=== PATIENT | female | born 1975 | race Caucasian/White ===

== ENCOUNTER → 2016-06-01 | Outpatient (CLI) | payer MEDICAID ==
[~2016-06-01] MED LIST: ALBUTEROL-200 PUFFS/ IH; AMOXICILLIN 50500 MG PO; AMOXICILLIN AND1 TA2 PO; AMOXICOT500 MG PO; BACTRIM 400 MG-1 TAB PO; BACTRIM DS 8001 TA1 PO; BACTROBAN2% TP; BROMPHENIRAMIN118 M1 PO; BUFEN200 MG PO; BUPROPION HCL300 MG PO; CHANTIX1 M1 PO; CHANTIX1 TAB PO; CIPRO 500MG TA500 MG PO; CITALOPRAM HYDR10 MG PO; DICLOFENAC 50MG50 MG PO; FLONASE 50 MCG16 GM; IBUPROHM200 MG PO; KEFLEX 500MG.500 MG PO; KEFLEX500 M1 PO; KEFLEX500 MG PO; MELATONIN1 MG; MONTELUKAST SOD10 MG PO; PANTOPRAZOLE SO40 M1 PO; ROBAXIN500 M1 PO; SEPTRA DS 800 M1 TAB PO; SKELAXIN800 MG PO; TESSALON PERLE100 MG PO; TRAMADOL 50MG T50 MG PO; ULTRAM50 MG PO; VICODIN 5/500 T1 TAB PO; VOLTAREN75 MG PO; XANAX 0.5MG TA0.5 MG PO; ZITHROMAX Z PA250 MG PO; ZOFRAN4 MG PO
[2016-06-01 19:25] LABS: BUN 5 mg/dL (7-18)
[2016-06-01 19:28] LABS: GFR (ESTIMATED) 79 ML/MIN (59-)
[2016-06-03 08:43] LABS: FSH 7.5 mIU/mL (.); LH 13.4 mIU/mL (.)
== END ==
LOC: LAB 15:49
PROVIDERS: Nurse Practitioner Family
DX: R23.2 Flushing (principal)

== ENCOUNTER 2016-06-17 20:45 | Emergency (ER) | payer MEDICAID ==
[~2016-06-17] VITALS: Ht 177.8 cm; Wt 104.8 kg
[2016-06-17] MEDS ORDERED: FLONASE 50 MCG16 GM (20:54)
[2016-06-17] MEDS ORDERED: PANTOPRAZOLE SO40 M1 PO (20:54)
--- OUTSIDE RECORDS SUMMARY | 2016-06-17 20:54 | External Medical Summary Rpt ---
Author Author , Organization [employer] Address Unknown Phone Unavailable Care Team Providers Care Miller Supervisor Name Role Phone BEINEKE SAURABH, KAROL Unavailable Unavailable SAURABH BEDOYA TER, BEDOYA TER Unavailable Unavailable BESSON, BESSON Unavailable Unavailable BESSON SOPHIE, BESSON Unavailable Unavailable SOPHIE BESSON SOPHIE, BESSON Unavailable Unavailable SOPHIE MOORE, MOORE Unavailable Unavailable MOORE ALL, MOORE ALL Unavailable Unavailable JAMIA MARIETTA, JAMIA Unavailable Unavailable MARIETTA [facility] Unavailable Unavailable [facility], [facility] Unavailable Unavailable [facility], [facility] NEGIN SOMMERS, Unavailable Unavailable NEGIN SOMMERS ALEXSANDRA JR, ALEXSANDRA JR Unavailable Unavailable NAA GIO, Unavailable Unavailable NAA GIO NAA GIO, Unavailable Unavailable NAA GIO ADITI SEPIDEH, ADITI Unavailable Unavailable SEPIDEH CANELA, CANELA Unavailable Unavailable [facility] Unavailable Unavailable SPECIAL, [facility] [place] [place] FALLIS IVONNE, FALLIS Unavailable Unavailable IVONNE FEEBACK REE, FEEBACK Unavailable Unavailable REE ANGELICA ANNE MARIE, Unavailable Unavailable ANGELICA ANNE MARIE AYAD, LION Unavailable Unavailable JR ANAYA FULLER, Unavailable Unavailable JR LYRIC SEPIDEH, LYRIC Unavailable Unavailable SEPIDEH [facility] CARYL JAM, CARYL Unavailable Unavailable JAM CARYL JAM, CARYL Unavailable Unavailable JAM [facility] Unavailable Unavailable INC, [facility] Unavailable Unavailable [facility], [facility] Unavailable Unavailable HOSPITAL P, [facility], [facility]available Unavailable [facility], Unavailable Unavailable [facility] OXANA POLANCO Unavailable Unavailable [facility], [facility] JORDAN, JORDAN Unavailable Unavailable JORDAN KADEN, JORDAN Unavailable Unavailable KADEN JORDAN KAEDN, JORDAN Unavailable Unavailable KADEN WIN [facility], Unavailable Unavailable [facility] Unavailable Unavailable INTER[facility] MED, [facility] RICH ADAMS, Unavailable Unavailable RICH AD[facility], [facility] PETTEY JAM, PETTEY Unavailable Unavailable JAM PICKLESIMER JR JARED, Unavailable Unavailable PICKLESIMER JR JARED SADEK MOH, SADEK MOH Unavailable Unavailable [facility], Unavailable Unavailable [facility] SHASHY SARITA, SHASHY Unavailable Unavailable SARITA SOTINGEANU SAURABH, Unavailable Unavailable SOTINGEANU SAURABH ROLO SHE, Unavailable Unavailable ROLO SHE CARRANZA DON, Unavailable Unavailable CARRANZA DON CARRANZA DON, Unavailable Unavailable CARRANZA DON CARRANZA, DON R, Unavailable Unavailable CARRANZA, DON R TAMARA LASHAUN, TAMARA Unavailable Unavailable LASHAUN [facility], [facility] Unavailable Unavailable [facility] Unavailable Unavailable [facility]591, [facility] Unavailable Un[facility] DE[facility] Unavailable [facility]available DEPT [facility], [facility] MARY BUSBY, MARY Unavailable Unavailable KEHINDE BUSBY, MARY Unavailable Unavailable KEHINDE INDIRA MAT, INDIRA MAT Unavailable Unavailable Purpose Continuity of Care Document - 04-19-2008 through 2016 Problems Code Diagnosis DOS Provider Status N393 STRESS 05-06-2016 [facility] P MALE L309 DERMATITIS 04-22-2016 [facility] UNSPECIFIED [place] [facility] K219 GASTRO-ESOP 03-10-2016 [facility]i [facility]UX [facility] DISEASE INC WITHOUT ESOPHAGITIS K5730 DIVERTICULO 03-10-2016 [facility] LG MEDICAL INTEST W/O IMAGING ASS PERF/ABSC W/O BLEED R1011 RIGHT UPPER 03-10-2016 [facility] H6023 MALIGNANT 03-01-2016 [facility] OTITIS PHYSICIANS EXTERNA GROUP BILATERAL H6503 ACUTE 03-01-2016 [facility] SEROUS PHYSICIANS OTITIS GROUP MEDIA BILATERAL 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 M5441 LUMBAGO 01-23-2016 [facility] WITH [facility]YSICIANS, [facility] RIGHT SIDE M545 LOW BACK 01-23-2016 [facility] H44973 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[facility] 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 H5213 MYOPIA 11-28-2015 CARYL JAM BILATERAL R1031 RIGHT LOWER 11-28-2015 [facility] R1032 LEFT LOWER 11-28-2015 [facility] R310 GROSS 11-28-2015 [facility] HEMATURIA [place] [facility] R319 HEMATURIA 11-28-2015 [place] [facility] R079 CHEST PAIN 11-17-2015 [facility] UNSPECIFIED PHYSICIANS, PLLC G16663 CUTANEOUS 10-28-2015 [facility] ABSCESS OF [facility] RIGHT LOWER INC LIMB L12130 CUTANEOUS 10-28-2015 [facility] ABSCESS OF PHYSICIANS, HEAD ANY PLLC PART EXCEPT FACE L0390 CELLULITIS 10-15-2015 [facility] UNSPECIFIED [place] [facility] H6120 IMPACTED 09-25-2015 [facility] CERUMEN PHYSICIANS UNSPECIFIED GROUP EAR H6590 UNSPECIFIED 09-25-2015 [facility] PHYSICIANS NONSUPPURAT GROUP [place] OTITIS MEDIA UNS EAR H6903 PATULOUS 09-25-2015 JORDAN KADEN EUSTACHIAN TUBE BILATERAL R0982 POSTNASAL 09-18-2015 [facility] DRIP [facility] MED J029 ACUTE 09-15-2015 [facility] PHARYNGITIS PHYSICIAN GROUP UNSPECIFIED K120 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[facility] ORAL PHYSICIAN APHTHAE GROUP J0101 ACUTE 09-09-2015 [facility] RECURRENT PHYSICIANS, [facility] SINUS[facility] J4520 MILD 09-09-2015 [facility] INTERMITTEN PHYSICIANS, T AST[facility]MA [facility] UNCOMPLICAT ED R0600 DYSPNEA 09-09-2015 [facility] R221 LOCALIZED 09-09-2015 [place] SWELLING MEDICAL MASS AND IMAGING ASS LUMP NECK Z720 TOBACCO USE 09-09-2015 [facility] P R05 COUGH 09-08-2015 [facility] PHYSICIANS GROUP H6090 UNSPECIFIED 08-25-2015 [facility] OTITIS PHYSICIANS EXTERNA GROUP UNSPECIFIED EAR H6501 ACUTE 07-17-2015 [facility] SEROUS PHYSICIANS OTITIS GROUP MEDIA RIGHT EAR H6591 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-17-2015 [facility] NONSUPPURAT INC [place] OTITIS MEDIA RT EAR H9391 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-17-2015 COMMUNITY DISORDER ANESTH OF OF RIGHT THE BLUE EAR [id number] PAIN IN 05-28-2015 [place] [facility] HAND [facility] M7989 OTHER 05-28-2015 [place] SPECIFIED MEDICAL SOFT TISSUE IMAGING ASS DISORDERS R358 OTHER 05-28-2015 [facility] POLYURIA [facility] INC J0190 ACUTE 05-11-2015 [facility] SINUSITIS PHYSICIANS UNSPECIFIED GROUP A09 INFECTIOUS 03-14-2015 [facility] ITIS AND INC COLITIS UNSPEC J069 ACUTE UPPER 03-12-2015 [facility] RESPIRATORY INTERNAL INFECTION MED UNSPECIFIED M542 CERVICALGIA 02-28-2015 [facility] INC 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, 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 N390 URINARY 02-24-2015 [facility] TRACT PHYSICIANS INFECTION GROUP SITE NOT SPECIFIED L664 FOLLICULITI 02-09-2015 [facility] Ludwig PHYSICIANS, ULERYTHEMAT PLLC USMAN RETICULATA L738 OTHER 02-09-2015 [facility] SPECIFIED [facility] FOLLICULAR INC DISORDERS B351 TINEA 01-30-2015 [place] IVONNE UNGUIUM B353 TINEA PEDIS 01-30-2015 [place] IV[place]NE I890 LYMPHEDEMA 01-30-2015 [place] [facility] NOT ELSEWHERE CLASSIFIED M2570 OSTEOPHYTE 01-30-2015 [place] UNSPECIFIED JOINT H9202 OTALGIA 01-17-2015 [facility] LEFT EAR [place] [facility] H6506 ACUTE 01-16-2015 [facility] SEROUS PHYSICIANS OTITIS GROUP MEDIA RECURRENT BILATERAL H6523 CHRONIC 01-16-[address] [facility] OTITIS INC MEDIA BILATERAL H6693 OTITIS 01-16-2015 COMMUNITY MEDIA ANESTH OF UNSPECIFIED THE BLUE BILATERAL U87348 ENCOUNTER 01-15-[address] [facility] [facility] PREPROCEDUR INC AL EXAMINATION V47411 ACUTE & 12-27-2014 [facility] OTITS MEDIA BILATERAL H1032 UNSPECIFIED 12-17-2014 [facility] TIS LEFT EYE N6489 OTHER 12-16-2014 [place] SPECIFIED MEDICAL DISORDERS IMAGING ASS OF BREAST R928 OTH ABNORM 12-16-[address] [facility] INCONCLUSIV INC E FIND ON DX IMAG BREAST B9789 OTH VIRAL 12-13-2014 [facility] AGENT CAUSE [place] DISEASES INTERNAL CLASSIFIED MED ELSW H6504 ACUTE 12-09-2014 [facility] SEROUS PHYSICIANS OTITIS GROUP MEDIA RECURRENT RIGHT EAR [id number] ANKYLOSIS 12-09-2014 [facility] OF EAR PHYSICIANS OSSICLES GROUP RIGHT EAR H9191 UNSPECIFIED 12-09-2014 [facility] HEARING PHYSICIANS LOSS RIGHT GROUP EAR A46204 PAIN IN 12-05-2014 [place] [facility] RIGHT TOES P36201 PAIN IN 12-05-2014 [place] LEFT TOES Z1231 ENCOUNTER 11-29-2014 [place] SCREENING MEDICAL MAMMO MALIG IMAGING ASS NEOPLASM BREAST Z803 FAMILY 11-29-2014 [place] HISTORY OF MEDICAL MALIGNANT IMAGING ASS NEOPLASM OF BREAST Q90396 PAIN IN 11-15-2014 [facility] RIGHT VALLEY FINGERS INTERNAL MED V73657 PAIN IN 11-15-2014 [facility] LEFT FOOT VALLEY INTERNAL MED V252 STERILIZATI 11-05-2014 [facility] DEPT DON[facility]AN 30803 DYSFUNCTION 09-19-2014 [facility] OF PHYSICIANS EUSTACHIAN GROUP TUBE 4779 ALLERGIC 09-19-2014 [facility] RHINITIS PHYSICIANS CAUSE GROUP UNSPECIFIED 73067 OTHER 09-19-2014 [facility] DISEASES OF PHYSICIANS NASAL GROUP CAVITY AND SINUSES 7295 PAIN IN 09-18-2014 [facility] SOFT [place] TISSUES OF INTERNAL LIMB MED 49632 SIMPLE/UNSP 2014 [facility] ECIFIED [facility] CHRONIC INC SEROUS OTITIS MEDIA 3814 NONSUPPRATV 2014 [place] OTITIS MEDICAL MEDIA NOT IMAGING ASS SPEC ACUT/CHRON 470 DEVIATED 2014 [place] NASAL MEDICAL SEPTUM IMAGING ASS 96593 UNSPECIFIED 09-02-2014 [facility] CONDUCTIVE PHYSICIANS HEARING GROUP LOSS 4730 CHRONIC 09-02-2014 [facility] MAXILLARY PHYSICIANS SINUSITIS GROUP 3829 UNSPECIFIED 08-29-2014 JORDAN KADEN OTITIS MEDIA 20487 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 4619 ACUTE 08-22-2014 [facility] SINUSITIS, VALLEY UNSPECIFIED INTERNAL MED 3899 UNSPECIFIED 08-13-2014 [facility] HEARING PHYSICIANS LOSS GROUP 7856 ENLARGEMENT 08-13-2014 [facility] OF LYMPH PHYSICIANS NODES GROUP 64449 GANGLION OF 05-31-2014 [facility] TENDON PHYSICIANS SHEATH GROUP 38722 UNSPECIFIED 05-31-2014 COMMUNITY GANGLION ANESTH OF THE BLUE 70165 PAIN IN 05-30-2014 [place] JOINT, MEDICAL FOREARM IMAGING ASS 49068 GANGLION OF 05-29-2014 [facility] JOINT [facility] INC V7283 OTHER 05-29-2014 [facility] SPECIFIED [facility] PRE-OPERATI INC VE EXAMINATION 06991 UNSPECIFIED 02-27-2014 [facility] OTALGIA [place] [facility] 4871 INFLUENZA 02-13-2014 [facility] WITH OTHER VALLEY RESPIRATORY INTERNAL MED MANIFESTATI ONS 09444 GENERALIZED 02-13-2014 [facility] PAIN [place] [facility] 4659 ACUTE URIS 12-06-2013 [facility] OF VALLEY UNSPECIFIED INTERNAL SITE MED 486 PNEUMONIA, 12-03-2013 [facility] ORGANISM [place] UNSPECIFIED INTERNAL MED 7840 HEADACHE 12-03-2013 [facility] [place] [facility] MED 6822 CELLULITIS 11-15-2013 [facility] AND ABSCESS PHYSICIANS OF TRUNK GROUP 76004 ABDOMINAL 11-15-2013 [facility] PAIN, PHYSICIANS UNSPECIFIED GROUP SITE 24898 ABDOMINAL 10-29-2013 [facility] PAIN, [facility] INTERNAL MED 12607 POLYURIA 10-27-2013 [facility] INC V700 ROUTINE 10-27-2013 [facility] MEDICAL INC EXAM@HEALTH CARE FACL 01968 ESOPHAGEAL 10-26-2013 [facility] REFLUX [place] INTERNAL MED 05529 INSOMNIA 10-26-2013 [facility] UNSPECIFIED [place] INTERNAL MED 6160 CERVICITIS 10-23-2013 [facility] ENDOCERVICI TIS V7231 ROUTINE 10-23-2013 [facility] AL EXAMINATION 1101 DERMATOPHYT 2013 [facility] OSIS OF [facility] NAIL INC 2400 GOITER, 07-03-2013 MARY KEHINDE SPECIFIED SIMPLE 2449 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-03-2013 [facility] HYPOTHYROID INC ISM 07850 OTOGENIC 07-03-2013 MARY KEHINDE PAIN 01657 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-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 7842 SWELLING 07-03-2013 MARY KEHINDE MASS OR LUMP IN HEAD AND NECK 65697 UNSPECIFIED 06-19-2013 MARY KEHINDE TINNITUS 5990 URINARY 06-11-2013 [facility] TRACT INFECTION SITE NOT SPECIFIED 2409 GOITER, 06-08-2013 [facility] UNSPECIFIED GIO 66437 OBESITY, 06-06-[address] [facility] INC 87576 UNSPECIFIED 06-05-2013 EAR, NOSE ABNORMAL AND THROAT AUDITORY SPECIAL PERCEPTION 22601 UNSPECIFIED 06-05-2013 [facility] VAGINITIS PHYSICIANS AND GROUP VULVOVAGINI TIS 39619 UNSPECIFIED 05-28-2013 JORDAN KADEN ACUTE NONSUPPURAT [place] OTITIS MEDIA 13150 METHICILLIN 05-28-2010 [facility] RESISTANT [facility] STAPHYLOCOC INC CUS AUREUS 6826 CELLULITIS 05-28-2010 [facility] AND ABSCESS [facility] OF LEG INC EXCEPT FOOT 91616 METHICILLIN 05-26-2010 [facility] RESISTANT DON STAPH AUREUS SEPTICEMIA V090 INFECTION 05-26-2010 [facility] W/MICROORGA DON NISMS RESISTANT PENICILLINS V7241 05-26-2010 [facility] EXAMINATION [facility] OR TEST INC NEGATIVE RESULT 9164 HIP THI 05-23-2010 [facility] LEG&ANK DON INSECT BITE NONVENOMOUS W/O INF 5589 OTH&UNSPEC 12-13-2008 [facility], NONINFECTIO DON R US GASTROENTER ITIS&COLITI S 80777 CALCANEAL 12-13-2008 [facility] SPUR DON R 1105 DERMATOPHYT 12-02-2008 CARRANZA, OSIS OF THE DON R BODY 00030 OVERWEIGHT 10-09-2008 [facility] DON R 4618 OTHER ACUTE 10-09-2008 [facility], [place]IN[place]IT[place] R 285[address] UNSPECIFIED 06-11-2008 [facility] SENSORINEUR AL HEARING LOSS 30867 UNSPECIFIED 06-06-2008 [facility] OBSTRUCTION OF EUSTACHIAN TUBE 3882 UNSPECIFIED 06-06-2008 YARELY JORDAN HEARING LOSS Allergies, Adverse Reactions, Alerts Clinical Alert Notifications Alert Asthma: history of ED visit in the last 365 days Asthma: no influenza vaccine in the last 365 days Medications Na ND Rx Da Fi Fi Am Da Di Ph RX Ph St me C No te ll ll ou ys ag ar # ys at rm s nt no ma ic us Or Da si cy ia de te s n re d CH 00 03 04 60 30 00 EA Ac AN 06 -2 -[address] ti TI 90 4- 8- 00 00 SI ve X 46 20 20 48 DE 1 95 17 17 09 MG 6 38 PH AR TA MA BL CY ET OF CY NT HI AN A IN C IM 00 04 04 30 30 00 EA Ac IP 78 -0 -[address] ti RA 11 3- 8- 00 00 SI ve MT 76 20 20 48 DE NE 60 17 17 23 1 24 PH HC AR L MA 50 CY MG OF CY TA NT BL HI ET AN A IN C CI 65 03 04 30 30 00 EA Ac TA 86 -2 -[address] ti LO 20 3- 8- 00 00 SI ve [place] 00 20 20 47 DE AM 50 17 17 24 5 82 PH HB AR R MA 10 CY MG OF CY TA NT BL HI ET AN A IN C PA 65 03 04 30 30 00 EA Ac NT 86 -2 -[address] ti OP 20 2- 4- 00 00 SI ve RA 56 20 20 47 DE ZO 09 17 17 33 LE 0 52 PH AR SO MA D CY DR OF 40 CY NT MG HI AN TA A B IN C AL 67 03 04 60 30 00 EA Ac [place] 25 -2 -[address] ti AZ 30 0- 4- 00 00 SI ve OL 90 20 20 48 DE AM 11 17 17 03 1 96 PH 0. AR 5 MA MG CY TA OF BL CY ET NT HI AN A IN C MO 60 03 04 30 30 00 EA Ac NT 50 -0 -[address] ti EL 53 7- 7- 00 00 SI ve [place] 56 20 20 47 DE 20 17 17 88 T 8 25 PH SO AR D MA 10 CY MG OF CY TA NT BL HI ET AN A IN C TR 00 03 04 15 14 00 EA Ac IA 16 -1 -[address] ti MC 80 0- 7- 00 00 SI ve IN 00 20 20 47 DE OL 31 17 17 90 ON 5 69 PH E AR 0. MA 02 CY 5% OF CR CY EA NT M HI AN A IN C IM 00 02 03 30 30 00 EA Ac IP 78 -2 -[address] ti RA 11 3- 1- 00 00 SI ve MT 76 20 20 47 DE NE 60 17 17 73 1 17 PH HC AR L MA 50 CY MG OF CY TA NT BL HI ET AN A IN C BR 60 02 03 18 3 00 WA Ac OM 43 -1 -2 0. 00 L- ti PH 20 9- 4- 00 07 MA ve EN 27 20 20 0 47 RT IR 51 17 17 16 -P 6 24 PH SE AR UD MA OE CY PH ED #5 -D 91 M SY R CI 65 02 03 30 30 00 EA Ac TA 86 -1 -[address] ti LO 20 6- 4- 00 00 SI ve [place] 00 20 20 47 DE AM 50 17 17 24 5 82 PH HB AR R MA 10 CY MG OF CY TA NT BL HI ET AN A IN C PA 65 02 03 30 30 00 EA Ac NT 86 -2 -[address] ti OP 20 2- 4- 00 00 SI ve RA 56 20 20 47 DE ZO 09 17 17 33 LE 0 52 PH AR SO MA D CY DR OF 40 CY NT MG HI AN TA A B IN C MO 60 02 03 30 30 00 EA Ac NT 50 -0 -[address] ti EL 53 7- 0- 00 00 SI ve [place] 56 20 20 46 DE 20 17 17 66 T 8 11 PH SO AR D MA 10 CY MG OF CY TA NT BL HI ET AN A IN C AM 00 02 03 20 10 00 WA Ac OX 09 -0 -0 .0 00 L- ti IC 33 1- 3- 00 07 MA ve IL 10 20 20 46 RT LI 90 17 17 82 N 5 70 PH 50 AR 0 MA MG CY CA #5 PS 91 UL E FL 60 01 03 16 15 00 EA Ac [place] 43 -2 -[address] ti IC 20 7- 3- 00 00 SI ve 26 20 20 43 DE ON 41 17 17 56 E 5 51 PH [place] AR OP MA CY 50 OF MC CY G NT SP HI RA AN Y A IN C PA 59 01 02 30 30 00 EA Ac NT 74 -2 -[address] ti OP 60 3- 4- 00 00 SI ve RA 28 20 20 47 DE ZO 49 17 17 33 LE 0 52 PH AR SO MA D CY DR OF 40 CY NT MG HI AN TA A B IN C CI 00 01 02 7. 5 00 EA Ac [place] 06 -1 -[address] ti OD 58 6- 7- 0 00 SI ve EX 53 20 20 47 DE 30 17 17 26 OT 2 50 PH IC AR MA REYES CY SP EN OF SI CY ON NT HI AN A IN C CI 65 01 02 30 30 00 EA Ac TA 86 -1 -[address] ti LO 20 6- 7- 00 00 SI ve [place] 00 20 20 47 DE AM 50 17 17 24 5 82 PH HB AR R MA 10 CY MG OF CY TA NT BL HI ET AN A IN C MO 60 01 02 30 30 00 EA Ac NT 50 -0 -[address] ti EL 53 6- 0- 00 00 SI ve [place] 56 20 20 46 DE 20 17 17 66 T 8 11 PH SO AR D MA 10 CY MG OF CY TA NT BL HI ET AN A IN C PA 59 12 01 30 30 00 EA Ac NT 74 -1 -[address] ti OP 60 5- 0- 00 00 SI ve RA 28 20 20 45 DE ZO 49 16 17 17 LE 0 55 PH AR SO MA D CY DR OF 40 CY NT MG HI AN TA A B IN C DI 00 12 01 60 30 00 EA Ac CL 22 -0 -[address] ti OF 82 9- 3- 00 00 SI ve EN 55 20 20 46 DE AC 09 16 17 82 6 97 PH SO AR D MA EC CY 50 OF CY MG NT HI TA AN B A IN C ME 00 12 01 40 20 00 EA Ac TH 60 -0 -[address] ti OC 34 9- 3- 00 00 SI ve AR 48 20 20 46 DE BA 52 16 17 82 MO 1 98 PH L AR 50 MA 0 CY MG OF TA CY BL NT ET HI AN A IN C TR 16 12 01 15 3 00 EA Ac AM 71 -0 -[address] ti AD 40 9- 3- 00 00 SI ve OL 11 20 20 46 DE 11 16 17 83 HC 2 03 PH L AR 50 MA CY MG OF TA CY BL NT ET HI AN A IN C [place] 59 12 01 12 6 00 EA Ac ED 74 -1 -[address] ti NI 60 2- 3- 00 00 SI ve SO 17 20 20 46 DE NE 50 16 17 85 6 64 PH 20 AR MA MG CY TA OF BL CY ET NT HI AN A IN C CH 00 12 01 56 28 00 EA Ac AN 06 -0 -[address] ti TI 90 6- 9- 00 00 SI ve X 46 20 20 46 DE 1 95 16 17 78 MG 6 49 PH AR TA MA BL CY ET OF CY NT HI AN A IN C [place] 65 12 01 10 3 00 EA Ac OM 16 -0 -[address] ti ET 20 7- 9- 00 00 SI ve TRAN 52 20 20 46 DE ZI 11 16 17 80 NE 1 72 PH AR 25 MA CY MG OF TA CY BL NT ET HI AN A IN C NA 00 10 11 00 [address] Ac [place] 09 -3 -[address] 92 EP ti OX 30 0- 5- 00 SI 65 HE ve EN 14 20 20 DE NS 90 09 09 50 1 PH DO 0 AR N MG MA R CY TA BL OF ET CY NT HI AN A CE 00 09 10 00 [address] Ac FD 78 -2 -0 .0 L- 37 EP ti IN 12 1- 8- 00 MA 69 HE ve IR 17 20 20 RT 6 NS 66 09 09 30 0 PH DO 0 AR N MG MA R CY CA PS #5 UL 91 E CI 55 09 10 00 [address] Ac TA 11 -2 -0 .0 L- 37 EP ti LO 10 1- 8- 00 MA 69 HE ve [place] 34 20 20 RT 7 NS AM 43 09 09 0 PH DO HB AR N R MA R 40 CY MG #5 91 TA BL ET 63 09 10 00 [address] Ac 82 -2 -0 .0 L- 14 EP ti 40 1- 8- 00 MA 71 HE ve 05 20 20 RT 7 NS 64 09 09 0 PH DO AR N MA R CY #5 91 LO 00 04 09 01 [address] Ac RA 78 -1 -1 .0 L- 13 EP ti TA 15 7- 0- 00 MA 92 HE ve DI 07 20 20 RT 4 NS NE 70 09 09 1 PH DO 10 AR N MA R MG CY TA #5 BL 91 ET AL 67 07 09 01 [address] Ac [place] 25 -1 -[address] 47 EP ti AZ 30 4- 0- 00 SI 93 HE ve OL 90 20 20 DE NS AM 11 09 09 1 PH DO 0. AR N 5 MA R MG CY TA OF BL CY ET NT HI AN A NA 00 04 09 00 [address] Ac SO 08 -0 -1 .0 L- 14 EP ti NE 51 1- 0- 00 MA 68 HE ve X 28 20 20 RT 2 NS 50 80 09 09 1 PH DO MC AR N G MA R NA CY SA L #5 SP 91 RA Y AL 67 07 07 [address] Ac [place] 25 -1 -[address] 47 EP ti AZ 30 4- 0- 00 SI 93 HE ve OL 90 20 20 DE NS AM 11 09 09 1 PH DO 0. AR N 5 MA R MG CY TA OF BL CY ET NT HI AN A NA 00 06 06 00 [address] Ac SO 08 -0 -1 .0 L- 23 EP ti NE 51 5- 8- 00 MA 50 HE ve X 28 20 20 RT 4 NS 50 80 09 09 1 PH DO MC AR N G MA R NA CY SA L #5 SP 91 RA Y AZ 00 06 06 00 6. [address] Ac IT 78 -0 -1 00 L- 23 EP ti HR 11 5- 8- 0 MA 50 HE ve OM 49 20 20 RT 3 NS YC 66 09 09 IN 8 PH DO AR N 25 MA R 0 CY MG #5 TA 91 BL ET AL 67 02 05 00 [address] Ac [place] 25 -1 -[address] 49 EP ti AZ 30 6- 1- 00 SI 30 HE ve OL 90 20 20 DE NS AM 11 09 09 1 PH DO 0. AR N 5 MA R MG CY TA OF BL CY ET NT HI AN A LO 00 04 05 00 [address] Ac RA 78 -1 -0 .0 L- 13 EP ti TA 15 7- 7- 00 MA 92 HE ve DI 07 20 20 RT 4 NS NE 70 09 09 1 PH DO 10 AR N MA R MG CY TA #5 BL 91 ET Immunization Name Date Route CVX Reacti Commen Provid Is Given on t er Refuse d TDAP [facility] No VACCIN [address] YRS/> [facility] IM DEPT [facility] Procedures Procedure DOS Code Location Performer Comment THER 76060 [facility] PROPH/DX [facility] NJX IV INC INC PUSH SINGLE/1S T [place]ST/[place] [address] [facility] LIPASE [facility] INC INC BLOOD 65401 [facility] COUNT 7 [facility] COMPLETE INC INC AUTO&AUTO DIFRNTL WBC URNLS DIP 83521 [facility] STICK/TAB INC INC [place] [address] [facility] AMYLASE 7 [facility] INC INC COMPREHEN 96643 [facility] SIVE 7 [facility] METABOLIC INC INC PANEL URINE 55865 [facility] 7 [facility] TEST INC INC VISUAL COLOR CMPRSN METHS FINAL G9551 [place] MO[place] REPR ABD 7 MEDICAL IMAG STS IMAGING W/O ASS INCIDNT FND LES NTD: [place] [address] [facility] ABDOMEN & 7 MEDICAL PELVIS IMAGING W/O ASS CONTRAST MATERIAL FINAL G9638 [facility] REPORTS 7 MEDICAL W/O DOC IMAGING 1/MORE ASS DOSE REDUCTION TECH CULTURE 55302 [facility] BACTERIAL 6 [facility] INC INC QUANTTATI VE COLONY COUNT URINE RADEX 45488 [facility] SPINE 6 [facility] LUMBOSACR INC INC AL MINIMUM 4 VIEWS URNLS DIP 21230 [facility] STICK/TAB INC INC LET REAGENT AUTO MICROSCOP Y DETERMINA 03687 CARYL SIMONS 6 JAM JAM REFRACTIV E STATE OPHTH [address] [facility] 6 JAM JAM XM&[place] [address] [place] ALL ABDOMEN & 6 MEDICAL PELVIS IMAGING W/O ASS CONTRAST MATERIAL RADIOLOGI 21298 [place] NAA C 6 MEDICAL GIO EXAMINATI IMAGING ON CHEST ASS SING[place]IEW FRONTAL INCISION 36390 PAMELA GUNTER & 6 PHYSICIAN [facility] S, [facility] ABSCESS COMPLICAT ED/MULTIP LE CUL BACT 36313 [facility] AEROBIC 6 [facility] ADDL INC INC METHS DEFINITIV E EA ISOL CUL BACT 93906 DEB OBYD XCPT [address] [facility] URINE INC INC BLOOD/STO OL AEROBIC ISOL SUSCEPTIB 31910 DEB BOYD LTY STDY [address] [facility] ANTIMICRB INC INC IAL MICRO/AGA R DILUTJ CUR MEDS G8428 [place] NO DOC 6 [facility] OBDT INTERNAL INTERNAL UPD/REV MED MED ELIG CLIN RSN N GVN COMPRE 41432 NIKKI JORDAN AUDIOMETR 6 KADEN KADEN Y THRESHOLD EVAL SP RECOGNIJ IAADIADOO 21487 [facility] LION 6 PHYSICIAN STREPTOCO GROUP CCUS GROUP A ECG 56608 DEB FOREMAN ROUTINE 6 [facility] W/LEAST P 12 LDS I&R ONLY PRESSURIZ 39420 DEB BOYD ED/NONPRE 6 [facility] SSURIZED INC INC INHALATIO N TREATMENT RADIOLOGI 57734 [facility] No EXAM 6 [facility] CHEST 2 INC INC VIEWS FRONTAL&L ATERAL RADIOLOGI 88431 [facility] C 6 [facility] EXAMINATI INC INC ON NECK SOFT TISSUE BLOOD 40698 [facility] COUNT 6 [facility] COMPLETE INC INC AUTO&AUTO DIFRNTL WBC CREATINE 44946 [facility] KINASE MB 6 [facility] FRACTION INC INC ONLY COMPREHEN 36679 DEB BO[facility] SIVE 6 MEM [facility] METABOLIC INC INC PANEL NATRIURET 37698 DEB BOYD IC [address] [facility] [place] [address] DEB [facility]YD TROPONIN 6 [facility] QUANTITAT INC INC PARRISH THERAPEUT 57798 DEB BOYD IC [address] [facility] PROPHYLAC INC INC TIC/DX INJECTION SUBQ/IM FIBRIN 58590 DEB BOYD DGRADJ [address] [facility] PRODUCTS INC INC D-DIMER QUAL/SEMI LAUREANO CREATINE 61564 DEB BOYD KINASE 6 [facility] TOTAL INC INC ECG 49530 DEB BOYD ROUTINE [address] [facility] ECG INC INC W/LEAST 12 LDS TRCG ONLY W/O I&R ANES 44693 COMMUNITY FEEBACK XTRNL MID 6 ANESTH REE & INNER OF THE EAR W/BX BLUE TYMPANOTO MY URINE [address] [facility] TEST [place] [address] DEB BOYD INFUSION [address] [facility] THERAPY INC INC PROPHYLAX IS/DX EA HOUR INJECTION J2405 DEB BOYD [address] [facility] ONDANSETR INC INC ON HCL PER 1 MG UNCLASSIF J3490 DEB BOYD IED DRUGS [address] [facility] INC INC THERAPEUT 96101 DEB [facility]YD IC 6 [facility] INJECTION INC INC IV PUSH EACH NEW DRUG TYMPANOST 62366 DEB BOYD DE [address] [facility] [place] [address] DEB BOYD INFUSION [address] [facility] THERAPY/P INC INC ROPHYLAXI S /DX 1ST TO 1 HR RADEX 08657 [place] [facility] ALL HAND 2 6 MEDICAL VIEWS IMAGING ASS RADEX 31409 DEB BOYD HAND [address] [facility] MINIMUM 3 INC INC VIEWS COMPREHEN 73985 DEB BOYD SIVE [address] [facility] METABOLIC INC INC PANEL COLLECTIO 96078 DEB BOYD N VENOUS 6 [facility] BLOOD INC INC VENIPUNCT URE HEMOGLOBI 16708 DEB BOYD N [address] [facility] GLYCOSYLA INC INC MARCY A1C LIPID 32553 DEB BOYD PANEL 6 [facility] INC INC THERAPEUT [address] [facility] [address] IC 6 PHYSICIAN PROPHYLAC S GROUP TIC/DX INJECTION SUBQ/IM INJECTION J1040 [facility] TER 6 PHYSICIAN METHYLPRE S GROUP DNISOLONE ACETATE 80 MG IADNA-DNA 76241 DEB BOYD /RNA GI [address] [facility] PTHGN INC INC MULTIPLEX PROBE TQ - PHYSICAL 43172 DEB BOYD THERAPY 6 [facility] EVALUATIO INC INC N ANES 60496 COMMUNITY TAMARA XTRNL MID 5 ANESTH LASHAUN & INNER OF THE EAR W/BX BLUE TYMPANOTO MY TYMPANOST 27790 DEB BOYD DE 5 [facility] GENERAL INC INC ANESTHESI A BLOOD 54034 DEB BOYD COUNT [address] [facility] COMPLETE INC INC AUTO&AUTO DIFRNTL WBC GONADOTRO 80830 DEB BOYD PIN 5 [facility] CHORIONIC INC INC QUALITATI VE BASIC 29852 DEB BOYD METABOLIC 5 [facility] PANEL INC INC CALCIUM TOTAL COLLECTIO 38516 DEB BOYD N VENOUS 5 [facility] BLOOD INC INC VENIPUNCT URE DIAGNOSTI G0206 [place] NAA C 5 MEDICAL GIO MAMMOGRAP IMAGING HY INCL ASS CAD WHEN PERF; UNI IAADIADOO 23248 [place] [facility] 5 [place] [facility] STREPTOCO INTERNAL CCUS MED GROUP A SCREENING G0202 [facility] 5 MEDICAL SAUR[facility] MAMMOGRAP IMAGING HY KARYNA ASS INCL CAD WHEN PERFORMD COMPUTER- 07741 [facility] AIDED 5 MEDICAL [facility] DETECTION IMAGING ASS SCREENING MAMMOGRAP HY RADEX 35127 [place] [facility] ALL HAND 5 MEDICAL MINIMUM 3 IMAGING VIEWS ASS SCREENING 33992 [facility] TEST 5 [facility] VISUAL HLTH DEPT HLTH DEPT ACUITY DONOVAN DONOVAN QUANTITAT PARRISH BILAT RADEX 11855 DEB BOYD FOOT 5 [facility] COMPLETE INC [place] MINIM[place] [address] [place] [address] [place] [facility] ALL MAXILLOFA 5 MEDICAL CIAL W/O IMAGING CONTRAST ASS MATERIAL DISTORT 43415 NIKKI JORDAN PRODUCT 5 KADEN KADEN EVOKED OTOACOUST IC EMISNS LIMITD TYMPANOME 49306 NIKKI JORDAN TRY 5 KADEN KADEN COMPRE 59265 NIKKI JORDAN AUDIOMETR 5 KADEN KADEN Y THRESHOLD EVAL SP RECOGNIJ INJECTION J0696 [place] [facility] AND 5 [facility] CEFTRIAXO INTERNAL NE SODIUM MED PER 250 MG THERAPEUT 98406 [place] [facility] AND IC 5 [facility] PROPHYLAC INTERNAL TIC/DX MED INJECTION SUBQ/IM INJECTION J3301 [place] [facility] AND 5 [facility] TRIAMCINO INTERNAL LONE MED ACETONIDE NOS 10 MG REPAIR 72299 DEB BOYD COMPLEX 5 [facility] SCALP/ARM INC INC /LEG 2.6-7.[address] [facility] NERVE 5 ANESTH SHE MUSCLE OF THE TDN BLUE FASCIA&BU RSA FOREARM WRIST EXCISION 77946 [facility] PETTEY LESION 5 PHYSICIAN ROXANE TENDON S GROUP SHEATH FOREARM&/ WRIST MRI UPPER 83069 DEBVITALIY BOYD 5 [facility] EXTREMITY INC INC OTH THAN JT W/O CONTR MATRL GONADOTRO 63950 DEB BOYD PIN 5 [facility] CHORIONIC INC INC QUALITATI VE COLLECTIO 49920 DEB BOYD N VENOUS 5 [facility] BLOOD INC INC VENIPUNCT URE INJECTION J3301 [place] [facility] 5 [facility] TRIAMCINO INTERNAL LONE MED ACETONIDE NOS 10 MG THERAPEUT 19206 [place] IC 5 [facility] PROPHYLAC INTERNAL TIC/DX MED INJECTION SUBQ/IM IAADIADOO 76022 [place] [facility] 4 [facility] INFLUENZA INTERNAL MED INJECTION J0696 [place] [facility] AND 4 [facility] CEFTRIAXO INTERNAL NE SODIUM MED PER 250 MG THERAPEUT 95340 [place] US[facility] AND IC 4 [facility] PROPHYLAC INTERNAL TIC/DX MED INJECTION SUBQ/IM INJECTION J1885 [facility] LYRIC 4 PHYSICIAN SEPIDEH KETOROLAC S GROUP TROMETHAM INE PER 15 MG THERAPEUT 96935 [facility] IC 4 PHYSICIAN SEPIDEH PROPHYLAC S GROUP TIC/DX INJECTION SUBQ/IM CULTURE 72238 COMBINED COMBINED BACTERIAL 4 PHYSICIAN PHYSICIAN S LA S LA QUANTTATI VE COLONY COUNT URINE URNLS DIP 66227 [place] [facility] 4 [facility] STICK/TAB INTERNAL LET RGNT MED NON-AUTO W/O MICRSCP COMPREHEN 98712 DEB BO[facility]D SIVE 4 [facility] METABOLIC INC INC PANEL LIPID 57968 DEB BOYD PANEL 4 [facility] INC INC TDAP 00993 [facility] VACCINE 7 4 [facility] YRS/> IM HLTH DEPT HLTH DEPT DONOVAN DONOVAN CYTP 34566 [facility], PICKLESIM CERV/VAG 4 LLC ER JR JARED AUTO THIN LAYER PREP MNL SCREEN HEPATIC 12959 DEB BOYD FUNCTION 4 [facility] PANEL INC INC THYROID 28587 DEB BOYD HORM 4 [facility] UPTK/THYR INC [place] [address] DEB BOYD THYROXINE 4 [facility] [place] [address] DEB BOYD THYROID 4 [facility] STIMULATI INC INC NG HORMONE TSH US SOFT 18623 [facility] TISSUE 4 N N HEAD & COMMUNTIY COMMUNTIY NECK REAL HOSPITA HOSPITA TIME IMGE DOCM RADIOLOGI 23299 INDIRA MAT INDIRA MAT C [address] [place] [address] NAA ANA MAXILLOFA 4 GIO GIO CIAL W/O CONTRAST MATERIAL CULTURE 94348 COMBINED COMBINED BACTERIAL 4 PHYSICIAN PHYSICIAN S LA S LA QUANTTATI VE COLONY COUNT URINE CT SOFT 37417 DEB BOYD TISSUE 4 [facility] NECK INC INC W/CONTRAS T MATERIAL LOCM Q9967 DEB BOYD 300-399 4 [facility] MG/ML INC INC IODINE CONCENTRA TION PER ML IM ADM 33583 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 PRQ ID 4 [facility] SUBQ/IM NJXS 1 VACCINE INJECTION J0696 [facility] CORREIASON 4 SOPH[facility] SPOHIE CEFTRIAXO NE SODIUM PER 250 MG LIPID 87971 DEB BOYD PANEL 4 [facility] INC INC COMPREHEN 13631 DEB BOYD SIVE 4 [facility] METABOLIC INC INC PANEL TYMPANOME 70260 EAR, NOSE MARY TRY 4 AND KEHINDE THROAT SPECIAL LARYNGOSC 99332 EAR, NOSE MARY OPY 4 AND KEHINDE FLEXIBLE THROAT DIAGNOSTI SPECIAL C SPEECH 10758 EAR, NOSE MARY AUDIOMETR 4 AND KEHINDE Y THROAT THRESHOLD SPECIAL PURE TONE 34871 EAR, NOSE MARY 4 AND KEHINDE AUDIOMETR THROAT Y AIR SPECIAL ONLY INJECTION J0696 [facility] 4 PHYSICIAN PHYSICIAN CEFTRIAXO S GROUP S GROUP NE SODIUM PER 250 MG THERAPEUT 29201 [facility] IC 4 PHYSICIAN PHYSICIAN PROPHYLAC S GROUP S GROUP TIC/DX INJECTION SUBQ/IM URNLS DIP 90467 [facility] 4 PHYSICIAN PHYSICIAN STICK/TAB S GROUP S GROUP LET RGNT NON-AUTO W/O MICRSCP LEVEL III 28684 [facility] SURG 1 MARKEL & ANGIE PATHOLOGY DUBILIER GROSS&SEPIDEH ROSCOPIC EXAM OTHER 8309 DEB BOYD INCISION 1 [facility] OF SOFT INC INC TISSUE I&D DEEP 30378 DEB BOYD ABSC 1 [facility] BURSA/HEM INC INC [place] THIGH/[place] [address] DEB BOYD INFUSION 1 [facility] THERAPY INC INC PROPHYLAX IS/DX EA HOUR GONADOTRO 59819 DEB BOYD PIN 1 [facility] CHORIONIC INC INC QUALITATI VE SUSCEPTIB 46883 DEB BOYD LTY STDY 1 [facility] ANTIMICRB INC INC IAL MICRO/AGA R DILUTJ BLOOD 84258 DEB BOYD COUNT 1 [facility] COMPLETE INC INC AUTO&[place] [address] DEB BOYD INFUSION [address] [facility] THERAPY/P INC INC ROPHYLAXI S /DX 1ST TO 1 HR CUL BACT 80231 DEB BOYD AEROBIC [address] [facility] ADDL INC INC METHS DEFINITIV E EA ISOL CUL BACT 08042 DEB BOYD XCPT [address] [facility] URINE INC INC BLOOD/STO OL AEROBIC ISOL BASIC 88782 DEB BOYD METABOLIC [address] [facility] [place] [address] DEB BOYD INFUSION [address] [facility] THERAPY INC INC PROPHYLAX IS/DX EA HOUR RADEX 51850 CARRANZA CARRANZA, CALCANEUS 9 DON R DON R MINIMUM 2 VIEWS TYMPANOME 26934 NIKKI JORDAN, TRY 9 WIN Null ACOUSTIC 72901 NIKKI JORDAN, REFLEX 9 WIN Null THRESHOLD COMPRE 53703 NIKKI JORDAN, AUDIOMETR 9 WIN Null Y THRESHOLD EVAL SP RECOGNIJ Encounters Encounter Start End Date Code Location Performer Type Date OFFICE 33501 DEB GALLEGOS 7 7 [facility] 10 P MINUTES OFFICE 81476 NAY GALLEGOS 7 7 [place] VISIT INTERNAL 15 MED MINUTES OFFICE 44198 DEB GALLEGOS 7 7 [facility] 20 HOSPITAL MINUTES P EMERGENCY [address] [facility] DEB - [address] [facility] OUTPATIEN INC T OFFICE 39003 [facility] NIKKI GALLEGOS 7 7 PHYSICIAN T VISIT S GROUP 15 MINUTES OFFICE 32757 [place] A[facility]AN GALLEGOS 6 6 [place] T VISIT INTERNAL 25 MED MINUTES EMERGENCY 99512 DEB 6 6 [facility] DEPARTMEN INC T VISIT LIMITED/M INOR PROB HOSPITAL DEB - [address] [facility] OUTPATIEN INC T EMERGENCY 48242 PAMELA ANAYA, 6 6 PHYSICIAN [facility] T VISIT HIGH/URGE NT SEVERITY HOSPITAL DEB - [address] [facility] OUTPATIEN INC T OFFICE 87989 [place] [facility] OUTPATIEN 6 6 [facility] T VISIT INTERNAL 15 MED MINUTES EMERGENCY 68682 PAMELA FIELDS DEPT 6 6 PHYSICIAN VISIT S, [facility] HIGH SEVERITY& THREAT FUNJ EMERGENCY 80861 DEB 6 6 [facility]ISIT LOW/MODER SEVERITY HOSPITAL DEB - 6 6 [facility] OUTPATIEN INC T EMERGENCY 43218 PAMELA GUNTER 6 6 PHYSICIAN [facility] T VISIT MODERATE SEVERITY OFFICE 36821 [place] OUTPATIEN 6 6 [facility] T VISIT INTERNAL 15 MED MINUTES OFFICE 83513 [facility] NIKKI OUTELVINEN 6 6 PHYSICIAN KADEN T VISIT S GROUP 15 MINUTES OFFICE 10959 [place] ANGELICA OUTPATIEN 6 6 [place] MARIE T VISIT INTERNAL 15 MED MINUTES OFFICE 06252 [facility] AYAD OUTPATIEN 6 6 PHYSICIAN T VISIT GROUP 15 MINUTES EMERGENCY 47057 DEB 6 6 [facility]ISIT HIGH/URGE NT SEVERITY HOSPITAL DEB - [address] [facility] OUTPATIEN INC T EMERGENCY 22077 PAMELA MERINO DEPT 6 6 PHYSICIAN U SAURABH VISIT S, [facility] HIGH SEVERITY& THREAT FUNJ OFFICE 72090 [facility] NEGIN OUTPATIEN 6 6 PHYSICIAN SOMMERS T VISIT S GROUP 25 MINUTES OFFICE 65814 [facility] JORDAN OUTPATIEN 6 6 PHYSICIAN KADEN T VISIT S GROUP 15 MINUTES HOSPITAL DEB - 6 6 [facility] OUTPATIEN INC T OFFICE 76740 [facility] JORDAN OUTPATIEN 6 6 PHYSICIAN KADEN T VISIT S GROUP 10 MINUTES HOSPITAL DEB - 6 6 [facility] OUTPATIEN INC T OFFICE 29502 [facility] [place] TER OUTPATIEN 6 6 PHYSICIAN T VISIT S GROUP 15 MINUTES HOSPITAL DEB - 6 6 [facility] OUTPATIEN INC T OFFICE 23398 [place] [facility] OUTPATIEN 6 6 [facility] T VISIT INTERNAL 25 MED MINUTES HOSPITAL DEB - 6 6 [facility] OUTPATIEN INC T OFFICE 77674 EAR, NOSE SHASHY OUTPATIEN 6 6 AND SARITA T VISIT THROAT 25 SPECIAL MINUTES OFFICE 68869 [facility] ADITI OUTPATIEN 6 6 PHYSICIAN SEPIDEH T VISIT S GROUP 15 MINUTES HOSPITAL DEB - 5 5 [facility] OUTPATIEN INC T EMERGENCY 36244 PAMELA [facility] 5 5 PHYSICIAN DEPARTMEN S, PLL[facility] T VISIT MODERATE SEVERITY EMERGENCY 68777 DEB 5 5 [facility] DEPARTMEN INC T VISIT LIMITED/M INOR PROB OFFICE 61177 [facility] JAMIA OUTPATIEN 5 5 IVONNE [place] T VISIT 15 MINUTES OFFICE 99032 [place] OUTPATIEN 5 5 [facility] T VISIT INTERNAL 15 MED MINUTES HOSPITAL DEB - 5 5 [facility] OUTPATIEN INC T HOSPITAL DEB - 5 5 [facility] OUTPATIEN INC T OFFICE [address] OUTPATIEN 5 5 [facility] 10 MINUTES OFFICE [address] OUTPATIEN 5 5 [facility] T VISIT HOSPITAL 10 MINUTES HOSPITAL DEB - 5 5 [facility] OUTPATIEN INC T OFFICE 02529 [place] [facility] OUTPATIEN 5 5 [facility] T VISIT INTERNAL 15 MED MINUTES OFFICE 60382 [facility] JORDAN OUTPATIEN 5 5 PHYSICIAN KADEN T VISIT S GROUP 15 MINUTES OFFICE 66688 [facility] JAMIA OUTPATIEN 5 5 IVONNE MARIETTA T NEW 30 MINUTES HOSPITAL DEB - 5 5 [facility] OUTPATIEN INC T HOSPITAL DEB - 5 5 [facility] OUTPATIEN INC T OFFICE 74303 [place] [facility] OUTPATIEN 5 5 [facility] T VISIT INTERNAL 15 MED MINUTES PERIODIC 66829 [facility] MED EST HLTH DEPT HLTH DEPT PATIENT DONOVAN DONOVAN [id number] OFFICE 32939 [facility] JORDAN OUTPATIEN 5 5 PHYSICIAN KADEN T VISIT S GROUP 10 MINUTES OFFICE 44655 [place] ANGELICA OUTPATIEN 5 5 [facility] T VISIT INTERNAL 15 MED MINUTES HOSPITAL DEB - 5 5 [facility] OUTPATIEN INC HOSPITAL DEB - 5 5 [facility] OUTPATIEN INC T OFFICE 39620 [facility] JORDAN OUTPATIEN 5 5 PHYSICIAN KADEN T VISIT S GROUP 15 MINUTES OFFICE 70070 [place] USERY AND OUTPATIEN 5 5 [place] T VISIT INTERNAL 15 MED MINUTES OFFICE 26919 [facility] JORDAN OUTPATIEN 5 5 PHYSICIAN KADEN T VISIT S GROUP 15 MINUTES EMERGENCY 08709 PAMELA MERINO 5 5 PHYSICIAN U SAURABH MALONE S, [facility] T VISIT MODERATE SEVERITY HOSPITAL DEB - 5 5 [facility] OUTPATIEN INC T HOSPITAL DEB - 5 5 [facility] OUTPATIEN INC T HOSPITAL DEB - 5 5 [facility] OUTPATIEN INC T OFFICE 24294 [place] [facility] OUTPATIEN 5 5 [place] [facility] T VISIT INTERNAL 15 MED MINUTES HOSPITAL DEB - 5 5 [facility] OUTPATIEN INC T EMERGENCY [address] [facility] DEPARTMEN INC T VISIT LOW/MODER SEVERITY OFFICE 99049 [place] [facility] OUTPATIEN 4 4 [place] [facility] T VISIT INTERNAL 15 MED MINUTES OFFICE 70701 [facility] PETTEY OUTPATIEN 4 4 PHYSICIAN JAM T NEW 30 S GROUP MINUTES OFFICE 37987 [place] OUTPATIEN 4 4 [place] [facility] T VISIT INTERNAL 15 MED MINUTES OFFICE 11584 [place] USERY AND OUTPATIEN 4 4 [place] T VISIT INTERNAL 15 MED MINUTES OFFICE 72623 [place] USERY AND OUTPATIEN 4 4 [place] T VISIT INTERNAL 15 MED MINUTES OFFICE 53442 [facility] LYRIC OUTPATIEN 4 4 PHYSICIAN SEPIDEH T VISIT S GROUP 15 MINUTES HOSPITAL DEB - 4 4 [facility] OUTPATIEN INC T OFFICE 31115 [place] OUTPATIEN 4 4 [place] [facility] T VISIT INTERNAL 25 MED MINUTES INITIAL 80767 [facility] DEPT [facility] DEPT MEDICINE [facility] PT AGE [id number] [facility] DEB - 4 4 [facility] OUTPATIEN INC T [facility] DEB - 4 4 [facility] OUTPATIEN INC T OFFICE 74919 MARY HERNANDEZ OUTPATIEN 4 4 KEHINDE KEHINDE T VISIT 25 MINUTES HOSPITAL GEORGETOW - 4 4 N OUTPATIEN COMMUNTIY T HOSPITA OFFICE 26036 MARY HERNANDEZ OUTPATIEN 4 4 KEHINDE KEHINDE T VISIT 25 MINUTES OFFICE 64529 [facility] OUTPATIEN 4 4 [facility]IE T VISIT 15 MINUTES HOSPITAL DEB - 4 4 [facility] OUTPATIEN INC T OFFICE 57162 [facility] OUTPATIEN 4 4 SOPHIE T VISIT 15 MINUTES HOSPITAL DEB - 4 4 [facility] OUTPATIEN INC T OFFICE 58567 EAR, NOSE MARY CONSULTAT 4 4 AND KEHINDE ION THROAT NEW/ESTAB SPECIAL PATIENT 60 MIN OFFICE 70913 [facility] OUTPATIEN 4 4 PHYSICIAN T VISIT S GROUP 10 MINUTES OFFICE 76419 JORDAN NIKKI OUTPATIEN 4 4 KADEN KADEN T VISIT 15 MINUTES HOSPITAL DEB - 1 1 [facility] OUTPATIEN INC HOSPITAL DEB - 1 1 [facility] OUTPATIEN INC T OFFICE 61399 DILLON CARRANZA OUTPATIEN 1 1 DON DON T VISIT 15 MINUTES OFFICE 33162 Marybel BELTRAN CONSULTAT 1 1 DEVIN VARGAS MD PSC NEW/ESTAB PATIENT 60 MIN OFFICE 54038 D[facility]ON CARRANZA OUTPATIEN 1 1 DON DON T VISIT 15 MINUTES EMERGENCY 90432 DEB 1 1 [facility] DEPARTMEN INC T VISIT HIGH/URGE NT SEVERITY HOSPITAL DEB - 1 1 [facility] OUTPATIEN INC T OFFICE 66443 DILLON CARRANZA OUTPATIEN 1 1 DON DON T VISIT 15 MINUTES OFFICE 89770 CARRANZA, CARRANZA, OUTPATIEN 9 9 DON R DON R T VISIT 15 MINUTES OFFICE 15358 DILLON CARRANZA, OUTPATIEN 9 9 DON R DON R T VISIT 15 MINUTES OFFICE 54462 DILLON CARRANZA, OUTPATIEN 9 9 DON R DON R T VISIT 15 MINUTES OFFICE 54563 DILLON CARRANZA OUTPATIEN 9 9 DON R DON R T VISIT 15 MINUTES OFFICE 77272 NIKKI JORDAN OUTPATIEN 9 9 WIN WALDEN G T VISIT 10 MINUTES OFFICE 56278 NIKKI JORDAN OUTPATIEN 9 9 WIN [place] G T NEW 30 MINUTES OFFICE 14803 DILLON CARRANZA, OUTPATIEN 9 9 DON R DON R T VISIT 15 MINUTES OFFICE 59432 DILLON CARRANZA OUTPATIEN 9 9 DON R DON R T VISIT 15 MINUTES OFFICE 75658 DILLON CARRANZA, OUTPATIEN 9 9 DON R DON R T VISIT 5 MINUTES OFFICE 59757 DILLON CARRANZA, OUTPATIEN 9 9 DON R DON R T VISIT 15 MINUTES
--- OUTSIDE RECORDS SUMMARY | 2016-06-17 20:54 | External Medical Summary Rpt ---
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 Name Role Phone BEINEKE SAURABH, KAROL Unavailable [...] [facility] [place] FALLIS IVONNE, FALLIS Unavailable Unavailable IVONNE FEEBACK REE, FEEBACK Unavailable Unavailable REE ANGELICA ANNE MARIE, Unavailable Unavailable ANGELICA ANNE MARIE AYAD, LION Unavailable Unavailable JR ANAYA FULLER, Unavailable Unavailable JR LYRIC [facility], LYRIC Unavailable Unavailable [facility] Un[facility]available [facility], [facility] CARYL JAM, CARYL Unavailable Unavailable JAM CARYL JAM, CARYL Unavailable Unavailable JAM [facility] Unavailable Unavailable INC, [facility] Unavailable Unavailable HOSPITAL, [facility] Unavailable Unavailable HOSPITAL P, [facility] P [facility], Unavailable Unavailable [facility], Unavailable Unavailable [facility] OXANA POLANCO Unavailable Unavailable [facility] JORDAN, JORDAN Unavailable Unavailable JORDAN KADEN, JORDAN Unavailable Unavailable KADEN JORDAN KADEN, JORDAN Unavailable Unavailable KADEN WIN JORDAN, Unavailable Unavailable [facility] J[facility] Un[facility], [facility] RICH ADAMS, Unavailable Unavailable RICH [...] PHARMACY Unavailable Unavailable #591, [facility] Unavailable Unavailable DEPT [facility], [facility] DEPT [facility] Unavailable Unavailable DEPT [facility], [facility] MARY BUSBY, MARY Unavailable Unavailable KEHINDE BUSBY, MARY Unavailable Unavailable KHEINDE INDIRA MAT, INDIRA MAT Unavailable Unavailable Purpose Continuity of Care Document - 04-19-2008 through 2016 Problems Code Diagnosis DOS Provider Status N393 STRESS 05-06-2016 [facility] P MALE L309 DERMATITIS 04-22-2016 [facility] UNSPECIFIED [place] INTERNAL MED K219 GASTRO-ESOP 03-10-2016 [facility] Siddiqui REFLUX [facility] DISEASE INC WITHOUT ESOPHAGITIS K5730 DIVERTICULO 03-10-2016 [facility] LG MEDICAL INTEST W/O IMAGING ASS PERF/ABSC W/O BLEED R1011 RIGHT UPPER 03-10-2016 [facility] H6023 MALIGNANT 03-01-2016 [facility] OTITIS PHYSICIANS EXTERNA GROUP BILATERAL H6503 ACUTE 03-01-2016 [facility] SEROUS PHYSICIANS OTITIS GROUP MEDIA BILATERAL 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 M5441 LUMBAGO 01-23-2016 [facility] WITH PHYSICIANS, [facility] RIGHT SIDE M545 LOW BACK 01-23-2016 [place] PAIN [facility] ASS 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[facility] 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 H5213 MYOPIA 11-28-2015 CARYL JAM BILATERAL R1031 RIGHT LOWER 11-28-2015 [facility] R1032 LEFT LOWER 11-28-2015 [facility] R310 GROSS 11-28-2015 [facility] HEMATURIA [place] INTERNAL MED R319 HEMATURIA 11-28-2015 [place] UNSPECIFIED [facility]ICAL IMAGING ASS R079 CHEST PAIN 11-17-2015 [facility] UNSPECIFIED PHYSICIANS, PLLC R16484 CUTANEOUS 10-28-2015 [facility] ABSCESS OF [facility] RIGHT LOWER INC LIMB L37248 CUTANEOUS 10-28-2015 [facility] ABSCESS OF PHYSICIANS, HEAD ANY PLLC PART EXCEPT FACE L0390 CELLULITIS 10-15-2015 [facility] UNSPECIFIED [place] INTERNAL MED H6120 IMPACTED 09-25-2015 [facility] CERUMEN PHYSICIANS UNSPECIFIED GROUP EAR H6590 UNSPECIFIED 09-25-2015 [facility] PHYSICIANS NONSUPPURAT GROUP [place] OTITIS MEDIA UNS EAR H6903 PATULOUS 09-25-2015 JORDAN KADEN EUSTACHIAN TUBE BILATERAL R0982 POSTNASAL 09-18-[address] [facility] [address] [facility] MED J029 ACUTE 09-15-2015 [facility] PHARYNGITIS PHYSICIAN GROUP UNSPECIFIED K120 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[facility] ORAL PHYSICIAN APHTHAE GROUP J0101 ACUTE 09-09-2015 [facility] RECURRENT [facility]ICIANS, [facility] SIN[facility] J4520 MILD 09-09-2015 [facility] INTERMITTEN PHYSICIANS, T ASTHMA [facility] UNCOMPLICAT ED R0600 DYSPNEA 09-09-2015 [facility] IM[facility]ING ASS R221 LOCALIZED 09-09-2015 [place] SWELLING MEDICAL MASS AND IMAGING ASS LUMP NECK Z720 TOBACCO USE 09-09-2015 [facility] P R05 COUGH 09-08-2015 [facility] H6090 UNSPECIFIED 08-25-2015 [facility] OTITIS PHYSICIANS EXTERNA GROUP UNSPECIFIED EAR H6501 ACUTE 07-17-2015 [facility] SEROUS PHYSICIANS OTITIS GROUP MEDIA RIGHT EAR H6591 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-17-2015 [facility] NONSUPPURAT INC [place] OTITIS MEDIA RT EAR H9391 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-17-2015 [facility] DISORDER ANESTH OF OF RIGHT THE BLUE EAR G09091 PAIN IN 05-28-2015 [place] RIGHT HAND [facility]ICAL IMAGING ASS M7989 OTHER 05-28-2015 [place] SPECIFIED MEDICAL SOFT TISSUE IMAGING ASS DISORDERS R358 OTHER 05-28-2015 [facility] POLYURIA [facility] INC J0190 ACUTE 05-11-2015 [facility] SINUSITIS PHYSICIANS UNSPECIFIED GROUP A09 INFECTIOUS 03-14-2015 [facility]OENTER [facility] ITIS AND INC COLITIS UNSPEC J069 ACUTE UPPER 03-12-2015 [facility] INTERNAL INFECTION MED UNSPECIFIED M542 CERVICALGIA 02-28-2015 [facility] INC 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, 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 N390 URINARY 02-24-2015 [facility] TRACT PHYSICIANS INFECTION GROUP SITE NOT SPECIFIED L664 FOLLICULITI 02-09-2015 [facility] Ludwig PHYSICIANS, ULERYTHEMAT PLLC USMAN RETICULATA L738 OTHER 02-09-2015 [facility] SPECIFIED [facility] FOLLICULAR INC DISORDERS B351 TINEA 01-30-2015 [place] IVONNE UNGUIUM B353 TINEA PEDIS 01-30-2015 [place] IV[facility]NE I890 LYMPHEDEMA 01-30-2015 [facility] IV[facility]NE NOT ELSEWHERE CLASSIFIED M2570 OSTEOPHYTE 01-30-2015 [place] IVONNE UNSPECIFIED JOINT H9202 OTALGIA 01-17-2015 [facility] LEFT EAR [place] INTERNAL MED H6506 ACUTE 01-16-2015 [facility] SEROUS PHYSICIANS OTITIS GROUP MEDIA RECURRENT BILATERAL H6523 CHRONIC 01-16-2015 [facility] SEROUS [facility] OTITIS INC MEDIA BILATERAL H6693 OTITIS 01-16-2015 COMMUNITY MEDIA ANESTH OF UNSPECIFIED THE BLUE BILATERAL O42472 ENCOUNTER 01-15-2015 [facility] FOR OTHER [facility] PREPROCEDUR INC AL EXAMINATION F58376 ACUTE & 12-27-2014 [facility] OTITS MEDIA BILATERAL H1032 UNSPECIFIED 12-17-2014 [facility] TIS LEFT EYE N6489 OTHER 12-16-2014 [place] SPECIFIED MEDICAL DISORDERS IMAGING ASS OF BREAST R928 OTH ABNORM 12-16-2014 [facility] & [facility] INCONCLUSIV INC E FIND ON DX IMAG BREAST B9789 OTH VIRAL 12-13-2014 [facility] AGENT CAUSE [place] DISEASES INTERNAL CLASSIFIED MED ELSW H6504 ACUTE 12-09-2014 [facility] SEROUS PHYSICIANS OTITIS GROUP MEDIA RECURRENT RIGHT EAR P93509 ANKYLOSIS 12-09-2014 [facility] OF EAR PHYSICIANS OSSICLES GROUP RIGHT EAR H9191 UNSPECIFIED 12-09-2014 [facility] HEARING PHYSICIANS LOSS RIGHT GROUP EAR Z19162 PAIN IN 12-05-2014 [place] IV[place]NE RIGHT TOES R78260 PAIN IN 12-05-2014 [place] IV[place]NE LEFT TOES Z1231 ENCOUNTER 11-29-2014 [place] SCREENING MEDICAL MAMMO MALIG IMAGING ASS NEOPLASM BREAST Z803 FAMILY 11-29-2014 [place] HISTORY OF MEDICAL MALIGNANT IMAGING ASS NEOPLASM OF BREAST X01213 PAIN IN 11-15-2014 [facility] RIGHT VALLEY [place] INTERNAL MED T88973 PAIN IN 11-15-2014 [facility] LEFT FOOT VALLEY INTERNAL MED V252 STERILIZATI 11-05-2014 [facility] DONOVAN 16210 DYSFUNCTION 09-19-2014 [facility] OF PHYSICIANS EUSTACHIAN GROUP TUBE 4779 ALLERGIC 09-19-2014 [facility] RHINITIS PHYSICIANS CAUSE GROUP UNSPECIFIED 29571 OTHER 09-19-2014 [facility] DISEASES OF PHYSICIANS NASAL GROUP CAVITY AND SINUSES 7295 PAIN IN 09-18-2014 [facility] SOFT VALLEY TISSUES OF INTERNAL LIMB MED 72433 SIMPLE/UNSP 2014 [facility] ECIFIED [facility] CHRONIC INC SEROUS OTITIS MEDIA 3814 NONSUPPRATV 2014 [place] OTITIS MEDICAL MEDIA NOT IMAGING ASS SPEC ACUT/CHRON 470 DEVIATED 2014 [place] NASAL MEDICAL SEPTUM IMAGING ASS 54549 UNSPECIFIED 09-02-2014 [facility] CONDUCTIVE PHYSICIANS HEARING GROUP LOSS 4730 CHRONIC 09-02-2014 [facility] MAXILLARY PHYSICIANS SINUSITIS GROUP 3829 UNSPECIFIED 08-29-2014 JORDAN KADEN OTITIS MEDIA 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 4619 ACUTE 08-22-2014 [facility] SINUSITIS, VALLEY UNSPECIFIED INTERNAL MED 3899 UNSPECIFIED 08-13-2014 [facility] HEARING PHYSICIANS LOSS GROUP 7856 ENLARGEMENT 08-13-2014 [facility] OF LYMPH PHYSICIANS NODES GROUP 16697 GANGLION OF 05-31-2014 [facility] TENDON PHYSICIANS SHEATH GROUP 72466 UNSPECIFIED 05-31-2014 COMMUNITY GANGLION ANESTH OF THE BLUE 75876 PAIN IN 05-30-2014 [place] JOINT, MEDICAL FOREARM IMAGING ASS 06556 GANGLION OF 05-29-2014 [facility] JOINT [facility] INC V7283 OTHER 05-29-2014 [facility] SPECIFIED [facility] PRE-OPERATI INC VE EXAMINATION 10334 UNSPECIFIED 02-27-2014 [facility] OTALGIA [place] INTERNAL MED 4871 INFLUENZA 02-13-2014 [facility] WITH OTHER VALLEY RESPIRATORY INTERNAL MED MANIFESTATI ONS 43799 GENERALIZED 02-13-2014 [facility] PAIN [place] INTERNAL MED 4659 ACUTE URIS 12-06-2013 [facility] OF VALLEY UNSPECIFIED INTERNAL SITE MED 486 PNEUMONIA, 12-03-2013 [facility] ORGANISM [place] UNSPECIFIED INTERNAL MED 7840 HEADACHE 12-03-2013 [facility] [place] INTERNAL MED 6822 CELLULITIS 11-15-2013 [facility] AND ABSCESS PHYSICIANS OF TRUNK GROUP 76907 ABDOMINAL 11-15-2013 [facility] PAIN, PHYSICIANS UNSPECIFIED GROUP SITE 72967 ABDOMINAL 10-29-2013 [facility] PAIN, [facility] INTERNAL MED 52948 POLYURIA 10-27-2013 [facility] INC V700 ROUTINE 10-27-2013 [facility] MEDICAL INC EXAM@HEALTH CARE FACL 33465 ESOPHAGEAL 10-26-2013 [facility] REFLUX [place] INTERNAL MED 57960 INSOMNIA 10-26-2013 [facility] UNSPECIFIED [place] INTERNAL MED 6160 CERVICITIS 10-23-2013 [facility] ENDOCERVICI TIS V7231 ROUTINE 10-23-2013 [facility] AL EXAMINATION 1101 DERMATOPHYT 2013 [facility] OSIS OF [facility] NAIL INC 2400 GOITER, 07-03-2013 MARY KEHINDE SPECIFIED SIMPLE 2449 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-03-2013 [facility] HYPOTHYROID INC ISM 23292 OTOGENIC 07-03-2013 MARY KEHINDE PAIN 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-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 7842 SWELLING 07-03-2013 MARY KEHINDE MASS OR LUMP IN HEAD AND NECK 95676 UNSPECIFIED 06-19-2013 MARY KEHINDE TINNITUS 5990 URINARY 06-11-2013 [facility] TRACT INFECTION SITE NOT SPECIFIED 2409 GOITER, 06-08-2013 [facility] UNSPECIFIED GIO 13624 OBESITY, 06-06-2013 [facility] UNSPECIFIED [facility] INC 32850 UNSPECIFIED 06-05-2013 EAR, NOSE ABNORMAL AND THROAT AUDITORY SPECIAL PERCEPTION 29182 UNSPECIFIED 06-05-2013 [facility] VAGINITIS PHYSICIANS AND GROUP VULVOVAGINI TIS 39549 UNSPECIFIED 05-28-2013 JORDAN KADEN ACUTE NONSUPPURAT [place] OTITIS MEDIA 05351 METHICILLIN 05-28-2010 [facility] RESISTANT [facility] STAPHYLOCOC INC CUS AUREUS 6826 CELLULITIS 05-28-2010 [facility] AND ABSCESS [facility] OF LEG INC EXCEPT FOOT 59907 METHICILLIN 05-26-2010 [facility] RESISTANT DON STAPH AUREUS SEPTICEMIA V090 INFECTION 05-26-2010 [facility] W/MICROORGA DON NISMS RESISTANT PENICILLINS V7241 05-26-2010 [facility] EXAMINATION [facility] OR TEST INC NEGATIVE RESULT 9164 HIP THI 05-23-2010 [facility] LEG&ANK DON INSECT BITE NONVENOMOUS W/O INF 5589 OTH&UNSPEC 12-13-2008 [facility], NONINFECTIO DON R US GASTROENTER ITIS&COLITI S 89471 CALCANEAL 12-13-2008 [facility] SPUR DON R 1105 DERMATOPHYT 12-02-2008 [facility], OSIS OF THE DON R BODY 08311 OVERWEIGHT 10-09-2008 [facility] DON R 4618 OTHER ACUTE 10-09-2008 [facility], SINUSITIS [place] R 16585 UNSPECIFIED 06-11-2008 [facility] SENSORINEUR AL HEARING LOSS 70060 UNSPECIFIED 06-06-2008 WIN [facility]ORDAN OBSTRUCTION OF EUSTACHIAN [...] 11 3- 8- 00 00 SI ve TN 76 20 20 48 DE NE 60 17 17 23 1 24 PH HC AR L MA 50 CY MG OF CY TA NT BL HI ET AN A IN C CI 65 03 04 30 30 00 EA Ac TA 86 -2 -[address] ti LO 20 3- 8- 00 00 SI ve [place] 00 20 20 47 DE AM 50 [...] 03 04 60 30 00 EA Ac [place] 25 -2 -[address] ti [...] 11 3- 1- 00 00 SI ve TN 76 20 20 47 DE NE 60 [...] 20 6- 4- 00 00 SI ve [place] 00 20 20 47 DE AM 50 [...] 17 17 56 E 5 51 PH [place] AR OP MA CY 50 OF MC [...] 01 02 7. 5 00 EA Ac [place] 06 -1 -[address] ti [...] 20 6- 7- 00 00 SI ve [place] 00 20 20 47 DE AM 50 [...] NT ET HI AN A IN C [place] 59 12 01 12 6 00 EA [...] CY NT HI AN A IN C [place] 65 12 01 10 3 00 EA [...] [address] Ac [place] 09 -3 -[address] 92 EP [...] 1- 8- 00 MA 69 HE ve [place] 34 20 20 RT 7 NS AM [...] 01 [address] Ac [place] 25 -1 -[address] 47 EP [...] [address] Ac [place] 25 -1 -[address] 47 EP [...] [address] Ac [place] 25 -1 -[address] 49 EP [...] Procedure DOS Code Location Performer Comment THER 22748 [facility] PROPH/DX 7 [facility] NJX IV INC INC PUSH SINGLE/1S T SBST/[place] [address] [facility] LIPASE 7 [facility] INC INC BLOOD 31226 [facility] COUNT 7 [facility] COMPLETE INC INC AUTO&AUTO DIFRNTL WBC URNLS DIP 61805 [facility] BOYD 7 [facility] STICK/TAB INC INC [place] [address] [facility]B BO[facility] AMYLASE 7 [facility] INC INC COMPREHEN 57780 [facility] SIVE 7 [facility] METABOLIC INC INC PANEL URINE 58164 [facility] BO[facility]D 7 [facility] TEST INC INC VISUAL COLOR CMPRSN METHS FINAL G9551 [place] [facility] REPR ABD 7 MEDICAL IMAG STS IMAGING W/O ASS INCIDNT FND LES NTD: [place] [address] [facility] ABDOMEN & 7 MEDICAL PELVIS IMAGING W/O ASS CONTRAST MATERIAL FINAL G9638 [facility] REPORTS 7 MEDICAL W/O DOC IMAGING 1/MORE ASS DOSE REDUCTION TECH CULTURE 21619 [facility] BACTERIAL 6 [facility] INC INC QUANTTATI VE COLONY COUNT URINE RADEX 02355 [facility] SPINE 6 [facility] LUMBOSACR INC INC AL MINIMUM 4 VIEWS URNLS DIP 26682 [facility] BOYD 6 [facility] STICK/TAB INC INC LET REAGENT AUTO MICROSCOP Y DETERMINA 81891 CARYL SIMONS 6 JAM JAM REFRACTIV E STATE OPHTH 91440 [facility] 6 JAM JAM XM&[place] [address] [place] [facility] ALL ABDOMEN & 6 MEDICAL PELVIS IMAGING W/O ASS CONTRAST MATERIAL RADIOLOGI 86725 [place] NAA C 6 MEDICAL GIO EXAMINATI IMAGING ON CHEST ASS SINGLE VIEW FRONTAL INCISION 48919 [facility] GUNTER & 6 PHYSICIAN SEPIDEH DRAINAGE S, PLLC ABSCESS COMPLICAT ED/MULTIP LE CUL BACT 88349 [facility] AEROBIC 6 [facility] ADDL INC INC METHS DEFINITIV E EA ISOL CUL BACT 43415 [facility] XCPT 6 [facility] URINE INC INC BLOOD/STO OL AEROBIC ISOL SUSCEPTIB 85232 [facility] LTY STDY 6 [facility] ANTIMICRB INC INC IAL MICRO/AGA R DILUTJ CUR MEDS G8428 [facility] NO DOC 6 [facility] OBDT INTERNAL INTERNAL UPD/REV MED MED ELIG CLIN RSN N GVN COMPRE 84662 NIKKI JORDAN AUDIOMETR 6 KADEN KADEN Y THRESHOLD EVAL SP RECOGNIJ IAADIADOO 79385 [facility] LION 6 PHYSICIAN STREPTOCO GROUP CCUS GROUP A ECG 06900 [facility] FOREMAN ROUTINE 6 [facility] W/LEAST P 12 LDS I&R ONLY PRESSURIZ 18827 [facility] ED/NONPRE 6 [facility] SSURIZED INC INC INHALATIO N TREATMENT RADIOLOGI 74094 DEB No EXAM 6 [facility] CHEST 2 INC INC VIEWS FRONTAL&L ATERAL RADIOLOGI 37645 [facility] C 6 [facility] EXAMINATI INC INC ON NECK SOFT TISSUE BLOOD 92813 [facility] COUNT 6 [facility] COMPLETE INC INC AUTO&AUTO DIFRNTL WBC CREATINE 07622 [facility] KINASE MB 6 [facility] FRACTION INC INC ONLY COMPREHEN 08218 [facility] BO[facility] SIVE 6 [facility] METABOLIC INC INC PANEL NATRIURET 46967 [facility]B BO[facility]D IC 6 [facility] [place] [address] DEB BO[facility]D TROPONIN 6 [facility] QUANTITAT INC INC [place] THERAPEUT 55865 DEB BOYD IC 6 [facility] PROPHYLAC INC INC TIC/DX INJECTION SUBQ/IM FIBRIN 09726 DEB BO[facility]D DGRADJ 6 [facility] PRODUCTS INC INC D-DIMER QUAL/SEMI LAUREANO CREATINE 89157 DEB BO[facility]D KINASE 6 [facility] TOTAL INC INC ECG 75084 DEB BOYD ROUTINE 6 [facility] ECG INC INC W/LEAST 12 LDS TRCG ONLY W/O I&R ANES 13196 COMMUNITY FEEBACK XTRNL MID 6 ANESTH REE & INNER OF THE EAR W/BX BLUE TYMPANOTO MY URINE 84024 DEB BOYD 6 [facility] TEST [place] [address] DEB [facility] INFUSION 6 [facility] THERAPY INC INC PROPHYLAX IS/DX EA HOUR INJECTION J2405 DEB BOYD 6 [facility] ONDANSETR INC INC ON HCL PER 1 MG UNCLASSIF J3490 [facility] IED DRUGS 6 [facility] INC INC THERAPEUT 79081 DEB BOYD IC 6 [facility] INJECTION INC INC IV PUSH EACH NEW DRUG TYMPANOST 22679 DEB BOYD DE 6 [facility] [place] [address] DEB BOYD INFUSION 6 [facility] THERAPY/P INC INC ROPHYLAXI S /DX 1ST TO 1 HR RADEX 17390 [place] ALL HAND 2 6 MEDICAL VIEWS IMAGING ASS RADEX 23272 [facility] HAND 6 [facility] MINIMUM 3 INC INC VIEWS COMPREHEN 25120 [facility] SIVE 6 [facility] METABOLIC INC INC PANEL COLLECTIO 72844 DEB BOYD N VENOUS 6 [facility] BLOOD INC INC VENIPUNCT URE HEMOGLOBI 37015 [facility]D N 6 [facility] GLYCOSYLA INC INC MARCY A1C LIPID 36288 [facility]B BOYD PANEL 6 [facility]OS[facility] INC INC THERAPEUT [address] [facility] [address] IC 6 PHYSICIAN PROPHYLAC S GROUP TIC/DX INJECTION SUBQ/IM INJECTION J1040 [facility] TER 6 PHYSICIAN METHYLPRE S GROUP DNISOLONE ACETATE 80 MG IADNA-DNA 00978 [facility] /RNA GI 6 [facility] PTHGN INC INC MULTIPLEX PROBE TQ - PHYSICAL 34675 [facility] THERAPY 6 [facility]OS[facility] EVALUATIO INC INC N ANES 01344 COMMUNITY TAMARA XTRNL MID 5 ANESTH LASHAUN & INNER OF THE EAR W/BX BLUE TYMPANOTO MY TYMPANOST 05765 [facility]B [facility]D DE 5 [facility]OS[facility] GENERAL INC INC ANESTHESI A BLOOD 29496 [facility] COUNT 5 [facility] COMPLETE INC INC AUTO&AUTO DIFRNTL WBC GONADOTRO 67802 [facility]B BO[facility] PIN 5 [facility] CHORIONIC INC INC QUALITATI VE BASIC 16154 DE[facility] METABOLIC 5 [facility] PANEL INC INC CALCIUM TOTAL COLLECTIO 80638 DEB [facility]D N VENOUS 5 [facility] BLOOD INC INC VENIPUNCT URE DIAGNOSTI G0206 [place] NAA C 5 MEDICAL GIO MAMMOGRAP IMAGING HY INCL ASS CAD WHEN PERF; UNI IAADIADOO 32201 [facility] BESSON 5 [place] SOPHIE STREPTOCO INTERNAL CCUS MED GROUP A SCREENING G0202 [facility] 5 MEDICAL SAURABH MAMMOGRAP IMAGING HY KARYNA ASS INCL CAD WHEN PERFORMD COMPUTER- 21227 [facility] AIDED 5 MEDICAL SAURABH DETECTION IMAGING ASS SCREENING MAMMOGRAP HY RADEX 23664 [place] [facility] ALL HAND 5 MEDICAL MINIMUM 3 IMAGING VIEWS ASS SCREENING 47506 [facility] TEST [facility] V[facility]UAL [facility] DEPT HLTH DEPT ACUITY DONOVAN DONOVAN QUANTITAT [place] BILAT RADEX 41859 [facility] FOOT 5 [facility] COMPLETE INC [place] MIN[address] [place] [address] [place] ALL MAXILLOFA 5 MEDICAL CIAL W/O IMAGING CONTRAST ASS MATERIAL DISTORT 94233 NIKKI JORDAN PRODUCT 5 KADEN KADEN EVOKED OTOACOUST IC EMISNS LIMITD TYMPANOME 74136 NIKKI JORDAN TRY 5 KADEN KADEN COMPRE 00960 NIKKI JORDAN AUDIOMETR 5 KADEN KADEN Y THRESHOLD EVAL SP RECOGNIJ INJECTION J0696 [facility] 5 [facility] CEFTRIAXO INTERNAL NE SODIUM MED PER 250 MG THERAPEUT 51610 [facility] AND IC 5 [facility] PROPHYLAC INTERNAL TIC/DX MED INJECTION SUBQ/IM INJECTION J3301 [facility] 5 [facility] TRIAMCINO INTERNAL LONE MED ACETONIDE NOS 10 MG REPAIR 16753 DEB BOYD COMPLEX 5 [facility] SCALP/ARM INC INC /LEG 2.6-7.5 CM ANES 33021 [facility] NERVE 5 ANESTH SHE MUSCLE OF THE TDN BLUE FASCIA&BU RSA FOREARM WRIST EXCISION 74549 [facility] PETTEY LESION 5 PHYSICIAN ROXANE TENDON S GROUP SHEATH FOREARM&/ WRIST MRI UPPER 69075 DEBVITALIY BOYD 5 [facility] EXTREMITY INC INC OTH THAN JT W/O CONTR MATRL GONADOTRO 15910 DEB BOYD PIN 5 [facility] CHORIONIC INC INC QUALITATI VE COLLECTIO 89837 DEB BO[facility]D N VENOUS 5 [facility] BLOOD INC INC VENIPUNCT URE INJECTION J3301 [facility] TRIAMCINO INTERNAL LONE MED ACETONIDE NOS 10 MG THERAPEUT 15454 [facility] IC 5 [facility] PROPHYLAC INTERNAL TIC/DX MED INJECTION SUBQ/IM IAADIADOO 55487 [facility] INFLUENZA INTERNAL MED INJECTION J0696 [facility] US[facility] AND 4 [facility] CEFTRIAXO INTERNAL NE SODIUM MED PER 250 MG THERAPEUT 04743 [facility] AND IC 4 [facility] PROPHYLAC INTERNAL TIC/DX MED INJECTION SUBQ/IM INJECTION J1885 [facility] LYRIC 4 PHYSICIAN SEPIDEH KETOROLAC S GROUP TROMETHAM INE PER 15 MG THERAPEUT 06002 [facility] LYRIC IC 4 PHYSICIAN SEPIDEH PROPHYLAC S GROUP TIC/DX INJECTION SUBQ/IM CULTURE 75286 COMBINED COMBINED BACTERIAL 4 PHYSICIAN PHYSICIAN S LA S LA QUANTTATI VE COLONY COUNT URINE URNLS DIP 20437 [facility] STICK/TAB INTERNAL LET RGNT MED NON-AUTO W/O MICRSCP COMPREHEN 71937 [facility] SIVE 4 [facility] METABOLIC INC INC PANEL LIPID 82904 [facility] PANEL 4 [facility] INC INC TDAP 03865 [facility] Y[facility]/> IM HLTH DEPT HLTH DEPT DONOVAN DONOVAN CYTP 68221 [facility], [facility] CERV/VAG 4 [facility] ER JR JARED AUTO THIN LAYER PREP MNL SCREEN HEPATIC 00236 [facility] FUNCTION 4 [facility] PANEL INC INC THYROID 68901 [facility] HORM 4 [facility] UPTK/THYR INC [place] [address] [facility] THYROXINE 4 [facility] [place] [place] [address] [facility] THYROID 4 [facility] STIMULATI INC INC NG HORMONE TSH US SOFT 79754 [facility] TISSUE 4 N N HEAD & COMMUNTIY COMMUNTIY NECK [facility] TIME IMGE DOCM RADIOLOGI 67886 INDIRA MAT INDIRA MAT C 4 [place] [address] NAA NAA MAXILLOFA 4 GIO GIO CIAL W/O CONTRAST MATERIAL CULTURE 72629 COMBINED COMBINED BACTERIAL 4 PHYSICIAN PHYSICIAN S LA S LA QUANTTATI VE COLONY COUNT URINE CT SOFT 87115 DEB [facility] NECK INC INC W/CONTRAS T MATERIAL LOCM Q9967 DEB [facility] [phone] [facility] MG/ML INC INC IODINE CONCENTRA TION PER ML IM ADM 13579 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 PRQ ID 4 [facility] SUBQ/IM NJXS 1 VACCINE INJECTION J0696 [facility] CORREIASON 4 [facility] SOP[facility]IE CEFTRIAXO NE SODIUM PER 250 MG LIPID 24513 [facility]B [facility] PANEL 4 [facility] INC INC COMPREHEN 34452 [facility]B [facility] SIVE 4 [facility] METABOLIC INC INC PANEL TYMPANOME 23101 EAR, NOSE MARY TRY 4 AND KEHINDE THROAT SPECIAL LARYNGOSC 82958 EAR, NOSE MARY OPY 4 AND KEHINDE FLEXIBLE THROAT DIAGNOSTI SPECIAL C SPEECH 28601 EAR, NOSE MARY AUDIOMETR 4 AND KEHINDE Y THROAT THRESHOLD SPECIAL PURE TONE 31001 EAR, NOSE MARY 4 AND KEHINDE AUDIOMETR THROAT Y AIR SPECIAL ONLY INJECTION J0696 [facility] 4 PHYSICIAN PHYSICIAN CEFTRIAXO S GROUP S GROUP NE SODIUM PER 250 MG THERAPEUT 08079 [facility] IC 4 PHYSICIAN PHYSICIAN PROPHYLAC S GROUP S GROUP TIC/DX INJECTION SUBQ/IM URNLS DIP 55884 [facility] 4 PHYSICIAN PHYSICIAN STICK/TAB S GROUP S GROUP LET RGNT NON-AUTO W/O MICRSCP LEVEL III 06544 [facility] SURG 1 [facility] DUBILIER GROSS&SEPIDEH ROSCOPIC EXAM OTHER 8309 [facility] INCISION 1 [facility] OF SOFT INC INC TISSUE I&D DEEP 52218 [facility] ABSC 1 [facility] BURSA/HEM INC INC AT[place] THIGH/[place] [address] DEB [facility] INFUSION 1 [facility] THERAPY INC INC PROPHYLAX IS/DX EA HOUR GONADOTRO 89377 [facility] PIN 1 [facility] CHORIONIC INC INC QUALITATI VE SUSCEPTIB 32392 [facility] LTY STDY 1 [facility] ANTIMICRB INC INC IAL MICRO/AGA R DILUTJ BLOOD 88920 [facility] COUNT [facility] COMPLETE INC INC AUTO&[place] [address] [facility] INFUSION 1 [facility] THERAPY/P INC INC ROPHYLAXI S /DX 1ST TO 1 HR CUL BACT 64013 [facility] AEROBIC 1 [facility] ADDL INC INC METHS DEFINITIV E EA ISOL CUL BACT 75302 [facility] XCPT 1 [facility] URINE INC INC BLOOD/STO OL AEROBIC ISOL BASIC 54732 [facility] METABOLIC 1 [facility] [place] [address] DEB [facility] INFUSION 1 [facility] THERAPY INC INC PROPHYLAX IS/DX EA HOUR RADEX 15933 CARRANZA CARRANZA, CALCANEUS 9 DON R DON R MINIMUM 2 VIEWS TYMPANOME 18336 NIKKI JORDAN, TRY 9 WIN Null ACOUSTIC 18728 NIKKI JORDAN, REFLEX 9 WIN Null THRESHOLD COMPRE 87997 NIKKI JORDAN, AUDIOMETR 9 WIN Null Y THRESHOLD EVAL SP RECOGNIJ Encounters Encounter Start End Date Code Location Performer Type Date OFFICE 12684 DEB GALLEGOS 7 7 [facility] VISIT HOSPITAL 10 P MINUTES OFFICE 05836 NAY GALLEGOS 7 7 [place] T VISIT INTERNAL 15 MED MINUTES OFFICE 32999 DEB GALLEGOS 7 7 [facility] 20 HOSPITAL MINUTES P EMERGENCY 86499 DEB 7 7 [facility] SE[facility]ITY [facility] DEB - 7 7 [facility] OUTPATIEN INC T OFFICE 24374 [facility] NIKKI GALLEGOS 7 7 PHYSICIAN T VISIT S GROUP 15 MINUTES OFFICE 51723 [place] AHSAN GALLEGOS 6 6 [place] T VISIT INTERNAL 25 MED MINUTES EMERGENCY 84829 DEB 6 6 [facility] DEPARTMEN INC T VISIT LIMITED/M INOR PROB HOSPITAL DEB - 6 6 [facility] OUTPATIEN INC T EMERGENCY 62659 PAMELA ANAYA, 6 6 PHYSICIAN [facility] T VISIT HIGH/URGE NT SEVERITY HOSPITAL DEB - 6 6 [facility] OUTPATIEN INC T OFFICE 66645 [place] [facility] OUTPATIEN 6 6 [facility] T VISIT INTERNAL 15 MED MINUTES EMERGENCY 56692 PAMELA FIELDS DEPT 6 6 PHYSICIAN VISIT S, [facility] HIGH SEVERITY& THREAT FUNJ EMERGENCY 90866 DEB 6 6 [facility] LOW/MODER SEVERITY HOSPITAL DEB - 6 6 [facility] OUTPATIEN INC T EMERGENCY 26444 PAMELA GUNTER 6 6 PHYSICIAN [facility] T VISIT MODERATE SEVERITY OFFICE 23773 [place] [facility] OUTPATIEN 6 6 [facility] T VISIT INTERNAL 15 MED MINUTES OFFICE 05790 [facility] NIKKI OUTELVINEN 6 6 PHYSICIAN KADEN T VISIT S GROUP 15 MINUTES OFFICE 65411 [place] ANGELICA OUTPATIEN 6 6 [place] ANNE MARIE T VISIT INTERNAL 15 MED MINUTES OFFICE 78096 [facility] AYAD OUTPATIEN 6 6 PHYSICIAN T VISIT GROUP 15 MINUTES EMERGENCY 10356 [facility] 6 [facility] HIGH/URGE NT SEVERITY HOSPITAL DEB - 6 6 [facility] OUTPATIEN INC T EMERGENCY 65144 PAMELA MERINO DEPT 6 6 PHYSICIAN U SAURABH VISIT S, [facility] HIGH SEVERITY& THREAT FUNJ OFFICE 80195 [facility] NEGIN OUTPATIEN 6 6 PHYSICIAN [facility] T VISIT S GROUP 25 MINUTES OFFICE 59440 [facility] JORDAN OUTPATIEN 6 6 PHYSICIAN KADEN T VISIT S GROUP 15 MINUTES HOSPITAL DEB - 6 6 [facility] OUTPATIEN INC T OFFICE 74324 [facility] JORDAN OUTPATIEN 6 6 PHYSICIAN KADEN T VISIT S GROUP 10 MINUTES HOSPITAL DEB - 6 6 [facility] OUTPATIEN INC T OFFICE 05997 [facility] [place] OUTPATIEN 6 6 PHYSICIAN T VISIT S GROUP 15 MINUTES HOSPITAL DEB - 6 6 [facility] OUTPATIEN INC T OFFICE 64807 [place] [facility] 6 6 [facility] T VISIT INTERNAL 25 MED MINUTES HOSPITAL DEB - 6 6 [facility] OUTPATIEN INC T OFFICE 23181 EAR, NOSE SHASHY OUTPATIEN 6 6 AND SARITA T VISIT THROAT 25 SPECIAL MINUTES OFFICE 80493 [facility] ADITI OUTPATIEN 6 6 PHYSICIAN SEPIDEH T VISIT S GROUP 15 MINUTES HOSPITAL DEB - 5 5 [facility] OUTPATIEN INC T EMERGENCY 14258 PAMELA PALMA [facility] 5 5 [facility]IAN [facility] T VISIT MODERATE SEVERITY EMERGENCY 83411 DEB 5 5 [facility] DEPARTMEN INC T VISIT LIMITED/M INOR PROB OFFICE 62116 [facility] JAMIA OUTPATIEN 5 5 IVONNE [place] T VISIT 15 MINUTES OFFICE 89386 [place] [facility] 5 5 [facility] T VISIT INTERNAL 15 MED MINUTES HOSPITAL DEB - 5 5 [facility] OUTPATIEN INC T HOSPITAL DEB - 5 5 [facility] OUTPATIEN INC T OFFICE [address] [address] OUTPATIEN 5 5 [facility] 10 MINUTES OFFICE [address] OUTPATIEN 5 5 [facility] T VISIT HOSPITAL 10 MINUTES HOSPITAL DEB - 5 5 [facility] OUTPATIEN INC T OFFICE 45875 [place] [facility] OUT[facility]IEN 5 5 [facility] T VISIT INTERNAL 15 MED MINUTES OFFICE 73988 [facility] JORDAN OUTPATIEN 5 5 PHYSICIAN KADEN T VISIT S GROUP 15 MINUTES OFFICE 56658 [facility] JAMIA OUTPATIEN 5 5 IVONNE MARIETTA T NEW 30 MINUTES HOSPITAL DEB - 5 5 [facility] OUTPATIEN INC T HOSPITAL DEB - 5 5 [facility] OUTPATIEN INC T OFFICE 03378 [place] [facility] OUTPATIEN 5 5 [facility] T VISIT INTERNAL 15 MED MINUTES PERIODIC 64507 [facility] DEPT HLTH DEPT PATIENT DONOVAN DONOVAN [id number] OFFICE 05641 [facility] JORDAN OUTPATIEN 5 5 PHYSICIAN KADEN T VISIT S GROUP 10 MINUTES OFFICE 57834 [place] ANGELICA OUTPATIEN [address] [facility] T VISIT INTERNAL 15 MED MINUTES HOSPITAL DEB - 5 5 [facility] OUTPATIEN INC [facility]OSPITAL DEB - 5 5 [facility] OUTPATIEN INC T OFFICE 32576 [facility] JORDAN OUTPATIEN 5 5 PHYSICIAN KADEN T VISIT S GROUP 15 MINUTES OFFICE 92462 [place] USERY AND OUTPATIEN 5 5 [place] T VISIT INTERNAL 15 MED MINUTES OFFICE 31827 [facility] JORDAN OUTPATIEN 5 5 PHYSICIAN KADEN T VISIT S GROUP 15 MINUTES EMERGENCY 75457 PAMELA MERINO 5 5 PHYSICIAN U SAURABH MALONE S, [facility] T VISIT MODERATE SEVERITY HOSPITAL EDB - 5 5 [facility] OUTPATIEN INC T HOSPITAL DEB - 5 5 [facility] OUTPATIEN INC T HOSPITAL DEB - 5 5 [facility] OUTPATIEN INC T OFFICE 09838 [place] [facility] OUTPATIEN 5 5 [place] [facility]HIE T VISIT INTERNAL 15 MED MINUTES HOSPITAL DEB - 5 5 [facility] OUTPATIEN INC T EMERGENCY 83393 DEB 5 5 [facility] DEPARTMEN INC T VISIT LOW/MODER SEVERITY OFFICE 82451 [place] [facility] OUTPATIEN 4 4 [place] [facility]HIE T VISIT INTERNAL 15 MED MINUTES OFFICE 47732 [facility] PETTEY OUTPATIEN 4 4 PHYSICIAN JAM T NEW 30 S GROUP MINUTES OFFICE 15452 [place] [facility] OUTPATIEN 4 4 [place] SOPHIE T VISIT INTERNAL 15 MED MINUTES OFFICE 09391 [place] [facility] AND OUTPATIEN 4 4 [place] T VISIT INTERNAL 15 MED MINUTES OFFICE 44384 [place] [facility] AND OUTPATIEN 4 4 [place] T VISIT INTERNAL 15 MED MINUTES OFFICE 83972 [facility] LYRIC OUTPATIEN 4 4 PHYSICIAN SEPIDEH T VISIT S GROUP 15 MINUTES HOSPITAL DEB - 4 4 [facility] OUTPATIEN INC T OFFICE 30342 [place] [facility] OUTPATIEN 4 4 [place] SOPHIE T VISIT INTERNAL 25 MED MINUTES INITIAL 33949 [facility] 4 4 [facility] PT AGE [id number] [facility] DEB - 4 4 [facility] OUTPATIEN INC T [facility] DEB - 4 4 [facility] OUTPATIEN INC T OFFICE 98114 MARY HERNANDEZ OUTPATIEN 4 4 KEHINDE KEHINDE T VISIT 25 MINUTES HOSPITAL GEORGET[place] - 4 4 N OUTPATIEN COMMUNTIY T HOSPITA OFFICE 75367 MARY HERNANDEZ OUTPATIEN 4 4 KEHINDE KEHINDE T VISIT 25 MINUTES OFFICE 21025 [facility] OUT[facility] 4 4 [facility] T VISIT 15 MINUTES HOSPITAL DEB - 4 4 [facility] OUTPATIEN INC T OFFICE 81136 [facility] OUT[facility]IEN 4 4 [facility] T VISIT 15 MINUTES HOSPITAL DEB - 4 4 [facility] OUTPATIEN INC T OFFICE 96787 EAR, NOSE MARY CONSULTAT 4 4 AND KEHINDE ION THROAT NEW/ESTAB SPECIAL PATIENT 60 MIN OFFICE 49859 [facility] OUTPATIEN 4 4 PHYSICIAN T VISIT S GROUP 10 MINUTES OFFICE 39442 JORDAN NIKKI OUTPATIEN 4 4 KADEN KADEN T VISIT 15 MINUTES HOSPITAL DEB - 1 1 [facility] OUTPATIEN INC [facility]PITAL DEB - 1 1 [facility] OUTPATIEN INC T OFFICE 06504 DILLON CARRANZA OUTPATIEN 1 1 DON DON T VISIT 15 MINUTES OFFICE 74233 Marybel BELTRAN CONSULTAT 1 1 DEVIN VARGAS MD PSC NEW/ESTAB PATIENT 60 MIN OFFICE 77024 [facility] CARRANZA OUTPATIEN 1 1 DON DON T VISIT 15 MINUTES EMERGENCY 86414 DEB 1 1 [facility] DEPARTMEN INC T VISIT HIGH/URGE NT SEVERITY HOSPITAL DEB - 1 1 [facility] OUTPATIEN INC T OFFICE 74398 DILLON CARRANZA OUTPATIEN 1 1 DON DON T VISIT 15 MINUTES OFFICE 31777 CARRANZA, CARRANZA, OUTPATIEN 9 9 DON R DON R T VISIT 15 MINUTES OFFICE 37687 DILLON CARRANZA, OUTPATIEN 9 9 DON R DON R T VISIT 15 MINUTES OFFICE 33295 DILLON CARRANZA, OUTPATIEN 9 9 DON R DON R T VISIT 15 MINUTES OFFICE 87637 D[facility]ON CARRANZA OUTPATIEN 9 9 DON R DON R T VISIT 15 MINUTES OFFICE 34284 NIKKI JORDAN OUTPATIEN 9 9 WIN [place] G T VISIT 10 MINUTES OFFICE 59300 NIKKI JORDAN OUTPATIEN 9 9 WIN [place] G T NEW 30 MINUTES OFFICE 52292 DILLON CARRANZA, OUTPATIEN 9 9 DON R DON R T VISIT 15 MINUTES OFFICE 23656 DILLON CARRANZA OUTPATIEN 9 9 DON R DON R T VISIT 15 MINUTES OFFICE 16012 DILLON CARRANZA, OUTPATIEN 9 9 DON R DON R T VISIT 5 MINUTES OFFICE 23575 DILLON CARRANZA, OUTPATIEN 9 9 DON R DON R T VISIT 15 MINUTES
--- OUTSIDE RECORDS SUMMARY | 2016-06-17 20:59 | External Medical Summary Rpt ---
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 Name Role Phone BEINEKE, BEINEKE Unavailable Unavailable BEDOYA TER, BEDOYA TER Unavailable Unavailable BESSON, BESSON Unavailable Unavailable BESSON SOPHIE, BESSON Unavailable Unavailable SOPHIE BESSON SOPHIE, BESSON Unavailable Unavailable SOPHIE MOORE, MOORE Unavailable Unavailable MOORE ALL, MOORE ALL Unavailable Unavailable JAMIA MARIETTA, JAMIA Unavailable Unavailable MARIETTA [facility] Unavailable Unavailable [facility], [facility] Unavailable Unavailable [facility] NEGIN SOMMERS, Unavailable Unavailable NEGIN SOMMERS ALEXSANDRA JR, ALEXSANDRA JR Unavailable Unavailable NAA, NAA Unavailable Unavailable NAA GIO, Unavailable Unavailable NAA GIO NAA GIO, Unavailable Unavailable NAA GIO ADITI SEPIDEH, ADITI Unavailable Unavailable SEPIDEH CANELA, CANELA Unavailable Unavailable [facility] Unavailable Unavailable SPECIAL, [facility] [place] [facility] FALLIS IVONNE, FALLIS Unavailable Unavailable IVONNE FEEBACK REE, FEEBACK Unavailable Unavailable REE ANGELICA ANNE MARIE, Unavailable Unavailable ANGELICA ANNE MARIE AYAD, LION Unavailable Unavailable JR ANAYA FULLER, Unavailable Unavailable JR LYRIC SEPIDEH, LYRIC Unavailable Unavailable SEP[facility]H [facility] Un[facility], [facility] CARYL JAM, CARYL Unavailable Unavailable JAM CARYL JAM, CARYL Unavailable Unavailable JAM [facility] Unavailable Unavailable INC, [facility] Unavailable Unavailable [facility], [facility] Unavailable Un[facility] P, [facility] P [facility], [facility]available Unavailable [facility], Unavailable Unavailable [facility] OXANA POLANCO Unavailable Unavailable [facility] JORDAN, JORDAN Unavailable Unavailable JORDAN KADEN, JORDAN Unavailable Unavailable KADEN JORDAN KADEN, JORDAN Unavailable Unavailable KADEN WIN JORDAN, Unavailable Unavailable WIN JORDAN [facility] Unavailable Unavailable INTERNAL MED, [facility] MED RICH ADAMS, Unavailable Unavailable RICH [...] PHARMACY Unavailable Unavailable #591, [facility] Unavailable Unavailable DEPT [facility], [facility] DEPT [facility] Unavailable Unavailable DEPT [facility], [facility] MARY BUSBY, MARY Unavailable Unavailable KEHINDE BUSBY, MARY Unavailable Unavailable KEHINDE INDIRA MAT, INDIRA MAT Unavailable Unavailable Purpose Continuity of Care Document - 04-19-2008 through 2016 Problems Code Diagnosis DOS Provider Status N393 STRESS 05-06-2016 [facility] P MALE L309 DERMATITIS 04-22-2016 [facility] UNSPECIFIED [facility] INTERNAL MED K219 GASTRO-ESOP 03-10-2016 [facility]iqui RE[facility]UX [facility] DISEASE INC WITHOUT ESOPHAGITIS K5730 DIVERTICULO 03-10-2016 [facility] LG MEDICAL INTEST W/O IMAGING ASS PERF/ABSC W/O BLEED R1011 RIGHT UPPER 03-10-2016 [facility] H6023 MALIGNANT 03-01-2016 [facility] OTITIS PHYSICIANS EXTERNA GROUP BILATERAL H6503 ACUTE 03-01-2016 [facility] SEROUS PHYSICIANS OTITIS GROUP MEDIA BILATERAL 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 M5441 LUMBAGO 01-23-2016 [facility] WITH PHYSICIANS, [facility] RIGHT SIDE M545 LOW BACK 01-23-2016 [facility] PAIN [facility] N87685 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[facility] 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 H5213 MYOPIA 11-28-2015 CARYL JAM BILATERAL R1031 RIGHT LOWER 11-28-2015 [facility] R1032 LEFT LOWER 11-28-2015 [facility] R310 GROSS 11-28-2015 [facility] HEMATURIA [facility]NAL MED R319 HEMATURIA 11-28-2015 [place] [facility]NSPECIFIED [facility]ICAL IM[facility]ING ASS R079 CHEST PAIN 11-17-2015 [facility] UNSPECIFIED PHYSICIANS, PLLC V24142 CUTANEOUS 10-28-2015 [facility] ABSCESS OF [facility] RIGHT LOWER INC LIMB Z09140 CUTANEOUS 10-28-2015 [facility] ABSCESS OF PHYSICIANS, HEAD ANY PLLC PART EXCEPT FACE L0390 CELLULITIS 10-15-2015 [facility] UNSPECIFIED [place] INTERNAL MED H6120 IMPACTED 09-25-2015 [facility] CERUMEN PHYSICIANS UNSPECIFIED GROUP EAR H6590 UNSPECIFIED 09-25-2015 [facility] PHYSICIANS NONSUPPURAT GROUP [place] OTITIS MEDIA UNS EAR H6903 PATULOUS 09-25-2015 JORDAN KADEN EUSTACHIAN TUBE BILATERAL R0982 POSTNASAL 09-18-2015 [facility] DRIP [facility] MED J029 ACUTE 09-15-2015 [facility] PHARYNGITIS PHYSICIAN GROUP UNSPECIFIED K120 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[facility] ORAL PHYSICIAN APHTHAE GROUP J0101 ACUTE 09-09-2015 [facility] RECURRENT PHYSICIANS, [facility] SINUS[facility] J4520 MILD 09-09-2015 [facility] INTERMITTEN PHYSICIANS, T ASTHMA [facility] UNCOMPLICAT ED R0600 DYSPNEA 09-09-2015 [facility] ASS R221 LOCALIZED 09-09-2015 [place] SWELLING MEDICAL MASS AND IMAGING ASS LUMP NECK Z720 TOBACCO USE 09-09-2015 [facility] P R05 COUGH 09-08-2015 [facility] PH[facility]ANS GROUP H6090 UNSPECIFIED 08-25-2015 [facility] OTITIS PHYSICIANS EXTERNA GROUP UNSPECIFIED EAR H6501 ACUTE 07-17-2015 [facility] SEROUS PHYSICIANS OTITIS GROUP MEDIA RIGHT EAR H6591 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-17-2015 [facility] NONSUPPURAT INC [place] OTITIS MEDIA RT EAR H9391 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-17-2015 [facility] DISORDER ANESTH OF OF RIGHT THE BLUE EAR S80635 PAIN IN 05-28-2015 [place] RIGHT HAND MEDICAL IMAGING ASS M7989 OTHER 05-28-2015 [place] SPECIFIED MEDICAL SOFT TISSUE IMAGING ASS DISORDERS R358 OTHER 05-28-2015 [facility] POLYURIA [facility] INC J0190 ACUTE 05-11-2015 [facility] SINUSITIS PHYSICIANS UNSPECIFIED GROUP A09 INFECTIOUS 03-14-2015 [facility] GASTROENTER [facility] ITIS AND INC COLITIS UNSPEC J069 ACUTE UPPER 03-12-2015 [facility] RESPIRATORY INTERNAL INFECTION MED UNSPECIFIED M542 CERVICALGIA 02-28-2015 [facility] INC 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, 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 N390 URINARY 02-24-2015 [facility] TRACT PHYSICIANS INFECTION GROUP SITE NOT SPECIFIED L664 FOLLICULITI 02-09-2015 [facility] Ludwig PHYSICIANS, ULERYTHEMAT PLLC USMAN RETICULATA L738 OTHER 02-09-2015 [facility] SPECIFIED [facility] FOLLICULAR INC DISORDERS B351 TINEA 01-30-2015 [place] IVONNE UNGUIUM B353 TINEA PEDIS 01-30-2015 [place] IV[facility]NE I890 LYMPHEDEMA 01-30-2015 [facility] IV[facility]NE NOT ELSEWHERE CLASSIFIED M2570 OSTEOPHYTE 01-30-2015 [place] IV[place]NE UNSPECIFIED JOINT H9202 OTALGIA 01-17-2015 [facility] LEFT EAR [facility] INTERNAL MED H6506 ACUTE 01-16-2015 [facility] SEROUS PHYSICIANS OTITIS GROUP MEDIA RECURRENT BILATERAL H6523 CHRONIC 01-16-2015 [facility] SEROUS [facility] OTITIS INC MEDIA BILATERAL H6693 OTITIS 01-16-2015 COMMUNITY MEDIA ANESTH OF UNSPECIFIED THE BLUE BILATERAL S99300 ENCOUNTER 01-15-2015 [facility] FOR OTHER [facility] PREPROCEDUR INC AL EXAMINATION Z90204 ACUTE & 12-27-2014 [facility] OTITS MEDIA BILATERAL H1032 UNSPECIFIED 12-17-2014 [facility] TIS LEFT EYE N6489 OTHER 12-16-2014 [place] SPECIFIED MEDICAL DISORDERS IMAGING ASS OF BREAST R928 OTH ABNORM 12-16-2014 [facility] & [facility] INCONCLUSIV INC E FIND ON DX IMAG BREAST B9789 OTH VIRAL 12-13-2014 [facility] AGENT CAUSE [place] DISEASES INTERNAL CLASSIFIED MED ELSW H6504 ACUTE 12-09-2014 [facility] SEROUS PHYSICIANS OTITIS GROUP MEDIA RECURRENT RIGHT EAR R57440 ANKYLOSIS 12-09-2014 [facility] OF EAR PHYSICIANS OSSICLES GROUP RIGHT EAR H9191 UNSPECIFIED 12-09-2014 [facility] HEARING PHYSICIANS LOSS RIGHT GROUP EAR X69559 PAIN IN 12-05-2014 [place] IV[place]NE RIGHT TOES K01918 PAIN IN 12-05-2014 [place] [facility] LEFT TOES Z1231 ENCOUNTER 11-29-2014 [place] SCREENING MEDICAL MAMMO MALIG IMAGING ASS NEOPLASM BREAST Z803 FAMILY 11-29-2014 [place] HISTORY OF MEDICAL MALIGNANT IMAGING ASS NEOPLASM OF BREAST C90935 PAIN IN 11-15-2014 [facility] RIGHT VALLEY FINGERS INTERNAL MED O23661 PAIN IN 11-15-2014 [facility] LEFT FOOT VALLEY INTERNAL MED V252 STERILIZATI 11-05-2014 [facility] DE[facility] DONOVAN 83199 DYSFUNCTION 09-19-2014 [facility] OF PHYSICIANS EUSTACHIAN GROUP TUBE 4779 ALLERGIC 09-19-2014 [facility] RHINITIS PHYSICIANS CAUSE GROUP UNSPECIFIED 36971 OTHER 09-19-2014 [facility] DISEASES OF PHYSICIANS NASAL GROUP CAVITY AND SINUSES 7295 PAIN IN 09-18-2014 [facility] SOFT VALLEY TISSUES OF INTERNAL LIMB MED 70435 SIMPLE/UNSP 2014 [facility] ECIFIED [facility] CHRONIC INC SEROUS OTITIS MEDIA 3814 NONSUPPRATV 2014 [place] OTITIS MEDICAL MEDIA NOT IMAGING ASS SPEC ACUT/CHRON 470 DEVIATED 2014 [place] NASAL MEDICAL SEPTUM IMAGING ASS 06283 UNSPECIFIED 09-02-2014 [facility] CONDUCTIVE PHYSICIANS HEARING GROUP LOSS 4730 CHRONIC 09-02-2014 [facility] MAXILLARY PHYSICIANS SINUSITIS GROUP 3829 UNSPECIFIED 08-29-2014 JORDAN KADEN OTITIS MEDIA 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 4619 ACUTE 08-22-2014 [facility] SINUSITIS, VALLEY UNSPECIFIED INTERNAL MED 3899 UNSPECIFIED 08-13-2014 [facility] HEARING PHYSICIANS LOSS GROUP 7856 ENLARGEMENT 08-13-2014 [facility] OF LYMPH PHYSICIANS NODES GROUP 65368 GANGLION OF 05-31-2014 [facility] TENDON PHYSICIANS SHEATH GROUP 55633 UNSPECIFIED 05-31-2014 COMM[facility]ITY GANGLION ANESTH OF THE BLUE 41416 PAIN IN 05-30-2014 [place] JOINT, MEDICAL FOREARM IMAGING ASS 35683 GANGLION OF 05-29-2014 [facility]INT [facility] INC V7283 OTHER 05-29-2014 [facility] SPECIFIED [facility] PRE-OPERATI INC VE EXAMINATION 42632 UNSPECIFIED 02-27-2014 [facility] OTALGIA [facility] INTERNAL MED 4871 INFLUENZA 02-13-2014 [facility] WITH OTHER VALLEY RESPIRATORY INTERNAL MED MANIFESTATI ONS 51093 GENERALIZED 02-13-2014 [facility] PAIN [place] INTERNAL MED 4659 ACUTE URIS 12-06-2013 [facility] OF VALLEY UNSPECIFIED INTERNAL SITE MED 486 PNEUMONIA, 12-03-2013 [facility] ORGANISM [place] UNSPECIFIED INTERNAL MED 7840 HEADACHE 12-03-2013 [facility] [place] INTERNAL MED 6822 CELLULITIS 11-15-2013 [facility] AND ABSCESS PHYSICIANS OF TRUNK GROUP 85832 ABDOMINAL 11-15-2013 [facility] PAIN, PHYSICIANS UNSPECIFIED GROUP SITE 28239 ABDOMINAL 10-29-2013 [facility] PAIN, [facility] INTERNAL MED 21279 POLYURIA 10-27-2013 [facility] INC V700 ROUTINE 10-27-2013 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 7842 SWELLING 07-03-2013 MARY KEHINDE MASS OR LUMP IN HEAD AND NECK 33889 UNSPECIFIED 06-19-2013 MARY KEHINDE TINNITUS 5990 URINARY 06-11-2013 [facility] TRACT INFECTION SITE NOT SPECIFIED 2409 GOITER, 06-08-2013 NAA UNSPECIFIED GIO 42761 OBESITY, 06-06-2013 [facility] UNSPECIFIED [facility] INC 97511 UNSPECIFIED 06-05-2013 EAR, NOSE ABNORMAL AND THROAT AUDITORY SPECIAL PERCEPTION 37406 UNSPECIFIED 06-05-2013 [facility] VAGINITIS PHYSICIANS AND GROUP VULVOVAGINI TIS 57877 UNSPECIFIED 05-28-2013 JORDAN KADEN ACUTE NONSUPPURAT [place] OTITIS MEDIA 30754 METHICILLIN 05-28-2010 [facility] RESISTANT [facility] STAPHYLOCOC INC CUS AUREUS 6826 CELLULITIS 05-28-2010 [facility] AND ABSCESS [facility] OF LEG INC EXCEPT FOOT 43447 METHICILLIN 05-26-2010 [facility] RESISTANT DON STAPH AUREUS SEPTICEMIA V090 INFECTION 05-26-2010 [facility] W/MICROORGA DON NISMS RESISTANT PENICILLINS V7241 05-26-2010 [facility] EXAMINATION [facility] OR TEST INC NEGATIVE RESULT 9164 HIP THI 05-23-2010 [facility] LEG&ANK DON INSECT BITE NONVENOMOUS W/O INF 5589 OTH&UNSPEC 12-13-2008 [facility], NONINFECTIO DON R US GASTROENTER ITIS&COLITI S 63501 CALCANEAL 12-13-2008 [facility] SPUR DON R 1105 DERMATOPHYT 12-02-2008 [facility], OSIS OF THE DON R BODY 92330 OVERWEIGHT 10-09-2008 [facility] DON R 4618 OTHER ACUTE 10-09-2008 [facility], [place]INUSIT[place] R [address]99 UNSPECIFIED 06-11-2008 WIN JORDAN SENSORINEUR AL HEARING LOSS 84312 UNSPECIFIED 06-06-2008 WIN JORD[facility] OBSTRUCTION OF EUSTACHIAN TUBE 3882 UNSPECIFIED 06-06-2008 YARELY JORDAN HEARING LOSS Medications Na ND Rx Da Fi Fi [...] CY NT HI AN A IN C CI 65 03 04 30 30 00 EA Ac TA 86 -2 -[address] ti LO 20 3- 8- 00 00 SI ve DC 00 20 20 47 DE AM 50 17 17 24 5 82 PH HB AR R MA 10 CY MG OF CY TA NT BL HI ET AN A IN C IM 00 04 04 30 30 00 EA Ac IP 78 -0 -[address] ti RA 11 3- 8- 00 00 SI ve IN 76 20 20 48 DE NE 60 [...] 03 04 60 30 00 EA Ac DC 25 -2 -[address] ti AZ 30 0- 4- 00 00 SI ve OL 90 20 20 48 DE AM 11 17 17 03 1 96 PH 0. AR 5 MA MG CY TA OF BL CY ET NT HI AN A IN C TR 00 03 04 15 14 00 EA Ac IA 16 -1 -[address] ti MC 80 0- 7- 00 00 SI ve IN 00 20 20 47 DE OL 31 17 17 90 ON 5 69 PH E AR 0. MA 02 CY 5% OF CR CY EA NT M HI AN A IN C MO 60 03 04 30 30 00 EA Ac NT 50 -0 -[address] ti EL 53 7- 7- 00 00 SI ve UK 56 20 20 47 DE 20 17 17 88 T 8 25 PH SO AR D MA 10 CY MG OF CY TA NT BL HI ET AN A IN C IM 00 02 03 30 30 00 EA Ac IP 78 -2 -[address] ti RA 11 3- - 00 00 SI ve IN 76 20 20 47 DE NE 60 [...] 20 6- 4- 00 00 SI ve DC 00 20 20 47 DE AM 50 [...] 17 17 56 E 5 51 PH DC AR OP MA CY 50 OF MC [...] 01 02 7. 5 00 EA Ac DC 06 -1 -[address] ti [...] 20 6- 7- 00 00 SI ve DC 00 20 20 47 DE AM 50 [...] NT ET HI AN A IN C DC 59 12 01 12 6 00 EA [...] .[address] ti TI 90 6- 00 SI ve X 46 20 20 46 DE 1 95 16 17 78 MG 6 49 PH AR TA MA BL CY ET OF CY NT HI AN A IN C DC 65 12 01 10 3 00 EA Ac OM 16 -0 -[address] ti ET 20 7- 00 SI ve TRAN 52 20 20 46 DE ZI 11 16 17 80 NE 1 72 PH AR 25 MA CY MG OF TA CY BL NT ET HI AN A IN C NA 00 10 11 [address] Ac DC 09 -3 -[address] 92 EP ti OX 30 0- 5- 00 SI 65 HE ve EN 14 20 20 DE NS 90 09 09 50 1 PH DO 0 AR N MG MA R CY TA BL OF ET CY NT HI AN A CI 55 09 10 [address] Ac TA 11 -2 -0 .0 L- 37 EP ti LO 10 8- 00 MA 69 HE ve DC 34 20 20 RT 7 NS AM 43 09 09 0 PH DO HB AR N R MA R 40 CY MG #5 91 TA BL ET CE 00 09 10 00 [address] Ac FD 78 -2 -0 .0 L- 37 EP ti IN 12 - 8- 00 MA 69 HE ve IR 17 20 20 RT 6 NS 66 09 09 30 0 PH DO 0 AR N MG MA R CY CA PS #5 UL 91 E 63 09 10 00 [address] Ac 82 -2 -0 .0 L- 14 EP ti 40 1- 8- 00 MA 71 HE ve 05 20 20 RT 7 NS 64 09 09 0 PH DO AR N MA R CY #5 91 NA 00 04 09 00 [address] Ac SO 08 -0 -1 .0 L- 14 EP ti NE 51 1- 0- 00 MA 68 HE ve X 28 20 20 RT 2 NS 50 80 09 09 1 PH DO MC AR N G MA R NA CY SA L #5 SP 91 RA Y LO 00 04 09 01 30 30 [...] 01 [address] Ac DC 25 -1 -[address] 47 EP ti AZ 30 4- 0- 00 SI 93 HE ve OL 90 20 20 DE NS AM 11 09 09 1 PH DO 0. AR N 5 MA R MG CY TA OF BL CY ET NT HI AN A AL 67 07 07 [address] Ac DC 25 -1 -[address] 47 EP [...] 00 [address] Ac DC 25 -1 -[address] 49 EP [...] Procedures Procedure DOS Code Location Performer Comment URNLS DIP 69361 [facility] STICK/TAB INC INC LET REAGENT AUTO MICROSCOP Y COMPREHEN 40865 [facility] SIVE 7 [facility] [address] [facility] AMYLASE 7 [facility] INC INC FINAL G9638 [facility] REPORTS 7 MEDICAL W/O DOC IMAGING 1/MORE ASS DOSE REDUCTION TECH URINE 23903 [facility] TEST INC [place] [address] [facility] LIPASE 7 [facility] INC INC THER 62105 [facility] PROPH/DX 7 [facility] NJX IV INC INC PUSH SINGLE/1S T SBST/[place] [address] [facility] ABDOMEN & 7 MEDICAL PELVIS IMAGING W/O ASS CONTRAST MATERIAL BLOOD 52885 [facility] COUNT 7 [facility] COMPLETE INC INC AUTO&AUTO DIFRNTL WBC FINAL G9551 [facility] REPR ABD 7 MEDICAL IMAG STS IMAGING W/O ASS INCIDNT FND LES NTD: RADEX 72624 [facility] SPINE 6 [facility] LUMBOSACR INC INC AL MINIMUM 4 VIEWS CULTURE 98621 [facility] BACTERIAL 6 [facility] INC INC QUANTTATI VE COLONY COUNT URINE URNLS DIP 52880 [facility] 6 [facility] STICK/TAB INC INC LET REAGENT AUTO MICROSCOP Y OPHTH 02561 [facility] 6 JAM JAM XM&EVAL INTERMEDI ATE NEW PT DETERMINA 82678 CARYL CARYL TION [address] [place] [address] [facility] ABDOMEN & 6 [facility] PELVIS INC INC W/O CONTRAST MATERIAL RADIOLOGI 59765 [facility] No 6 MEDICAL GIO EXAMINATI IMAGING ON CHEST ASS SINGLE VIEW FRONTAL CUL BACT 96909 [facility] XCPT 6 [facility] URINE INC INC BLOOD/STO OL AEROBIC ISOL CUL BACT 87301 [facility] AEROBIC 6 [facility] ADDL INC INC METHS DEFINITIV E EA ISOL SUSCEPTIB 76966 [facility] LTY STDY 6 [facility] ANTIMICRB INC INC IAL MICRO/AGA R DILUTJ INCISION 29259 [facility] GUNTER & 6 PHYSICIAN SEPIDEH DRAINAGE S, PLLC ABSCESS COMPLICAT ED/MULTIP LE CUR MEDS G8428 [facility] NO DOC 6 [facility] OBDT INTERNAL INTERNAL UPD/REV MED MED ELIG CLIN RSN N GVN COMPRE 17517 NIKKI JORDAN AUDIOMETR 6 KADEN KADEN Y THRESHOLD EVAL SP RECOGNIJ IAADIADOO 96205 [facility] LION 6 PHYSICIAN STREPTOCO GROUP CCUS GROUP A ECG 20501 [facility] FOREMAN ROUTINE 6 [facility] W/LEAST P 12 LDS I&[place] [address] [facility] TROPONIN 6 [facility] QUANTITAT INC INC [place] NATRIURET 92342 [facility] IC 6 [facility] PEPTIDE INC INC BLOOD 88728 [facility] COUNT 6 [facility] COMPLETE INC INC AUTO&AUTO DIFRNTL WBC RADIOLOGI 15449 [facility] C 6 [facility] EXAMINATI INC INC ON NECK SOFT TISSUE PRESSURIZ 57063 [facility] ED/NONPRE 6 [facility] SSURIZED INC INC INHALATIO N TREATMENT COMPREHEN 84777 [facility] SIVE 6 [facility] METABOLIC INC INC PANEL CREATINE 33877 DEB OBYD KINASE MB 6 [facility] FRACTION INC INC ONLY THERAPEUT 84089 [facility] IC 6 [facility] PROPHYLAC INC INC TIC/DX INJECTION SUBQ/IM ECG 18148 [facility] ROUTINE 6 [facility] ECG INC INC W/LEAST 12 LDS TRCG ONLY W/O I&R RADIOLOGI 39305 [place] TIFFANIE C EXAM 6 MEDICAL CHEST 2 IMAGING VIEWS ASS FRONTAL&L ATERAL CREATINE 00965 [facility] KINASE 6 [facility] TOTAL INC INC FIBRIN 48346 [facility] DGRADJ 6 [facility]OS[facility] PRODUCTS INC INC D-DIMER QUAL/SEMI LAUREANO INJECTION J2405 DEB BOYD 6 [facility]OS[facility] ONDANSETR INC INC ON HCL PER 1 MG UNCLASSIF J3490 [facility] IED DRUGS 6 [facility] [place] [address] [facility]B [facility] INFUSION 6 [facility] THERAPY INC INC PROPHYLAX IS/DX EA HOUR URINE 93487 DEB BOYD 6 [facility] TEST INC INC VISUAL COLOR CMPRSN METHS ANES 02695 COMMUNITY FEEBACK XTRNL MID 6 ANESTH REE & INNER OF THE EAR W/[place] [address] [facility] INFUSION 6 [facility] THERAPY/P INC INC ROPHYLAXI S /DX 1ST TO 1 HR TYMPANOST 45042 [facility]B [facility] DE 6 [facility] GENERAL INC INC ANESTHESI A THERAPEUT 01706 [facility]B [facility] IC 6 [facility] INJECTION INC INC IV PUSH EACH NEW DRUG COLLECTIO 59846 DEB [facility] N VENOUS 6 [facility] BLOOD INC INC VENIPUNCT URE COMPREHEN 87554 [facility] SIVE 6 [facility] METABOLIC INC INC PANEL RADEX 38034 [facility] HAND 6 [facility] MINIMUM 3 INC INC VIEWS RADEX 98887 [place] [facility] ALL HAND 2 6 MEDICAL VIEWS IMAGING ASS LIPID 74653 [facility] PANEL 6 [facility] INC INC HEMOGLOBI 32143 [facility] N 6 [facility] GLYCOSYLA INC INC MARCY A1C INJECTION J1040 [facility] [address] 6 PHYSICIAN METHYLPRE S GROUP DNISOLONE ACETATE 80 MG THERAPEUT [address] [facility] [address] IC 6 PHYSICIAN PROPHYLAC S GROUP TIC/DX INJECTION SUBQ/IM IADNA-DNA 57704 [facility] /RNA GI 6 [facility] PTHGN INC INC MULTIPLEX PROBE TQ 12-25 PHYSICAL 88380 [facility] THERAPY 6 [facility] EVALUATIO INC INC N TYMPANOST 62661 [facility] DE 5 PHYSICIAN KADEN GENERAL S GROUP ANESTHESI A ANES 54310 [facility] XTRNL MID 5 ANESTH LASHAUN & INNER OF THE EAR W/BX BLUE TYMPANOTO MY BASIC 22803 [facility] METABOLIC 5 [facility] PANEL INC INC CALCIUM TOTAL COLLECTIO 09744 [facility] N VENOUS 5 [facility] BLOOD INC INC VENIPUNCT URE GONADOTRO 13682 [facility] PIN 5 [facility] CHORIONIC INC INC QUALITATI VE BLOOD 10875 [facility] COUNT 5 [facility] COMPLETE INC INC AUTO&AUTO DIFRNTL WBC DIAGNOSTI G0206 [facility] C 5 [facility] MAMMOGRAP INC INC HY INCL CAD WHEN PERF; UNI IAADIADOO 87311 [facility] CCUS MED GROUP A SCREENING G0202 [facility] 5 [facility] MAMMOGRAP INC INC HY KARYNA INCL CAD WHEN PERFORMD COMPUTER- 87838 [facility] AIDED 5 [facility] DETECTION INC INC SCREENING MAMMOGRAP HY RADEX 62296 [facility] HAND 5 [facility] MINIMUM 3 INC INC VIEWS SCREENING 27400 [facility]PT [facility] DEPT ACUITY [place] QUANTITAT [place] BILAT RADEX 81397 [facility] FOOT 5 [facility] COMPLETE INC [place] [address] [place] [address] [place] [facility] MAXILLOFA 5 MEDICAL CIAL W/O IMAGING CONTRAST ASS MATERIAL COMPRE 60054 NIKKI JORDAN AUDIOMETR 5 KADEN KADEN Y THRESHOLD EVAL SP RECOGNIJ TYMPANOME 42512 NIKKI JORDAN TRY 5 KADEN KADEN DISTORT 17430 NIKKI JORDAN PRODUCT 5 KADEN KADEN EVOKED OTOACOUST IC EMISNS LIMITD INJECTION J0696 [facility] AND 5 [facility] CEFTRIAXO INTERNAL NE SODIUM MED PER 250 MG INJECTION J3301 [facility] AND 5 [facility] TRIAMCINO INTERNAL LONE MED ACETONIDE NOS 10 MG THERAPEUT 98821 [facility] AND IC 5 [facility] PROPHYLAC INTERNAL TIC/DX MED INJECTION SUBQ/IM ANES 97741 [facility] [place] [place] NERVE 5 ANESTH SHE MUSCLE OF THE TDN BLUE FASCIA&BU RSA FOREARM WRIST REPAIR 13477 DEB [facility] COMPLEX 5 [facility] SCALP/ARM INC INC /LEG 2.6-7.5 CM EXCISION 32566 [facility] LESION 5 PHYSICIAN JAM TENDON S GROUP SHEATH FOREARM&/ WRIST MRI UPPER 00924 [place] NAA 5 MEDICAL EXTREMITY IMAGING OTH THAN ASS JT W/O CONTR MATRL COLLECTIO 61925 [facility] N VENOUS 5 [facility] BLOOD INC INC VENIPUNCT URE GONADOTRO 35383 [facility]B [facility] PIN 5 [facility] CHORIONIC INC INC QUALITATI VE INJECTION J3301 [facility] [facility] 5 [facility] S[facility] TRIAMCINO INTERNAL LONE MED ACETONIDE NOS 10 MG THERAPEUT [address] [facility] PROPHYLAC INTERNAL TIC/DX MED INJECTION SUBQ/IM [id number] 95447 [facility] INFLUENZA INTERNAL MED INJECTION J0696 [facility] CEFTRIAXO INTERNAL NE SODIUM MED PER 250 MG THERAPEUT 77830 [facility] 4 [facility] PROPHYLAC INTERNAL TIC/DX MED INJECTION SUBQ/IM THERAPEUT 14031 [facility] IC 4 PHYSICIAN SEPIDEH PROPHYLAC S GROUP TIC/DX INJECTION SUBQ/IM INJECTION J1885 [facility] 4 PHYSICIAN SEPIDEH KETOROLAC S GROUP TROMETHAM INE PER 15 MG CULTURE 22301 COMBINED COMBINED BACTERIAL 4 PHYSICIAN PHYSICIAN S LA S LA QUANTTATI VE COLONY COUNT URINE URNLS DIP 86275 [facility] STICK/TAB INTERNAL LET RGNT MED NON-AUTO W/O MICRSCP COMPREHEN 17681 [facility] S[facility] METABOLIC INC INC PANEL LIPID 71107 [facility] PANEL 4 [facility] INC INC TDAP 95785 [facility] Y[facility]/> IM HLTH DEPT HLTH DEPT DONOVAN DONOVAN CYTP 38144 [facility], PICKLESIM CERV/VAG 4 LLC ER JR JARED AUTO THIN LAYER PREP MNL SCREEN HEPATIC 75781 [facility] FUNCTION 4 [facility] PANEL INC INC THYROID 33022 [facility] HORM 4 [facility] UPTK/THYR INC INC [place] [address] [facility] THYROXINE 4 [facility] [place] [address] [facility] THYROID 4 [facility] STIMULATI INC INC NG HORMONE TSH RADIOLOGI 85445 INDIRA MAT INDIRA MAT C 4 EXAMINATI ON NECK SOFT TISSUE US SOFT 65570 [facility] TISSUE 4 N N HEAD & COMMUNTIY COMMUNTIY NECK [place] [address] NAA NAA MAXILLOFA 4 GIO GIO CIAL W/O CONTRAST MATERIAL LOCM Q9967 [facility] 300-399 4 [facility] MG/ML INC INC IODINE CONCENTRA TION PER ML CT SOFT 48808 [facility] TISSUE 4 [facility] NECK INC INC W/CONTRAS T MATERIAL CULTURE 77621 COMBINED COMBINED BACTERIAL 4 PHYSICIAN PHYSICIAN S LA S LA QUANTTATI VE COLONY COUNT URINE IM ADM 42890 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 PRQ ID 4 [facility] SUBQ/IM NJXS 1 VACCINE INJECTION J0696 [facility] CORREIASON 4 [facility] SOPHIE CEFTRIAXO NE SODIUM PER 250 MG LIPID 42211 [facility] PANEL 4 [facility] INC INC COMPREHEN 67120 [facility] SIVE 4 [facility] METABOLIC INC INC PANEL PURE TONE 50958 EAR, NOSE MARY 4 AND KEHINDE AUDIOMETR THROAT Y AIR SPECIAL ONLY SPEECH 34415 EAR, NOSE MARY AUDIOMETR 4 AND KEHINDE Y THROAT THRESHOLD SPECIAL LARYNGOSC 51931 EAR, NOSE MARY OPY 4 AND KEHINDE FLEXIBLE THROAT DIAGNOSTI SPECIAL C TYMPANOME 77621 EAR, NOSE MARY TRY 4 AND KEHINDE THROAT SPECIAL INJECTION J0696 [facility] 4 PHYSICIAN PHYSICIAN CEFTRIAXO S GROUP S GROUP NE SODIUM PER 250 MG URNLS DIP 01122 [facility] 4 PHYSICIAN PHYSICIAN STICK/TAB S GROUP S GROUP LET RGNT NON-AUTO W/O MICRSCP THERAPEUT 48197 [facility] IC 4 PHYSICIAN PHYSICIAN PROPHYLAC S GROUP S GROUP TIC/DX INJECTION SUBQ/IM I&D DEEP 96352 C JAYDE BEL[facility] ABSC 1 DEVIN JHA/HEM PSC ATOMA THIGH/[place] [address] [facility] INFUSION 1 [facility] THERAPY INC INC PROPHYLAX IS/DX EA HOUR LEVEL III 75920 CHIPPS RICH SURG 1 [facility]OLOGY DUBILIER GROSS&SEPIDEH ROSCOPIC EXAM OTHER 8309 [facility] INCISION 1 [facility] OF SOFT INC INC TISSUE GONADOTRO 26279 [facility] PIN 1 [facility] [place] [address] [facility] INFUSION 1 [facility] THERAPY/P INC INC ROPHYLAXI S /DX 1ST TO 1 HR BLOOD 60282 [facility] COUNT 1 [facility] COMPLETE INC INC AUTO&AUTO DIFRNTL WBC SUSCEPTIB 66078 [facility] LTY STDY 1 [facility] ANTIMICRB INC INC IAL [place] [address] DEB [facility] INFUSION 1 [facility] THERAPY INC INC PROPHYLAX IS/DX EA HOUR BASIC 09909 [facility] METABOLIC 1 [facility] PANEL INC INC CALCIUM TOTAL CUL BACT 39775 [facility] XCPT 1 [facility] URINE INC INC BLOOD/STO OL AEROBIC ISOL CUL BACT 53834 [facility] AEROBIC 1 [facility] ADDL INC INC METHS DEFINITIV E EA ISOL RADEX 75557 CARRANZADILLON MOLINA, CALCANEUS 9 DON R DON R MINIMUM 2 VIEWS COMPRE 04866 NIKKI JORDAN, AUDIOMETR 9 WIN Null Y THRESHOLD EVAL SP RECOGNIJ ACOUSTIC 57190 NIKKI JORDAN, REFLEX 9 WIN Null THRESHOLD TYMPANOME 98322 NIKKI JORDAN, TRY 9 WIN Null Encounters Encounter Start End Date Code Location Performer Type Date OFFICE 73729 [facility] OUT[facility] 7 7 [facility] 10 P MINUTES OFFICE 20237 [facility] 7 7 [place] T VISIT INTERNAL 15 MED MINUTES OFFICE 79660 [facility] [facility] OUTPATIEN 7 7 [facility] 20 HOSPITAL MINUTES HOSPITAL DEB - 7 7 [facility] T EMERGENCY 42449 DEB 7 7 [facility] T VISIT MODERATE SEVERITY OFFICE 54367 [facility] NIKKI GALLEGOS 7 7 PHYSICIAN T VISIT S GROUP 15 MINUTES OFFICE 10718 NAY GAL[facility]OS 6 6 [place] T VISIT INTERNAL 25 MED MINUTES EMERGENCY 32363 DEB 6 6 [facility] V[facility] LIMITED/M INOR PROB EMERGENCY 44365 PAMELA ANAYA, 6 6 PHYSICIAN DEPARTMEN S, [facility] T VISIT HIGH/URGE NT SEVERITY HOSPITAL DEB - 6 6 [facility] T HOSPITAL DEB [facility] 6 6 [facility] T OFFICE 44700 [facility] OUT[facility]EN 6 6 [facility] T VISIT INTERNAL 15 MED MINUTES EMERGENCY 56501 PAMELA FIELDS DEPT 6 6 PHYSICIAN VISIT S, [facility] HIGH SEVERITY& THREAT FUNCJ EMERGENCY 71892 PAMELA GUNTER 6 6 PHYSICIAN [facility] S, [facility] T VISIT MODERATE SEVERITY EMERGENCY 42070 DEB 6 6 [facility] T VISIT LOW/MODER SEVERITY HOSPITAL DEB - 6 6 [facility] T OFFICE 33747 [facility]EN 6 6 [facility] T VISIT INTERNAL 15 MED MINUTES OFFICE 72699 [facility] JORDAN OUTPATIEN 6 6 PHYSICIAN KADEN T VISIT S GROUP 15 MINUTES OFFICE 87841 [facility] OUTPATIEN 6 6 [facility] T VISIT INTERNAL 15 MED MINUTES OFFICE 11548 [facility] LION OUTPATIEN 6 6 PHYSICIAN T VISIT GROUP 15 MINUTES HOSPITAL DEB - 6 6 [facility] T EMERGENCY 40245 DEB 6 6 [facility] T VISIT HIGH/URGE NT SEVERITY EMERGENCY 06692 PAMELA MERINO DEPT 6 6 PHYSICIAN U SAURABH VISIT S, [facility] HIGH SEVERITY& THREAT FUNCJ OFFICE 86049 [facility] NEGIN OUTPATIEN 6 6 PHYSICIAN SOMMERS T VISIT S GROUP 25 MINUTES OFFICE 69294 [facility] JORDAN OUTPATIEN 6 6 PHYSICIAN KADEN T VISIT S GROUP 15 MINUTES HOSPITAL DEB - 6 6 [facility] OUTPATIEN INC T OFFICE 17799 [facility] JORDAN OUTPATIEN 6 6 PHYSICIAN KADEN T VISIT S GROUP 10 MINUTES HOSPITAL DEB - 6 6 [facility] OUTPATIEN INC T OFFICE 47947 [facility] TER OUTPATIEN 6 6 PHYSICIAN T VISIT S GROUP 15 MINUTES HOSPITAL DEB - 6 6 [facility] OUTPATIEN INC T OFFICE 42354 [facility] 6 6 [facility] T VISIT INTERNAL 25 MED MINUTES HOSPITAL DEB - 6 6 [facility] OUTPATIEN INC T OFFICE 29986 [facility] ADITI OUTPATIEN 6 6 PHYSICIAN SEPIDEH T VISIT S GROUP 15 MINUTES OFFICE 66525 EAR, NOSE SHASHY OUTPATIEN 6 6 AND SARITA T VISIT THROAT 25 SPECIAL MINUTES EMERGENCY 23965 DEB 5 5 [facility] DEPARTMEN INC T VISIT LIMITED/M INOR PROB EMERGENCY 69272 PAMELA PALMA [facility] 5 5 PHYSICIAN DEPARTMEN S, [facility] T VISIT MODERATE SEVERITY HOSPITAL DEB - 5 5 [facility] OUTPATIEN INC T OFFICE 59133 [facility] JAMIA OUTPATIEN 5 5 IVONNE [place] T VISIT 15 MINUTES OFFICE 28751 [facility] 5 5 [facility] T VISIT INTERNAL 15 MED MINUTES HOSPITAL DEB - 5 5 [facility] DEB - 5 5 [facility] OUTPATIEN INC T OFFICE [address] OUTPATIEN 5 5 [facility] 10 MINUTES OFFICE [address] [address] OUTPATIEN 5 5 [facility] 10 MINUTES HOSPITAL DEB - 5 5 [facility] OUTPATI[facility] INC T OFFICE 13257 [facility]EN 5 5 [facility] T VISIT INTERNAL 15 MED MINUTES OFFICE 83884 [facility] JORDAN OUTPATIEN 5 5 PHYSICIAN KADEN T VISIT S GROUP 15 MINUTES OFFICE 90024 [facility] JAMIA OUTPATIEN 5 5 IVONNE [place] T NEW 30 MINUTES HOSPITAL DEB - 5 5 [facility] INC [facility]PITAL DEB - 5 5 [facility] OUTPATIEN INC OFFICE 79004 [facility] OUTPATIEN 5 5 [facility] T VISIT INTERNAL 15 MED MINUTES PERIODIC 44469 [facility] DEPT HLTH DEPT PATIENT DONOVAN DONOVAN 40-64YRS OFFICE 56026 [facility] JORDAN OUTPATIEN 5 5 PHYSICIAN KADEN T VISIT S GROUP 10 MINUTES OFFICE 89536 [facility] OUTPATIEN 5 5 [facility] T VISIT INTERNAL 15 MED MINUTES HOSPITAL DEB - 5 5 [facility]PATIEN INC [facility] DEB - 5 5 [facility] OUTPATIEN INC OFFICE 40277 [facility] JORDAN OUTPATIEN 5 5 PHYSICIAN KADEN T VISIT S GROUP 15 MINUTES OFFICE 29641 [facility] AND OUTPATIEN 5 5 VALLEY T VISIT INTERNAL 15 MED MINUTES OFFICE 42625 [facility] J[facility]AN OUTPATIEN 5 5 PHYSICIAN KADEN T VISIT S GROUP 15 MINUTES EMERGENCY 29167 PAMELA MERINO 5 5 PHYSICIAN U SAURABH [facility] S, [facility] T VISIT MODERATE SEVERITY HOSPITAL DEB - 5 5 [facility] DEB - 5 5 [facility] OUTPATIEN INC T HOSPITAL DEB - 5 5 [facility] OUTPATIEN INC T OFFICE 98961 [facility]EN 5 5 [facility] T VISIT INTERNAL 15 MED MINUTES EMERGENCY 83126 DEB 5 5 [facility] DEPARTMEN INC T VISIT LOW/MODER SEVERITY HOSPITAL DEB - 5 5 [facility] OUTPATIEN INC T OFFICE 14013 [facility]EN 4 4 [facility] [facility] T VISIT INTERNAL 15 MED MINUTES OFFICE 42601 [facility] PETTEY OUTPATIEN 4 4 PHYSICIAN JAM T NEW 30 S GROUP MINUTES OFFICE 50490 [facility] OUT[facility]IEN 4 4 [facility] [facility] T VISIT INTERNAL 15 MED MINUTES OFFICE 11855 [facility] AND OUTPATIEN 4 4 [place] T VISIT INTERNAL 15 MED MINUTES OFFICE 40038 [facility] OUTPATIEN 4 4 [place] T VISIT INTERNAL 15 MED MINUTES OFFICE 18579 [facility] LYRIC OUTPATIEN 4 4 PHYSICIAN SEPIDEH T VISIT S GROUP 15 MINUTES HOSPITAL DEB - 4 4 [facility] OUTPATIEN INC T OFFICE 95306 [facility] 4 4 [facility] [facility] T VISIT INTERNAL 25 MED MINUTES INITIAL 61683 [facility] DEPT MEDICINE DONOVAN DONOVAN NEW PT AGE 18-39YRS HOSPITAL DEB - 4 4 [facility] OUTPATIEN INC T OFFICE 84476 [facility] HERNANDEZ OUTPATIEN 4 4 KEHINDE KEHINDE T VISIT 25 MINUTES HOSPITAL DEB - 4 4 [facility] OUTPATIEN INC T HOSPITAL CONOR - 4 4 N OUTPATIEN COMMUNTIY T HOSPITA OFFICE 74970 MARY HERNANDEZ OUTPATIEN 4 4 KEHINDE KEHINDE T VISIT 25 MINUTES OFFICE 59623 [facility] OUTPATIEN 4 4 [facility] T VISIT 15 MINUTES HOSPITAL DEB - 4 4 [facility] OUTPATIEN INC T OFFICE 83461 [facility] OUT[facility]IEN 4 4 [facility]OPHIE T VISIT 15 MINUTES HOSPITAL DEB - 4 4 [facility] OUTPATIEN INC T OFFICE 90697 [facility] OUTPATIEN 4 4 PHYSICIAN T VISIT S GROUP 10 MINUTES OFFICE 15940 EAR, NOSE MARY CONSULTAT 4 4 AND KEHINDE ION THROAT NEW/ESTAB SPECIAL PATIENT 60 MIN OFFICE 39385 NIKKI JORDAN OUTPATIEN 4 4 KADEN KADEN T VISIT 15 MINUTES HOSPITAL DEB - 1 1 [facility] OUTPATIEN INC T OFFICE 83809 DILLON CARRANZA OUTPATIEN 1 1 DON DON T VISIT 15 MINUTES OFFICE 99986 Marybel BELTRAN CONSULTAT 1 1 DEVIN VARGAS MD PSC NEW/ESTAB PATIENT 60 MIN HOSPITAL DEB - 1 1 [facility] OUTPATIEN INC T OFFICE 95990 DILLON GALLEGOS 1 1 DON DON T VISIT 15 MINUTES EMERGENCY 06293 RICH GUNTER 1 1 EMERGENCY [facility] SERVICES T VISIT HIGH/URGE NT SEVERITY HOSPITAL DEB - 1 1 [facility] OUTPATIEN INC T OFFICE 10255 DILLON GALLEGOS 1 1 DON DON T VISIT 15 MINUTES OFFICE 07191 D[facility]ON CARRANZA OUTPATIEN 9 9 DON R DON R T VISIT 15 MINUTES OFFICE 51172 CARRANZA, CARRANZA, OUTPATIEN 9 9 DON R DON R T VISIT 15 MINUTES OFFICE 29906 DILLON CARRANZA, OUTPATIEN 9 9 DON R DON R T VISIT 15 MINUTES OFFICE 68180 DILLON CARRANZA, OUTPATIEN 9 9 DON R DON R T VISIT 15 MINUTES OFFICE 61665 NIKKI JORDAN, OUTPATIEN 9 9 WIN [place] G T VISIT 10 MINUTES OFFICE 65298 NIKKI JORDAN, OUTPATIEN 9 9 WIN [place] G T NEW 30 MINUTES OFFICE 34009 DILLON CARRANZA, OUTPATIEN 9 9 DON R DON R T VISIT 15 MINUTES OFFICE 47672 DILLON CARRANZA, OUTPATIEN 9 9 DON R DON R T VISIT 15 MINUTES OFFICE 30846 D[facility]ON CARRANZA OUTPATIEN 9 9 DON R DON R T VISIT 5 MINUTES OFFICE 46018 DILLON CARRANZA, OUTPATIEN 9 9 DON R DON R T VISIT 15 MINUTES
--- OUTSIDE RECORDS SUMMARY | 2016-06-17 20:59 | External Medical Summary Rpt ---
Author Author , Organization [employer] Address Unknown Phone Unavailable Care Team Providers Care Shoe Patternmaker Name Role Phone BEINEKE, BEINEKE Unavailable Unavailable BEDOYA TER, BEDOYA TER Unavailable Unavailable BESSON, BESSON Unavailable Unavailable BESSON SOPHIE, BESSON Unavailable Unavailable SOPHIE BESSON SOPHIE, BESSON Unavailable Unavailable SOPHIE MOORE, MOORE Unavailable Unavailable MOORE ALL, MOORE ALL Unavailable Unavailable JAMIA MARIETTA, JAMIA Unavailable Unavailable MARIETTA [facility] Unavailable Unavailable [place], [facility] Unavailable Unavailable [facility], [facility] ANESTH OF THE [facility]UE NEGIN SOMMERS, Unavailable Unavailable NEGIN SOMMERS ALEXSANDRA JR, ALEXSANDRA JR Unavailable Unavailable NAA, NAA Unavailable Unavailable NAA GIO, Unavailable Unavailable NAA GIO NAA GIO, Unavailable Unavailable NAA GIO ADITI SEPIDEH, ADITI Unavailable Unavailable SEPIDEH CANELA, CANELA Unavailable Unavailable [facility] Unavailable Unavailable SPECIAL, [facility] [place] [place] [place] FALLIS IVONNE, FALLIS Unavailable Unavailable IVONNE FEEBACK REE, FEEBACK Unavailable Unavailable REE ANGELICA ANNE MARIE, Unavailable Unavailable ANGELICA ANNE MARIE AYAD, LION Unavailable Unavailable JR ANAYA FULLER, Unavailable Unavailable JR LYRIC SEPIDEH, LYRIC Unavailable Unavailable SEPIDEH [facility] CARYL JAM, CARYL Unavailable Unavailable JAM CARYL JAM, CARYL Unavailable Unavailable JAM [facility] Unavailable Unavailable INC, [facility] Unavailable Unavailable HOSPITAL, [facility] Unavailable Unavailable HOSPITAL P, [facility] P [facility], Unavailable [facility]available [facility], Unavailable Unavailable [facility] OXANA POLANCO Unavailable Unavailable [facility], [facility] JORDAN, JORDAN Unavailable Unavailable JORDAN KADEN, JORDAN Unavailable Unavailable KADEN JORDAN KADEN, JORDAN Unavailable Unavailable KADEN WIN JORDAN, Unavailable Unavailable WIN JORDAN [facility] Unavailable Unavailable INTERNAL MED, [facility] INTERNAL MED RICH ADAMS, Unavailable [...] PHARMACY Unavailable Unavailable #591, [facility] Unavailable Unavailable DEPT [facility], [facility] DEPT [facility] Unavailable Unavailable DEPT [facility], [facility] MARY BUSBY, MARY Unavailable Unavailable KEHINDE BUSBY, MARY Unavailable Unavailable KEHINDE INDIRA MAT, INDIRA MAT Unavailable Unavailable Purpose Continuity of Care Document - 04-19-2008 through 2016 Problems Code Diagnosis DOS Provider Status N393 STRESS 05-06-2016 [facility] P MALE L309 DERMATITIS 04-22-2016 [facility] UNSPECIFIED [facility] INTERNAL MED K219 GASTRO-ESOP 03-10-2016 [facility] Siddiqui REFLUX [facility] DISEASE INC WITHOUT ESOPHAGITIS K5730 DIVERTICULO 03-10-2016 [facility] LG MEDICAL INTEST W/O IMAGING ASS PERF/ABSC W/O BLEED R1011 RIGHT UPPER 03-10-2016 [facility] H6023 MALIGNANT 03-01-2016 [facility] OTITIS PHYSICIANS EXTERNA GROUP BILATERAL H6503 ACUTE 03-01-2016 [facility] SEROUS PHYSICIANS OTITIS GROUP MEDIA BILATERAL 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 M5441 LUMBAGO 01-23-2016 [facility] WITH PHYSICIANS, [facility] RIGHT SIDE M545 LOW BACK 01-23-2016 [place] [facility] 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[facility] 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 H5213 MYOPIA 11-28-2015 CARYL JAM BILATERAL R1031 RIGHT LOWER 11-28-2015 [facility] R1032 LEFT LOWER 11-28-2015 [facility] R310 GROSS 11-28-2015 [facility] HEMATURIA [facility] INTERNAL MED R319 HEMATURIA 11-28-2015 [place] [facility] R079 CHEST PAIN 11-17-2015 [facility] UNSPECIFIED PHYSICIANS, PLLC I24443 CUTANEOUS 10-28-2015 [facility] ABSCESS OF [facility] RIGHT LOWER INC LIMB Q25961 CUTANEOUS 10-28-2015 [facility] ABSCESS OF PHYSICIANS, HEAD ANY PLLC PART EXCEPT FACE L0390 CELLULITIS 10-15-2015 [place] UNSPECIFIED [facility] INTERNAL MED H6120 IMPACTED 09-25-2015 [facility] CERUMEN PHYSICIANS UNSPECIFIED GROUP EAR H6590 UNSPECIFIED 09-25-2015 [facility] PHYSICIANS NONSUPPURAT GROUP [place] OTITIS MEDIA UNS EAR H6903 PATULOUS 09-25-2015 JORDAN KADEN EUSTACHIAN TUBE BILATERAL R0982 POSTNASAL 09-18-2015 [facility] DRIP [facility] MED J029 ACUTE 09-15-2015 [facility] PHARYNGITIS PHYSICIAN GROUP UNSPECIFIED K120 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[facility] ORAL PHYSICIAN APHTHAE GROUP J0101 ACUTE 09-09-2015 [facility] RECURRENT PHYSICIANS, [facility] SINUS[facility] J4520 MILD 09-09-2015 [facility] INTERMITTEN PHYSICIANS, T [facility] UNCOMPLICAT ED R0600 DYSPNEA 09-09-2015 [place] [facility] ASS R221 LOCALIZED 09-09-2015 [place] S[facility]LLING [facility]ICAL MASS AND IMAGING ASS LUMP NECK Z720 TOBACCO USE 09-09-2015 [facility] P R05 COUGH 09-08-2015 [facility] PHYSICIANS GROUP H6090 UNSPECIFIED 08-25-2015 [facility] OTITIS PHYSICIANS EXTERNA GROUP UNSPECIFIED EAR H6501 ACUTE 07-17-2015 [facility] SEROUS PHYSICIANS OTITIS GROUP MEDIA RIGHT EAR H6591 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-17-2015 [facility] NONSUPPURAT INC [place] OTITIS MEDIA RT EAR H9391 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-17-2015 COMMUN[facility] DISORDER ANESTH OF OF RIGHT THE BLUE EAR I44016 PAIN IN 05-28-2015 [place] [facility] M7989 OTHER 05-28-2015 [place] SPECIFIED MEDICAL SOFT TISSUE IMAGING ASS DISORDERS R358 OTHER 05-28-2015 [facility] POLYURIA [facility] INC J0190 ACUTE 05-11-2015 [facility] SINUSITIS PHYSICIANS UNSPECIFIED GROUP A09 INFECTIOUS 03-14-2015 [place] [facility] ITIS AND INC COLITIS UNSPEC J069 ACUTE UPPER 03-12-2015 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 N390 URINARY 02-24-2015 [facility] TRACT PHYSICIANS INFECTION GROUP SITE NOT SPECIFIED L664 FOLLICULITI 02-09-2015 [facility] Ludwig PHYSICIANS, ULERYTHEMAT PLLC USMAN RETICULATA L738 OTHER 02-09-2015 [place] SPECIFIED [facility] FOLLICULAR INC DISORDERS B351 TINEA 01-30-2015 [place] IVONNE UNGUIUM B353 TINEA PEDIS 01-30-2015 [place] IV[place]NE I890 LYMPHEDEMA 01-30-2015 [place] IV[place]NE NOT ELSEWHERE CLASSIFIED M2570 OSTEOPHYTE 01-30-2015 [place] IV[place]NE UNSPECIFIED JOINT H9202 OTALGIA 01-17-2015 [place] LEFT EAR [facility] INTERNAL MED H6506 ACUTE 01-16-2015 [facility] SEROUS PHYSICIANS OTITIS GROUP MEDIA RECURRENT BILATERAL H6523 CHRONIC 01-16-2015 [place] SEROUS [facility] OTITIS INC MEDIA BILATERAL H6693 OTITIS 01-16-2015 COMMUNITY MEDIA ANESTH OF UNSPECIFIED THE BLUE BILATERAL P27729 ENCOUNTER 01-15-2015 [place] FOR OTHER [facility] PREPROCEDUR INC AL EXAMINATION Y61729 ACUTE & 12-27-2014 [facility] OTITS MEDIA BILATERAL H1032 UNSPECIFIED 12-17-2014 [facility] TIS LEFT EYE N6489 OTHER 12-16-2014 [place] SPECIFIED MEDICAL DISORDERS IMAGING ASS OF BREAST R928 OTH ABNORM 12-16-2014 [place] & [facility] INCONCLUSIV INC E FIND ON DX IMAG BREAST B9789 OTH VIRAL 12-13-2014 [place] AGENT CAUSE [facility] DISEASES INTERNAL CLASSIFIED MED ELSW H6504 ACUTE 12-09-2014 [facility] SEROUS PHYSICIANS OTITIS GROUP MEDIA RECURRENT RIGHT EAR W63865 ANKYLOSIS 12-09-2014 [facility] OF EAR PHYSICIANS OSSICLES GROUP RIGHT EAR H9191 UNSPECIFIED 12-09-2014 [facility] HEARING PHYSICIANS LOSS RIGHT GROUP EAR W02737 PAIN IN 12-05-2014 [place] IV[place]NE RIGHT TOES E00562 PAIN IN 12-05-2014 [place] LEFT TOES Z1231 ENCOUNTER 11-29-2014 [place] SCREENING MEDICAL MAMMO MALIG IMAGING ASS NEOPLASM BREAST Z803 FAMILY 11-29-2014 [place] HISTORY OF MEDICAL MALIGNANT IMAGING ASS NEOPLASM OF BREAST Y83916 PAIN IN 11-15-2014 [facility] RIGHT VALLEY FINGERS INTERNAL MED O27532 PAIN IN 11-15-2014 [facility] LEFT FOOT VALLEY INTERNAL MED V252 STERILIZATI 11-05-2014 [facility] DONOVAN 22035 DYSFUNCTION 09-19-2014 [facility] OF PHYSICIANS EUSTACHIAN GROUP TUBE 4779 ALLERGIC 09-19-2014 [facility] RHINITIS PHYSICIANS CAUSE GROUP UNSPECIFIED 80547 OTHER 09-19-2014 [facility] DISEASES OF PHYSICIANS NASAL GROUP CAVITY AND SINUSES 7295 PAIN IN 09-18-2014 [facility] SOFT VALLEY TISSUES OF INTERNAL LIMB MED 92647 SIMPLE/UNSP 2014 [facility] ECIFIED [facility] CHRONIC INC SEROUS OTITIS MEDIA 3814 NONSUPPRATV 2014 [place] OTITIS MEDICAL MEDIA NOT IMAGING ASS SPEC ACUT/CHRON 470 DEVIATED 2014 [place] NASAL MEDICAL SEPTUM IMAGING ASS 86326 UNSPECIFIED 09-02-2014 [facility] CONDUCTIVE PHYSICIANS HEARING GROUP LOSS 4730 CHRONIC 09-02-2014 [facility] MAXILLARY PHYSICIANS SINUSITIS GROUP 3829 UNSPECIFIED 08-29-2014 JORDAN KADEN OTITIS MEDIA 08469 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 4619 ACUTE 08-22-2014 [facility] SINUSITIS, VALLEY UNSPECIFIED INTERNAL MED 3899 UNSPECIFIED 08-13-2014 [facility] HEARING PHYSICIANS LOSS GROUP 7856 ENLARGEMENT 08-13-2014 [facility] OF LYMPH PHYSICIANS NODES GROUP 14546 GANGLION OF 05-31-2014 [facility] TENDON PHYSICIANS SHEATH GROUP 79188 UNSPECIFIED 05-31-2014 COMMUNITY GANGLION ANESTH OF THE BLUE 64246 PAIN IN 05-30-2014 [place] JOINT, MEDICAL FOREARM IMAGING ASS 96851 GANGLION OF 05-29-2014 [facility] JOINT [facility] INC V7283 OTHER 05-29-2014 [facility] SPECIFIED [facility] PRE-OPERATI INC VE EXAMINATION 51627 UNSPECIFIED 02-27-2014 [facility] OTALGIA [facility] INTERNAL MED 4871 INFLUENZA 02-13-2014 [facility] WITH OTHER VALLEY RESPIRATORY INTERNAL MED MANIFESTATI ONS 74592 GENERALIZED 02-13-2014 [facility] PAIN [facility] INTERNAL MED 4659 ACUTE URIS 12-06-2013 [facility] OF VALLEY UNSPECIFIED INTERNAL SITE MED 486 PNEUMONIA, 12-03-2013 [facility] ORGANISM [facility] UNSPECIFIED INTERNAL MED 7840 HEADACHE 12-03-2013 [facility] INTERNAL MED 6822 CELLULITIS 11-15-2013 [facility] AND ABSCESS PHYSICIANS OF TRUNK GROUP 49608 ABDOMINAL 11-15-2013 [facility] PAIN, PHYSICIANS UNSPECIFIED GROUP SITE 50118 ABDOMINAL 10-29-2013 [facility] PAIN, [facility] INTERNAL MED 15505 POLYURIA 10-27-2013 [facility] INC V700 ROUTINE 10-27-2013 [facility] EXAM@HEALTH CARE FACL 46604 ESOPHAGEAL 10-26-2013 [place] REFLUX [facility] INTERNAL MED 75799 INSOMNIA 10-26-2013 [place] UNSPECIFIED [facility] INTERNAL MED 6160 CERVICITIS 10-23-2013 [facility] ENDOCERVICI TIS V7231 ROUTINE 10-23-2013 [facility] AL EXAMINATION 1101 DERMATOPHYT 2013 [facility] OSIS OF [facility] NAIL INC 2400 GOITER, 07-03-2013 MARY KEHINDE SPECIFIED SIMPLE 2449 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-03-2013 [facility] HYPOTHYROID INC ISM 76011 OTOGENIC 07-03-2013 MARY KEHINDE PAIN 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-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 7842 SWELLING 07-03-2013 MARY KEHINDE MASS OR LUMP IN HEAD AND NECK 11455 UNSPECIFIED 06-19-2013 MARY KEHINDE TINNITUS 5990 URINARY 06-11-2013 [facility] TRACT INFECTION SITE NOT SPECIFIED 2409 GOITER, 06-08-2013 NAA UNSPECIFIED GIO 90504 OBESITY, 06-06-2013 [place] UNSPECIFIED [facility] INC 22566 UNSPECIFIED 06-05-2013 EAR, NOSE ABNORMAL AND THROAT AUDITORY SPECIAL PERCEPTION 09183 UNSPECIFIED 06-05-2013 [facility] VAGINITIS PHYSICIANS AND GROUP VULVOVAGINI TIS 97656 UNSPECIFIED 05-28-2013 JORDAN KADEN ACUTE NONSUPPURAT [place] OTITIS MEDIA 68093 METHICILLIN 05-28-2010 [facility] RESISTANT [facility] STAPHYLOCOC INC CUS AUREUS 6826 CELLULITIS 05-28-2010 [facility] AND ABSCESS [facility] OF LEG INC EXCEPT FOOT 13184 METHICILLIN 05-26-2010 [place] RESISTANT DON STAPH AUREUS SEPTICEMIA V090 INFECTION 05-26-2010 [place] W/MICROORGA DON NISMS RESISTANT PENICILLINS V7241 05-26-2010 [facility] EXAMINATION [facility] OR TEST INC NEGATIVE RESULT 9164 HIP THI 05-23-2010 [facility] LEG&ANK DON INSECT BITE NONVENOMOUS W/O INF 5589 OTH&UNSPEC 12-13-2008 [facility], NONINFECTIO DON R US GASTROENTER ITIS&COLITI S 25072 CALCANEAL 12-13-2008 [facility] SPUR DON R 1105 DERMATOPHYT 12-02-2008 [facility], OSIS OF THE DON R BODY 99630 OVERWEIGHT 10-09-2008 [facility] DON R 4618 OTHER ACUTE 10-09-2008 [place], [place]IT[place] R 560[address] UNSPECIFIED 06-11-2008 WIN [facility]ORDAN SENSORINEUR AL HEARING LOSS 10589 UNSPECIFIED 06-06-2008 WIN [facility]ORD[facility] OBSTRUCTION OF EUSTACHIAN [...] 20 3- 8- 00 00 SI ve CO 00 20 20 47 DE AM 50 17 17 24 5 82 PH HB AR R MA 10 CY MG OF CY TA NT BL HI ET AN A IN C IM 00 04 04 30 30 00 EA Ac IP 78 -0 -[address] ti RA 11 3- 8- 00 00 SI ve ID 76 20 20 48 DE NE 60 [...] 03 04 60 30 00 EA Ac CO 25 -2 -[address] ti [...] 11 3- - 00 00 SI ve ID 76 20 20 47 DE NE 60 [...] 20 6- 4- 00 00 SI ve CO 00 20 20 47 DE AM 50 [...] 17 17 56 E 5 51 PH CO AR OP MA CY 50 OF MC [...] 01 02 7. 5 00 EA Ac CO 06 -1 -[address] ti [...] 20 6- 7- 00 00 SI ve CO 00 20 20 47 DE AM 50 [...] NT ET HI AN A IN C CO 59 12 01 12 6 00 EA [...] CY NT HI AN A IN C CO 65 12 01 10 3 00 EA [...] [address] Ac CO 09 -3 -[address] 92 EP [...] 10 8- 00 MA 69 HE ve CO 34 20 20 RT 7 NS AM [...] 01 [address] Ac CO 25 -1 -[address] 47 EP ti AZ 30 4- 0- 00 SI 93 HE ve OL 90 20 20 DE NS AM 11 09 09 1 PH DO 0. AR N 5 MA R MG CY TA OF BL CY ET NT HI AN A AL 67 07 07 [address] Ac CO 25 -1 -[address] 47 EP [...] [address] Ac CO 25 -1 -[address] 49 EP [...] DOS Code Location Performer Comment URNLS DIP 00193 [facility] STICK/TAB INC INC LET REAGENT AUTO MICROSCOP Y COMPREHEN 07274 [facility] SIVE 7 [facility] [address] [facility] AMYLASE 7 [facility] INC INC FINAL G9638 [facility] REPORTS 7 MEDICAL W/O DOC IMAGING 1/MORE ASS DOSE REDUCTION TECH URINE 05077 [facility] TEST INC [place] [address] [facility] LIPASE 7 [facility] INC INC THER 82251 [facility] PROPH/DX 7 [facility] NJX IV INC INC PUSH SINGLE/1S T SBST/[place] [address] [facility] ABDOMEN & 7 MEDICAL PELVIS IMAGING W/O ASS CONTRAST MATERIAL BLOOD 54999 [facility] COUNT 7 [facility] COMPLETE INC INC AUTO&AUTO DIFRNTL WBC FINAL G9551 [facility] REPR ABD 7 MEDICAL IMAG STS IMAGING W/O ASS INCIDNT FND LES NTD: RADEX 64847 [facility] SPINE 6 [facility] LUMBOSACR INC INC AL MINIMUM 4 VIEWS CULTURE 07496 [facility] BACTERIAL 6 [facility] INC INC QUANTTATI VE COLONY COUNT URINE URNLS DIP 01706 [facility] 6 [facility] STICK/TAB INC INC LET REAGENT AUTO MICROSCOP Y OPHTH 94594 [facility] 6 JAM JAM XM&EVAL INTERMEDI ATE NEW PT DETERMINA 41775 CARYL CARYL TION [address] [place] [address] [facility] ABDOMEN & 6 [facility] PELVIS INC INC W/O CONTRAST MATERIAL RADIOLOGI 54138 [place] No 6 MEDICAL GIO EXAMINATI IMAGING ON CHEST ASS SINGLE VIEW FRONTAL CUL BACT 68178 [facility] XCPT 6 [facility] URINE INC INC BLOOD/STO OL AEROBIC ISOL CUL BACT 95399 [facility] AEROBIC 6 [facility] ADDL INC INC METHS DEFINITIV E EA ISOL SUSCEPTIB 15538 [facility] LTY STDY 6 [facility] ANTIMICRB INC INC IAL MICRO/AGA R DILUTJ INCISION 27557 [facility] GUNTER & 6 PHYSICIAN SEPIDEH DRAINAGE S, PLLC ABSCESS COMPLICAT ED/MULTIP LE CUR MEDS G8428 [facility] NO DOC 6 [facility] OBDT INTERNAL INTERNAL UPD/REV MED MED ELIG CLIN RSN N GVN COMPRE 56838 NIKKI JORDAN AUDIOMETR 6 KADEN KADEN Y THRESHOLD EVAL SP RECOGNIJ IAADIADOO 30198 [facility] LION 6 PHYSICIAN STREPTOCO GROUP CCUS GROUP A ECG 45932 EDB FOREMAN ROUTINE 6 [facility] W/LEAST P 12 LDS I&[place] [address] [facility] TROPONIN 6 [facility] QUANTITAT INC INC [place] NATRIURET 39234 [facility] IC 6 [facility] PEPTIDE INC INC BLOOD 23294 [facility] COUNT 6 [facility] COMPLETE INC INC AUTO&AUTO DIFRNTL WBC RADIOLOGI 90350 [facility] C 6 [facility] EXAMINATI INC INC ON NECK SOFT TISSUE PRESSURIZ 50074 [facility] ED/NONPRE 6 [facility] SSURIZED INC INC INHALATIO N TREATMENT COMPREHEN 14663 [facility] SIVE 6 [facility] METABOLIC INC INC PANEL CREATINE 18251 [facility] KINASE MB 6 [facility] FRACTION INC INC ONLY THERAPEUT 68033 [facility] IC 6 [facility] PROPHYLAC INC INC TIC/DX INJECTION SUBQ/IM ECG 80220 [facility] ROUTINE 6 [facility] ECG INC INC W/LEAST 12 LDS TRCG ONLY W/O I&R RADIOLOGI 82151 [place] TIFFANIE C EXAM 6 MEDICAL CHEST 2 IMAGING VIEWS ASS FRONTAL&L ATERAL CREATINE 34497 [facility] KINASE 6 [facility] TOTAL INC INC FIBRIN 16607 [facility] DGRADJ 6 [facility] PRODUCTS INC INC D-DIMER QUAL/SEMI LAUREANO INJECTION J2405 [facility] 6 [facility] ONDANSETR INC INC ON HCL PER 1 MG UNCLASSIF J3490 [facility] IED DRUGS 6 [facility] [place] [address] [facility] INFUSION 6 [facility] THERAPY INC INC PROPHYLAX IS/DX EA HOUR URINE 62381 DEB [facility] 6 [facility] TEST INC INC VISUAL COLOR CMPRSN METHS ANES 32311 COMMUNITY FEEBACK XTRNL MID 6 ANESTH REE & INNER OF THE EAR W/[place] [address] [facility] INFUSION 6 [facility] THERAPY/P INC INC ROPHYLAXI S /DX 1ST TO 1 HR TYMPANOST 39947 [facility] DE 6 [facility] GENERAL INC INC ANESTHESI A THERAPEUT 64427 [facility] IC 6 [facility] INJECTION INC INC IV PUSH EACH NEW DRUG COLLECTIO 49447 [facility] N VENOUS 6 [facility] BLOOD INC INC VENIPUNCT URE COMPREHEN 20404 [facility] SIVE 6 [facility] METABOLIC INC INC PANEL RADEX 55802 [facility] HAND 6 [facility] MINIMUM 3 INC INC VIEWS RADEX 95620 [place] ALL HAND 2 6 MEDICAL VIEWS IMAGING ASS LIPID 17610 [facility] PANEL 6 [facility] INC INC HEMOGLOBI 19642 [facility] N 6 [facility] GLYCOSYLA INC INC MARCY A1C INJECTION J1040 [facility] BEDOYA TER 6 PHYSICIAN METHYLPRE S GROUP DNISOLONE ACETATE 80 MG THERAPEUT 23505 [facility] BEDOYA TER IC 6 PHYSICIAN PROPHYLAC S GROUP TIC/DX INJECTION SUBQ/IM IADNA-DNA 37743 [facility] /RNA GI 6 [facility] PTHGN INC INC MULTIPLEX PROBE TQ 12-25 PHYSICAL 23293 [facility] THERAPY 6 [facility] EVALUATIO INC INC N TYMPANOST 25385 [facility] JORDAN DE 5 PHYSICIAN KADEN GENERAL S GROUP ANESTHESI A ANES 11132 [facility] XTRNL MID 5 ANESTH LASHAUN & INNER OF THE EAR W/BX BLUE TYMPANOTO MY BASIC 99677 [facility] METABOLIC 5 [facility] PANEL INC INC CALCIUM TOTAL COLLECTIO 41074 [facility] N VENOUS 5 [facility] BLOOD INC INC VENIPUNCT URE GONADOTRO 01294 [facility] PIN 5 [facility] CHORIONIC INC INC QUALITATI VE BLOOD 85113 [facility] COUNT 5 [facility] COMPLETE INC INC AUTO&AUTO DIFRNTL WBC DIAGNOSTI G0206 [facility] C 5 [facility] MAMMOGRAP INC INC HY INCL CAD WHEN PERF; UNI IAADIADOO 46147 [facility] BESSON 5 [facility] SOPHIE STREPTOCO INTERNAL CCUS MED GROUP A SCREENING G0202 [facility] 5 [facility] MAMMOGRAP INC INC HY KARYNA INCL CAD WHEN PERFORMD COMPUTER- 73953 [facility] AIDED 5 [facility] DETECTION INC INC SCREENING MAMMOGRAP HY RADEX 61317 [facility] HAND 5 [facility] MINIMUM 3 INC INC VIEWS SCREENING 53456 [facility]PT HL[facility] DEPT ACUITY DONOVAN DONOVAN QUANTITAT [place] BILAT RADEX 05386 [facility] FOOT 5 [facility] COMPLETE [place] [address] [place] [address] [place] [facility] MAXILLOFA 5 MEDICAL CIAL W/O IMAGING CONTRAST ASS MATERIAL COMPRE 11335 NIKKI JORDAN AUDIOMETR 5 KADEN KADEN Y THRESHOLD EVAL SP RECOGNIJ TYMPANOME 04479 NIKKI JORDAN TRY 5 KADEN KADEN DISTORT 81779 NIKKI JORDAN PRODUCT 5 KADEN KADEN EVOKED OTOACOUST IC EMISNS LIMITD INJECTION J0696 [facility] 5 [facility] CEFTRIAXO INTERNAL NE SODIUM MED PER 250 MG INJECTION J3301 [facility] AND 5 [facility] TRIAMCINO INTERNAL LONE MED ACETONIDE NOS 10 MG THERAPEUT 33984 [facility] AND IC 5 [facility] PROPHYLAC INTERNAL TIC/DX MED INJECTION SUBQ/IM ANES 05494 [facility] 5 ANESTH SHE MUSCLE OF THE TDN BLUE FASCIA&BU RSA FOREARM WRIST REPAIR 83879 [facility] COMPLEX 5 [facility] SCALP/ARM INC INC /LEG 2.6-7.5 CM EXCISION 83665 [facility] PETTEY LESION 5 PHYSICIAN JAM TENDON S GROUP SHEATH FOREARM&/ WRIST MRI UPPER 75931 [place] NAA 5 MEDICAL EXTREMITY IMAGING OTH THAN ASS JT W/O CONTR MATRL COLLECTIO 66522 [facility] N VENOUS 5 [facility] BLOOD INC INC VENIPUNCT URE GONADOTRO 75693 [facility] PIN 5 [facility] CHORIONIC INC INC QUALITATI VE INJECTION J3301 [facility] TRIAMCINO INTERNAL LONE MED ACETONIDE NOS 10 MG THERAPEUT 34554 [facility] IC 5 [facility] PROPHYLAC INTERNAL TIC/DX MED INJECTION SUBQ/IM IAADIADOO 85530 [facility] INFLUENZA INTERNAL MED INJECTION J0696 [facility] USERY AND 4 [facility] CEFTRIAXO INTERNAL NE SODIUM MED PER 250 MG THERAPEUT 38524 [facility] USERY AND IC 4 VALLEY PROPHYLAC INTERNAL TIC/DX MED INJECTION SUBQ/IM THERAPEUT 81029 [facility] LYRIC IC 4 PHYSICIAN SEPIDEH PROPHYLAC S GROUP TIC/DX INJECTION SUBQ/IM INJECTION J1885 [facility] LYRIC 4 PHYSICIAN SEPIDEH KETOROLAC S GROUP TROMETHAM INE PER 15 MG CULTURE 67302 COMBINED COMBINED BACTERIAL 4 PHYSICIAN PHYSICIAN S LA S LA QUANTTATI VE COLONY COUNT URINE URNLS DIP 00338 [facility] STICK/TAB INTERNAL LET RGNT MED NON-AUTO W/O MICRSCP COMPREHEN 20759 [facility] SIVE [facility] METABOLIC INC INC PANEL LIPID 10393 [facility] PANEL [facility] INC INC TDAP 48883 [facility] YRS/> IM HLTH DEPT HLTH DEPT DONOVAN DONOVAN CYTP 08128 [facility] ER JR JARED AUTO THIN LAYER PREP MNL SCREEN HEPATIC 00189 [facility] FUNCTION [facility] PANEL INC INC THYROID 75996 [facility] HORM [facility] UPTK/THYR INC [place] [address] [facility] THYROXINE 4 [facility] [place] [address] [facility] THYROID 4 [facility] STIMULATI INC INC NG HORMONE TSH RADIOLOGI 59104 INDIRA MAT INDIRA MAT C 4 EXAMINATI ON NECK SOFT TISSUE US SOFT 88070 [facility] TISSUE 4 N N HEAD & COMMUNTIY COMMUNTIY NECK [place] [address] NAA NAA MAXILLOFA 4 GIO GIO CIAL W/O CONTRAST MATERIAL LOCM Q9967 [facility] [phone] [facility] MG/ML INC INC IODINE CONCENTRA TION PER ML CT SOFT 80996 [facility] TISSUE 4 [facility] NECK INC INC W/CONTRAS T MATERIAL CULTURE 87734 COMBINED COMBINED BACTERIAL 4 PHYSICIAN PHYSICIAN S LA S LA QUANTTATI VE COLONY COUNT URINE IM ADM 49394 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 PRQ ID 4 [facility] SOP[facility]IE SUBQ/IM NJXS 1 VACCINE INJECTION J0696 AHSAN CORREIASON 4 SOPHIE SOPHIE CEFTRIAXO NE SODIUM PER 250 MG LIPID 47649 [facility] PANEL 4 [facility] INC INC COMPREHEN 89451 [facility] SIVE 4 [facility] METABOLIC INC INC PANEL PURE TONE 97539 EAR, NOSE MARY 4 AND KEHINDE AUDIOMETR THROAT Y AIR SPECIAL ONLY SPEECH 06675 EAR, NOSE MARY AUDIOMETR 4 AND KEHINDE Y THROAT THRESHOLD SPECIAL LARYNGOSC 32943 EAR, NOSE MARY OPY 4 AND KEHINDE FLEXIBLE THROAT DIAGNOSTI SPECIAL C TYMPANOME 70211 EAR, NOSE MARY TRY 4 AND KEHINDE THROAT SPECIAL INJECTION J0696 [facility] 4 PHYSICIAN PHYSICIAN CEFTRIAXO S GROUP S GROUP NE SODIUM PER 250 MG URNLS DIP 92184 [facility] 4 PHYSICIAN PHYSICIAN STICK/TAB S GROUP S GROUP LET RGNT NON-AUTO W/O MICRSCP THERAPEUT 67972 [facility] IC 4 PHYSICIAN PHYSICIAN PROPHYLAC S GROUP S GROUP TIC/DX INJECTION SUBQ/IM I&D DEEP 04625 C JAYDE BELTRAN ABSC 1 DEVIN JHA/HEM PSC ATOMA THIGH/[place] [address] DEB [facility] INFUSION 1 [facility] THERAPY INC INC PROPHYLAX IS/DX EA HOUR LEVEL III 55731 CHIPPS RICH SURG 1 [facility] DUBILIER GROSS&SEPIDEH ROSCOPIC EXAM OTHER 8309 [facility] INCISION 1 [facility] OF SOFT INC INC TISSUE GONADOTRO 26943 [facility] PIN 1 [facility] [place] [address] [facility] INFUSION 1 [facility] THERAPY/P INC INC ROPHYLAXI S /DX 1ST TO 1 HR BLOOD 03230 [facility] COUNT 1 [facility] COMPLETE INC INC AUTO&AUTO DIFRNTL WBC SUSCEPTIB 38614 [facility] LTY STDY 1 [facility] ANTIMICRB INC INC IAL MICRO/[place] [address] DEB [facility] INFUSION 1 [facility] THERAPY INC INC PROPHYLAX IS/DX EA HOUR BASIC 48074 DE[facility] METABOLIC 1 [facility] PANEL INC INC CALCIUM TOTAL CUL BACT 74570 [facility] XCPT 1 [facility] URINE INC INC BLOOD/STO OL AEROBIC ISOL CUL BACT 30753 DEB BODY AEROBIC 1 [facility] ADDL INC INC METHS DEFINITIV E EA ISOL RADEX 54485 CARRANZADILLON MOLINA, CALCANEUS 9 DON R DON R MINIMUM 2 VIEWS COMPRE 46333 NIKKI JORDAN, AUDIOMETR 9 WIN Null Y THRESHOLD EVAL SP RECOGNIJ ACOUSTIC 74674 NIKKI JORDAN, REFLEX 9 WIN Null THRESHOLD TYMPANOME 42660 NIKKI JORDAN, TRY 9 WIN Null Encounters Encounter Start End Date Code Location Performer Type Date OFFICE 07411 [facility] [place] [facility] OUTPATIEN 7 7 [facility] VISIT HOSPITAL 10 P MINUTES OFFICE 59258 NAY GALLEGOS 7 7 [facility] T VISIT INTERNAL 15 MED MINUTES OFFICE 93813 [facility]B [place] [facility] OUTPATIEN 7 7 [facility] 20 HOSPITAL MINUTES HOSPITAL DEB - 7 7 [facility] OUTPATIEN [facility] T EMERGENCY 19072 DEB 7 7 [facility] T VISIT MODERATE SEVERITY OFFICE 67535 [facility] NIKKI GALLEGOS 7 7 PHYSICIAN T VISIT S GROUP 15 MINUTES OFFICE 20904 NAY GALLEGOS 6 6 [facility] T VISIT INTERNAL 25 MED MINUTES EMERGENCY 19078 DEB 6 6 [facility] T VISIT LIMITED/M INOR PROB EMERGENCY 34731 PAMELA ANAYA, 6 6 [facility]YSIC[facility] T VISIT HIGH/URGE NT SEVERITY HOSPITAL DEB - 6 6 [facility] OUTPATIEN [facility] T HOSPITAL DEB [facility] 6 6 [facility] OUTPATIEN [facility] T OFFICE 73189 [facility] 6 6 [facility] T VISIT INTERNAL 15 MED MINUTES EMERGENCY 96827 PAMELA FIELDS DEPT 6 6 PHYSICIAN VISIT S, [facility] HIGH SEVERITY& THREAT FUNCJ EMERGENCY 56577 PAMELA GUNTER [address] [facility] S, [facility] T VISIT MODERATE SEVERITY EMERGENCY [address] [facility] T VISIT LOW/MODER SEVERITY HOSPITAL DEB [facility] 6 6 [facility] OUTPATIEN [facility] T OFFICE 98817 [facility] 6 6 [facility] T VISIT INTERNAL 15 MED MINUTES OFFICE 45828 [facility] JORDAN OUTPATIEN 6 6 PHYSICIAN KADEN T VISIT S GROUP 15 MINUTES OFFICE 47610 [place] AN[facility]ICA OUTPATIEN 6 6 [facility] T VISIT INTERNAL 15 MED MINUTES OFFICE 45254 [facility] LION OUTPATIEN 6 6 PHYSICIAN T VISIT GROUP 15 MINUTES HOSPITAL DEB - 6 6 [facility] OUTPATIEN [facility] T EMERGENCY [address] [facility] HIGH/URGE NT SEVERITY EMERGENCY 08007 PAMELA MERINO DEPT 6 6 PHYSICIAN U SAURABH VISIT S, [facility] HIGH SEVERITY& THREAT FUNCJ OFFICE 98193 [facility] NEGIN OUTPATIEN 6 6 PHYSICIAN SOMMERS T VISIT S GROUP 25 MINUTES OFFICE 24048 [facility] JORDAN OUTPATIEN 6 6 PHYSICIAN KADEN T VISIT S GROUP 15 MINUTES HOSPITAL DEB - 6 6 [facility] OUTPATIEN INC T OFFICE 80790 [facility] JORDAN OUTPATIEN 6 6 PHYSICIAN KADEN T VISIT S GROUP 10 MINUTES HOSPITAL DEB - 6 6 [facility] OUTPATIEN INC T OFFICE 22275 [facility] [place] TER OUTPATIEN 6 6 PHYSICIAN T VISIT S GROUP 15 MINUTES HOSPITAL DEB - 6 6 [facility] OUTPATIEN INC T OFFICE 92830 [facility] 6 6 [facility] T VISIT INTERNAL 25 MED MINUTES HOSPITAL DEB - 6 6 [facility] OUTPATIEN INC T OFFICE 60838 [facility] ADITI OUTPATIEN 6 6 PHYSICIAN SEPIDEH T VISIT S GROUP 15 MINUTES OFFICE 69587 EAR, NOSE SHASHY OUTPATIEN 6 6 AND SARITA T VISIT THROAT 25 SPECIAL MINUTES EMERGENCY 24251 DEB 5 5 [facility] DEPARTMEN INC T VISIT LIMITED/M INOR PROB EMERGENCY [address] [facility] [facility] 5 5 PHYSICIAN DEPART[facility] T VISIT MODERATE SEVERITY HOSPITAL DEB - 5 5 [facility] OUTPATIEN INC T OFFICE 44668 [facility] JAMIA OUTPATIEN 5 5 [facility]NE [place] T VISIT 15 MINUTES OFFICE 11033 [facility] 5 5 [facility] T VISIT INTERNAL 15 MED MINUTES HOSPITAL DEB - 5 5 [facility] INC [facility]OSPITAL DEB - 5 5 [facility] OUTPATIEN INC T OFFICE [address] OUTPATIEN 5 5 [facility] 10 MINUTES OFFICE [address] OUTPATIEN 5 5 [facility] 10 MINUTES HOSPITAL DEB - 5 5 [facility] OUTPATIEN INC T OFFICE 39619 [place] [facility] 5 5 [facility] T VISIT INTERNAL 15 MED MINUTES OFFICE 09010 [facility] JORDAN OUTPATIEN 5 5 PHYSICIAN KADEN T VISIT S GROUP 15 MINUTES OFFICE 08741 [facility] JAMIA OUTPATIEN 5 5 IVONNE [place] T NEW 30 MINUTES HOSPITAL DEB - 5 5 [facility] OUTPATI[facility] INC HOSPITAL DEB - 5 5 [facility] OUTPATIEN INC OFFICE 30615 [facility] 5 5 [facility] T VISIT INTERNAL 15 MED MINUTES PERIODIC 15483 [facility] DEPT PATIENT DONOVAN DONOVAN 40-64YRS OFFICE 92737 [facility] JORDAN OUTPATIEN 5 5 PHYSICIAN KADEN T VISIT S GROUP 10 MINUTES OFFICE 63201 [place] ANGELICA OUTPATIEN 5 5 [facility] T VISIT INTERNAL 15 MED MINUTES HOSPITAL DEB - 5 5 [facility] OUTPATIEN INC [facility] DEB - 5 5 [facility] OUTPATIEN INC OFFICE 16069 [facility] JORDAN OUTPATIEN 5 5 PHYSICIAN KADEN T VISIT S GROUP 15 MINUTES OFFICE 64784 [facility] AND OUTPATIEN 5 5 [facility] T VISIT INTERNAL 15 MED MINUTES OFFICE 59888 [facility] JORDAN OUTPATIEN 5 5 PHYSICIAN KADEN T VISIT S GROUP 15 MINUTES EMERGENCY 19108 PAMELA MERINO 5 5 PHYSICIAN U SAURABH [facility], [facility] T VISIT MODERATE SEVERITY HOSPITAL DEB - 5 5 [facility] DEB - 5 5 [facility]PAT[facility] INC T HOSPITAL DEB - 5 5 [facility] OUTPATIEN INC T OFFICE 62250 [facility] 5 5 [facility] T VISIT INTERNAL 15 MED MINUTES EMERGENCY 78754 DEB 5 5 [facility] DEPARTMEN INC T VISIT LOW/MODER SEVERITY HOSPITAL DEB - 5 5 [facility] OUTPATIEN INC T OFFICE 25318 [facility] 4 4 [facility] T VISIT INTERNAL 15 MED MINUTES OFFICE 76053 [facility] PETTEY OUTPATIEN 4 4 PHYSICIAN JAM T NEW 30 S GROUP MINUTES OFFICE 06717 [facility] 4 4 [facility] T VISIT INTERNAL 15 MED MINUTES OFFICE 90894 [facility] OUTPATIEN 4 4 [facility] T VISIT INTERNAL 15 MED MINUTES OFFICE 78086 [facility] OUTPATIEN 4 4 [facility] T VISIT INTERNAL 15 MED MINUTES OFFICE 12757 [facility] LYRIC OUTPATIEN 4 4 PHYSICIAN SEPIDEH T VISIT S GROUP 15 MINUTES HOSPITAL DEB - 4 4 [facility] OUTPATIEN INC T OFFICE 13517 [facility]PATI[facility] 4 4 [facility] T VISIT INTERNAL 25 MED MINUTES INITIAL 50363 [facility] DONOVAN DONOVAN NEW PT AGE 18-39YRS HOSPITAL DEB - 4 4 [facility] OUTPATIEN INC T OFFICE 15813 MARY HERNANDEZ OUTPATIEN 4 4 KEHINDE KEHINDE T VISIT 25 MINUTES HOSPITAL DEB - 4 4 [facility] OUTPATIEN INC T HOSPITAL CONOR - 4 4 N OUTPATIEN COMMUNTIY T HOSPITA OFFICE 82301 MARY HERNANDEZ OUTPATIEN 4 4 KEHINDE KEHINDE T VISIT 25 MINUTES OFFICE 97978 A[facility]AN OUTPATIEN 4 4 SOPHIE T VISIT 15 MINUTES HOSPITAL DEB - 4 4 [facility] OUTPATIEN INC T OFFICE 36843 [facility] OUTPATIEN 4 4 SOPHIE T VISIT 15 MINUTES HOSPITAL EDB - 4 4 [facility] OUTPATIEN INC T OFFICE 86770 [facility] OUTPATIEN 4 4 PHYSICIAN T VISIT S GROUP 10 MINUTES OFFICE 72219 EAR, NOSE MARY CONSULTAT 4 4 AND KEHINDE ION THROAT NEW/ESTAB SPECIAL PATIENT 60 MIN OFFICE 40810 NIKKI JORDAN OUTPATIEN 4 4 KADEN KADEN T VISIT 15 MINUTES HOSPITAL DEB - 1 1 [facility] OUTPATIEN INC T OFFICE 88716 D[facility] CARRANZA OUTPATIEN 1 1 DON DON T VISIT 15 MINUTES OFFICE 53092 Marybel BELTRAN CONSULTAT 1 1 DEVIN VARGAS MD PSC NEW/ESTAB PATIENT 60 MIN HOSPITAL DEB - 1 1 [facility] OUTPATIEN INC T OFFICE 76870 D[facility]ON GALLEGOS 1 1 DON DON T VISIT 15 MINUTES EMERGENCY 66302 RICH GUNTER [address] [facility] T VISIT HIGH/URGE NT SEVERITY HOSPITAL DEB - 1 1 [facility] OUTPATIEN INC T OFFICE 43942 D[facility] GALLEGOS 1 1 DON DON T VISIT 15 MINUTES OFFICE 64776 [facility] CARRANZA OUTPATIEN 9 9 DON R DON R T VISIT 15 MINUTES OFFICE 86270 CARRANZA, CARRANZA, OUTPATIEN 9 9 DON R DON R T VISIT 15 MINUTES OFFICE 89562 [facility] CARRANZA, OUTPATIEN 9 9 DON R DON R T VISIT 15 MINUTES OFFICE 27375 [facility] CARRANZA, OUTPATIEN 9 9 DON R DON R T VISIT 15 MINUTES OFFICE 43710 NIKKI JORDAN, OUTPATIEN 9 9 WIN [place] G T VISIT 10 MINUTES OFFICE 62527 NIKKI JORDAN, OUTPATIEN 9 9 WIN [place] G T NEW 30 MINUTES OFFICE 53206 [facility]ON CARRANZA, OUTPATIEN 9 9 DON R DON R T VISIT 15 MINUTES OFFICE 31474 [facility] CARRANZA, OUTPATIEN 9 9 DON R DON R T VISIT 15 MINUTES OFFICE 24384 [facility] CARRANZA OUTPATIEN 9 9 DON R DON R T VISIT 5 MINUTES OFFICE 46928 [facility] CARRANZA, OUTPATIEN 9 9 DON R DON R T VISIT 15 MINUTES
--- OUTSIDE RECORDS SUMMARY | 2016-06-17 21:01 | External Medical Summary Rpt ---
Author Author [employer] Herring, [employer] Herring Organization [employer] Address Unknown Phone Unavailable
--- OUTSIDE RECORDS SUMMARY | 2016-06-17 21:01 | External Medical Summary Rpt ---
Demographics Preferred Language Afghan Marital Status Unknown Taoist Affiliation Unknown Race Unknown Ethnic Group Unknown Author Author , Organization [employer] Address Unknown Phone Unavailable Purpose Continuity of Care Document - through 2016 Immunization No patient found.
--- OUTSIDE RECORDS SUMMARY | 2016-06-17 21:01 | External Medical Summary Rpt ---
Demographics Preferred Language Peruvian Marital Status Unknown Judaism Affiliation Unknown Race Unknown Ethnic Group Unknown Author Author , Organization [employer] Address Unknown Phone Unavailable Purpose Continuity of Care Document - through 2016 Immunization No patient found.
[2016-06-17 21:06] VITALS: BP 130/89
[2016-06-17] MEDS ORDERED: KEFLEX 500MG.500 MG PO (21:06)
--- NOTE | 2016-06-17 21:06 | Urgent Treatment Center Report ---
History of Present Issue Date/Time Seen by Provider 06/17/162055 Visit Reason Pt arrived:Walked Presenting Problem:PT NOTED TO HAVE REDNESS WITH SCAB TO LEFT INNER THIGH. STATES AREA HAS BEEN THERE FOR SEVERAL DAYS. STATES AREA OPENED EARLIER TODAY AND PUS/ DRAINAGE CAME OUT TODAY. STATES SHE HAD ANOTHER AREA THAT HAD TO BE OPERATED ON. NO HEAT NOTED TO AREA. Location if Accident: Onset of symptoms date/time:/ or onset unknown for:MEDICAL HX UNKNOWN Have you (or family members/close friends) recently traveled outside the [place]? N If Yes, where/when: Have you had exposure to infectious disease within the past month? TB? Other? Specify: Patient states that she recently had a place that was swollen, raised and red on her inner thigh earlier today the area busted and drained and now is smaller around the size of a dime. States that large amount of pus came out when it opened. States that she knew then she needed an antibiotic because last time she had this happen she didn't and ended having to have surgery and so she came in to get checked ALLERGIES Coded Allergies: codeine (Intermediate, CHEST PAIN 03/10/16) Home Medications Reported Medications Alprazolam (Xanax 0.5MG) 0.5 MG PO BID Montelukast Sodium 10 MG PO DAILY #30 Melatonin Fluticasone Propionate (Flonase 50 Mcg Nasal Bell) 1 SPRAY NA BID #16 Pantoprazole Sodium 40 MG PO DAILY #30 Citalopram Hydrobromide (Citalopram HBr) 10 MG PO QHS #30 History Medical History General CAD? No Angina: No [place]: No Hypertension? No Hyperlipidemia? Yes CHF? No DVT? No PE? No COPD? No Asthma? No Anemia? No GERD? Yes Gastric ulcers? No GI Bleed? No Hernia? No Thyroid Problems? No Hypothyroidism? No CVA? No Seizures? No Diabetes? No Renal Insuffiency? No UTI? No Stones? No GB Disease: Yes Nephritic Syndrome? No Asplenia? No Hepatitis? No Sickle Cell Disease? No Arthritis? No Migraines? No Cataracts? No Glaucoma? No MRSA? No HIV? No TB? No Anxiety? Yes Depression? Yes Cancer? No More? 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 Now Family History Family HX Diabetes No CAD No Hypertension Yes Hyperlipidemia No Cancer Yes TB No Social History Smoking Hx Smoker: Current Every Day Smoker Tobacco: Yes Type Cigarettes Packs/day < 1 Pack Alcohol Alcohol: No Review of Systems All Other Systems Reviewed and Negative Comment small area on inner side of left upper thigh that was larger earlier today but busted and drained out a large amount of pus Physical Exam Vital Signs Vital Signs Date Time Temp Pulse Resp B/P Pulse O2 O2 Flow FiO2 Ox Delivery Rate 06/17 2048 97.7 98 18 130/89 97 General Appearance normal appearance, WD/WN, no apparent distress Respiratory Status Yes: trachea midline, chest symmetrical, non tender chest. No: respiratory distress. Cardiovascular normal exam, regular rate/rhythm, no peripheral edema Neurologic alert, eligibility manager II-XII nml as tested, normal exam, no motor/sensory deficits, oriented x 3 Comments Patient has small dime sized area on left inner thight with scab in place that she states was larger earlier this date and drained large amount of puss from it when it ruptured, No redness, no warmth to the area. no streaking Medical Decision Making LABS/Meds/Orders Pt receiving controlled substance in ED? No Results/Orders Current Medication Orders Sig/Vincent Start time Last Medication Dose Route Stop Time Status Admin Cephalexin 500 MG ONCE ONE 06/17 2099 DC 06/17 Monohydrate PO 06/17 Cephalexin 0 .STK-MED ONE 06/17 2058 DC Monohydrate PO Departure Departure Time of Disposition 2101 Disposition DC Home or Self Care(routine) Clinical Impression Primary Impression: Skin infection Condition STABLE Referrals Geo Townsend MD (Family): 2 Days-Call Office if no improvement or worsening of symptoms Patient Instructions DI for Cellulitis -- Adult, Skin Wound Additional Instructions Keep area clean and dry Follow up with family doctor in 2-3 days if no improvement or sooner if you notice it larger in size, warm, red streaks or any other sign of infection Take medication as prescribed Return if needed Discharge Counseling Counseled pt/family regarding diagnosis, medications/RX, home care, follow up needs Prescriptions Current Visit Scripts CEPHALEXIN (Keflex 500MG Capsule) 500 MG PO Q6H #40 CAP Electronically Signed by KATERIN RODRIGUEZ APRN 06/17/16 at 5100
== END 2016-06-17 21:08 | disposition home or self-care (01) ==
LOC: UTC 20:45
DX: L03.116 Cellulitis of left lower limb (principal); K21.9 Gastro-esophageal reflux disease without esophagitis; Z72.0 Tobacco use

== ENCOUNTER → 2016-06-30 | Outpatient (CLI) | payer MEDICAID ==
--- NOTE | 2016-06-30 11:55 | RADIOLOGY REPORT PS360 ---
HAND-RT 3 VIEWS HISTORY: RT THUMB PAIN, SWELLING OF RT THUMB ORDERING PHYSICIAN: KURT CANELA APRN PATIENT AGE: 40 years COMPARISON: None FINDINGS: No fracture or dislocation. No lytic or blastic change. There is normal mineralization. There are mild osteoarthritic changes at the first metacarpal carpal junction. Well-circumscribed rounded calcific density is present at the base of the second metacarpal. IMPRESSION: Minimal osteoarthritic change first metacarpal carpal junction with nonspecific soft tissue calcification at the base of the second metacarpal which could be due to old posttraumatic change.
== END ==
LOC: RAD 09:34
DX: M79.644 Pain in right finger(s) (principal); M79.89 Other specified soft tissue disorders

== ENCOUNTER 2016-07-18 15:39 | Emergency (ER) | payer MEDICAID ==
[~2016-07-18] VITALS: Ht 175.3 cm; Wt 104.3 kg
--- OUTSIDE RECORDS SUMMARY | 2016-07-18 15:49 | External Medical Summary Rpt ---
Author Author , Organization [employer] Address Unknown Phone Unavailable Care Team Providers Care Analysis Or Research Safety Inspector Name Role Phone BEINEKE SAURABH, KAROL Unavailable [...] [facility] [place] [place] FALLIS IVONNE, FALLIS Unavailable Unavailable IVONNE FEEBACK REE, FEEBACK Unavailable Unavailable REE ANGELICA ANNE MARIE, Unavailable Unavailable ANGELICA ANNE MARIE AYAD, LION Unavailable Unavailable JR ANAYA FULLER, Unavailable Unavailable JR LYRIC SEPIDEH, LYRIC Unavailable Unavailable [facility] Un[facility], [facility] CARYL JAM, CARYL Unavailable Unavailable JAM CARYL JAM, CARYL Unavailable Unavailable JAM [facility] Unavailable Unavailable INC, [facility] Unavailable Unavailable H[facility]PITAL, [facility] Unavailable [facility]available HOSPITAL P, [facility] P [facility] Unavailable Unavailable [facility], Unavailable Unavailable [facility] OXANA FIELDS, OXANA FIELDS Unavailable Unavailable [facility], [facility] JORDAN, JORDAN Unavailable Unavailable JORDAN KADEN, JORDAN Unavailable Unavailable KADEN JORDAN KADEN, JORDAN Unavailable Unavailable KADEN IWN JORDAN, Unavailable Unavailable [facility] Unavailable Unavailable INTERNAL MED, [facility] RICH ADAMS, Unavailable Unavailable RICH ANGIE [facility] Unavailable Unavailable LABS, [...] PHARMACY Unavailable Unavailable [address]591, [facility] Unavailable [facility]available DEPT [facility], [facility] DEPT [facility] Unavailable [facility]available DEPT [facility], [facility] DEPT [facility] MARY BUSBY, MARY Unavailable Unavailable KEHINDE BUSBY, MARY Unavailable Unavailable KEHINDE INDIRA MAT, INDIRA MAT Unavailable Unavailable Purpose Continuity of Care Document - 04-19-2008 through 2016 Problems Code Diagnosis DOS Provider Status [id number] PAIN IN 06-23-2016 [facility] RIGHT [facility] FINGERS INTERNAL MED R232 FLUSHING 06-01-2016 [facility] N393 STRESS 05-06-2016 [facility] P MALE L309 DERMATITIS 04-22-2016 [facility] UNSPECIFIED [facility] INTERNAL MED K219 GASTRO-ESOP 03-10-2016 [facility] REFLUX [facility] DISEASE INC WITHOUT ESOPHAGITIS K5730 DIVERTICULO 03-10-2016 [facility] LG MEDICAL INTEST W/O IMAGING ASS PERF/ABSC W/O BLEED R1011 RIGHT UPPER 03-10-2016 [facility] [facility] H6023 MALIGNANT 03-01-2016 [facility] OT[facility]IS PHYSICIANS EXTERNA GROUP BILATERAL H6503 ACUTE 03-01-2016 [facility] SEROUS PHYSICIANS OTITIS GROUP MEDIA BILATERAL 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 M5441 LUMBAGO 01-23-2016 [facility] WITH PHYSICIANS, [facility] RIGHT SIDE M545 LOW BACK 01-23-2016 [place] [facility] 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 H5213 MYOPIA 11-28-2015 CARYL JAM BILATERAL R1031 RIGHT LOWER 11-28-2015 [place] [facility] R1032 LEFT LOWER 11-28-2015 [facility] [facility] R310 GROSS 11-28-2015 [facility] HEMATURIA PRINCE INTERNAL MED R319 HEMATURIA 11-28-2015 [place] UNSPECIFIED [facility]ICAL IMAGING ASS R079 CHEST PAIN 11-17-2015 [facility] UNSPECIFIED PHYSICIANS, PLLC U17805 CUTANEOUS 10-28-2015 [facility] ABSCESS OF [facility] RIGHT LOWER INC LIMB U29636 CUTANEOUS 10-28-2015 [facility] ABSCESS OF PHYSICIANS, HEAD ANY PLLC PART EXCEPT FACE L0390 CELLULITIS 10-15-2015 [facility] UNSPECIFIED [facility] MED H6120 IMPACTED 09-25-2015 [facility] CERUMEN PHYSICIANS UNSPECIFIED GROUP EAR H6590 UNSPECIFIED 09-25-2015 [facility] PHYSICIANS NONSUPPURAT GROUP [place] OTITIS MEDIA UNS EAR H6903 PATULOUS 09-25-2015 JORDAN KADEN EUSTACHIAN TUBE BILATERAL R0982 POSTNASAL 09-18-2015 [facility] DRIP [facility] MED J029 ACUTE 09-15-2015 [facility] PHARYNGITIS PHYSICIAN GROUP UNSPECIFIED K120 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[facility] ORAL PHYSICIAN APHTHAE GROUP J0101 ACUTE 09-09-2015 [facility] RECURRENT PHYSICIANS, [facility] SINUSITIS J4520 MILD 09-09-2015 [facility] INTERMITTEN PHYSICIANS, T ASTHMA [facility] UNCOMPLICAT ED R0600 DYSPNEA 09-09-2015 [place] [facility]PECIFIED [facility] IM[facility]ING ASS R221 LOCALIZED 09-09-2015 [facility] [facility] MASS AND IMAGING ASS LUMP NECK Z720 TOBACCO USE 09-09-2015 [facility] P R05 COUGH 09-08-2015 [facility] H6090 UNSPECIFIED 08-25-2015 [facility] OTITIS PHYSICIANS EXTERNA GROUP UNSPECIFIED EAR H6501 ACUTE 07-17-2015 [facility] SEROUS PHYSICIANS OTITIS GROUP MEDIA RIGHT EAR H6591 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-17-2015 [facility] NONSUPPURAT INC [place] OTITIS MEDIA RT EAR H9391 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-17-2015 [facility] DISORDER ANESTH OF OF RIGHT THE BLUE EAR L50285 PAIN IN 05-28-2015 [place] [facility] M7989 OTHER 05-28-2015 [place] SPECIFIED MEDICAL SOFT TISSUE IMAGING ASS DISORDERS R358 OTHER 05-28-2015 [facility] POLYURIA [facility] INC J0190 ACUTE 05-11-2015 [facility] SINUSITIS PHYSICIANS UNSPECIFIED GROUP A09 INFECTIOUS 03-14-2015 [facility] GASTROENTER [facility] ITIS AND INC COLITIS UNSPEC J069 ACUTE UPPER 03-12-2015 [facility] PRINCE RESPIRATORY INTERNAL INFECTION MED UNSPECIFIED M542 CERVICALGIA 02-28-2015 [facility] INC 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, 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 N390 URINARY 02-24-2015 [facility] TRACT PHYSICIANS INFECTION GROUP SITE NOT SPECIFIED L664 FOLLICULITI 02-09-2015 [facility] S PHYSICIANS, ULERYTHEMAT PLLC USMAN RETICULATA L738 OTHER 02-09-2015 [place] [place] SPECIFIED [facility] FOLLICULAR INC DISORDERS B351 TINEA 01-30-2015 [place] IVONNE UNGUIUM B353 TINEA PEDIS 01-30-2015 [place] IV[facility]NE I890 LYMPHEDEMA 01-30-2015 [place] IVONNE NOT ELSEWHERE CLASSIFIED M2570 OSTEOPHYTE 01-30-2015 [place] IV[place]NE UNSPECIFIED JOINT H9202 OTALGIA 01-17-2015 [facility] LEFT EAR [facility] INTERNAL MED H6506 ACUTE 01-16-2015 [facility] SEROUS PHYSICIANS OTITIS GROUP MEDIA RECURRENT BILATERAL H6523 CHRONIC 01-16-2015 [facility] [place] SEROUS [facility] OTITIS INC MEDIA BILATERAL H6693 OTITIS 01-16-2015 COMM[facility]ITY MEDIA ANESTH OF UNSPECIFIED THE BLUE BILATERAL P20863 ENCOUNTER 01-15-2015 [facility] FOR OTHER [facility] PREPROCEDUR INC AL EXAMINATION C49509 ACUTE & 12-27-2014 [facility] OTITS MEDIA BILATERAL H1032 UNSPECIFIED 12-17-2014 [facility] TIS LEFT EYE N6489 OTHER 12-16-2014 [place] SPECIFIED MEDICAL DISORDERS IMAGING ASS OF BREAST R928 OTH ABNORM 12-16-2014 [facility] [place] & [facility] INCONCLUSIV INC E FIND ON DX IMAG BREAST B9789 OT VIRAL 12-13-2014 [facility] AGENT CAUSE PRINCE DISEASES INTERNAL CLASSIFIED MED ELSW H6504 ACUTE 12-09-2014 [facility] SEROUS PHYSICIANS OTITIS GROUP MEDIA RECURRENT RIGHT EAR T85589 ANKYLOSIS 12-09-2014 [facility] OF EAR PHYSICIANS OSSICLES GROUP RIGHT EAR H9191 UNSPECIFIED 12-09-2014 [facility] HEARING PHYSICIANS LOSS RIGHT GROUP EAR H57516 PAIN IN 12-05-2014 [place] IV[place]NE RIGHT TOES H30718 PAIN IN 12-05-2014 [place] LEFT TOES Z1231 ENCOUNTER 11-29-2014 [place] SCREENING MEDICAL MAMMO MALIG IMAGING ASS NEOPLASM BREAST Z803 FAMILY 11-29-2014 [place] HISTORY OF MEDICAL MALIGNANT IMAGING ASS NEOPLASM OF BREAST Z27055 PAIN IN 11-15-2014 [facility] LEFT FOOT PR[place] INTERNAL MED V252 STERILIZATI 11-05-2014 [facility] DE[facility] DONOVAN 74937 DYSFUNCTION 09-19-2014 [facility] OF PHYSICIANS EUSTACHIAN GROUP TUBE 4779 ALLERGIC 09-19-2014 [facility] RHINITIS PHYSICIANS CAUSE GROUP UNSPECIFIED 27935 OTHER 09-19-2014 [facility] DISEASES OF PHYSICIANS NASAL GROUP CAVITY AND SINUSES 7295 PAIN IN 09-18-2014 [facility] SOFT [place]LEY TISSUES OF INTERNAL LIMB MED 52332 SIMPLE/UNSP 2014 [facility] ECIFIED [facility] CHRONIC INC SEROUS OTITIS MEDIA 3814 NONSUPPRATV 2014 [place] OTITIS MEDICAL MEDIA NOT IMAGING ASS SPEC ACUT/CHRON 470 DEVIATED 2014 [place] NASAL MEDICAL SEPTUM IMAGING ASS 50236 UNSPECIFIED 09-02-2014 [facility] CONDUCTIVE PHYSICIANS HEARING GROUP LOSS 4730 CHRONIC 09-02-2014 [facility] MAXILLARY PHYSICIANS SINUSITIS GROUP 3829 UNSPECIFIED 08-29-2014 JORDAN KADEN OTITIS MEDIA 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 4619 ACUTE 08-22-2014 [facility] SINUSITIS, [facility] UNSPECIFIED INTERNAL MED 3899 UNSPECIFIED 08-13-2014 [facility] HEARING PHYSICIANS LOSS GROUP 7856 ENLARGEMENT 08-13-2014 [facility] OF LYMPH PHYSICIANS NODES GROUP 86010 GANGLION OF 05-31-2014 [facility] TENDON PHYSICIANS SHEATH GROUP 66877 UNSPECIFIED 05-31-2014 COMMUNITY GANGLION ANESTH OF THE BLUE 67162 PAIN IN 05-30-2014 [place] JOINT, MEDICAL FOREARM IMAGING ASS 94550 GANGLION OF 05-29-2014 [facility] JOINT [facility] INC V7283 OTHER 05-29-2014 [facility] SPECIFIED [facility] PRE-OPERATI INC VE EXAMINATION 92589 UNSPECIFIED 02-27-2014 [facility] OTALGIA PRINCE INTERNAL MED 4871 INFLUENZA 02-13-2014 [facility] WITH OTHER PRINCE RESPIRATORY INTERNAL MED MANIFESTATI ONS 73249 GENERALIZED 02-13-2014 [facility] PAIN PR[facility]CE INTERNAL MED 4659 ACUTE URIS 12-06-2013 [facility] OF PRINCE UNSPECIFIED INTERNAL SITE MED 486 PNEUMONIA, 12-03-2013 [facility] ORGANISM PR[facility]CE UNSPECIFIED INTERNAL MED 7840 HEADACHE 12-03-2013 [facility] PRINCE INTERNAL MED 6822 CELLULITIS 11-15-2013 [facility] AND ABSCESS PHYSICIANS OF TRUNK GROUP 37313 ABDOMINAL 11-15-2013 [facility] PAIN, PHYSICIANS UNSPECIFIED GROUP SITE 44429 ABDOMINAL 10-29-2013 [facility] PAIN, [facility] INTERNAL MED 85351 POLYURIA 10-27-2013 [facility] INC V700 ROUTINE 10-27-2013 [facility] MEDICAL INC EXAM@HEALTH CARE FACL 22849 ESOPHAGEAL 10-26-2013 [facility] REFLUX PRINCE INTERNAL MED 93339 INSOMNIA 10-26-2013 [facility] UNSPECIFIED PRINCE INTERNAL MED 6160 CERVICITIS 10-23-2013 [facility] ENDOCERVICI TIS V7231 ROUTINE 10-23-2013 [facility] AL EXAMINATION 1101 DERMATOPHYT 2013 [place] [facility] NAIL INC 2400 GOITER, 07-03-2013 MARY KEHINDE SPECIFIED SIMPLE 2449 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-03-2013 [facility] HYPOTHYROID [place] 19212 OTOGENIC 07-03-2013 MARY KEHINDE PAIN 84890 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-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 7842 SWELLING 07-03-2013 MARY KEHINDE MASS OR LUMP IN HEAD AND NECK 89873 UNSPECIFIED 06-19-2013 MARY KEHINDE TINNITUS 5990 URINARY 06-11-2013 [facility] TRACT INFECTION SITE NOT SPECIFIED 2409 GOITER, 06-08-2013 [facility] UNSPECIFIED GIO 81735 OBESITY, 06-06-2013 [facility] UNSPECIFIED [facility] INC 34747 UNSPECIFIED 06-05-2013 EAR, NOSE ABNORMAL AND THROAT AUDITORY SPECIAL PERCEPTION 76267 UNSPECIFIED 06-05-2013 [facility] VAGINITIS PHYSICIANS AND GROUP VULVOVAGINI TIS 04563 UNSPECIFIED 05-28-2013 JORDAN KADEN ACUTE NONSUPPURAT [place] OTITIS MEDIA 95259 METHICILLIN 05-28-2010 [facility] RESISTANT [facility] STAPHYLOCOC INC CUS AUREUS 6826 CELLULITIS 05-28-2010 [facility] AND ABSCESS [facility] OF LEG INC EXCEPT FOOT 81370 METHICILLIN 05-26-2010 [facility] RESISTANT DON STAPH AUREUS SEPTICEMIA V090 INFECTION 05-26-2010 [facility] W/MICROORGA DON NISMS RESISTANT PENICILLINS V7241 05-26-2010 [facility] EXAMINATION [facility] OR TEST INC NEGATIVE RESULT 9164 HIP THI 05-23-2010 [facility] LEG&ANK DON INSECT BITE NONVENOMOUS W/O INF 5589 OTH&UNSPEC 12-13-2008 [facility], NONINFECTIO DON R US GASTROENTER ITIS&COLITI S 11888 CALCANEAL 12-13-2008 [facility] SPUR DON R 1105 DERMATOPHYT 12-02-2008 [facility], OSIS OF THE DON R BODY 74649 OVERWEIGHT 10-09-2008 [facility], DON R 4618 OTHER ACUTE 10-09-2008 [facility], [place] R [address] UNSPECIFIED 06-11-2008 WIN [facility]ORDAN SENSORINEUR AL HEARING LOSS 09074 UNSPECIFIED 06-06-2008 [facility] OBSTRUCTION OF EUSTACHIAN TUBE 3882 UNSPECIFIED 06-06-2008 YARELY JORDAN HEARING LOSS J01.90 ACUTE SINUSITIS, UNSPECIFIED J45.909 UNSPECIFIED ASTHMA, UNCOMPLICAT ED L02.91 CUTANEOUS ABSCESS, UNSPECIFIED M54.5 LOW BACK PAIN R07.89 OTHER CHEST PAIN R10.9 UNSPECIFIED ABDOMINAL PAIN R39.89 OTHER SYMPTOMS AND SIGNS INVOLVING THE GENITOURINA RY SYSTEM R92.8 OTH ABN AND INCONCLUSIV E FINDINGS ON DX IMAGING OF BREAST Allergies, Adverse Reactions, Alerts Clinical Alert Notifications Alert Asthma: history of ED visit in the last 365 days Asthma: no influenza vaccine in the last 365 days Asthma: non-ICS non-compliance with ED/hospitalization Medications Na ND Rx Da Fi Fi Am Da Di Ph RX Ph St me C No te ll ll ou ys ag ar # ys at rm s nt no ma ic us Or Da si cy ia de te s n re d CE 65 05 06 40 10 00 EA Ac PH 86 -0 -[address] ti AL 20 5- 2- 00 00 SI ve EX 01 20 20 48 DE IN 90 17 17 62 5 36 PH 50 AR 0 MA MG CY CA OF PS CY UL NT E HI AN A IN C IM 00 05 06 30 30 00 EA Ac IP 78 -0 -[address] ti RA 11 9- 2- 00 00 SI ve IL 76 20 20 48 DE NE 60 17 17 23 1 24 PH HC AR L MA 50 CY MG OF CY TA NT BL HI ET AN A IN C MO 60 05 06 30 30 00 EA Ac NT 50 -0 -[address] ti EL 53 9- 2- 00 00 SI ve UK 56 20 20 47 DE 20 17 17 88 T 8 25 PH SO AR D MA 10 CY MG OF CY TA NT BL HI ET AN A IN C AL 67 02 05 60 30 00 EA Ac FL 25 -1 -[address] ti AZ 30 3- 9- 00 00 SI ve OL 90 20 20 47 DE AM 11 17 17 58 1 74 PH 0. AR 5 MA MG CY TA OF BL CY ET NT HI AN A IN C PA 65 04 05 30 30 00 EA Ac NT 86 -2 -[address] ti OP 20 5- 9- 00 00 SI ve RA 56 20 20 47 DE ZO 09 17 17 33 LE 0 52 PH AR SO MA D CY DR OF 40 CY NT MG HI AN TA A B IN C CI 65 04 05 30 30 00 EA Ac TA 86 -2 -[address] ti LO 20 5- 9- 00 00 SI ve FL 00 20 20 47 DE AM 50 17 17 24 5 82 PH HB AR R MA 10 CY MG OF CY TA NT BL HI ET AN A IN C AL 67 04 05 60 30 00 EA Ac FL 25 -1 -[address] ti AZ 30 8- 2- 00 00 SI ve OL 90 20 20 48 DE AM 11 17 17 40 1 90 PH 0. AR 5 MA MG CY TA OF BL CY ET NT HI AN A IN C MO 60 04 05 30 30 00 EA Ac NT 50 -0 -[address] ti EL 53 8- 5- 00 00 SI ve UK 56 20 20 47 DE 20 17 17 88 T 8 25 PH SO AR D MA 10 CY MG OF CY TA NT BL HI ET AN A IN C CH 00 03 04 60 30 00 [...] 20 3- 8- 00 00 SI ve FL 00 20 20 47 DE AM 50 17 17 24 5 82 PH HB AR R MA 10 CY MG OF CY TA NT BL HI ET AN A IN C IM 00 04 04 30 30 00 EA Ac IP 78 -0 -[address] ti RA 11 3- 8- 00 00 SI ve IL 76 20 20 48 DE NE 60 [...] 03 04 60 30 00 EA Ac FL 25 -2 -[address] ti [...] 11 3- 1- 00 00 SI ve IL 76 20 20 47 DE NE 60 17 17 73 1 17 PH HC AR L MA 50 CY MG OF CY TA NT BL HI ET AN A IN C CI 65 02 03 30 30 00 EA Ac TA 86 -1 -[address] ti LO 20 6- 4- 00 00 SI ve FL 00 20 20 47 DE AM 50 [...] HI AN TA A B IN C BR 60 02 03 18 3 00 WA Ac OM 43 -1 -2 0. 00 L- ti PH 20 9- 4- 00 07 MA ve EN 27 20 20 0 47 RT IR 51 17 17 16 -P 6 24 PH SE AR UD MA OE CY PH ED #5 -D 91 M SY R MO 60 02 03 30 30 00 EA Ac NT 50 -0 -[address] ti EL 53 7- 0- 00 00 SI ve UK 56 20 20 46 DE 20 17 17 66 T 8 11 PH SO AR D MA 10 CY MG OF CY TA NT BL HI ET AN A IN C FL 60 01 03 16 15 00 EA Ac UT 43 -2 -[address] ti IC 20 7- 3- 00 00 SI ve 26 20 20 43 DE ON 41 17 17 56 E 5 51 PH FL AR OP MA CY 50 OF MC CY G NT SP HI RA AN Y A IN C AM 00 02 03 20 10 00 WA Ac OX 09 -0 -0 .0 00 L- ti IC 33 1- 3- 00 07 MA ve IL 10 20 20 46 RT LI 90 17 17 82 N 5 70 PH 50 AR 0 MA MG CY CA #5 PS 91 UL E PA 59 01 02 30 30 00 [...] 01 02 7. 5 00 EA Ac FL 06 -1 -[address] ti [...] 20 6- 7- 00 00 SI ve FL 00 20 20 47 DE AM 50 [...] HI AN TA A B IN C FL 59 12 01 12 6 00 EA Ac ED 74 -1 -[address] ti NI 60 2- 3- 00 00 SI ve SO 17 20 20 46 DE NE 50 16 17 85 6 64 PH 20 AR MA MG CY TA OF BL CY ET NT HI AN A IN C DI 00 12 01 60 [...] NT ET HI AN A IN C CH 00 12 01 56 28 00 EA Ac AN 06 -0 -[address] ti TI 90 6- 9- 00 00 SI ve X 46 20 20 46 DE 1 95 16 17 78 MG 6 49 PH AR TA MA BL CY ET OF CY NT HI AN A IN C FL 65 12 01 10 3 00 EA [...] [address] Ac FL 09 -3 -[address] 92 EP [...] 1- 8- 00 MA 69 HE ve FL 34 20 20 RT 7 NS AM [...] AR N MA R CY #5 91 CE 00 09 10 00 [address] Ac FD 78 -2 -0 .0 L- 37 EP ti IN 12 1 8- 00 MA 69 HE ve IR 17 20 20 RT 6 NS 66 09 09 30 0 PH DO 0 AR N MG MA R CY CA PS #5 UL 91 E NA 00 04 09 00 17 30 [...] 01 [address] Ac FL 25 -1 -[address] 47 EP ti AZ 30 4- 0- 00 SI 93 HE ve OL 90 20 20 DE NS AM 11 09 09 1 PH DO 0. AR N 5 MA R MG CY TA OF BL CY ET NT HI AN A AL 67 07 07 [address] Ac FL 25 -1 -[address] 47 EP [...] 00 [address] Ac FL 25 -1 -[address] 49 EP [...] Procedures Procedure [place] [address] [facility] ESTROGENS 7 [facility] TOTAL INC INC GONADOTRO 17853 [facility] PIN 7 [facility] FOLLICLE INC INC STIMULATI NG HORMONE GONADOTRO 03899 [facility] PIN 7 [facility] LUTEINIZI INC INC NG HORMONE COMPREHEN 96075 [facility] SIVE 7 [facility] [address] [facility] AMYLASE 7 [facility] INC INC FINAL G9638 [place] [facility]A REPORTS 7 MEDICAL W/O DOC IMAGING 1/MORE ASS DOSE REDUCTION TECH THER 22999 [facility] PROPH/DX 7 [facility] NJX IV INC INC PUSH SINGLE/1S T SBST/DRUG COMPREHEN 68681 [facility] SIVE 7 [facility] METABOLIC INC INC PANEL FINAL G9551 [facility] MOORE REPR ABD 7 MEDICAL IMAG STS IMAGING W/O ASS INCIDNT FND L[place] NTD: [place] [address] [facility] LIPASE 7 [place] [address] [facility] ABDOMEN & 7 [facility] PELVIS INC INC W/O CONTRAST MATERIAL URNLS DIP 89473 [facility] STICK/TAB INC INC LET REAGENT AUTO MICROSCOP Y URINE 78962 [facility] 7 [facility] TEST INC INC VISUAL COLOR CMPRSN METHS BLOOD 23254 [facility] COUNT 7 [facility] COMPLETE INC INC AUTO&AUTO DIFRNTL WBC CULTURE 56541 [facility] BACTERIAL 6 [facility] INC INC QUANTTATI VE COLONY COUNT URINE URNLS DIP 10969 [facility] 6 [facility] STICK/TAB INC INC LET REAGENT AUTO MICROSCOP Y RADEX 17285 [place] MOORE SPINE 6 MEDICAL LUMBOSACR IMAGING AL ASS MINIMUM 4 VIEWS OPHTH 97960 [facility] 6 JAM JAM XM&EVAL INTERMEDI ATE NEW PT DETERMINA 35924 [facility] 6 [place] [address] [place] MOORE ALL ABDOMEN & 6 MEDICAL PELVIS IMAGING W/O ASS CONTRAST MATERIAL RADIOLOGI 13200 [place] NAA C 6 MEDICAL GIO EXAMINATI IMAGING ON CHEST ASS SINGLE VIEW FRONTAL INCISION 90687 [facility] GUNTER & 6 PHYSICIAN SEPIDEH DRAINAGE S, PLLC ABSCESS COMPLICAT ED/MULTIP LE CUL BACT 10837 [facility] XCPT 6 [facility] URINE INC INC BLOOD/STO OL AEROBIC ISOL CUL BACT 47117 DEBVITALIY BO[facility] AEROBIC 6 [facility] ADDL INC INC METHS DEFINITIV E EA ISOL SUSCEPTIB 24252 [facility] LTY STDY 6 [facility] ANTIMICRB INC INC IAL MICRO/AGA R DILUTJ CUR MEDS G8428 [facility] NO DOC 6 [facility] OBDT INTERNAL INTERNAL UPD/REV MED MED ELIG CLIN RSN N GVN COMPRE 97454 NIKKI JORDAN AUDIOMETR 6 KADEN KADEN Y THRESHOLD EVAL SP RECOGNIJ IAADIADOO 35601 [facility] LION 6 PHYSICIAN STREPTOCO GROUP CCUS GROUP A BLOOD 91039 [facility] COUNT 6 [facility] COMPLETE INC INC AUTO&[place] [address] [facility] TROPONIN 6 [facility] QUANTITAT INC INC PARRISH ECG 91149 [facility] FOREMAN ROUTINE 6 [facility] W/LEAST P 12 LDS I&R ONLY PRESSURIZ 48529 [facility] ED/NONPRE 6 [facility] SSURIZED INC INC INHALATIO N TREATMENT FIBRIN 86908 [facility] DGRADJ 6 [facility] PRODUCTS INC INC D-DIMER QUAL/SEMI LAUREANO CREATINE 30714 [facility] KINASE 6 [facility] TOTAL INC INC NATRIURET 70024 [facility] IC 6 [facility] PEPTIDE INC INC ECG 16701 [facility] ROUTINE 6 [facility] ECG INC INC W/LEAST 12 LDS TRCG ONLY W/O I&R THERAPEUT 94924 [facility] IC 6 [facility] PROPHYLAC INC INC TIC/DX INJECTION SUBQ/IM CREATINE 95584 [facility] KINASE MB 6 [facility] FRACTION INC INC ONLY COMPREHEN 67930 DE[facility] SIVE 6 [facility] METABOLIC INC INC PANEL RADIOLOGI 49039 [facility] C 6 [facility] EXAMINATI INC INC ON NECK SOFT TISSUE RADIOLOGI 26278 [facility] C EXAM 6 [facility] CHEST 2 INC INC VIEWS FRONTAL&L ATERAL TYMPANOST 32996 [facility] NIKKI [place] 6 PHYSIC[facility] ANESTHESI A UNCLASSIF J3490 [facility] IED DRUGS 6 [facility] INC INC INJECTION J2405 [facility] 6 [facility] ONDANSETR INC INC ON HCL [place] 1 [place] [address] [facility] INFUSION [facility] THERAPY INC [place] [address] DE[facility] INFUSION 6 [facility] THERAPY/P INC INC ROPHYLAXI S /DX 1ST TO 1 HR THERAPEUT 30610 [facility] IC 6 [facility] INJECTION INC INC IV PUSH EACH NEW DRUG ANES 60280 COMMUNITY FEEBACK XTRNL MID 6 ANESTH REE & INNER OF THE EAR W/BX BLUE TYMPANOTO MY URINE 82268 [facility] 6 [facility] TEST INC INC VISUAL COLOR CMPRSN METHS LIPID 63317 DE[facility]D PANEL 6 [facility] INC INC HEMOGLOBI 75018 [facility] N 6 [facility] GLYCOSYLA INC INC MARCY A1C RADEX 18658 [facility] HAND 6 [facility] MINIMUM 3 INC INC VIEWS RADEX 97741 [place] ALL HAND 2 6 MEDICAL VIEWS IMAGING ASS COMPREHEN 05752 [facility] SIVE 6 [facility] METABOLIC INC INC PANEL COLLECTIO 92734 DE[facility] N VENOUS 6 [facility] BLOOD INC INC VENIPUNCT URE INJECTION J1040 [facility] 6 PHYSICIAN METHYLPRE S GROUP DNISOLONE ACETATE 80 MG THERAPEUT [address] [facility] IC 6 PHYSICIAN PROPHYLAC S GROUP TIC/DX INJECTION SUBQ/IM IADNA-DNA 12187 DEB [facility]D /RNA GI 6 [facility] PTHGN INC INC MULTIPLEX PROBE TQ 12-25 PHYSICAL 72304 DEB [facility] THERAPY 6 [facility] EVALUATIO INC INC N TYMPANOST 44813 [facility] DE 5 [facility] GENERAL INC INC ANESTHESI A ANES 45093 COMMUNITY TAMARA XTRNL MID 5 ANESTH LASHAUN & INNER OF THE EAR W/BX BLUE TYMPANOTO MY GONADOTRO 13492 [facility] PIN 5 [facility] CHORIONIC INC INC QUALITATI VE BLOOD 21822 [facility] COUNT 5 [facility] COMPLETE INC INC AUTO&AUTO DIFRNTL WBC BASIC 29996 [facility] METABOLIC 5 [facility] PANEL [facility] INC CALCIUM TOTAL COLLECTIO 81888 [facility] N VENOUS [facility] BLOOD INC INC VENIPUNCT URE DIAGNOSTI G0206 [place] NAA C 5 MEDICAL GIO MAMMOGRAP IMAGING HY INCL ASS CAD WHEN PERF; UNI IAADIADOO 70731 [place] [facility] MED GROUP A SCREENING G0202 [place] TIFFANIE 5 MEDICAL [facility] MAMMOGRAP IMAGING HY KARYNA ASS INCL CAD WHEN PERFORMD COMPUTER- 83958 [place] KAROL AIDED 5 MEDICAL [facility] DETECTION IMAGING ASS SCREENING MAMMOGRAP HY RADEX 23200 [place] MOORE ALL HAND 5 MEDICAL MINIMUM 3 IMAGING VIEWS ASS SCREENING 10179 [facility] VISUAL HLTH DEPT HLTH DEPT ACUITY DONOVAN DONOVAN QUANTITAT PARRISH BILAT RADEX 97124 [place] [facility] 5 [facility] COMPLETE IMAGING [place] [address] [place] [address] DEB DEB MAXILLOFA 5 [facility] CIAL W/O INC INC CONTRAST MATERIAL COMPRE 74598 NIKKI JORDAN AUDIOMETR 5 KADEN KADEN Y THRESHOLD EVAL SP RECOGNIJ TYMPANOME 98611 NIKKI JORDAN TRY 5 KADEN KADEN DISTORT 11539 NIKKI JORDAN PRODUCT 5 KADEN KADEN EVOKED OTOACOUST IC EMISNS LIMITD THERAPEUT 26531 [facility] AND IC 5 [facility] PROPHYLAC INTERNAL TIC/DX MED INJECTION SUBQ/IM INJECTION J0696 [facility] 5 [facility] CEFTRIAXO INTERNAL NE SODIUM MED PER 250 MG INJECTION J3301 [facility] 5 [facility] TRIAMCINO INTERNAL LONE MED ACETONIDE NOS 10 MG ANES 96694 [facility] N[facility]E 5 ANESTH SHE MUSCLE OF THE TDN BLUE FASCIA&BU RSA FOREARM WRIST REPAIR 49863 DEB [place] COMPLEX 5 [facility] SCALP/ARM INC INC /LEG 2.6-7.5 CM EXCISION 75127 [facility] LESION 5 PHYSICIAN JAM TENDON S GROUP SHEATH FOREARM&/ WRIST MRI UPPER 80222 DEB BOYD 5 [facility] EXTREMITY INC INC OTH THAN JT W/O CONTR MATRL COLLECTIO 44515 [facility] N VENOUS 5 [facility] BLOOD INC INC VENIPUNCT URE GONADOTRO 57789 DEB BOYD PIN 5 [facility] CHORIONIC INC INC QUALITATI VE THERAPEUT 09709 [facility] IC 5 [facility] PROPHYLAC INTERNAL TIC/DX MED INJECTION SUBQ/IM INJECTION J3301 [facility] 5 [facility] TRIAMCINO INTERNAL LONE MED ACETONIDE NOS 10 MG IAADIADOO 14230 [facility] 4 [facility] INFLUENZA INTERNAL MED INJECTION J0696 [facility] AND 4 [facility] CEFTRIAXO INTERNAL NE SODIUM MED PER 250 MG THERAPEUT 84485 [facility] US[facility] AND IC 4 [facility] PROPHYLAC INTERNAL TIC/DX MED INJECTION SUBQ/IM THERAPEUT 49586 [facility] IC 4 PHYSICIAN SEPIDEH PROPHYLAC S GROUP TIC/DX INJECTION SUBQ/IM INJECTION J1885 [facility] 4 PHYSICIAN SEPIDEH KETOROLAC S GROUP TROMETHAM INE PER 15 MG URNLS DIP 41441 [facility] 4 [facility] STICK/TAB INTERNAL LET RGNT MED NON-AUTO W/O MICRSCP CULTURE 12229 COMBINED COMBINED BACTERIAL 4 PHYSICIAN PHYSICIAN S LA S LA QUANTTATI VE COLONY COUNT URINE LIPID 69740 [facility] PANEL 4 [facility] INC INC COMPREHEN 90979 [facility] SIVE 4 [facility] METABOLIC INC INC PANEL TDAP 07643 [facility] Y[facility]/> IM HLTH DEPT HLTH DEPT DONOVAN DONOVAN CYTP 78305 [facility], PICKLESIM CERV/VAG 4 LLC ER JR JARED AUTO THIN LAYER PREP MNL SCREEN HEPATIC 12071 DEB BO[facility]D FUNCTION 4 [facility] [place] [address] DEB BO[facility] THYROXINE 4 [facility] TOTAL INC INC THYROID 10034 [facility] HORM 4 [facility] UPTK/THYR INC [place] [address] DEB BO[facility]D THYROID 4 [facility] STIMULATI INC INC NG HORMONE TSH RADIOLOGI 25016 INDIRA MAT INDIRA MAT C 4 EXAMINATI ON NECK SOFT TISSUE US SOFT 52548 [facility] TISSUE 4 N N HEAD & COMMUNTIY COMMUNTIY NECK REAL HOSPITA HOSPITA TIME IMGE DOCM CULTURE 48437 COMBINED COMBINED BACTERIAL 4 PHYSICIAN PHYSICIAN S LA [place] [address] NAA NAA MAXILLOFA 4 GIO GIO CIAL W/O CONTRAST MATERIAL LOCM Q9967 DEB BOYD 300-399 4 [facility] MG/ML INC INC IODINE CONCENTRA TION PER ML CT SOFT 64162 DEB BOYD TISSUE 4 [facility] NECK INC INC W/CONTRAS T MATERIAL IM ADM 33554 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 PRQ ID 4 SOP[facility]IE SOPHIE SUBQ/IM NJXS 1 VACCINE INJECTION J0696 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 4 SOPHIE SOPHIE CEFTRIAXO NE SODIUM PER 250 MG COMPREHEN 47065 [facility]B [facility] SIVE 4 [facility] METABOLIC INC INC PANEL LIPID 78566 [facility] PANEL 4 [facility] INC INC TYMPANOME 29494 EAR, NOSE MARY TRY 4 AND KEHINDE THROAT SPECIAL PURE TONE 20395 EAR, NOSE MARY 4 AND KEHINDE AUDIOMETR THROAT Y AIR SPECIAL ONLY SPEECH 47228 EAR, NOSE MARY AUDIOMETR 4 AND KEHINDE Y THROAT THRESHOLD SPECIAL LARYNGOSC 14359 EAR, NOSE MARY OPY 4 AND KEHINDE FLEXIBLE THROAT DIAGNOSTI SPECIAL C INJECTION J0696 [facility] 4 PHYSICIAN PHYSICIAN CEFTRIAXO S GROUP S GROUP NE SODIUM PER 250 MG URNLS DIP 94901 [facility] 4 PHYSICIAN PHYSICIAN STICK/TAB S GROUP S GROUP LET RGNT NON-AUTO W/O MICRSCP THERAPEUT 04471 [facility] IC 4 PHYSICIAN PHYSICIAN PROPHYLAC S GROUP S GROUP TIC/DX INJECTION SUBQ/[place] [address] DEB [facility]D INFUSION 1 [facility] THERAPY INC INC PROPHYLAX IS/DX EA HOUR I&D DEEP 30981 [facility] ABSC 1 [facility] BURSA/HEM INC INC ATOMA THIGH/KNE E REGION LEVEL III 21154 CHIPPS RICH SURG 1 MARKEL & ANGIE PATHOLOGY DUBILIER GROSS&SEPIDEH ROSCOPIC EXAM OTHER 8309 DEB [facility] INCISION 1 [facility] OF SOFT INC INC TISSUE GONADOTRO 70146 DEB [facility] PIN 1 [facility] CHORIONIC INC INC QUALITATI VE SUSCEPTIB 99961 [facility] LTY STDY 1 [facility] ANTIMICRB INC INC IAL MICRO/AGA R DILUTJ BLOOD 75452 [facility] COUNT 1 [facility] COMPLETE INC INC AUTO&AUTO DIFRNTL WBC CUL BACT 74547 [facility] AEROBIC 1 [facility] ADDL INC INC METHS DEFINITIV E EA ISOL CUL BACT 13438 [facility] XCPT 1 [facility] URINE INC INC BLOOD/STO OL AEROBIC ISOL BASIC 79980 [facility] METABOLIC 1 [facility] [address] DEB [facility] INFUSION 1 [facility] THERAPY INC [place] [address] DEB [facility]D INFUSION 1 [facility] THERAPY/P INC INC ROPHYLAXI S /DX 1ST TO 1 HR RADEX 21306 CARRANZA, CARRANZA, CALCANEUS 9 DON R DON R MINIMUM 2 VIEWS ACOUSTIC 88709 NIKKI JORDAN, REFLEX 9 WIN Null THRESHOLD TYMPANOME 58295 NIKKI JORDAN, TRY 9 WIN Null COMPRE 54648 NIKKI JORDAN, AUDIOMETR 9 WIN Null Y THRESHOLD EVAL SP RECOGNIJ Encounters Encounter Start End Date Code Location Performer Type Date OFFICE 18661 [facility] 7 7 [facility] T VISIT INTERNAL 15 MED MINUTES HOSPITAL DEB - 7 7 [facility] OUTPATIEN INC T OFFICE 40993 [facility] [place] JR OUTPATIEN 7 7 [facility] 10 P MINUTES OFFICE 62128 [facility]PAT[facility] 7 7 PR[facility] T VISIT INTERNAL 15 MED MINUTES OFFICE 81731 [facility] [place] JR OUTPATIEN 7 7 [facility] NEW 20 HOSPITAL MINUTES P EMERGENCY 40686 DEB 7 7 [facility] DEPARTMEN INC T VISIT MODERATE SEVERITY HOSPITAL DEB - 7 7 [facility] OUTPATIEN INC T OFFICE 37586 [facility] NIKKI OUTPATIEN 7 7 PHYSICIAN T VISIT S GROUP 15 MINUTES OFFICE 72604 [facility] 6 6 PR[facility]CE T VISIT INTERNAL 25 MED MINUTES EMERGENCY 70338 DEB 6 6 [facility] DEPARTMEN INC T VISIT LIMITED/M INOR PROB HOSPITAL DEB - 6 6 [facility] OUTPATIEN INC T EMERGENCY 89283 P[facility] ANAYA 6 6 PHYSICIAN [facility], [facility] T VISIT HIGH/URGE NT SEVERITY OFFICE 76258 [facility] 6 6 [facility] T VISIT INTERNAL 15 MED MINUTES HOSPITAL DEB - 6 6 [facility] OUTPATIEN INC T EMERGENCY 83480 PAMELA FIELDS DEPT 6 6 PHYSICIAN VISIT S, PLLC HIGH SEVERITY& THREAT FUNCJ EMERGENCY 93563 DEB 6 6 [facility] DEPARTMEN INC T VISIT LOW/MODER SEVERITY EMERGENCY 40725 PAMELA GUNTER 6 6 PHYSICIAN SEPIDEH [facility] VIS[facility] MODERATE SEVERITY HOSPITAL DEB - 6 6 [facility] OUTPATIEN INC T OFFICE 99368 [facility] 6 6 [facility] SOP[facility]IE T VISIT INTERNAL 15 MED MINUTES OFFICE 02238 [facility] JORDAN OUTPATIEN 6 6 PHYSICIAN KADEN T VISIT S GROUP 15 MINUTES OFFICE 19752 [facility] ANGELICA OUTPATIEN 6 6 [facility] ANNE MARIE T VISIT INTERNAL 15 MED MINUTES OFFICE 37350 [facility] LION OUTPATIEN 6 6 PHYSICIAN T VISIT GROUP 15 MINUTES HOSPITAL DEB - 6 6 [facility] OUTPATIEN INC T EMERGENCY 41102 DEB 6 6 [facility] DEPARTMEN INC T VISIT HIGH/URGE NT SEVERITY EMERGENCY 53821 PAMELA MERINO DEPT 6 6 PHYSICIAN U SAURABH VISIT S, [facility] HIGH SEVERITY& THREAT FUNJ OFFICE 52543 [facility] NEGIN OUTPATIEN 6 6 PHYSICIAN SOMMERS T VISIT S GROUP 25 MINUTES OFFICE 76684 [facility] JORDAN OUTPATIEN 6 6 PHYSICIAN KADEN T VISIT S GROUP 15 MINUTES HOSPITAL DEB - 6 6 [facility] OUTPATIEN INC T OFFICE 32103 [facility] JORDAN OUTPATIEN 6 6 PHYSICIAN KADEN T VISIT S GROUP 10 MINUTES HOSPITAL DEB - 6 6 [facility] OUTPATIEN INC T OFFICE 88575 [facility] OUTPATIEN 6 6 PHYSICIAN T VISIT S GROUP 15 MINUTES HOSPITAL DEB - 6 6 [facility] OUTPATIEN INC T OFFICE 92890 [facility] 6 6 [facility] SOPHIE T VISIT INTERNAL 25 MED MINUTES HOSPITAL DEB - 6 6 [facility] OUTPATIEN INC T OFFICE 80504 EAR, NOSE SHASHY OUTPATIEN 6 6 AND SARITA T VISIT THROAT 25 SPECIAL MINUTES OFFICE 27744 [facility] ADITI OUTPATIEN 6 6 PHYSICIAN SEPIDEH T VISIT S GROUP 15 MINUTES HOSPITAL DEB - 5 5 [facility] OUTPATIEN INC T EMERGENCY 09680 PAMELA PALMA [facility] 5 5 PHYSICIAN DEPARTMEN S, [facility] T VISIT MODERATE SEVERITY EMERGENCY 56813 DEB 5 5 [facility] DEPARTMEN INC T VISIT LIMITED/M INOR PROB OFFICE 61720 [facility] JAMIA OUTPATIEN 5 5 IVONNE MARIETTA T VISIT 15 MINUTES OFFICE 83133 [facility] 5 5 [facility] SOP[facility]IE T VISIT INTERNAL 15 MED MINUTES HOSPITAL DEB - 5 5 [facility] OUTPATIEN INC T HOSPITAL DEB - 5 5 [facility] OUTPATIEN INC T OFFICE [address] [address] OUTPATIEN 5 5 [facility] VIS[facility]OSPITAL 10 MINUTES OFFICE [address] [place] [address] OUTPATIEN 5 5 [facility] 10 MINUTES HOSPITAL DEB - 5 5 [facility] OUTPATIEN INC T OFFICE 86167 [facility] 5 5 PRINCE SOPHIE T VISIT INTERNAL 15 MED MINUTES OFFICE 14153 [facility] JORDAN OUTPATIEN 5 5 PHYSICIAN KADEN T VISIT S GROUP 15 MINUTES OFFICE 43385 [facility] JAMIA OUTPATIEN 5 5 IVONNE MARIETTA T NEW 30 MINUTES HOSPITAL DEB - 5 5 [facility] OUTPATIEN INC T OFFICE 57538 [facility] 5 5 [facility] T VISIT INTERNAL 15 MED MINUTES HOSPITAL DEB - 5 5 [facility] OUTPATIEN INC T PERIODIC 42085 [facility] DEPT HLTH DEPT PATIENT DONOVAN DONOVAN [id number] OFFICE 18293 [facility] JORDAN OUTPATIEN 5 5 PHYSICIAN KADEN T VISIT S GROUP 10 MINUTES HOSPITAL DEB - 5 5 [facility] OUTPATIEN INC T OFFICE 51508 [facility] ANGELICA OUTPATIEN 5 5 [facility] ANNE MARIE T VISIT INTERNAL 15 MED MINUTES HOSPITAL DEB - 5 5 [facility] OUTPATIEN INC T OFFICE 89929 [facility] JORDAN OUTPATIEN 5 5 PHYSICIAN KADEN T VISIT S GROUP 15 MINUTES OFFICE 39522 [facility] USERY AND OUTPATIEN 5 5 VALLEY T VISIT INTERNAL 15 MED MINUTES OFFICE 98105 [facility] JORDAN OUTPATIEN 5 5 PHYSICIAN KADEN T VISIT S GROUP 15 MINUTES EMERGENCY 83881 PAMELA MERINO 5 5 PHYSICIAN U SAURABH DEPARTMEN S, PLL[facility] T VISIT MODERATE SEVERITY HOSPITAL DEB - 5 5 [facility]PAT[facility]EN INC T HOSPITAL EDB - 5 5 [facility]PATI[facility] INC [facility] DEB - 5 5 [facility] INC T OFFICE 82656 [facility] 5 5 [facility] SOP[facility]IE T VISIT INTERNAL 15 MED MINUTES EMERGENCY 33794 DEB 5 5 [facility] DEPARTMEN INC T VISIT LOW/MODER SEVERITY HOSPITAL DEB - 5 5 [facility] OUTPATIEN INC T OFFICE 87871 [facility] 4 4 PRINCE SOPHIE T VISIT INTERNAL 15 MED MINUTES OFFICE 37720 [facility] PETTEY OUTPATIEN 4 4 PHYSICIAN JAM T NEW 30 S GROUP MINUTES OFFICE 41740 [facility] 4 4 [facility] T VISIT INTERNAL 15 MED MINUTES OFFICE 24080 [facility] US[facility] AND OUTPATIEN 4 4 PRINCE T VISIT INTERNAL 15 MED MINUTES OFFICE 68074 [facility] USERY AND OUTPATIEN 4 4 PRINCE T VISIT INTERNAL 15 MED MINUTES OFFICE 82609 [facility] LYRIC OUTPATIEN 4 4 PHYSICIAN SEPIDEH T VISIT S GROUP 15 MINUTES HOSPITAL DEB - 4 4 [facility] OUTPATIEN INC T OFFICE 11511 [facility] 4 4 PRINCE SOPHIE T VISIT INTERNAL 25 MED MINUTES INITIAL 44401 [facility] DEPT [facility] DEPT MEDICINE [facility] PT AGE [id number] [facility] DEB - 4 4 [facility] OUTPATIEN INC T OFFICE 48927 MARY HERNANDEZ OUTPATIEN 4 4 KEHINDE KEHINDE T VISIT 25 MINUTES HOSPITAL DEB - 4 4 [facility] OUTPATIEN INC HOSPITAL CONOR - 4 4 N OUTPATIEN COMMUNTIY T HOSPITA OFFICE 27233 MARY HERNANDEZ OUTPATIEN 4 4 KEHINDE KEHINDE T VISIT 25 MINUTES OFFICE 14157 [facility] OUTPATIEN 4 4 SOPHIE T VISIT 15 MINUTES HOSPITAL DEB - 4 4 [facility] OUTPATIEN INC T OFFICE 19855 [facility] OUTPATIEN 4 4 SOPHIE T VISIT 15 MINUTES HOSPITAL DEB - 4 4 [facility]PATI[facility] INC T OFFICE 66032 [facility] OUT[facility] 4 4 PHYSICIAN T VISIT S GROUP 10 MINUTES OFFICE 53952 EAR, NOSE MARY CONSULTAT 4 4 AND KEHINDE ION THROAT NEW/ESTAB SPECIAL PATIENT 60 MIN OFFICE 10687 JORDAN JORDAN OUTPATIEN 4 4 KADEN KADEN T VISIT 15 MINUTES HOSPITAL DEB - 1 1 [facility] OUTPATIEN INC T HOSPITAL DEB - 1 1 [facility] OUTPATIEN INC T OFFICE 64439 Marybel BELTRAN CONSULTAT 1 1 DEVIN VARGAS MD PSC NEW/ESTAB PATIENT 60 MIN OFFICE 71378 DILLON CARRANZA OUTPATIEN 1 1 DON DON T VISIT 15 MINUTES OFFICE 84764 [facility] CARRANZA OUTPATIEN 1 1 DON DON T VISIT 15 MINUTES EMERGENCY 67052 DEB 1 1 [facility] H[facility]URGE NT SEVERITY HOSPITAL DEB - 1 1 [facility] OUTPATIEN INC T OFFICE 96963 DILLON CARRANZA OUTPATIEN 1 1 DON DON T VISIT 15 MINUTES OFFICE 94995 D[facility]ON CARRANZA OUTPATIEN 9 9 DON R DON R T VISIT 15 MINUTES OFFICE 52459 D[facility]ON CARRANZA OUTPATIEN 9 9 DON R DON R T VISIT 15 MINUTES OFFICE 20872 D[facility] CARRANZA OUTPATIEN 9 9 DON R DON R T VISIT 15 MINUTES OFFICE 27796 [facility]ON CARRANZA OUTPATIEN 9 9 DON R DON R T VISIT 15 MINUTES OFFICE 36151 JORDAN JORDAN, OUTPATIEN 9 9 WIN Null T VISIT 10 MINUTES OFFICE 91234 NIKKI JORDAN OUTPATIEN 9 9 WIN Null T NEW 30 MINUTES OFFICE 58827 DILLON CARRANZA OUTPATIEN 9 9 DON R DON R T VISIT 15 MINUTES OFFICE 46487 [facility]ON CARRANZA OUTPATIEN 9 9 DON R DON R T VISIT 15 MINUTES OFFICE 79439 [facility] CARRANZA OUTPATIEN 9 9 DON R DON R T VISIT 5 MINUTES OFFICE 64717 [facility] CARRANZA OUTPATIEN 9 9 DON R DON R T VISIT 15 MINUTES
--- OUTSIDE RECORDS SUMMARY | 2016-07-18 15:49 | External Medical Summary Rpt ---
Author Author , Organization [employer] Address Unknown Phone Unavailable Care Team Providers Care Research Program Assistant Name Role Phone BEINEKE SAURABH, KAROL Unavailable [...] [facility] [place] [place] [place] FALLIS IVONNE, FALLIS Unavailable Unavailable IVONNE FEEBACK REE, FEEBACK Unavailable Unavailable REE ANGELICA ANNE MARIE, Unavailable Unavailable ANGELICA ANNE MARIE AYAD, LION Unavailable Unavailable JR ANAYA FULLER, Unavailable Unavailable JR LYRIC SEPIDEH, LYRIC Unavailable Unavailable [facility] CARYL JAM, CARYL Unavailable Unavailable JAM CARYL JAM, CARYL Unavailable Unavailable JAM [facility] Unavailable Unavailable INC, [facility] Unavailable Unavailable HOSPITAL, [facility] Unavailable Unavailable HOSPITAL P, [facility] H[facility]PITAL P [facility], [facility]available Unavailable [facility], Unavailable Unavailable [facility] OXANA FIELDS, OXANA FIELDS Unavailable Unavailable [facility] JORDAN, JORDAN Unavailable Unavailable JORDAN KADEN, JORDAN Unavailable Unavailable KADEN JORDAN KADEN, JORDAN Unavailable Unavailable KADEN WIN JORD[facility], Unavailable Unavailable WIN JORD[facility] Unavailable Unavailable [facility], [facility] RICH ADAMS, Unavailable Unavailable RICH [...] PHARMACY Unavailable Unavailable #591, [facility] Unavailable Unavailable DEPT [facility], [facility] DEPT [facility] Unavailable [facility]available [facility], [facility] DE[facility] MARY BUSBY, MARY Unavailable Unavailable KEHINDE BUSBY, MARY Unavailable Unavailable KEHINDE INDIRA MAT, INDIRA MAT Unavailable Unavailable Purpose Continuity of Care Document - 04-19-2008 through 2016 Problems Code Diagnosis DOS Provider Status [id number] PAIN IN 06-23-2016 [facility] RIGHT [facility] FINGERS INTERNAL MED R232 FLUSHING 06-01-2016 [facility] INC N393 STRESS 05-06-2016 [facility] P MALE L309 DERMATITIS 04-22-2016 [facility] UNSPECIFIED [facility] INTERNAL MED K219 GASTRO-ESOP 03-10-2016 [facility] REFLUX [facility] DISEASE INC WITHOUT ESOPHAGITIS K5730 DIVERTICULO 03-10-2016 [facility] LG MEDICAL INTEST W/O IMAGING ASS PERF/ABSC W/O BLEED R1011 RIGHT UPPER 03-10-2016 [facility] H6023 MALIGNANT 03-01-2016 [facility] OTITIS PHYSICIANS EXTERNA GROUP BILATERAL H6503 ACUTE 03-01-2016 [facility] SEROUS PHYSICIANS OTITIS GROUP MEDIA BILATERAL 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 M5441 LUMBAGO 01-23-2016 [facility] WITH [facility]YSICIANS, [facility] RIGHT SIDE M545 LOW BACK 01-23-2016 [facility] S92116 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[facility] 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 H5213 MYOPIA 11-28-2015 CARYL JAM BILATERAL R1031 RIGHT LOWER 11-28-2015 [facility] R1032 LEFT LOWER 11-28-2015 [facility] R310 GROSS 11-28-2015 [facility] HEMATURIA [facility] INTERNAL MED R319 HEMATURIA 11-28-2015 [facility]PEC[facility]IED [facility] IM[facility]ING ASS R079 CHEST PAIN 11-17-2015 [facility] UNSPECIFIED PHYSICIANS, PLLC O47278 CUTANEOUS 10-28-2015 [facility] ABSCESS OF [facility] RIGHT LOWER INC LIMB J57250 CUTANEOUS 10-28-2015 [facility] ABSCESS OF PHYSICIANS, HEAD ANY PLLC PART EXCEPT FACE L0390 CELLULITIS 10-15-2015 [facility] UNSPECIFIED [facility] MED H6120 IMPACTED 09-25-2015 [facility] CERUMEN PHYSICIANS UNSPECIFIED GROUP EAR H6590 UNSPECIFIED 09-25-2015 [facility] PH[facility]ANS NONSUPPURAT GROUP [place] OTITIS MEDIA UNS EAR H6903 PATULOUS 09-25-2015 JORDAN KADEN EUSTACHIAN TUBE BILATERAL R0982 POSTNASAL 09-18-2015 [facility] DRIP [facility] MED J029 ACUTE 09-15-2015 [facility] PHARYNGITIS PHYSICIAN GROUP UNSPECIFIED K120 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[facility] ORAL PHYSICIAN APHTHAE GROUP J0101 ACUTE 09-09-2015 [facility] RECURRENT PHYSICIANS, [facility] SINUSITIS J4520 MILD 09-09-2015 [facility] INTERMITTEN PHYSICIANS, T [facility] UNCOMPLICAT ED R0600 DYSPNEA 09-09-2015 [facility] ASS R221 LOCALIZED 09-09-2015 [facility] S[facility]LLING MEDICAL MASS AND IMAGING ASS LUMP NECK Z720 TOBACCO USE 09-09-2015 [facility] P R05 COUGH 09-08-2015 [facility] H6090 UNSPECIFIED 08-25-2015 [facility] OTITIS PHYSICIANS EXTERNA GROUP UNSPECIFIED EAR H6501 ACUTE 07-17-2015 [facility] SEROUS PHYSICIANS OTITIS GROUP MEDIA RIGHT EAR H6591 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-17-2015 [facility] NONSUPPURAT INC [place] OTITIS MEDIA RT EAR H9391 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-17-2015 [facility] DISORDER ANESTH OF OF RIGHT THE BLUE EAR F21991 PAIN IN 05-28-2015 [place] [facility] M7989 OTHER 05-28-2015 [facility] SPECIFIED MEDICAL SOFT TISSUE IMAGING ASS DISORDERS R358 OTHER 05-28-2015 [facility] POLYURIA [facility] INC J0190 ACUTE 05-11-2015 [facility] SINUSITIS PHYSICIANS UNSPECIFIED GROUP A09 INFECTIOUS 03-14-2015 [facility] GASTROENTER [facility] ITIS AND INC COLITIS UNSPEC J069 ACUTE UPPER 03-12-2015 [facility] RESPIRATORY INTERNAL INFECTION MED UNSPECIFIED M542 CERVICALGIA 02-28-2015 [facility] INC 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, 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 N390 URINARY 02-24-2015 [facility] TRACT PHYSICIANS INFECTION GROUP SITE NOT SPECIFIED L664 FOLLICULITI 02-09-2015 [facility] S PHYSICIANS, ULERYTHEMAT PLLC USMAN RETICULATA L738 OTHER 02-09-2015 [facility] SPECIFIED [facility] FOLLICULAR INC DISORDERS B351 TINEA 01-30-2015 [place] IVONNE UNGUIUM B353 TINEA PEDIS 01-30-2015 [place] IV[facility]NE I890 LYMPHEDEMA 01-30-2015 [place] IV[facility]NE NOT ELSEWHERE CLASSIFIED M2570 OSTEOPHYTE 01-30-2015 [place] IV[place]NE UNSPECIFIED JOINT H9202 OTALGIA 01-17-2015 [facility] LEFT EAR [facility] INTERNAL MED H6506 ACUTE 01-16-2015 [facility] SEROUS PHYSICIANS OTITIS GROUP MEDIA RECURRENT BILATERAL H6523 CHRONIC 01-16-2015 [facility] SEROUS [facility] OTITIS INC MEDIA BILATERAL H6693 OTITIS 01-16-2015 COMMUNITY MEDIA ANESTH OF UNSPECIFIED THE BLUE BILATERAL G60696 ENCOUNTER 01-15-2015 [facility] FOR OTHER [facility] PREPROCEDUR INC AL EXAMINATION K83365 ACUTE & 12-27-2014 [facility] OTITS MEDIA BILATERAL H1032 UNSPECIFIED 12-17-2014 [facility] TIS LEFT EYE N6489 OTHER 12-16-2014 [place] SPECIFIED MEDICAL DISORDERS IMAGING ASS OF BREAST R928 OTH ABNORM 12-16-2014 [facility] & [facility] INCONCLUSIV INC E FIND ON DX IMAG BREAST B9789 OT VIRAL 12-13-2014 [facility] AGENT CAUSE [facility] DISEASES INTERNAL CLASSIFIED MED ELSW H6504 ACUTE 12-09-2014 [facility] SEROUS PHYSICIANS OTITIS GROUP MEDIA RECURRENT RIGHT EAR G70629 ANKYLOSIS 12-09-2014 [facility] OF EAR PHYSICIANS OSSICLES GROUP RIGHT EAR H9191 UNSPECIFIED 12-09-2014 [facility] HEARING PHYSICIANS LOSS RIGHT GROUP EAR T67757 PAIN IN 12-05-2014 [place] IVONNE RIGHT TOES X95037 PAIN IN 12-05-2014 [place] IV[place] LEFT TOES Z1231 ENCOUNTER 11-29-2014 [facility] SCREENING MEDICAL MAMMO MALIG IMAGING ASS NEOPLASM BREAST Z803 FAMILY 11-29-2014 [facility] HISTORY OF MEDICAL MALIGNANT IMAGING ASS NEOPLASM OF BREAST W04442 PAIN IN 11-15-2014 [facility] LEFT FOOT [facility] INTERNAL MED V252 STERILIZATI 11-05-2014 [facility] DEPT DONOVAN 54179 DYSFUNCTION 09-19-2014 [facility] OF PHYSICIANS EUSTACHIAN GROUP TUBE 4779 ALLERGIC 09-19-2014 [facility] RHINITIS PHYSICIANS CAUSE GROUP UNSPECIFIED 79514 OTHER 09-19-2014 [facility] DISEASES OF PHYSICIANS NASAL GROUP CAVITY AND SINUSES 7295 PAIN IN 09-18-2014 [facility] SOFT [facility] TISSUES OF INTERNAL LIMB MED 48976 SIMPLE/UNSP 2014 [facility] ECIFIED [facility] CHRONIC INC SEROUS OTITIS MEDIA 3814 NONSUPPRATV 2014 [place] OTITIS MEDICAL MEDIA NOT IMAGING ASS SPEC ACUT/CHRON 470 DEVIATED 2014 [place] NASAL MEDICAL SEPTUM IMAGING ASS 39536 UNSPECIFIED 09-02-2014 [facility] CONDUCTIVE PHYSICIANS HEARING GROUP LOSS 4730 CHRONIC 09-02-2014 [facility] MAXILLARY PHYSICIANS SINUSITIS GROUP 3829 UNSPECIFIED 08-29-2014 JORDAN KADEN OTITIS MEDIA 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 4619 ACUTE 08-22-2014 [facility] SINUSITIS, VALLEY UNSPECIFIED INTERNAL MED 3899 UNSPECIFIED 08-13-2014 [facility] HEARING PHYSICIANS LOSS GROUP 7856 ENLARGEMENT 08-13-2014 [facility] OF LYMPH PHYSICIANS NODES GROUP 78693 GANGLION OF 05-31-2014 [facility] TENDON PHYSICIANS SHEATH GROUP 16387 UNSPECIFIED 05-31-2014 COMMUNITY GANGLION ANESTH OF THE BLUE 72018 PAIN IN 05-30-2014 [place] JOINT, MEDICAL FOREARM IMAGING ASS 25418 GANGLION OF 05-29-2014 [facility] JOINT [facility] INC V7283 OTHER 05-29-2014 [facility] SPECIFIED [facility] PRE-OPERATI INC VE EXAMINATION 27723 UNSPECIFIED 02-27-2014 [facility] OTALGIA [facility] INTERNAL MED 4871 INFLUENZA 02-13-2014 [facility] WITH OTHER [facility] RESPIRATORY INTERNAL MED MANIFESTATI ONS 79522 GENERALIZED 02-13-2014 [facility] PAIN [facility] INTERNAL MED 4659 ACUTE URIS 12-06-2013 [facility] OF [facility] UNSPECIFIED INTERNAL SITE MED 486 PNEUMONIA, 12-03-2013 [facility] ORGANISM [facility] UNSPECIFIED INTERNAL MED 7840 HEADACHE 12-03-2013 [facility] INTERNAL MED 6822 CELLULITIS 11-15-2013 [facility] AND ABSCESS PHYSICIANS OF TRUNK GROUP 72150 ABDOMINAL 11-15-2013 [facility] PAIN, PHYSICIANS UNSPECIFIED GROUP SITE 66824 ABDOMINAL 10-29-2013 [facility] PAIN, [facility] INTERNAL MED 91648 POLYURIA 10-27-2013 [facility] INC V700 ROUTINE 10-27-2013 [facility] EXAM@HEALTH CARE FACL 37613 ESOPHAGEAL 10-26-2013 [facility] REFLUX [facility] INTERNAL MED 69906 INSOMNIA 10-26-2013 [facility] UNSPECIFIED [facility] INTERNAL MED 6160 CERVICITIS 10-23-2013 [facility] ENDOCERVICI TIS V7231 ROUTINE 10-23-2013 [facility] AL EXAMINATION 1101 DERMATOPHYT 2013 [facility] OSIS OF [facility], INC NAIL INC 2400 GOITER, 07-03-2013 MARY KEHINDE SPECIFIED SIMPLE 2449 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-03-2013 [facility] HYPOTHYROID INC ISM 54989 OTOGENIC 07-03-2013 MARY KEHINDE PAIN 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 7842 SWELLING 07-03-2013 MARY KEHINDE MASS OR LUMP IN HEAD AND NECK 78303 UNSPECIFIED 06-19-2013 M[facility] KEHINDE TINNITUS 5990 URINARY 06-11-2013 [facility] TRACT INFECTION SITE NOT SPECIFIED 2409 GOITER, 06-08-2013 [facility] UNSPECIFIED GIO 23194 OBESITY, 06-06-2013 [facility] UNSPECIFIED [facility] INC 07432 UNSPECIFIED 06-05-2013 EAR, NOSE ABNORMAL AND THROAT AUDITORY SPECIAL PERCEPTION 85379 UNSPECIFIED 06-05-2013 [facility] VAGINITIS PHYSICIANS AND GROUP VULVOVAGINI TIS 15004 UNSPECIFIED 05-28-2013 JORDAN KADEN ACUTE NONSUPPURAT [place] OTITIS MEDIA 72365 METHICILLIN 05-28-2010 [facility] RESISTANT [facility] STAPHYLOCOC INC CUS AUREUS 6826 CELLULITIS 05-28-2010 [facility] AND ABSCESS [facility] OF LEG INC EXCEPT FOOT 42011 METHICILLIN 05-26-2010 [facility] RESISTANT DON STAPH AUREUS SEPTICEMIA V090 INFECTION 05-26-2010 [facility] W/MICROORGA DON NISMS RESISTANT PENICILLINS V7241 05-26-2010 [facility] EXAMINATION [facility] OR TEST INC NEGATIVE RESULT 9164 HIP THI 05-23-2010 [facility] LEG&ANK DON INSECT BITE NONVENOMOUS W/O INF 5589 OTH&UNSPEC 12-13-2008 [facility], NONINFECTIO DON R US GASTROENTER ITIS&COLITI S 16717 CALCANEAL 12-13-2008 [facility] SPUR DON R 1105 DERMATOPHYT 12-02-2008 [facility], OSIS OF THE DON R BODY 45141 OVERWEIGHT 10-09-2008 [facility], DON R 4618 OTHER ACUTE 10-09-2008 [facility], [place]IN[place]IT[place] R [address] UNSPECIFIED 06-11-2008 WIN JORDAN SENSORINEUR AL HEARING LOSS 43271 UNSPECIFIED 06-06-2008 WIN [facility] OBSTRUCTION OF EUSTACHIAN [...] 11 9- 2- 00 00 SI ve CO 76 20 20 48 DE NE 60 [...] 02 05 60 30 00 EA Ac GA 25 -1 -[address] ti [...] 20 5- 9- 00 00 SI ve GA 00 20 20 47 DE AM 50 17 17 24 5 82 PH HB AR R MA 10 CY MG OF CY TA NT BL HI ET AN A IN C AL 67 04 05 60 30 00 EA Ac GA 25 -1 -[address] ti [...] 20 3- 8- 00 00 SI ve GA 00 20 20 47 DE AM 50 17 17 24 5 82 PH HB AR R MA 10 CY MG OF CY TA NT BL HI ET AN A IN C IM 00 04 04 30 30 00 EA Ac IP 78 -0 -[address] ti RA 11 3- 8- 00 00 SI ve CO 76 20 20 48 DE NE 60 [...] 03 04 60 30 00 EA Ac GA 25 -2 -[address] ti [...] 11 3- 1- 00 00 SI ve CO 76 20 20 47 DE NE 60 17 17 73 1 17 PH HC AR L MA 50 CY MG OF CY TA NT BL HI ET AN A IN C CI 65 02 03 30 30 00 EA Ac TA 86 -1 -[address] ti LO 20 6- 4- 00 00 SI ve GA 00 20 20 47 DE AM 50 [...] 17 17 56 E 5 51 PH GA AR OP MA CY 50 OF MC [...] 01 02 7. 5 00 EA Ac GA 06 -1 -[address] ti [...] 20 6- 7- 00 00 SI ve GA 00 20 20 47 DE AM 50 [...] HI AN TA A B IN C GA 59 12 01 12 6 00 EA [...] CY NT HI AN A IN C GA 65 12 01 10 3 00 EA [...] [address] Ac GA 09 -3 -[address] 92 EP [...] 1- 8- 00 MA 69 HE ve GA 34 20 20 RT 7 NS AM [...] 01 [address] Ac GA 25 -1 -[address] 47 EP ti AZ 30 4- 0- 00 SI 93 HE ve OL 90 20 20 DE NS AM 11 09 09 1 PH DO 0. AR N 5 MA R MG CY TA OF BL CY ET NT HI AN A AL 67 07 07 [address] Ac GA 25 -1 -[address] 47 EP [...] 00 [address] Ac GA 25 -1 -[address] 49 EP [...] [place] [address] [facility] ESTROGENS 7 [facility] TOTAL INC INC GONADOTRO 14887 [facility] PIN 7 [facility] FOLLICLE INC INC STIMULATI NG HORMONE GONADOTRO 79443 [facility] PIN 7 [facility] LUTEINIZI INC INC NG HORMONE COMPREHEN 26187 DEB BODY SIVE 7 [facility] [address] [facility] AMYLASE 7 [facility] INC INC FINAL G9638 [facility] TERESA REPORTS 7 MEDICAL W/O DOC IMAGING 1/MORE ASS DOSE REDUCTION TECH THER 42972 [facility] PROPH/DX 7 [facility] NJX IV INC INC PUSH SINGLE/1S T SBST/DRUG COMPREHEN 41673 [facility] SIVE 7 [facility] METABOLIC INC INC PANEL FINAL G9551 [facility] REPR ABD 7 MEDICAL IMAG STS IMAGING W/O ASS INCIDNT F[place]TD: [place] [address] [facility] LIPASE 7 [place] [address] [facility] ABDOMEN & 7 [facility] PELVIS INC INC W/O CONTRAST MATERIAL URNLS DIP 48719 [facility] 7 [facility] STICK/TAB INC INC LET REAGENT AUTO MICROSCOP Y URINE 85501 [facility] 7 [facility] H[facility] TEST INC INC VISUAL COLOR CMPRSN METHS BLOOD 22562 [facility] COUNT 7 [facility] COMPLETE INC INC AUTO&AUTO DIFRNTL WBC CULTURE 84269 [facility] BACTERIAL 6 [facility] H[facility] INC INC QUANTTATI VE COLONY COUNT URINE URNLS DIP 59618 [facility]D 6 [facility] STICK/TAB INC INC LET REAGENT AUTO MICROSCOP Y RADEX 45240 [place] MOORE SPINE 6 MEDICAL LUMBOSACR IMAGING AL ASS MINIMUM 4 VIEWS OPHTH 03375 [facility] 6 JAM JAM XM&EVAL INTERMEDI ATE NEW PT DETERMINA 77327 [facility] 6 [place] [address] [facility] MOORE ALL ABDOMEN & 6 MEDICAL PELVIS IMAGING W/O ASS CONTRAST MATERIAL RADIOLOGI 14740 [place] NAA C 6 MEDICAL GIO EXAMINATI IMAGING ON CHEST ASS SINGLE VIEW FRONTAL INCISION 89619 [facility] GUNTER & 6 PHYSICIAN SEPIDEH DRAINAGE S, PLLC ABSCESS COMPLICAT ED/MULTIP LE CUL BACT 53723 [facility] XCPT 6 [facility] URINE INC INC BLOOD/STO OL AEROBIC ISOL CUL BACT 83030 DEBVITALIY BO[facility] AEROBIC 6 [facility] ADDL INC INC METHS DEFINITIV E EA ISOL SUSCEPTIB 90911 [facility] LTY STDY 6 [facility] ANTIMICRB INC INC IAL MICRO/AGA R DILUTJ CUR MEDS G8428 [facility] NO DOC 6 [facility] OBDT INTERNAL INTERNAL UPD/REV MED MED ELIG CLIN RSN N GVN COMPRE 76272 NIKKI JORDAN AUDIOMETR 6 KADEN KADEN Y THRESHOLD EVAL SP RECOGNIJ IAADIADOO 03721 [facility] LION 6 PHYSICIAN STREPTOCO GROUP CCUS GROUP A BLOOD 63129 [facility] COUNT 6 [facility] COMPLETE INC INC AUTO&[place] [address] [facility] TROPONIN 6 [facility] QUANTITAT INC INC [place] ECG 99038 [facility] FOREMAN ROUTINE 6 [facility] W/LEAST P 12 LDS I&R ONLY PRESSURIZ 65724 [facility] ED/NONPRE 6 [facility] SSURIZED INC INC INHALATIO N TREATMENT FIBRIN 73204 [facility] DGRADJ 6 [facility] PRODUCTS INC INC D-DIMER QUAL/SEMI LAUREANO CREATINE 80964 [facility] KINASE 6 [facility] TOTAL INC INC NATRIURET 16114 [facility] IC 6 [facility] PEPTIDE INC INC ECG 58252 [facility] ROUTINE 6 [facility] ECG INC INC W/LEAST 12 LDS TRCG ONLY W/O I&R THERAPEUT 44362 [facility] IC 6 [facility] PROPHYLAC INC INC TIC/DX INJECTION SUBQ/IM CREATINE 52771 [facility] KINASE MB 6 [facility] FRACTION INC INC ONLY COMPREHEN 50397 [facility] SIVE 6 [facility] METABOLIC INC INC PANEL RADIOLOGI 35985 [facility] C 6 [facility] EXAMINATI INC INC ON NECK SOFT TISSUE RADIOLOGI 71883 [facility] C EXAM 6 [facility] CHEST 2 INC INC VIEWS FRONTAL&L ATERAL TYMPANOST 81240 [facility] NIKKI KC 6 PHYSICIAN KADEN GENERAL S GROUP ANESTHESI A UNCLASSIF J3490 [facility] IED DRUGS 6 [facility] INC INC INJECTION J2405 [facility]D 6 [facility] ONDANSETR INC INC ON HCL [place] 1 [place] [address] [facility] INFUSION 6 [facility] THERAPY INC INC PROPHYLAX IS/[place] [address] [facility] INFUSION 6 [facility] THERAPY/P INC INC ROPHYLAXI S /DX 1ST TO 1 HR THERAPEUT 58112 [facility] IC 6 [facility] INJECTION INC INC IV PUSH EACH NEW DRUG ANES 08933 COMMUNITY FEEBACK XTRNL MID 6 ANESTH REE & INNER OF THE EAR W/BX BLUE TYMPANOTO MY URINE 16402 [facility]D 6 [facility] TEST INC INC VISUAL COLOR CMPRSN METHS LIPID 24558 [facility] PANEL 6 [facility] INC INC HEMOGLOBI 14068 [facility] N 6 [facility] GLYCOSYLA INC INC MARCY A1C RADEX 66582 [facility] HAND 6 [facility] MINIMUM 3 INC INC VIEWS RADEX 75103 [place] [facility] ALL HAND 2 6 MEDICAL VIEWS IMAGING ASS COMPREHEN 05888 [facility] SIVE 6 [facility] METABOLIC INC INC PANEL COLLECTIO 23180 [facility] N VENOUS 6 [facility] BLOOD INC INC VENIPUNCT URE INJECTION J1040 [facility] TER 6 PHYSICIAN METHYLPRE S GROUP DNISOLONE ACETATE 80 MG THERAPEUT 93270 [facility] TER IC 6 PHYSICIAN PROPHYLAC S GROUP TIC/DX INJECTION SUBQ/IM IADNA-DNA 85923 [facility] /RNA GI 6 [facility] PTHGN INC INC MULTIPLEX PROBE TQ 12-25 PHYSICAL 86309 DE[facility] THERAPY 6 [facility] EVALUATIO INC INC N TYMPANOST 24931 [facility] DE 5 [facility] GENERAL INC INC ANESTHESI A ANES 20807 COMMUNITY TAMARA XTRNL MID 5 ANESTH LASHAUN & INNER OF THE EAR W/BX BLUE TYMPANOTO MY GONADOTRO 94361 [facility] PIN 5 [facility] CHORIONIC INC INC QUALITATI VE BLOOD 62441 [facility] COUNT 5 [facility] COMPLETE INC INC AUTO&AUTO DIFRNTL WBC BASIC 71731 [facility] METABOLIC 5 [facility] PANEL INC INC CALCIUM TOTAL COLLECTIO 20188 [facility] N VENOUS 5 [facility] BLOOD INC INC VENIPUNCT URE DIAGNOSTI G0206 [place] NAA C 5 MEDICAL GIO MAMMOGRAP IMAGING HY INCL ASS CAD WHEN PERF; UNI IAADIADOO 54248 [facility] BESSON 5 [facility] STREPTOCO INTERNAL CCUS MED GROUP A SCREENING G0202 [place] TIFFANIE 5 MEDICAL SAURABH MAMMOGRAP IMAGING HY KARYNA ASS INCL CAD WHEN PERFORMD COMPUTER- 00581 [place] KAROL AIDED 5 MEDICAL SAURABH DETECTION IMAGING ASS SCREENING MAMMOGRAP HY RADEX 13326 [place] [facility] ALL HAND 5 MEDICAL MINIMUM 3 IMAGING VIEWS ASS SCREENING 40614 [facility] DEPT HLTH DEPT ACUITY DONOVAN DONOVAN QUANTITAT PARRISH BILAT RADEX 14334 [place] KAROL FOOT 5 [facility] COMPLETE IMAGING MINIMUM [address] [place] [address] DEB DEB MAXILLOFA 5 [facility] CIAL W/O INC INC CONTRAST MATERIAL COMPRE 96399 NIKKI JORDAN AUDIOMETR 5 KADEN KADEN Y THRESHOLD EVAL SP RECOGNIJ TYMPANOME 50277 NIKKI JORDAN TRY 5 KADEN KADEN DISTORT 93304 NIKKI JORDAN PRODUCT 5 KADEN KADEN EVOKED OTOACOUST IC EMISNS LIMITD THERAPEUT 99226 [facility] AND IC 5 [facility] PROPHYLAC INTERNAL TIC/DX MED INJECTION SUBQ/IM INJECTION J0696 [facility] AND 5 [facility] CEFTRIAXO INTERNAL NE SODIUM MED PER 250 MG INJECTION J3301 [facility] AND 5 [facility] TRIAMCINO INTERNAL LONE MED ACETONIDE NOS [address] [facility] NERVE 5 ANESTH SHE MUSCLE OF THE TDN BLUE FASCIA&BU RSA FOREARM WRIST REPAIR 69080 DEB KEARNSON COMPLEX 5 [facility] SCALP/ARM INC INC /LEG 2.6-7.5 CM EXCISION 87474 [facility] LESION 5 PHYSICIAN JAM TENDON S GROUP SHEATH FOREARM&/ WRIST MRI UPPER 38798 DEB BOYD 5 [facility] EXTREMITY INC INC OTH THAN JT W/O CONTR MATRL COLLECTIO 05495 [facility] N VENOUS 5 [facility] BLOOD INC INC VENIPUNCT URE GONADOTRO 50545 DEB [facility]D PIN 5 [facility] CHORIONIC INC INC QUALITATI VE THERAPEUT 24033 [facility] IC 5 [facility] PROPHYLAC INTERNAL TIC/DX MED INJECTION SUBQ/IM INJECTION J3301 [facility] 5 [facility] TRIAMCINO INTERNAL LONE MED ACETONIDE NOS 10 MG IAADIADOO 53029 [facility] 4 [facility] INFLUENZA INTERNAL MED INJECTION J0696 [facility] USERY AND 4 [facility] CEFTRIAXO INTERNAL NE SODIUM MED PER 250 MG THERAPEUT 95637 [facility] USERY AND IC 4 [facility] PROPHYLAC INTERNAL TIC/DX MED INJECTION SUBQ/IM THERAPEUT 01071 [facility] L[facility] IC 4 PHYSICIAN SEPIDEH PROPHYLAC S GROUP TIC/DX INJECTION SUBQ/IM INJECTION J1885 [facility] LYRIC 4 PHYSICIAN SEPIDEH KETOROLAC S GROUP TROMETHAM INE PER 15 MG URNLS DIP 04486 [facility] STICK/TAB INTERNAL LET RGNT MED NON-AUTO W/O MICRSCP CULTURE 41736 COMBINED COMBINED BACTERIAL 4 PHYSICIAN PHYSICIAN S LA S LA QUANTTATI VE COLONY COUNT URINE LIPID 14821 [facility] PANEL 4 [facility] INC INC COMPREHEN 63045 [facility] SIVE 4 [facility] METABOLIC INC INC PANEL TDAP 76678 [facility] YRS/> IM HLTH DEPT HLTH DEPT DONOVAN DONOVAN CYTP 56248 [facility] CERV/V[facility] ER JR JARED AUTO THIN LAYER PREP MNL SCREEN HEPATIC 01910 [facility] FUNCTION 4 [facility] [place] [address] DEB [facility] THYROXINE 4 [facility] TOTAL INC INC THYROID 94835 DEB [facility] HORM 4 [facility] UPTK/THYR INC [place] [address] DEB [facility]D THYROID 4 [facility] STIMULATI INC INC NG HORMONE TSH RADIOLOGI 66070 INDIRA MAT INDIRA MAT C 4 EXAMINATI ON NECK SOFT TISSUE US SOFT 23073 [facility] TISSUE 4 N N [facility] COMM[facility] COMM[facility]TI[facility] TIME IMGE DOCM CULTURE 03590 COMBINED COMBINED BACTERIAL 4 PHYSICIAN PHYSICIAN S [place] [address] NAA NAA MAXILLOFA 4 GIO GIO CIAL W/O CONTRAST MATERIAL LOCM Q9967 DEB BOYD [phone] 4 [facility] MG/ML INC INC IODINE CONCENTRA TION PER ML CT SOFT 00925 DEB BOYD TISSUE 4 [facility] NECK INC INC W/CONTRAS T MATERIAL IM ADM 54098 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 PRQ ID 4 [facility] SUBQ/IM NJXS 1 VACCINE INJECTION J0696 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 4 [facility]OP[facility] CEFTRIAXO NE SODIUM PER 250 MG COMPREHEN 77052 DEB BOYD SIVE 4 [facility] METABOLIC INC INC PANEL LIPID 42142 DEB BOYD PANEL 4 [facility] INC INC TYMPANOME 85542 EAR, NOSE MARY TRY 4 AND KEHINDE THROAT SPECIAL PURE TONE 54840 EAR, NOSE MARY 4 AND KEHINDE AUDIOMETR THROAT Y AIR SPECIAL ONLY SPEECH 66230 EAR, NOSE MARY AUDIOMETR 4 AND KEHINDE Y THROAT THRESHOLD SPECIAL LARYNGOSC 18506 EAR, NOSE MARY OPY 4 AND KEHINDE FLEXIBLE THROAT DIAGNOSTI SPECIAL C INJECTION J0696 [facility] 4 PHYSICIAN PHYSICIAN CEFTRIAXO S GROUP S GROUP NE SODIUM PER 250 MG URNLS DIP 08998 [facility] 4 PHYSICIAN PHYSICIAN STICK/TAB S GROUP S GROUP LET RGNT NON-AUTO W/O MICRSCP THERAPEUT 82192 [facility] IC 4 PHYSICIAN PHYSICIAN PROPHYLAC S GROUP S GROUP TIC/[place] INJECTION SUBQ/[place] [address] DEB BOYD INFUSION 1 [facility] THERAPY INC INC PROPHYLAX IS/DX EA HOUR I&D DEEP 12542 DEB BOYD ABSC 1 [facility] BURSA/HEM INC INC ATOMA THIGH/KNE E REGION LEVEL III 90182 CHIPPS RICH SURG 1 [facility] DUBILIER GROSS&SEPIDEH ROSCOPIC EXAM OTHER 8309 DEB BOYD INCISION 1 [facility] OF SOFT INC INC TISSUE GONADOTRO 97747 DEB BOYD PIN 1 [facility] CHORIONIC INC INC QUALITATI VE SUSCEPTIB 45421 DEB BOYD LTY STDY 1 [facility] ANTIMICRB INC INC IAL MICRO/AGA R DILUTJ BLOOD 20469 [facility] COUNT 1 [facility] COMPLETE INC INC AUTO&AUTO DIFRNTL WBC CUL BACT 85922 [facility] AEROBIC 1 [facility] ADDL INC INC METHS DEFINITIV E EA ISOL CUL BACT 39197 DEB BOYD XCPT 1 [facility] URINE INC INC BLOOD/STO OL AEROBIC ISOL BASIC 47436 DEB BO[facility]D METABOLIC 1 [facility] [place] [address] DEB BOYD INFUSION 1 [facility] THERAPY INC INC PROPHYLAX [place] [address] DEB BOYD INFUSION 1 [facility] THERAPY/P INC INC ROPHYLAXI S /DX 1ST TO 1 HR RADEX 45314 CARRANZA, CARRANZA, CALCANEUS 9 DON R DON R MINIMUM 2 VIEWS ACOUSTIC 68843 NIKKI JORDAN, REFLEX 9 WIN Null THRESHOLD TYMPANOME 46665 NIKKI JORDAN, TRY 9 WIN Null COMPRE 18832 NIKKI JORDAN, AUDIOMETR 9 WIN Null Y THRESHOLD EVAL SP RECOGNIJ Encounters Encounter Start End Date Code Location Performer Type Date OFFICE 01179 [facility] 7 7 [facility] T VISIT INTERNAL 15 MED MINUTES HOSPITAL DEB - 7 7 [facility] OUTPATIEN INC T OFFICE 03746 [facility] [place] JR OUTPATIEN 7 7 [facility] 10 P MINUTES OFFICE 34637 [facility] 7 7 [facility] T VISIT INTERNAL 15 MED MINUTES OFFICE 13731 [facility] [place] JR OUTPATIEN 7 7 [facility] NEW 20 HOSPITAL MINUTES P EMERGENCY 74923 DEB 7 7 [facility] DEPARTMEN INC T VISIT MODERATE SEVERITY HOSPITAL DBE - 7 7 [facility] OUTPATIEN INC T OFFICE 52286 [facility] NIKKI OUTPATIEN 7 7 PHYSICIAN T VISIT S GROUP 15 MINUTES OFFICE 71830 [facility] 6 6 [facility] T VISIT INTERNAL 25 MED MINUTES EMERGENCY 96824 DEB 6 6 [facility] DEPARTMEN INC T VISIT LIMITED/M INOR PROB HOSPITAL DEB - 6 6 [facility] OUTPATIEN INC T EMERGENCY 58169 P[facility] ANAYA 6 6 PHYSICIAN [facility] T VISIT HIGH/URGE NT SEVERITY OFFICE 84427 [facility] 6 6 [facility] T VISIT INTERNAL 15 MED MINUTES HOSPITAL DEB - 6 6 [facility] OUTPATIEN INC T EMERGENCY 10835 PAMELA FIELDS DEPT 6 6 PHYSICIAN VISIT S, PLLC HIGH SEVERITY& THREAT FUNCJ EMERGENCY 86297 DEB 6 6 [facility] DEPARTMEN INC T VISIT LOW/MODER SEVERITY EMERGENCY 99661 PAMELA GUNTER 6 6 PHYSICIAN SEP[facility] MOD[facility]ATE SE[facility]ITY [facility] DEB - 6 6 [facility] OUTPATIEN INC T OFFICE 78723 [facility] 6 6 [facility] S[facility] T VISIT INTERNAL 15 MED MINUTES OFFICE 32322 [facility] JORDAN OUTPATIEN 6 6 PHYSICIAN KADEN T VISIT S GROUP 15 MINUTES OFFICE 19965 [facility] ANGELICA OUTPATIEN 6 6 [facility] ANNE MARIE T VISIT INTERNAL 15 MED MINUTES OFFICE 69673 [facility] LION OUTPATIEN 6 6 PHYSICIAN T VISIT GROUP 15 MINUTES HOSPITAL DEB - 6 6 [facility] OUTPATIEN INC T EMERGENCY 43333 DEB 6 6 [facility] DEPARTMEN INC T VISIT HIGH/URGE NT SEVERITY EMERGENCY 41748 PAMELA MERINO DEPT 6 6 PHYSICIAN U SA[facility] VISIT S, [facility] HIGH SEVERITY& THREAT FUNJ OFFICE 63295 [facility] NEGIN OUTPATIEN 6 6 PHYSICIAN SOMMERS T VISIT S GROUP 25 MINUTES OFFICE 26324 [facility] JORDAN OUTPATIEN 6 6 PHYSICIAN KADEN T VISIT S GROUP 15 MINUTES HOSPITAL DEB - 6 6 [facility] OUTPATIEN INC T OFFICE 30401 [facility] JORDAN OUTPATIEN 6 6 PHYSICIAN KADEN T VISIT S GROUP 10 MINUTES HOSPITAL DEB - 6 6 [facility] OUTPATIEN INC T OFFICE 61664 [facility] [place] TER OUTPATIEN 6 6 PHYSICIAN T VISIT S GROUP 15 MINUTES HOSPITAL DEB - 6 6 [facility] OUTPATIEN INC T OFFICE 19544 [facility] 6 6 [facility] SOP[facility]IE T VISIT INTERNAL 25 MED MINUTES HOSPITAL DEB - 6 6 [facility] OUTPATIEN INC T OFFICE 03731 EAR, NOSE SHASHY OUTPATIEN 6 6 AND SARITA T VISIT THROAT 25 SPECIAL MINUTES OFFICE 01377 [facility] ADITI OUTPATIEN 6 6 PHYSICIAN SEPIDEH T VISIT S GROUP 15 MINUTES HOSPITAL DEB - 5 5 [facility] OUTPATIEN INC T EMERGENCY 10195 PAMELA [facility] 5 5 PHYSICIAN [facility], [facility] VISIT MODERATE SEVERITY EMERGENCY 94665 DEB 5 5 [facility] DEPARTMEN INC T VISIT LIMITED/M INOR PROB OFFICE 64549 [facility] JAMIA OUTPATIEN 5 5 IVONNE MARIETTA T VISIT 15 MINUTES OFFICE 59083 [facility] 5 5 [facility] T VISIT INTERNAL 15 MED MINUTES HOSPITAL DEB - 5 5 [facility] OUTPATIEN INC T HOSPITAL DEB - 5 5 [facility] OUTPATIEN INC T OFFICE [address] OUTPATIEN 5 5 [facility] VISIT HOSPITAL 10 MINUTES OFFICE [address] OUTPATIEN 5 5 [facility] 10 MINUTES HOSPITAL DEB - 5 5 [facility] OUTPATIEN INC T OFFICE 99643 [facility]PAT[facility] 5 5 [facility] SOP[facility]IE T VISIT INTERNAL 15 MED MINUTES OFFICE 44428 [facility] JORDAN OUTPATIEN 5 5 PHYSICIAN KADEN T VISIT S GROUP 15 MINUTES OFFICE 25701 FALLIS JAMIA OUTPATIEN 5 5 IVONNE MARIETTA T NEW 30 MINUTES HOSPITAL DEB - 5 5 [facility] OUTPATI[facility] INC T OFFICE 44979 [facility] 5 5 [facility] T VISIT INTERNAL 15 MED MINUTES HOSPITAL DEB - 5 5 [facility] OUTPATIEN INC T PERIODIC 34909 [facility] DEPT PATIENT DONOVAN DONOVAN [id number] OFFICE 73331 [facility] JORDAN OUTPATIEN 5 5 PHYSICIAN KADEN T VISIT S GROUP 10 MINUTES HOSPITAL DEB - 5 5 [facility] OUTPATIEN INC T OFFICE 16939 [facility] ANGELICA OUTPATIEN 5 5 [facility] AN[facility] MARIE T VISIT INTERNAL 15 MED MINUTES HOSPITAL DEB - 5 5 [facility] OUTPATIEN INC T OFFICE 05857 [facility] JORDAN OUTPATIEN 5 5 PHYSICIAN KADEN T VISIT S GROUP 15 MINUTES OFFICE 47910 [facility] USERY AND OUTPATIEN 5 5 [facility] T VISIT INTERNAL 15 MED MINUTES OFFICE 98460 [facility] JORDAN OUTPATIEN 5 5 PHYSICIAN KADEN T VISIT S GROUP 15 MINUTES EMERGENCY 47237 PAMELA MERINO 5 5 PHYSICIAN U [facility] DEPARTMEN [facility], [facility] T VISIT MODERATE SEVERITY HOSPITAL DEB - 5 5 [facility] OUTPATIEN INC T HOSPITAL DEB - 5 5 [facility] OUTPATIEN INC HOSPITAL DEB - 5 5 [facility] OUTPATIEN INC T OFFICE 82220 [facility] 5 5 [facility] S[facility] T VISIT INTERNAL 15 MED MINUTES EMERGENCY 99076 DEB 5 5 [facility] DEPARTMEN INC T VISIT LOW/MODER SEVERITY HOSPITAL EDB - 5 5 [facility] OUTPATIEN INC T OFFICE 21035 [facility] 4 4 [facility] SOP[facility]IE T VISIT INTERNAL 15 MED MINUTES OFFICE 58036 [facility] PETTEY OUTPATIEN 4 4 PHYSICIAN JAM T NEW 30 S GROUP MINUTES OFFICE 92974 [facility] OUTPATIEN 4 4 [facility] T VISIT INTERNAL 15 MED MINUTES OFFICE 52379 [facility] AND OUTPATIEN 4 4 [facility] T VISIT INTERNAL 15 MED MINUTES OFFICE 76426 [facility] 4 4 [facility] T VISIT INTERNAL 15 MED MINUTES OFFICE 38345 [facility] LYRIC OUTPATIEN 4 4 PHYSICIAN SEPIDEH T VISIT S GROUP 15 MINUTES HOSPITAL DEB - 4 4 [facility] OUTPATIEN INC T OFFICE 40408 [facility]PAT[facility] 4 4 [facility] SOPHIE T VISIT INTERNAL 25 MED MINUTES INITIAL 83524 [facility] DEPT [facility] DEPT MEDICINE [facility] PT AGE [id number] DEB - 4 4 [facility] OUTPATIEN INC T OFFICE 13419 M[facility] HERNANEDZ OUTPATIEN 4 4 KEHINDE KEHINDE T VISIT 25 MINUTES HOSPITAL DEB - 4 4 [facility] OUTPATIEN INC HOSPITAL CONOR - 4 4 N OUTPATIEN COMMUNTIY T HOSPITA OFFICE 44393 MARY HERNANDEZ OUTPATIEN 4 4 KEHINDE KEHINDE T VISIT 25 MINUTES OFFICE 15119 [facility] OUTPATIEN 4 4 SOPHIE T VISIT 15 MINUTES HOSPITAL DEB - 4 4 [facility] OUTPATIEN INC T OFFICE 71079 [facility] OUTPATIEN 4 4 SOPHIE T VISIT 15 MINUTES HOSPITAL DEB - 4 4 [facility] OUTPATIEN INC T OFFICE 20441 [facility] OUTPATIEN 4 4 PHYSICIAN T VISIT S GROUP 10 MINUTES OFFICE 76728 EAR, NOSE MARY CONSULTAT 4 4 AND KEHINDE ION THROAT NEW/ESTAB SPECIAL PATIENT 60 MIN OFFICE 87807 JORDAN JORDAN OUTPATIEN 4 4 KADEN KADEN T VISIT 15 MINUTES HOSPITAL DEB - 1 1 [facility] OUTPATIEN INC T HOSPITAL DEB - 1 1 [facility] OUTPATIEN INC T OFFICE 97980 Marybel BELTRAN CONSULTAT 1 1 DEVIN VARGAS MD PSC NEW/ESTAB PATIENT 60 MIN OFFICE 93364 [facility] CARRANZA OUTPATIEN 1 1 DON DON T VISIT 15 MINUTES OFFICE 47131 [facility] CARRANZA OUTPATIEN 1 1 DON DON T VISIT 15 MINUTES EMERGENCY 14521 DEB 1 1 [facility] HIGH/URGE NT SEVERITY HOSPITAL DEB - 1 1 [facility] OUTPATIEN INC T OFFICE 91201 DILLON CARRANZA OUTPATIEN 1 1 DON DON T VISIT 15 MINUTES OFFICE 78768 D[facility]ON CARRANZA OUTPATIEN 9 9 DON R DON R T VISIT 15 MINUTES OFFICE 59266 D[facility]ON CARRANZA OUTPATIEN 9 9 DON R DON R T VISIT 15 MINUTES OFFICE 28910 D[facility] CARRANZA OUTPATIEN 9 9 DON R DON R T VISIT 15 MINUTES OFFICE 00509 DILLON CARRANZA OUTPATIEN 9 9 DON R DON R T VISIT 15 MINUTES OFFICE 08715 JORDAN JORDAN, OUTPATIEN 9 9 WIN Null T VISIT 10 MINUTES OFFICE 21740 NIKKI JORDAN OUTPATIEN 9 9 WIN Null T NEW 30 MINUTES OFFICE 24996 DILLON CARRANZA OUTPATIEN 9 9 DON R DON R T VISIT 15 MINUTES OFFICE 55196 DILLON CARRANZA OUTPATIEN 9 9 DON R DON R T VISIT 15 MINUTES OFFICE 98287 D[facility]ON CARRANZA OUTPATIEN 9 9 DON R DON R T VISIT 5 MINUTES OFFICE 72826 D[facility]ON CARRANZA OUTPATIEN 9 9 DON R DON R T VISIT 15 MINUTES
--- OUTSIDE RECORDS SUMMARY | 2016-07-18 15:54 | External Medical Summary Rpt ---
Author Author , Organization [employer] Address Unknown Phone Unavailable Care Team Providers Care Grade Setter Name Role Phone BEINEKE, BEINEKE Unavailable Unavailable BEDOYA TER, BEDOYA TER Unavailable Unavailable BESSON, BESSON Unavailable Unavailable BESSON SOPHIE, BESSON Unavailable Unavailable SOPHIE BESSON SOPHIE, BESSON Unavailable Unavailable SOPHIE MOORE, MOORE Unavailable Unavailable MOORE ALL, MOORE ALL Unavailable Unavailable JAMIA MARIETTA, JAMIA Unavailable Unavailable [facility] Unavailable Unavailable [place], [facility] Unavailable Unavailable [facility], [facility] NEGIN SOMMERS, Unavailable Unavailable NEGIN SOMMERS ALEXSANDRA JR, ALEXSANDRA JR Unavailable Unavailable NAA, NAA Unavailable Unavailable NAA GIO, Unavailable Unavailable NAA GIO NAA IGO, Unavailable Unavailable NAA GIO ADITI SEPIDEH, ADITI [...] JR LYRIC SEPIDEH, LYRIC Unavailable Unavailable SEP[facility]H [facility], [facility] CARYL JAM, CARYL Unavailable Unavailable JAM CARYL JAM, CARYL Unavailable Unavailable JAM [facility] Unavailable Unavailable INC, [facility] Unavailable Unavailable HOSPITAL, [facility] Unavailable Unavailable HOSPITAL P, [facility] P [facility], Unavailable Unavailable [facility], [facility]available Unavailable [facility] OXANA POLANCO Unavailable Unavailable [facility] Un[facility] JORDAN, JORDAN Unavailable Unavailable JORDAN KADEN, JORDAN Unavailable Unavailable KADEN JORDAN KADEN, JORDAN Unavailable Unavailable KADEN WIN JORDAN, Unavailable Unavailable WIN JORDAN [facility] Unavailable Unavailable INTERNAL MED, [facility] RICH ADAMS, Unavailable Unavailable [...] Unavailable Unavailable CARRANZA, DON R TAMARA LASHAUN, TAMRAA Unavailable Unavailable LASHAUN [facility], [facility] AND Unavailable Unavailable [facility] Unavailable Unavailable [address][id number], [facility] Unavailable Unavailable DEPT [facility], [facility] DEPT [facility] Unavailable [facility]available DEPT [facility], [facility] DEPT [facility] MARY BUSBY, MARY Unavailable Unavailable KEHINDE BUSBY, MARY Unavailable Unavailable KEHINDE INDIRA MAT, INDIRA MAT Unavailable Unavailable Purpose Continuity of Care Document - 04-19-2008 through 2016 Problems Code Diagnosis DOS Provider Status [id number] PAIN IN 06-23-2016 [facility] RIGHT [place] FINGERS INTERNAL MED R232 FLUSHING 06-01-2016 [facility] INC N393 STRESS 05-06-2016 [facility] P MALE L309 DERMATITIS 04-22-2016 [facility] UNSPECIFIED [place] INTERNAL MED K219 GASTRO-ESOP 03-10-[address] 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 M5441 LUMBAGO 01-23-2016 [facility] WITH PHYSICIANS, [facility] RIGHT SIDE M545 LOW BACK 01-23-2016 [facility] 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 H5213 MYOPIA 11-28-2015 CARYL JAM BILATERAL R1031 RIGHT LOWER 11-28-2015 [facility] R1032 LEFT LOWER 11-28-2015 [facility] R310 GROSS 11-28-2015 [facility] HEMATURIA [place] INTERNAL MED R319 HEMATURIA 11-28-2015 [place] UNSPECIFIED [facility]ICAL IMAGING ASS R079 CHEST PAIN 11-17-2015 [facility] UNSPECIFIED PHYSICIANS, PLLC N91436 CUTANEOUS 10-28-2015 [facility] ABSCESS OF [facility] RIGHT LOWER INC LIMB Q94749 CUTANEOUS 10-28-2015 [facility] ABSCESS OF PHYSICIANS, HEAD ANY PLLC PART EXCEPT FACE L0390 CELLULITIS 10-15-2015 [facility] UNSPECIFIED [place] INTERNAL MED H6120 IMPACTED 09-25-2015 [facility] CERUMEN PHYSICIANS UNSPECIFIED GROUP EAR H6590 UNSPECIFIED 09-25-2015 [facility] PH[facility]ANS NONSUPPURAT GROUP [place] OTITIS MEDIA UNS EAR H6903 PATULOUS 09-25-2015 JORDAN KADEN EUSTACHIAN TUBE BILATERAL R0982 POSTNASAL 09-18-2015 [facility] DRIP [facility] MED J029 ACUTE 09-15-2015 [facility] PHARYNGITIS PHYSICIAN GROUP UNSPECIFIED K120 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[facility] ORAL PHYSICIAN APHTHAE GROUP J0101 ACUTE 09-09-2015 [facility] RECURRENT [facility]ICIANS, [facility] SINUS[facility] J4520 MILD 09-09-2015 [facility] INTERMITTEN PHYSICIANS, T [facility] UNCOMPLICAT ED R0600 DYSPNEA 09-09-2015 [facility] R221 LOCALIZED 09-09-2015 [facility] SWELLING MEDICAL MASS AND IMAGING ASS LUMP NECK Z720 TOBACCO USE 09-09-2015 [facility] P R05 COUGH 09-08-2015 [facility] H6090 UNSPECIFIED 08-25-2015 [facility] OTITIS PHYSICIANS EXTERNA GROUP UNSPECIFIED EAR H6501 ACUTE 07-17-2015 [facility] SEROUS PHYSICIANS OTITIS GROUP MEDIA RIGHT EAR H6591 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-17-2015 [facility] NONSUPPURAT INC [place] OTITIS MEDIA RT EAR H9391 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-17-2015 COMMUNITY DISORDER ANESTH OF OF RIGHT THE BLUE EAR Q16948 PAIN IN 05-28-2015 [place] RIGHT HAND MEDICAL IM[facility]ING ASS M7989 OTHER 05-28-2015 [place] SPECIFIED MEDICAL SOFT TISSUE IMAGING ASS DISORDERS R358 OTHER 05-28-2015 [facility] POLYURIA [facility] INC J0190 ACUTE 05-11-2015 [facility] SINUSITIS PHYSICIANS UNSPECIFIED GROUP A09 INFECTIOUS 03-14-2015 [facility] GASTROENTER [facility] ITIS AND INC COLITIS UNSPEC J069 ACUTE UPPER 03-12-2015 [facility] [place] RESPIRATORY INTERNAL INFECTION MED UNSPECIFIED M542 CERVICALGIA 02-28-2015 [facility] INC 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, 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 N390 URINARY 02-24-2015 [facility] TRACT PHYSICIANS INFECTION GROUP SITE NOT SPECIFIED L664 FOLLICULITI 02-09-2015 [facility] Oziel PHYSICIANS, ULERYTHEMAT PLLC USMAN RETICULATA L738 OTHER 02-09-2015 [place] SPECIFIED [facility] FOLLICULAR INC DISORDERS B351 TINEA 01-30-2015 [facility] UNGUIUM B353 TINEA PEDIS 01-30-2015 [facility] I890 LYMPHEDEMA 01-30-2015 [facility] NOT ELSEWHERE CLASSIFIED M2570 OSTEOPHYTE 01-30-2015 [place] [facility] UNSPECIFIED JOINT H9202 OTALGIA 01-17-2015 [facility] LEFT EAR [place] INTERNAL MED H6506 ACUTE 01-16-2015 [facility] SEROUS PHYSICIANS OTITIS GROUP MEDIA RECURRENT BILATERAL H6523 CHRONIC 01-16-2015 [place] SEROUS [facility] OTITIS INC MEDIA BILATERAL H6693 OTITIS 01-16-2015 COMMUNITY MEDIA ANESTH OF UNSPECIFIED THE BLUE BILATERAL I26779 ENCOUNTER 01-15-2015 [facility] FOR OTHER [facility] PREPROCEDUR INC AL EXAMINATION S79688 ACUTE & 12-27-2014 [facility] OTITS MEDIA BILATERAL H1032 UNSPECIFIED 12-17-2014 [facility] CONJUNCTIVI [facility] TIS LEFT EYE N6489 OTHER 12-16-2014 [place] SPECIFIED MEDICAL DISORDERS IMAGING ASS OF BREAST R928 OTH ABNORM 12-16-2014 [place] & [facility] INCONCLUSIV INC E FIND ON DX IMAG BREAST B9789 OT VIRAL 12-13-2014 [facility] AGENT CAUSE [place] DISEASES INTERNAL CLASSIFIED MED ELSW H6504 ACUTE 12-09-2014 [facility] SEROUS PHYSICIANS OTITIS GROUP MEDIA RECURRENT RIGHT EAR A48545 ANKYLOSIS 12-09-2014 [facility] OF EAR PHYSICIANS OSSICLES GROUP RIGHT EAR H9191 UNSPECIFIED 12-09-2014 [facility] HEARING PHYSICIANS LOSS RIGHT GROUP EAR U35897 PAIN IN 12-05-2014 [place] [facility] RIGHT TOES T69920 PAIN IN 12-05-2014 [place] [facility] LEFT TOES Z1231 ENCOUNTER 11-29-2014 [place] SCREENING MEDICAL MAMMO MALIG IMAGING ASS NEOPLASM BREAST Z803 FAMILY 11-29-2014 [place] HISTORY OF MEDICAL MALIGNANT IMAGING ASS NEOPLASM OF BREAST A53527 PAIN IN 11-15-2014 [facility] LEFT FOOT [place] INTERNAL MED V252 STERILIZATI 11-05-2014 [facility] DONOVAN 68573 DYSFUNCTION 09-19-2014 [facility] OF PHYSICIANS EUSTACHIAN GROUP TUBE 4779 ALLERGIC 09-19-2014 [facility] RHINITIS PHYSICIANS CAUSE GROUP UNSPECIFIED 13097 OTHER 09-19-2014 [facility] DISEASES OF PHYSICIANS NASAL GROUP CAVITY AND SINUSES 7295 PAIN IN 09-18-2014 [facility] SOFT [place] TISSUES OF INTERNAL LIMB MED 00492 SIMPLE/UNSP 2014 [facility] ECIFIED [facility] CHRONIC INC SEROUS OTITIS MEDIA 3814 NONSUPPRATV 2014 [place] OTITIS MEDICAL MEDIA NOT IMAGING ASS SPEC ACUT/CHRON 470 DEVIATED 2014 [place] NASAL MEDICAL SEPTUM IMAGING ASS 69181 UNSPECIFIED 09-02-2014 [facility] CONDUCTIVE PHYSICIANS HEARING GROUP LOSS 4730 CHRONIC 09-02-2014 [facility] MAXILLARY PHYSICIANS SINUSITIS GROUP 3829 UNSPECIFIED 08-29-2014 JORDAN KADEN OTITIS MEDIA 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 4619 ACUTE 08-22-2014 [facility] SINUSITIS, VALLEY UNSPECIFIED INTERNAL MED 3899 UNSPECIFIED 08-13-2014 [facility] HEARING PHYSICIANS LOSS GROUP 7856 ENLARGEMENT 08-13-2014 [facility] OF LYMPH PHYSICIANS NODES GROUP 33235 GANGLION OF 05-31-2014 [facility] TENDON PHYSICIANS SHEATH GROUP 24566 UNSPECIFIED 05-31-2014 COMMUNITY GANGLION ANESTH OF THE BLUE 35892 PAIN IN 05-30-2014 [place] JOINT, MEDICAL FOREARM IMAGING ASS 59098 GANGLION OF 05-29-2014 [facility] JOINT [facility] INC V7283 OTHER 05-29-2014 [facility] SPECIFIED [facility] PRE-OPERATI INC VE EXAMINATION 85851 UNSPECIFIED 02-27-2014 [facility] OTALGIA [place] INTERNAL MED 4871 INFLUENZA 02-13-2014 [facility] WITH OTHER [place] RESPIRATORY INTERNAL MED MANIFESTATI ONS 42525 GENERALIZED 02-13-2014 [facility] PAIN [place] INTERNAL MED 4659 ACUTE URIS 12-06-2013 [facility] OF [place] UNSPECIFIED INTERNAL SITE MED 486 PNEUMONIA, 12-03-2013 [facility] ORGANISM [place] UNSPECIFIED INTERNAL MED 7840 HEADACHE 12-03-2013 [facility] [place] INTERNAL MED 6822 CELLULITIS 11-15-2013 [facility] AND ABSCESS PHYSICIANS OF TRUNK GROUP 13325 ABDOMINAL 11-15-2013 [facility] PAIN, PHYSICIANS UNSPECIFIED GROUP SITE 07898 ABDOMINAL 10-29-2013 [facility] PAIN, [place] GENERALIZED INTERNAL MED 30881 POLYURIA 10-27-2013 [facility] INC V700 ROUTINE 10-27-2013 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-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 7842 SWELLING 07-03-2013 MARY KEHINDE MASS OR LUMP IN HEAD AND NECK 37222 UNSPECIFIED 06-19-2013 MARY KEHINDE TINNITUS 5990 URINARY 06-11-2013 [facility] TRACT INFECTION SITE NOT SPECIFIED 2409 GOITER, 06-08-2013 NAA UNSPECIFIED GIO 33046 OBESITY, 06-06-2013 [facility] UNSPECIFIED [facility] INC 23671 UNSPECIFIED 06-05-2013 EAR, NOSE ABNORMAL AND THROAT AUDITORY SPECIAL PERCEPTION 49784 UNSPECIFIED 06-05-2013 [facility] VAGINITIS PHYSICIANS AND GROUP VULVOVAGINI TIS 78898 UNSPECIFIED 05-28-2013 JORDAN KADEN ACUTE NONSUPPURAT [place] OTITIS MEDIA 15898 METHICILLIN 05-28-2010 [facility] RESISTANT [facility] STAPHYLOCOC INC CUS AUREUS 6826 CELLULITIS 05-28-2010 [facility] AND ABSCESS [facility] OF LEG INC EXCEPT FOOT 82571 METHICILLIN 05-26-2010 [facility] RESISTANT DON STAPH AUREUS SEPTICEMIA V090 INFECTION 05-26-2010 [facility] W/MICROORGA DON NISMS RESISTANT PENICILLINS V7241 05-26-2010 [facility] EXAMINATION [facility] OR TEST INC NEGATIVE RESULT 9164 HIP THI 05-23-2010 [facility] LEG&ANK DON INSECT BITE NONVENOMOUS W/O INF 5589 OTH&UNSPEC 12-13-2008 CARRANZA, NONINFECTIO DON R US GASTROENTER ITIS&COLITI S 41936 CALCANEAL 12-13-2008 CARRANZA, SPUR DON R 1105 DERMATOPHYT 12-02-2008 [facility], OSIS OF THE DON R BODY 48840 OVERWEIGHT 10-09-2008 DILLON, DON R 4618 OTHER ACUTE 10-09-2008 [place], [place] R 577[address] UNSPECIFIED 06-11-2008 WIN JORDAN SENSORINEUR AL HEARING LOSS 16736 UNSPECIFIED 06-06-2008 WIN [facility] OBSTRUCTION OF EUSTACHIAN TUBE 3882 UNSPECIFIED 06-06-2008 YARELY JORDAN HEARING LOSS Medications Na ND Rx Da Fi Fi Am Da Di Ph RX Ph St me C No te ll ll ou ys ag ar # ys at rm s nt no ma ic us Or Da si cy ia de te s n re d MO 60 05 06 30 30 00 EA Ac NT 50 -0 -[address] ti EL 53 9- 2- 00 00 SI ve UK 56 20 20 47 DE 20 17 17 88 T 8 25 PH SO AR D MA 10 CY MG OF CY TA NT BL HI ET AN A IN C IM 00 05 06 30 30 00 EA Ac IP 78 -0 -[address] ti RA 11 9- 2- 00 00 SI ve PR 76 20 20 48 DE NE 60 17 17 23 1 24 PH HC AR L MA 50 CY MG OF CY TA NT BL HI ET AN A IN C CE 65 05 06 40 10 00 EA Ac PH 86 -0 -[address] ti AL 20 5- 2- 00 00 SI ve EX 01 20 20 48 DE IN 90 17 17 62 5 36 PH 50 AR 0 MA MG CY CA OF PS CY UL NT E HI AN A IN C PA 65 [...] 20 5- 9- 00 00 SI ve ID 00 20 20 47 DE AM 50 17 17 24 5 82 PH HB AR R MA 10 CY MG OF CY TA NT BL HI ET AN A IN C AL 67 02 05 60 30 00 EA Ac ID 25 -1 -[address] ti AZ 30 3- 9- 00 00 SI ve OL 90 20 20 47 DE AM 11 17 17 58 1 74 PH 0. AR 5 MA MG CY TA OF BL CY ET NT HI AN A IN C AL 67 04 05 60 30 00 EA Ac ID 25 -1 -[address] ti [...] 20 3- 8- 00 00 SI ve ID 00 20 20 47 DE AM 50 17 17 24 5 82 PH HB AR R MA 10 CY MG OF CY TA NT BL HI ET AN A IN C IM 00 04 04 30 30 00 EA Ac IP 78 -0 -[address] ti RA 11 3- 8- 00 00 SI ve PR 76 20 20 48 DE NE 60 [...] 03 04 60 30 00 EA Ac ID 25 -2 -[address] ti [...] 11 3- 1- 00 00 SI ve PR 76 20 20 47 DE NE 60 17 17 73 1 17 PH HC AR L MA 50 CY MG OF CY TA NT BL HI ET AN A IN C CI 65 02 03 30 30 00 EA Ac TA 86 -1 -[address] ti LO 20 6- 4- 00 00 SI ve ID 00 20 20 47 DE AM 50 [...] 17 17 56 E 5 51 PH ID AR OP MA CY 50 OF MC [...] 01 02 7. 5 00 EA Ac ID 06 -1 -[address] ti [...] 20 6- 7- 00 00 SI ve ID 00 20 20 47 DE AM 50 [...] NT ET HI AN A IN C ID 59 12 01 12 6 00 EA [...] CY NT HI AN A IN C ID 65 12 01 10 3 00 EA [...] [address] Ac ID 09 -3 -[address] 92 EP [...] 1- 8- 00 MA 69 HE ve ID 34 20 20 RT 7 NS AM [...] 01 [address] Ac ID 25 -1 -[address] 47 EP ti AZ 30 4- 0- 00 SI 93 HE ve OL 90 20 20 DE NS AM 11 09 09 1 PH DO 0. AR N 5 MA R MG CY TA OF BL CY ET NT HI AN A AL 67 07 07 [address] Ac ID 25 -1 -[address] 47 EP [...] [address] Ac ID 25 -1 -[address] 49 EP [...] .0 L- 13 EP ti TA 15 7 7- 00 MA 92 HE ve DI 07 20 20 RT 4 NS NE 70 09 09 1 PH DO 10 AR N MA R MG CY TA #5 BL 91 ET Immunization Name Date Route CVX Reacti Commen Provid Is Given on t er Refuse d TDAP [facility] No VACCIN [address] YRS/> HLTH IM DEPT [facility] Procedures Procedure [place] [address] [facility] ESTROGENS 7 [facility] TOTAL INC INC GONADOTRO 64357 [facility] PIN 7 [facility] FOLLICLE INC INC STIMULATI NG HORMONE GONADOTRO 79479 [facility] PIN 7 [facility] LUTEINIZI INC INC NG HORMONE COMPREHEN 21473 [facility] SIVE 7 [facility] [address] [facility] AMYLASE 7 [facility] INC INC COMPREHEN 44684 [facility] SIVE 7 [facility] METABOLIC INC INC PANEL FINAL G9551 [facility] REPR ABD 7 MEDICAL IMAG STS IMAGING W/O ASS INCIDNT FND LES NTD: FINAL G9638 [facility] REPORTS 7 MEDICAL W/O DOC IMAGING 1/[place] [address] [facility] LIPASE 7 [facility] [place] [address] [facility] ABDOMEN & 7 MEDICAL PELVIS IMAGING W/O ASS CONTRAST MATERIAL THER 69863 [facility] PROPH/DX 7 [facility] NJX IV INC INC PUSH SINGLE/1S T SBST/DRUG URINE 60063 [facility] 7 [facility] TEST INC INC VISUAL COLOR CMPRSN METHS URNLS DIP 88839 [facility] STICK/TAB INC INC LET REAGENT AUTO MICROSCOP Y BLOOD 78889 [facility] COUNT 7 [facility] COMPLETE INC INC AUTO&AUTO DIFRNTL WBC URNLS DIP 59771 [facility] 6 [facility] STICK/TAB INC INC LET REAGENT AUTO MICROSCOP Y CULTURE 31080 [facility] BACTERIAL 6 [facility] INC INC QUANTTATI VE COLONY COUNT URINE RADEX 74611 [facility] SPINE 6 [facility] LUMBOSACR INC [place] [address] [place] [address] [facility] ABDOMEN & 6 [facility] PELVIS INC INC W/O CONTRAST MATERIAL OPHTH 96696 [facility] 6 JAM JAM XM&EVAL INTERMEDI ATE NEW PT DETERMINA 80343 [facility] 6 JAM JAM REFRACTIV E STATE RADIOLOGI 85617 [place] NAA No 6 MEDICAL GIO EXAMINATI IMAGING ON CHEST ASS SINGLE VIEW FRONTAL INCISION 55389 [facility] GUNTER & 6 PHYSICIAN SEPIDEH DRAINAGE S, PLLC ABSCESS COMPLICAT ED/MULTIP LE CUL BACT 73377 [facility] XCPT 6 [facility] URINE INC INC BLOOD/STO OL AEROBIC ISOL CUL BACT 33104 [facility] AEROBIC 6 [facility] ADDL INC INC METHS DEFINITIV E EA ISOL SUSCEPTIB 53918 [facility] LTY STDY 6 [facility] ANTIMICRB INC INC IAL MICRO/AGA R DILUTJ CUR MEDS G8428 [facility] NO DOC 6 [facility] OBDT INTERNAL INTERNAL UPD/REV MED MED ELIG CLIN RSN N GVN COMPRE 85126 NIKKI JORDAN AUDIOMETR 6 KADEN KADEN Y THRESHOLD EVAL SP RECOGNIJ IAADIADOO 00845 [facility] LION 6 PHYSICIAN STREPTOCO GROUP CCUS GROUP A ECG 48260 [facility] FOREMAN ROUTINE 6 [facility] W/LEAST P 12 LDS I&R ONLY BLOOD 88344 [facility] COUNT 6 [facility] COMPLETE INC INC AUTO&AUTO DIFRNTL WBC NATRIURET 88914 [facility] IC 6 [facility] PEPTIDE INC INC PRESSURIZ 55467 [facility] ED/NONPRE 6 [facility] SSURIZED INC INC INHALATIO N TREATMENT RADIOLOGI 94968 [facility] C 6 [facility] EXAMINATI INC INC ON NECK SOFT TISSUE RADIOLOGI [address] [facility] EXAM 6 MEDICAL CHEST 2 IMAGING VIEWS ASS FRONTAL&[place] [address] [facility] TROPONIN 6 [facility] QUANTITAT INC INC [place]ARRISH COMPREHEN 33291 [facility] SIVE 6 [facility] METABOLIC INC INC PANEL CREATINE 15419 DEB BO[facility]D KINASE MB 6 [facility] FRACTION INC INC ONLY ECG 47648 DEB [facility] ROUTINE 6 [facility] ECG INC INC W/LEAST 12 LDS TRCG ONLY W/O I&R CREATINE 18827 [facility] KINASE 6 [facility] TOTAL INC INC FIBRIN 51871 [facility] DGRADJ 6 [facility] PRODUCTS INC INC D-DIMER QUAL/SEMI LAUREANO THERAPEUT 57757 [facility] IC 6 [facility] PROPHYLAC INC INC TIC/DX INJECTION SUBQ/[place] [address] DE[facility] INFUSION 6 [facility] THERAPY/P INC INC ROPHYLAXI S /DX 1ST TO 1 HR THERAPEUT 91195 [facility] IC 6 [facility] INJECTION INC INC IV PUSH EACH NEW DRUG INJECTION J2405 DEB BOYD 6 [facility] ONDANSETR INC INC ON HCL PER 1 MG UNCLASSIF J3490 [facility] IED DRUGS 6 [facility] INC INC TYMPANOST 15802 [facility] DE 6 [facility] [place] [address] DEB [facility] INFUSION 6 [facility] THERAPY INC INC PROPHYLAX IS/DX EA HOUR URINE 18983 DEB BO[facility]D 6 [facility] TEST INC INC VISUAL COLOR CMPRSN METHS ANES 53733 COMMUNITY FEEBACK XTRNL MID 6 ANESTH REE & INNER OF THE EAR W/BX BLUE TYMPANOTO MY HEMOGLOBI 48323 [facility] N 6 [facility] GLYCOSYLA INC INC MARCY A1C LIPID 09128 [facility] PANEL 6 [facility] INC INC COMPREHEN 99871 [facility] SIVE 6 [facility] METABOLIC INC INC PANEL RADEX 06887 KATYA [facility] ALL HAND 2 6 MEDICAL VIEWS IMAGING ASS COLLECTIO 60208 [facility] N VENOUS 6 [facility] BLOOD INC INC VENIPUNCT URE RADEX 37657 [facility] HAND 6 [facility] MINIMUM 3 INC INC VIEWS THERAPEUT 22534 [facility] A[facility] WONG IC 6 PHYSICIAN PROPHYLAC S GROUP TIC/DX INJECTION SUBQ/IM INJECTION J1040 [facility] WONG 6 PHYSICIAN METHYLPRE S GROUP DNISOLONE ACETATE 80 MG IADNA-DNA 00351 [facility] /RNA GI 6 [facility] PTHGN INC INC MULTIPLEX PROBE TQ 12-25 PHYSICAL 16838 [facility] THERAPY 6 [facility] EVALUATIO INC INC N ANES 30049 [facility] XTRNL MID 5 ANESTH LASHAUN & INNER OF THE EAR W/BX BLUE TYMPANOTO MY TYMPANOST 81230 [facility] NIKKI [place] 5 PHYSICIAN KADEN GENERAL S GROUP ANESTHESI A GONADOTRO 68076 [facility] PIN 5 [facility] CHORIONIC INC INC QUALITATI VE BLOOD 99444 [facility] COUNT 5 [facility] COMPLETE INC INC AUTO&AUTO DIFRNTL WBC BASIC 71562 [facility] METABOLIC 5 [facility] PANEL INC INC CALCIUM TOTAL COLLECTIO 43144 [facility] N VENOUS 5 [facility] BLOOD INC INC VENIPUNCT URE DIAGNOSTI G0206 [facility] C 5 [facility] MAMMOGRAP INC INC HY INCL CAD WHEN PERF; UNI IAADIADOO 83857 [place] [facility] INTERNAL CCUS MED GROUP A SCREENING G0202 [facility] 5 [facility] MAMMOGRAP INC INC HY KARYNA INCL CAD WHEN PERFORMD COMPUTER- 26367 [facility] AIDED [facility] DETECTION INC INC SCREENING MAMMOGRAP HY RADEX 47396 [facility] HAND 5 [facility] MINIMUM 3 INC INC VIEWS SCREENING 25057 [facility] TEST 5 [facility] VISUAL HLTH DEPT HLTH DEPT ACUITY [place] QUANTITAT PARRISH BILAT RADEX 27557 [facility] FOOT 5 [facility] COMPLETE [place] [address] [place] [address] [place] [facility] ALL MAXILLOFA 5 MEDICAL CIAL W/O IMAGING CONTRAST ASS MATERIAL COMPRE 13169 NIKKI PELAEZON AUDIOMETR 5 KADEN KADEN Y THRESHOLD EVAL SP RECOGNIJ TYMPANOME 48485 [facility]KK[facility] JORDAN TRY 5 KADEN KADEN DISTORT 37904 NIKKI JORDAN PRODUCT 5 KADEN KADEN EVOKED OTOACOUST IC EMISNS LIMITD THERAPEUT 36218 [facility] AND IC 5 [facility] PROPHYLAC INTERNAL TIC/DX MED INJECTION SUBQ/IM INJECTION J0696 [facility] AND 5 [facility] CEFTRIAXO INTERNAL NE SODIUM MED PER 250 MG INJECTION J3301 [facility] AND 5 [facility] TRIAMCINO INTERNAL LONE MED ACETONIDE NOS 10 MG ANES 42233 [facility] NERVE 5 ANESTH SHE MUSCLE OF THE TDN BLUE FASCIA&BU RSA FOREARM WRIST REPAIR 35314 [facility] COMPLEX 5 [facility] SCALP/ARM INC INC /LEG 2.6-7.5 CM EXCISION 55902 [facility] LESION 5 PHYSICIAN JAM TENDON S GROUP SHEATH FOREARM&/ WRIST MRI UPPER 57349 [place] NAA 5 MEDICAL EXTREMITY IMAGING OTH THAN ASS JT W/O CONTR MATRL COLLECTIO 01099 [facility] N VENOUS 5 [facility] BLOOD INC INC VENIPUNCT URE GONADOTRO 07487 [facility] PIN 5 [facility] CHORIONIC INC INC QUALITATI VE THERAPEUT 21194 [place] BESSON IC 5 [facility] SOPHIE PROPHYLAC INTERNAL TIC/DX MED INJECTION SUBQ/IM INJECTION J3301 [facility] [facility] TRIAMCINO INTERNAL LONE MED ACETONIDE NOS 10 MG IAADIADOO 63019 [facility] INFLUENZA INTERNAL MED THERAPEUT 06854 [facility] AND IC 4 [facility] PROPHYLAC INTERNAL TIC/DX MED INJECTION SUBQ/IM INJECTION J0696 [facility] AND 4 [facility] CEFTRIAXO INTERNAL NE SODIUM MED PER 250 MG INJECTION J1885 [facility] 4 PHYSICIAN SEPIDEH KETOROLAC S GROUP TROMETHAM INE PER 15 MG THERAPEUT 71553 [facility] IC 4 PHYSICIAN SEPIDEH PROPHYLAC S GROUP TIC/DX INJECTION SUBQ/IM URNLS DIP 18256 [facility] STICK/TAB INTERNAL LET RGNT MED NON-AUTO W/O MICRSCP CULTURE 43167 COMBINED COMBINED BACTERIAL 4 PHYSICIAN PHYSICIAN S LA S LA QUANTTATI VE COLONY COUNT URINE LIPID 61524 [facility] PANEL 4 [facility] INC INC COMPREHEN 05473 [facility] SIVE 4 [facility] METABOLIC INC INC PANEL TDAP 77817 [facility] Y[facility]/> IM HLTH DEPT HLTH DEPT DONOVAN DONOVAN CYTP 81484 [facility], PICKLESIM CERV/VAG 4 LLC ER JR JARED AUTO THIN LAYER PREP MNL SCREEN HEPATIC 45044 [facility] FUNCTION 4 [facility] PANEL INC INC THYROID 92639 [facility] HORM 4 [facility] UPTK/THYR INC INC [place] [address] [facility] THYROXINE 4 [facility] [place] [address] [facility] THYROID 4 [facility] STIMULATI INC INC NG HORMONE TSH RADIOLOGI 11206 INDIRA MAT INDIRA MAT C 4 EXAMINATI ON NECK SOFT TISSUE US SOFT 50148 [facility] TISSUE 4 N N HEAD & COMMUNTIY COMMUNTIY NECK REAL [facility]OSP[facility] HOSPITA TIME IMGE DOCM CULTURE 00113 COMBINED COMBINED BACTERIAL 4 PHYSICIAN PHYSICIAN S [place] [address] NAA NAA MAXILLOFA 4 GIO GIO CIAL W/O CONTRAST MATERIAL CT SOFT 79822 [facility] TISSUE 4 [facility] NECK INC INC W/CONTRAS T MATERIAL LOCM Q9967 [facility] 300-399 4 [facility] MG/ML INC INC IODINE CONCENTRA TION PER ML IM ADM 93957 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 PRQ ID 4 [facility] SUBQ/IM NJXS 1 VACCINE INJECTION J0696 [facility] 4 [facility] SOP[facility]IE CEFTRIAXO NE SODIUM PER 250 MG COMPREHEN 40084 [facility] SIVE 4 [facility] METABOLIC INC INC PANEL LIPID 77552 [facility] PANEL 4 [facility] INC INC TYMPANOME 00667 EAR, NOSE MARY TRY 4 AND KEHINDE THROAT SPECIAL PURE TONE 38101 EAR, NOSE MARY 4 AND KEHINDE AUDIOMETR THROAT Y AIR SPECIAL ONLY SPEECH 28160 EAR, NOSE MARY AUDIOMETR 4 AND KEHINDE Y THROAT THRESHOLD SPECIAL LARYNGOSC 18273 EAR, NOSE MARY OPY 4 AND KEHINDE FLEXIBLE THROAT DIAGNOSTI SPECIAL C INJECTION J0696 [facility] 4 PHYSICIAN PHYSICIAN CEFTRIAXO S GROUP S GROUP NE SODIUM PER 250 MG URNLS DIP 49156 [facility] 4 PHYSICIAN PHYSICIAN STICK/TAB S GROUP S GROUP LET RGNT NON-AUTO W/O MICRSCP THERAPEUT 36053 [facility] IC 4 PHYSICIAN PHYSICIAN PROPHYLAC S GROUP S GROUP TIC/DX INJECTION SUBQ/IM LEVEL III 23382 [facility] RICH SURG 1 [facility] PATHOLOGY DUBILIER GROSS&SEPIDEH ROSCOPIC EXAM OTHER 8309 [facility] INCISION 1 [facility] OF SOFT INC INC TISSUE I&D DEEP 75205 C JAYDE DEVIN ABSC 1 DEVIN TRUNG BURSA/HEM PSC [place] THIGH/[place] [address] [facility] INFUSION 1 [facility] THERAPY INC INC PROPHYLAX IS/DX EA HOUR GONADOTRO 55836 [facility] PIN 1 [facility] CHORIONIC INC INC QUALITATI VE CUL BACT 49244 [facility] XCPT 1 [facility] URINE INC INC BLOOD/STO OL AEROBIC ISOL BLOOD 59390 [facility] COUNT 1 [facility] COMPLETE INC INC AUTO&AUTO DIFRNTL WBC CUL BACT 97717 [facility] AEROBIC 1 [facility] ADDL INC [place] [address] [facility] INFUSION 1 [facility] THERAPY INC INC PROPHYLAX IS/DX EA HOUR BASIC 57878 DEB [facility] METABOLIC 1 [facility] [place] [address] [facility] INFUSION 1 [facility] THERAPY/P INC INC ROPHYLAXI S /DX 1ST TO 1 HR SUSCEPTIB 38441 DEB [facility] LTY STDY 1 [facility] ANTIMICRB INC INC IAL MICRO/AGA R DILUTJ RADEX 57718 CARRANZA, CARRANZA, CALCANEUS 9 DON R DON R MINIMUM 2 VIEWS COMPRE 34195 NIKKI JORDAN, AUDIOMETR 9 WIN Null Y THRESHOLD EVAL SP RECOGNIJ ACOUSTIC 58700 NIKKI JORDAN, REFLEX 9 WIN Null THRESHOLD TYMPANOME 29549 NIKKI JORDAN, TRY 9 WIN Null Encounters Encounter Start End Date Code Location Performer Type Date OFFICE 99943 [facility] 7 7 [facility] T VISIT INTERNAL 15 MED MINUTES [facility] DEB - 7 7 [facility] T OFFICE 15215 [facility] [place] [facility] OUTJACOB 7 7 [facility] 10 P MINUTES OFFICE 88324 [facility] OUTPATIEN 7 7 [place] T VISIT INTERNAL 15 MED MINUTES OFFICE 20778 [facility]B [place] JR OUTPATIEN 7 7 [facility] 20 HOSPITAL MINUTES HOSPITAL DEB - 7 7 [facility] OUTPATIEN INC T EMERGENCY 97835 DEB 7 7 [facility] DEPARTMEN INC T VISIT MODERATE SEVERITY OFFICE 36655 [facility] J[facility] OUTPATIEN 7 7 PHYSICIAN T VISIT S GROUP 15 MINUTES OFFICE 32851 [facility] OUTPATIEN 6 6 [facility] T VISIT INTERNAL 25 MED MINUTES HOSPITAL DEB - 6 6 [facility] OUTPATIEN INC T EMERGENCY 10694 [facility] V[facility]/M INOR PROB EMERGENCY 52210 PAMELA ANAYA, [address] [facility] S, [facility] T VISIT HIGH/URGE NT SEVERITY OFFICE 00233 [facility] OUTPATIEN 6 6 [place] [facility] T VISIT INTERNAL 15 MED MINUTES HOSPITAL DEB - 6 6 [facility] OUTPATIEN INC T EMERGENCY 81290 PAMELA DAIGLE [facility] DEPT 6 6 PHYSICIAN VISIT S, [facility] HIGH SEVERITY& THREAT FUNJ EMERGENCY 32025 [facility] T VISIT LOW/MODER SEVERITY EMERGENCY 46941 PAMELA GUNTER 6 6 PHYSICIAN [facility] VISIT MODERATE SEVERITY HOSPITAL DEB - 6 6 [facility] OUTPATIEN INC T OFFICE 39301 [facility] OUTPATIEN 6 6 [facility] T VISIT INTERNAL 15 MED MINUTES OFFICE 18418 [facility] J[facility]AN OUTPATIEN 6 6 PHYSICIAN KADEN T VISIT S GROUP 15 MINUTES OFFICE 26408 [facility] ANGELICA OUTPATIEN 6 6 [facility] ANNE MARIE T VISIT INTERNAL 15 MED MINUTES OFFICE 46432 [facility] OUTPATIEN 6 6 PHYSICIAN T VISIT GROUP 15 MINUTES EMERGENCY 77100 DEB 6 6 [facility] DEPARTMEN INC T VISIT HIGH/URGE NT SEVERITY EMERGENCY 93101 PAMELA MERINO DEPT 6 6 PHYSICIAN U SAURABH VISIT S, [facility] HIGH SEVERITY& [facility] OUT[facility] INC T OFFICE 57003 [facility] NEGIN OUTPATIEN 6 6 PHYSICIAN SOMMERS T VISIT S GROUP 25 MINUTES OFFICE 65869 [facility] JORDAN OUTPATIEN 6 6 PHYSICIAN KADEN T VISIT S GROUP 15 MINUTES HOSPITAL DEB - 6 6 [facility] OUTPATIEN INC T OFFICE 54309 [facility] JORDAN OUTPATIEN 6 6 PHYSICIAN KADEN T VISIT S GROUP 10 MINUTES HOSPITAL DEB - 6 6 [facility] OUTPATI[facility] INC T OFFICE 61161 [facility] OUTPATIEN 6 6 PHYSICIAN T VISIT S GROUP 15 MINUTES HOSPITAL DEB - 6 6 [facility] OUTPATIEN INC T OFFICE 59483 [facility] OUTPATIEN 6 6 [facility] T VISIT INTERNAL 25 MED MINUTES HOSPITAL DEB - 6 6 [facility] OUTPATI[facility] INC T OFFICE 07536 [facility] AD[facility]I OUTPATIEN 6 6 PHYSICIAN SEPIDEH T VISIT S GROUP 15 MINUTES OFFICE 06750 EAR, NOSE SHASHY OUTPATIEN 6 6 AND SARITA T VISIT THROAT 25 SPECIAL MINUTES EMERGENCY 26547 PAMELA DIANE 5 5 PHYSICIAN DEPARTMEN S, [facility] T VISIT MODERATE SEVERITY EMERGENCY 97517 DEB 5 5 [facility] DEPARTMEN INC T VISIT LIMITED/M INOR [facility] DEB - 5 5 [facility] OUTPATIEN INC T OFFICE 45874 [facility] JAMIA OUTPATIEN 5 5 IVONNE MARIETTA T VISIT 15 MINUTES OFFICE 74851 [facility] OUT[facility]EN 5 5 [facility] T VISIT INTERNAL 15 MED MINUTES HOSPITAL DEB - 5 5 [facility] OUTPATIEN INC [facility]PITAL DEB - 5 5 [facility] OUTPATIEN INC T OFFICE [address] [place] [address] OUTPATIEN 5 5 [facility] T VISIT HOSPITAL 10 MINUTES OFFICE [address] [place] [address] OUTPATIEN 5 5 [facility] T VISIT HOSPITAL 10 MINUTES HOSPITAL DEB - 5 5 [facility] OUTPATIEN INC T OFFICE 74162 [facility] 5 5 [place] [facility] T VISIT INTERNAL 15 MED MINUTES OFFICE 07282 [facility] J[facility] OUTPATIEN 5 5 PHYSICIAN KADEN T VISIT S GROUP 15 MINUTES OFFICE 89951 [facility] JAMIA OUTPATIEN 5 5 IVONNE MARIETTA T NEW 30 MINUTES [facility] DEB - 5 5 [facility] OUTPATIEN INC T OFFICE 87101 [facility] OUTPATIEN 5 5 [facility] T VISIT INTERNAL 15 MED MINUTES HOSPITAL DEB - 5 5 [facility] OUTPATIEN INC T PERIODIC 08151 [facility] EST HLTH DEPT TH DEPT PATIENT DONOVAN DONOVAN 40-64YRS OFFICE 26391 [facility] JORDAN OUTPATIEN 5 5 PHYSICIAN KADEN T VISIT S GROUP 10 MINUTES HOSPITAL DEB - 5 5 [facility] OUTPATI[facility] INC T OFFICE 00633 [facility] ANGELICA OUTPATIEN 5 5 [facility] ANNE MARIE T VISIT INTERNAL 15 MED MINUTES HOSPITAL DEB - 5 5 [facility] OUTPATI[facility] INC T OFFICE 38607 [facility] J[facility]AN OUTPATIEN 5 5 PHYSICIAN KADEN T VISIT S GROUP 15 MINUTES OFFICE 95306 [facility] USERY AND OUTPATIEN 5 5 [facility] T VISIT INTERNAL 15 MED MINUTES OFFICE 24895 [facility] OUTPATIEN 5 5 PHYSICIAN KADEN T VISIT S GROUP 15 MINUTES EMERGENCY 78569 PAMELA MERINO 5 5 PHYSICIAN [facility] DEPARTMEN [facility], [facility] T VISIT MODERATE SEVERITY HOSPITAL DEB - 5 5 [facility] T [facility]OSPITAL DEB - 5 5 [facility] T HOSPITAL DEB - 5 5 [facility] INC T OFFICE 89653 [facility] 5 5 [facility] T VISIT INTERNAL 15 MED MINUTES [facility]OSPITAL DEB - 5 5 [facility] OUTPATIEN INC T EMERGENCY 63950 DEB 5 5 [facility] DEPARTMEN INC T VISIT LOW/MODER SEVERITY OFFICE 34125 [facility]EN 4 4 [facility] T VISIT INTERNAL 15 MED MINUTES OFFICE 23523 [facility] PETTEY OUTPATIEN 4 4 PHYSICIAN JAM T NEW 30 S GROUP MINUTES OFFICE 17546 [facility] OUTPATIEN 4 4 [facility] T VISIT INTERNAL 15 MED MINUTES OFFICE 83996 [facility] AND OUTPATIEN 4 4 [facility] T VISIT INTERNAL 15 MED MINUTES OFFICE 77403 [facility] AND OUTPATIEN 4 4 [facility] T VISIT INTERNAL 15 MED MINUTES OFFICE 22335 [facility] LYRIC OUTPATIEN 4 4 PHYSICIAN SEPIDEH T VISIT S GROUP 15 MINUTES HOSPITAL DEB - 4 4 [facility] OUTPATIEN INC T OFFICE 92992 [facility] OUTPATIEN 4 4 [facility] T VISIT INTERNAL 25 MED MINUTES INITIAL 66309 [facility] DEPT [facility] DEPT MEDICINE DONOVAN KOHLI PT AGE [id number] HOSPITAL DEB - 4 4 [facility] OUTPATIEN INC T OFFICE 89315 [facility] HERNANDEZ OUTPATIEN 4 4 KEHINDE KEHINDE T VISIT 25 MINUTES HOSPITAL DEB - 4 4 [facility] OUTPATIEN INC T HOSPITAL GEORGEW - 4 4 N OUTPATIEN COMMUNTIY T HOSPITA OFFICE 22093 [facility] HERNANDEZ OUTPATIEN 4 4 KEHINDE KEHINDE T VISIT 25 MINUTES OFFICE 54774 [facility] OUT[facility]EN 4 4 [facility] T VISIT 15 MINUTES HOSPITAL DEB - 4 4 [facility] OUTPATIEN INC T OFFICE 08324 [facility] OUT[facility] 4 4 [facility]IE T VISIT 15 MINUTES HOSPITAL DEB - 4 4 [facility]PAT[facility] INC T OFFICE 10794 [facility] OUT[facility] 4 4 PHYSICIAN T VISIT S GROUP 10 MINUTES OFFICE 00952 EAR, NOSE MARY CONSULTAT 4 4 AND KEHINDE ION THROAT NEW/ESTAB SPECIAL PATIENT 60 MIN OFFICE 39894 NIKKI JORDAN OUTPATIEN 4 4 KADEN KADEN T VISIT 15 MINUTES HOSPITAL DEB - 1 1 [facility] OUTPATIEN INC T OFFICE 75950 Marybel BELTRAN CONSULTAT 1 1 DEVIN VARGAS MD PSC NEW/ESTAB PATIENT 60 MIN OFFICE 86909 [facility] CARRANZA OUTPATIEN 1 1 DON DON T VISIT 15 MINUTES HOSPITAL DEB - 1 1 [facility] OUTPATIEN INC T OFFICE 06605 D[facility]ON CARRANZA OUTPATIEN 1 1 DON DON T VISIT 15 MINUTES EMERGENCY 18511 RICH GUNTER 1 1 EMERGENCY SEPIDEH [facility] T VISIT HIGH/URGE NT SEVERITY HOSPITAL DEB - 1 1 [facility] OUTPATIEN INC T OFFICE 97664 CARRANZATRACY CARRANZA OUTPATIEN 1 1 DON DON T VISIT 15 MINUTES OFFICE 10328 DILLON CARRANZA, OUTPATIEN 9 9 DON R DON R T VISIT 15 MINUTES OFFICE 71454 DILLON CARRANZA OUTPATIEN 9 9 DON R DON R T VISIT 15 MINUTES OFFICE 20004 DILLON CARRANZA OUTPATIEN 9 9 DON R DON R T VISIT 15 MINUTES OFFICE 04518 D[facility]ON CARRANZA OUTPATIEN 9 9 DON R DON R T VISIT 15 MINUTES OFFICE 61941 LATANYA JORDANON, OUTPATIEN 9 9 WIN Null T VISIT 10 MINUTES OFFICE 86623 NIKKI JORDAN, OUTPATIEN 9 9 WIN Null T NEW 30 MINUTES OFFICE 32563 DILLON CARRANZA OUTPATIEN 9 9 DON R DON R T VISIT 15 MINUTES OFFICE 74831 D[facility]ON CARRANZA OUTPATIEN 9 9 DON R DON R T VISIT 15 MINUTES OFFICE 15406 D[facility]ON CARRANZA OUTPATIEN 9 9 DON R DON R T VISIT 5 MINUTES OFFICE 41001 DILLON CARRANZA OUTPATIEN 9 9 DON R DON R T VISIT 15 MINUTES
--- OUTSIDE RECORDS SUMMARY | 2016-07-18 15:54 | External Medical Summary Rpt ---
Author Author , Organization [employer] Address Unknown Phone Unavailable Care Team Providers Care Surveillance Observer Name Role Phone BEINEKE, BEINEKE Unavailable Unavailable BEDOYA TER, BEDOYA TER Unavailable Unavailable BESSON, BESSON Unavailable Unavailable BESSON SOPHIE, BESSON Unavailable Unavailable SOPHIE BESSON SOPHIE, BESSON Unavailable Unavailable SOPHIE MOORE, MOORE Unavailable Unavailable MOORE ALL, MOORE ALL Unavailable Unavailable JAMIA MARIETTA, JAMIA Unavailable Unavailable MARIETTA [facility] Unavailable Unavailable [place], [facility] Unavailable Unavailable THE [facility], [facility] NEGIN SOMMERS, Unavailable Unavailable NEGIN SOMMERS ALEXSANDRA JR, ALEXSANDRA JR Unavailable Unavailable NAA, NAA Unavailable Unavailable NAA GIO, Unavailable Unavailable NAA GIO NAA GIO, Unavailable Unavailable NAA GIO ADITI SEPIDEH, ADITI Unavailable Unavailable SEPIDEH CANELA, CANELA Unavailable Unavailable E[facility], [facility]available Unavailable SPECIAL, [facility] [place], [facility] [place] FALLIS IVONNE, FALLIS Unavailable Unavailable IVONNE FEEBACK REE, FEEBACK Unavailable Unavailable REE ANGELICA ANNE MARIE, Unavailable Unavailable ANGELICA ANNE MARIE AYAD, LION Unavailable Unavailable JR ANAYA FULLER, Unavailable Unavailable JR LYRIC SEPIDEH, LYRIC Unavailable Unavailable SEPIDEH [facility] Un[facility] CARYL JAM, CARYL Unavailable Unavailable JAM CARYL JAM, CARYL Unavailable Unavailable JAM [facility] Unavailable Unavailable INC, [facility] Unavailable Unavailable HOSPITAL, [facility] Unavailable [facility]available HOSPITAL P, [facility] P [facility], Unavailable [facility]available [facility], Unavailable Unavailable [facility] OXANA POLANCO Unavailable Unavailable [facility], [facility] JORDAN, JORDAN Unavailable Unavailable JORDAN KADEN, JORDAN Unavailable Unavailable KADEN JORDAN KADEN, JORDAN Unavailable Unavailable KADEN WIN JORDAN, Unavailable Unavailable WIN JORDAN [facility] Unavailable Unavailable INTERNAL MED, [facility] INTERNAL MED RICH ADAMS, Unavailable [...] PHARMACY Unavailable Unavailable #591, [facility] Unavailable Unavailable DEPT [facility], [facility] DEPT [facility] Unavailable [facility]available DEPT [facility], [facility] DEPT [facility] MARY BUSBY, MARY Unavailable Unavailable KEHINDE BUSBY, MARY Unavailable Unavailable KEHINDE INDIRA MAT, INDIRA MAT Unavailable Unavailable Purpose Continuity of Care Document - 04-19-2008 through 2016 Problems Code Diagnosis DOS Provider Status [id number] PAIN IN 06-23-2016 [facility] RIGHT HEALY FINGERS INTERNAL MED R232 FLUSHING 06-01-2016 [facility] N393 STRESS 05-06-2016 [facility] M[facility] L309 DERMATITIS 04-22-2016 [facility] UNSPECIFIED HEALY INTERNAL MED K219 GASTRO-ESOP 03-10-2016 [facility] REFLUX [facility] DISEASE INC WITHOUT ESOPHAGITIS K5730 DIVERTICULO 03-10-2016 [facility] LG MEDICAL INTEST W/O IMAGING ASS PERF/ABSC W/O BLEED R1011 RIGHT UPPER 03-10-2016 [facility] H6023 MALIGNANT 03-01-2016 [facility] OTITIS PHYSICIANS EXTERNA GROUP BILATERAL H6503 ACUTE 03-01-2016 [facility] SEROUS PHYSICIANS OTITIS GROUP MEDIA BILATERAL 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 M5441 LUMBAGO 01-23-2016 [facility] WITH PHYSICIANS, [facility] RIGHT SIDE M545 LOW BACK 01-23-2016 [facility] U67082 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[facility] 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 H5213 MYOPIA 11-28-2015 CARYL JAM BILATERAL R1031 RIGHT LOWER 11-28-2015 [facility] R1032 LEFT LOWER 11-28-2015 [facility] R310 GROSS 11-28-2015 [facility] HEMATURIA HEALY INTERNAL MED R319 HEMATURIA 11-28-2015 [facility] IM[facility] ASS R079 CHEST PAIN 11-17-2015 [facility] UNSPECIFIED PHYSICIANS, PLLC B20297 CUTANEOUS 10-28-2015 [facility] ABSCESS OF [facility] RIGHT LOWER INC LIMB K72709 CUTANEOUS 10-28-2015 [facility] ABSCESS OF PHYSICIANS, HEAD ANY PLLC PART EXCEPT FACE L0390 CELLULITIS 10-15-2015 [facility] UNSPECIFIED HEALY INTERNAL MED H6120 IMPACTED 09-25-2015 [facility] CERUMEN PHYSICIANS UNSPECIFIED GROUP EAR H6590 UNSPECIFIED 09-25-2015 [facility] PHYSICIANS NONSUPPURAT GROUP [place] OTITIS MEDIA UNS EAR H6903 PATULOUS 09-25-2015 JORDAN KADEN EUSTACHIAN TUBE BILATERAL R0982 POSTNASAL 09-18-2015 [facility] DRIP [facility] MED J029 ACUTE 09-15-2015 [facility] PHARYNGITIS PHYSICIAN GROUP UNSPECIFIED K120 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[facility] ORAL PHYSICIAN APHTHAE GROUP J0101 ACUTE 09-09-2015 [facility] RECURRENT PHYSICIANS, [facility] S[facility] J4520 MILD 09-09-2015 [facility] INTERMITTEN PHYSICIANS, T [facility] UNCOMPLICAT ED R0600 DYSPNEA 09-09-2015 [facility] ASS R221 LOCALIZED 09-09-2015 [facility] MEDICAL MASS AND IMAGING ASS LUMP NECK Z720 TOBACCO USE 09-09-2015 [facility] P R05 COUGH 09-08-2015 [facility] PHYSICIANS GROUP H6090 UNSPECIFIED 08-25-2015 [facility] OTITIS PHYSICIANS EXTERNA GROUP UNSPECIFIED EAR H6501 ACUTE 07-17-2015 [facility] SEROUS PHYSICIANS OTITIS GROUP MEDIA RIGHT EAR H6591 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-17-2015 [facility] NONSUPPURAT INC [place] OTITIS MEDIA RT EAR H9391 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-17-2015 COMMUNITY DISORDER ANESTH OF OF RIGHT THE BLUE EAR U34476 PAIN IN 05-28-2015 [facility] HAND [facility] ASS M7989 OTHER 05-28-2015 [place] SPECIFIED MEDICAL SOFT TISSUE IMAGING ASS DISORDERS R358 OTHER 05-28-2015 [facility] POLYURIA [facility] INC J0190 ACUTE 05-11-2015 [facility] SINUSITIS PHYSICIANS UNSPECIFIED GROUP A09 INFECTIOUS 03-14-2015 [facility] GASTROENTER [facility] ITIS AND INC COLITIS UNSPEC J069 ACUTE UPPER 03-12-2015 [facility] HEALY RESPIRATORY INTERNAL INFECTION MED UNSPECIFIED M542 CERVICALGIA 02-28-2015 [facility] INC 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, 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 N390 URINARY 02-24-2015 [facility] TRACT PHYSICIANS INFECTION GROUP SITE NOT SPECIFIED L664 FOLLICULITI 02-09-2015 [facility] Oziel PHYSICIANS, ULERYTHEMAT PLLC USMAN RETICULATA L738 OTHER 02-09-2015 [place] SPECIFIED [facility] FOLLICULAR INC DISORDERS B351 TINEA 01-30-2015 [place] IVONNE UNGUIUM B353 TINEA PEDIS 01-30-2015 [place] IV[facility]NE I890 LYMPHEDEMA 01-30-2015 [facility] IVONNE NOT ELSEWHERE CLASSIFIED M2570 OSTEOPHYTE 01-30-2015 [place] IV[place]NE UNSPECIFIED JOINT H9202 OTALGIA 01-17-2015 [facility] LEFT EAR HEALY INTERNAL MED H6506 ACUTE 01-16-2015 [facility] SEROUS PHYSICIANS OTITIS GROUP MEDIA RECURRENT BILATERAL H6523 CHRONIC 01-16-2015 [facility] SEROUS [facility] OTITIS INC MEDIA BILATERAL H6693 OTITIS 01-16-2015 COMMUNITY MEDIA ANESTH OF UNSPECIFIED THE BLUE BILATERAL D64771 ENCOUNTER 01-15-2015 [facility] FOR OTHER [facility] PREPROCEDUR INC AL EXAMINATION E59070 ACUTE & 12-27-2014 [facility] OTITS MEDIA BILATERAL H1032 UNSPECIFIED 12-17-2014 [facility] TIS LEFT EYE N6489 OTHER 12-16-2014 [place] SPECIFIED MEDICAL DISORDERS IMAGING ASS OF BREAST R928 OTH ABNORM 12-16-2014 [facility] & [facility] INCONCLUSIV INC E FIND ON DX IMAG BREAST B9789 OT VIRAL 12-13-2014 [facility] AGENT CAUSE HEALY DISEASES INTERNAL CLASSIFIED MED ELSW H6504 ACUTE 12-09-2014 [facility] SEROUS PHYSICIANS OTITIS GROUP MEDIA RECURRENT RIGHT EAR Y41262 ANKYLOSIS 12-09-2014 [facility] OF EAR PHYSICIANS OSSICLES GROUP RIGHT EAR H9191 UNSPECIFIED 12-09-2014 [facility] HEARING PHYSICIANS LOSS RIGHT GROUP EAR I89628 PAIN IN 12-05-2014 [place] IVONNE RIGHT TOES B98291 PAIN IN 12-05-2014 [place] [facility] LEFT TOES Z1231 ENCOUNTER 11-29-2014 [place] SCREENING MEDICAL MAMMO MALIG IMAGING ASS NEOPLASM BREAST Z803 FAMILY 11-29-2014 [place] HISTORY OF MEDICAL MALIGNANT IMAGING ASS NEOPLASM OF BREAST G46000 PAIN IN 11-15-2014 [facility] LEFT FOOT HEALY INTERNAL MED V252 STERILIZATI 11-05-2014 [facility] DEPT DONOVAN 42368 DYSFUNCTION 09-19-2014 [facility] OF PHYSICIANS EUSTACHIAN GROUP TUBE 4779 ALLERGIC 09-19-2014 [facility] RHINITIS PHYSICIANS CAUSE GROUP UNSPECIFIED 06250 OTHER 09-19-2014 [facility] DISEASES OF PHYSICIANS NASAL GROUP CAVITY AND SINUSES 7295 PAIN IN 09-18-2014 [facility] SOFT [place]LEY TISSUES OF INTERNAL LIMB MED 29879 SIMPLE/UNSP 2014 [facility] ECIFIED [facility] CHRONIC INC SEROUS OTITIS MEDIA 3814 NONSUPPRATV 2014 [place] OTITIS MEDICAL MEDIA NOT IMAGING ASS SPEC ACUT/CHRON 470 DEVIATED 2014 [place] NASAL MEDICAL SEPTUM IMAGING ASS 59542 UNSPECIFIED 09-02-2014 [facility] CONDUCTIVE PHYSICIANS HEARING GROUP LOSS 4730 CHRONIC 09-02-2014 [facility] MAXILLARY PHYSICIANS SINUSITIS GROUP 3829 UNSPECIFIED 08-29-2014 JORDAN KADEN OTITIS MEDIA 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 4619 ACUTE 08-22-2014 [facility] SINUSITIS, VALLEY UNSPECIFIED INTERNAL MED 3899 UNSPECIFIED 08-13-2014 [facility] HEARING PHYSICIANS LOSS GROUP 7856 ENLARGEMENT 08-13-2014 [facility] OF LYMPH PHYSICIANS NODES GROUP 76230 GANGLION OF 05-31-2014 [facility] TENDON PHYSICIANS SHEATH GROUP 67557 UNSPECIFIED 05-31-2014 COMMUNITY GANGLION ANESTH OF THE BLUE 73455 PAIN IN 05-30-2014 [place] JOINT, MEDICAL FOREARM IMAGING ASS 45127 GANGLION OF 05-29-2014 [facility] JOINT [facility] INC V7283 OTHER 05-29-2014 [facility] SPECIFIED [facility] PRE-OPERATI INC VE EXAMINATION 12042 UNSPECIFIED 02-27-2014 [facility] OTALGIA HEALY INTERNAL MED 4871 INFLUENZA 02-13-2014 [facility] WITH OTHER HEALY RESPIRATORY INTERNAL MED MANIFESTATI ONS 83107 GENERALIZED 02-13-2014 [facility] PAIN HEALY INTERNAL MED 4659 ACUTE URIS 12-06-2013 [facility] OF HEALY UNSPECIFIED INTERNAL SITE MED 486 PNEUMONIA, 12-03-2013 [facility] ORGANISM HEALY UNSPECIFIED INTERNAL MED 7840 HEADACHE 12-03-2013 [facility] HEALY INTERNAL MED 6822 CELLULITIS 11-15-2013 [facility] AND ABSCESS PHYSICIANS OF TRUNK GROUP 64436 ABDOMINAL 11-15-2013 [facility] PAIN, PHYSICIANS UNSPECIFIED GROUP SITE 98361 ABDOMINAL 10-29-2013 [facility] PAIN, HEALY GENERALIZED INTERNAL MED 43182 POLYURIA 10-27-2013 [facility] INC V700 ROUTINE 10-27-2013 [facility] MEDICAL INC EXAM@HEALTH CARE FACL 28316 ESOPHAGEAL 10-26-2013 [facility] REFLUX HEALY INTERNAL MED 37445 INSOMNIA 10-26-2013 [facility] UNSPECIFIED HEALY INTERNAL MED 6160 CERVICITIS 10-23-2013 [facility] ENDOCERVICI TIS V7231 ROUTINE 10-23-2013 [facility] AL EXAMINATION 1101 DERMATOPHYT 2013 [place] NAIL INC 2400 GOITER, 07-03-2013 MARY KEHINDE SPECIFIED SIMPLE 2449 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-03-2013 [facility] HYPOTHYROID INC ISM 86653 OTOGENIC 07-03-2013 MARY KEHINDE PAIN 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 7842 SWELLING 07-03-2013 MARY KEHINDE MASS OR LUMP IN HEAD AND NECK 05301 UNSPECIFIED 06-19-2013 MARY KEHINDE TINNITUS 5990 URINARY 06-11-2013 [facility] TRACT INFECTION SITE NOT SPECIFIED 2409 GOITER, 06-08-2013 NAA UNSPECIFIED GIO 18854 OBESITY, 06-06-2013 [facility] UNSPECIFIED [facility] INC 55502 UNSPECIFIED 06-05-2013 EAR, NOSE ABNORMAL AND THROAT AUDITORY SPECIAL PERCEPTION 09218 UNSPECIFIED 06-05-2013 [facility] VAGINITIS PHYSICIANS AND GROUP VULVOVAGINI TIS 85481 UNSPECIFIED 05-28-2013 JORDAN KADEN ACUTE NONSUPPURAT [place] OTITIS MEDIA 14908 METHICILLIN 05-28-2010 [facility] RESISTANT [facility] STAPHYLOCOC INC CUS AUREUS 6826 CELLULITIS 05-28-2010 [facility] AND ABSCESS [facility] OF LEG INC EXCEPT FOOT 48676 METHICILLIN 05-26-2010 [facility] RESISTANT DON STAPH AUREUS SEPTICEMIA V090 INFECTION 05-26-2010 [facility] W/MICROORGA DON NISMS RESISTANT PENICILLINS V7241 05-26-2010 [facility] EXAMINATION [facility] OR TEST INC NEGATIVE RESULT 9164 HIP THI 05-23-2010 [facility] LEG&ANK DON INSECT BITE NONVENOMOUS W/O INF 5589 OTH&UNSPEC 12-13-2008 [facility], NONINFECTIO DON R US GASTROENTER ITIS&COLITI S 15522 CALCANEAL 12-13-2008 [facility]ZA, SPUR DON R 1105 DERMATOPHYT 12-02-2008 [facility], OSIS OF THE DON R BODY 09981 OVERWEIGHT 10-09-2008 DILLON, DON R 4618 OTHER ACUTE 10-09-2008 [place], SINUSIT[place] R [address] UNSPECIFIED 06-11-2008 WIN JORDAN SENSORINEUR AL HEARING LOSS 84171 UNSPECIFIED 06-06-2008 WIN JORDAN OBSTRUCTION OF EUSTACHIAN [...] 20 5- 9- 00 00 SI ve NC 00 20 20 47 DE AM 50 17 17 24 5 82 PH HB AR R MA 10 CY MG OF CY TA NT BL HI ET AN A IN C AL 67 02 05 60 30 00 EA Ac NC 25 -1 -[address] ti AZ 30 3- 9- 00 00 SI ve OL 90 20 20 47 DE AM 11 17 17 58 1 74 PH 0. AR 5 MA MG CY TA OF BL CY ET NT HI AN A IN C AL 67 04 05 60 30 00 EA Ac NC 25 -1 -[address] ti [...] 20 3- 8- 00 00 SI ve NC 00 20 20 47 DE AM 50 [...] 03 04 60 30 00 EA Ac NC 25 -2 -[address] ti [...] 20 6- 4- 00 00 SI ve NC 00 20 20 47 DE AM 50 [...] 17 17 56 E 5 51 PH NC AR OP MA CY 50 OF MC [...] 01 02 7. 5 00 EA Ac NC 06 -1 -[address] ti [...] 20 6- 7- 00 00 SI ve NC 00 20 20 47 DE AM 50 [...] NT ET HI AN A IN C NC 59 12 01 12 6 00 EA [...] CY NT HI AN A IN C NC 65 12 01 10 3 00 EA [...] [address] Ac NC 09 -3 -[address] 92 EP [...] 1- 8- 00 MA 69 HE ve NC 34 20 20 RT 7 NS AM [...] 01 [address] Ac NC 25 -1 -[address] 47 EP ti AZ 30 4- 0- 00 SI 93 HE ve OL 90 20 20 DE NS AM 11 09 09 1 PH DO 0. AR N 5 MA R MG CY TA OF BL CY ET NT HI AN A AL 67 07 07 [address] Ac NC 25 -1 -[address] 47 EP [...] 00 [address] Ac NC 25 -1 -[address] 49 EP [...] [place] [address] [facility] ESTROGENS 7 [facility] TOTAL INC INC GONADOTRO 05410 [facility] PIN 7 [facility] FOLLICLE INC INC STIMULATI NG HORMONE GONADOTRO 43396 [facility] PIN 7 [facility] LUTEINIZI INC INC NG HORMONE COMPREHEN 40306 [facility] SIVE 7 [facility] [address] [facility] AMYLASE 7 [facility] INC INC COMPREHEN 31547 [facility] SIVE 7 [facility] METABOLIC INC INC PANEL FINAL G9551 [facility] REPR ABD 7 MEDICAL IMAG STS IMAGING W/O ASS INCIDNT FND LES NTD: FINAL G9638 [facility] REPORTS 7 MEDICAL W/O DOC IMAGING 1/[place] [address] [facility] LIPASE 7 [facility] [place] [address] [facility] ABDOMEN & 7 MEDICAL PELVIS IMAGING W/O ASS CONTRAST MATERIAL THER 39079 [facility] PROPH/DX 7 [facility] NJX IV INC INC PUSH SINGLE/1S T SBST/DRUG URINE 38950 [facility] 7 [facility] TEST INC INC VISUAL COLOR CMPRSN METHS URNLS DIP 21645 [facility] STICK/TAB INC INC LET REAGENT AUTO MICROSCOP Y BLOOD 87406 [facility] COUNT 7 [facility] COMPLETE INC INC AUTO&AUTO DIFRNTL WBC URNLS DIP 68733 [facility] 6 [facility] STICK/TAB INC INC LET REAGENT AUTO MICROSCOP Y CULTURE 68253 [facility] BACTERIAL 6 [facility] INC INC QUANTTATI VE COLONY COUNT URINE RADEX 33345 [facility] SPINE 6 [facility] LUMBOSACR INC [place] [address] [place] [address] [facility] ABDOMEN & 6 [facility] PELVIS INC INC W/O CONTRAST MATERIAL OPHTH 77560 [facility] 6 JAM JAM XM&EVAL INTERMEDI ATE NEW PT DETERMINA 47297 [facility] 6 JAM JAM REFRACTIV E STATE RADIOLOGI 96317 [place] NAA No 6 MEDICAL GIO EXAMINATI IMAGING ON CHEST ASS SINGLE VIEW FRONTAL INCISION 88534 [facility] GUNTER & 6 PHYSICIAN SEPIDEH DRAINAGE S, PLLC ABSCESS COMPLICAT ED/MULTIP LE CUL BACT 88853 [facility] XCPT 6 [facility] URINE INC INC BLOOD/STO OL AEROBIC ISOL CUL BACT 46208 [facility] AEROBIC 6 [facility] ADDL INC INC METHS DEFINITIV E EA ISOL SUSCEPTIB 05539 [facility] LTY STDY 6 [facility] ANTIMICRB INC INC IAL MICRO/AGA R DILUTJ CUR MEDS G8428 [facility] NO DOC 6 [facility] OBDT INTERNAL INTERNAL UPD/REV MED MED ELIG CLIN RSN N GVN COMPRE 05943 NIKKI JORDAN AUDIOMETR 6 KADEN KADEN Y THRESHOLD EVAL SP RECOGNIJ IAADIADOO 30465 [facility] LION 6 PHYSICIAN STREPTOCO GROUP CCUS GROUP A ECG 95450 [facility] FOREMAN ROUTINE 6 [facility] W/LEAST P 12 LDS I&R ONLY BLOOD 27024 [facility] COUNT 6 [facility] COMPLETE INC INC AUTO&AUTO DIFRNTL WBC NATRIURET 19324 [facility] IC 6 [facility] PEPTIDE INC INC PRESSURIZ 16591 [facility] ED/NONPRE 6 [facility] SSURIZED INC INC INHALATIO N TREATMENT RADIOLOGI 57359 [facility] C 6 [facility] EXAMINATI INC INC ON NECK SOFT TISSUE RADIOLOGI 77730 [facility] ROBERSON C EXAM 6 MEDICAL CHEST 2 IMAGING VIEWS ASS FRONTAL&[place] [address] [facility] TROPONIN 6 [facility] QUANTITAT INC INC PARRISH COMPREHEN 59420 [facility] SIVE 6 [facility] METABOLIC INC INC PANEL CREATINE 97333 [facility] KINASE MB 6 [facility] FRACTION INC INC ONLY ECG 06462 [facility] ROUTINE 6 [facility] ECG INC INC W/LEAST 12 LDS TRCG ONLY W/O I&R CREATINE 20340 [facility] KINASE 6 [facility] TOTAL INC INC FIBRIN 03786 [facility] DGRADJ 6 [facility] PRODUCTS INC INC D-DIMER QUAL/SEMI LAUREANO THERAPEUT 23373 [facility] IC 6 [facility] PROPHYLAC INC INC TIC/DX INJECTION SUBQ/[place] [address] [facility] INFUSION 6 [facility] THERAPY/P INC INC ROPHYLAXI S /DX 1ST TO 1 HR THERAPEUT 12097 [facility] IC 6 [facility] INJECTION INC INC IV PUSH EACH NEW DRUG INJECTION J2405 [facility]D 6 [facility] ONDANSETR INC INC ON HCL PER 1 MG UNCLASSIF J3490 [facility] IED DRUGS 6 [facility] INC INC TYMPANOST 32069 [facility] DE 6 [facility] [place] [address] [facility] INFUSION 6 [facility] THERAPY INC INC PROPHYLAX IS/DX EA HOUR URINE 74857 [facility] BO[facility]D 6 [facility] TEST INC INC VISUAL COLOR CMPRSN METHS ANES 19668 COMMUNITY FEEBACK XTRNL MID 6 ANESTH REE & INNER OF THE EAR W/BX BLUE TYMPANOTO MY HEMOGLOBI 96947 [facility] N 6 [facility] GLYCOSYLA INC INC MARCY A1C LIPID 73602 [facility] PANEL 6 [facility] INC INC COMPREHEN 85101 [facility] SIVE 6 [facility] METABOLIC INC INC PANEL RADEX 89975 [facility] ALL HAND 2 6 MEDICAL VIEWS IMAGING ASS COLLECTIO 24073 [facility] N VENOUS 6 [facility] BLOOD INC INC VENIPUNCT URE RADEX 40040 [facility] BODY HAND 6 [facility] MINIMUM 3 INC INC VIEWS THERAPEUT 02103 [facility] AURELIANO WONG IC 6 PHYSICIAN PROPHYLAC S GROUP TIC/DX INJECTION SUBQ/IM INJECTION J1040 [facility] AURELIANO WONG 6 PHYSICIAN METHYLPRE S GROUP DNISOLONE ACETATE 80 MG IADNA-DNA 21862 [facility] /RNA GI 6 [facility] PTHGN INC INC MULTIPLEX PROBE TQ 12-25 PHYSICAL 79234 [facility] THERAPY 6 [facility] EVALUATIO INC INC N ANES 62939 [facility] XTRNL MID 5 ANESTH LASHAUN & INNER OF THE EAR W/BX BLUE TYMPANOTO MY TYMPANOST 37091 [facility] NIKKI KC 5 PHYSICIAN KADEN GENERAL S GROUP ANESTHESI A GONADOTRO 86111 [facility] PIN 5 [facility] CHORIONIC INC INC QUALITATI VE BLOOD 31062 [facility] COUNT 5 [facility] COMPLETE INC INC AUTO&AUTO DIFRNTL WBC BASIC 64041 [facility] METABOLIC 5 [facility] PANEL INC INC CALCIUM TOTAL COLLECTIO 75781 [facility] N VENOUS 5 [facility] BLOOD INC INC VENIPUNCT URE DIAGNOSTI G0206 [facility] C 5 [facility] MAMMO[facility]AP [facility] INC HY INCL CAD WHEN PERF; UNI IAADIADOO 59897 [facility] STREPT[facility] INTERNAL CCUS MED GROUP A SCREENING G0202 [facility] 5 [facility] MAMMOGRAP INC INC HY KARYNA INCL CAD WHEN PERFORMD COMPUTER- 09826 [facility] AIDED 5 [facility] DETECTION INC INC SCREENING MAMMOGRAP HY RADEX 83567 [facility] HAND 5 [facility] MINIMUM 3 INC INC VIEWS SCREENING 50227 [facility] TEST 5 [facility] VISUAL HLTH DEPT HLTH DEPT ACUITY [place] DON[place]AN QUANTITAT PARRISH BILAT RADEX 28332 [facility] FOOT 5 [facility] COMPLETE [place] [address] [place] [address] [place] [facility] MAXILLOFA 5 MEDICAL CIAL W/O IMAGING CONTRAST ASS MATERIAL COMPRE 49627 NIKKI PELAEZON AUDIOMETR 5 KADEN KADEN Y THRESHOLD EVAL SP RECOGNIJ TYMPANOME 36689 [facility] JORDAN TRY 5 KADEN KADEN DISTORT 47726 [facility]KK[facility] JORDAN PRODUCT 5 KADEN KADEN EVOKED OTOACOUST IC EMISNS LIMITD THERAPEUT 50869 [facility] AND IC 5 [facility] PROPHYLAC INTERNAL TIC/DX MED INJECTION SUBQ/IM INJECTION J0696 [facility] AND 5 [facility] CEFTRIAXO INTERNAL NE SODIUM MED PER 250 MG INJECTION J3301 [facility] AND 5 [facility] TRIAMCINO INTERNAL LONE MED ACETONIDE NOS 10 MG ANES 50935 [facility] 5 ANESTH SHE MUSCLE OF THE TDN BLUE FASCIA&BU RSA FOREARM WRIST REPAIR 40439 [facility] COMPLEX 5 [facility] SCALP/ARM INC INC /LEG 2.6-7.5 CM EXCISION 53526 [facility] PETTEY LESION 5 PHYSICIAN JAM TENDON S GROUP SHEATH FOREARM&/ WRIST MRI UPPER 37420 [place] NAA 5 MEDICAL EXTREMITY IMAGING OTH THAN ASS JT W/O CONTR MATRL COLLECTIO 57335 [facility] N VENOUS 5 [facility] BLOOD INC INC VENIPUNCT URE GONADOTRO 67012 [facility] PIN 5 [facility] CHORIONIC INC INC QUALITATI VE THERAPEUT 10810 [facility] IC 5 [facility] SOP[facility]IE PROPHYLAC INTERNAL TIC/DX MED INJECTION SUBQ/IM INJECTION J3301 [facility] 5 [facility] TRIAMCINO INTERNAL LONE MED ACETONIDE NOS 10 MG IAADIADOO 21956 [facility] 4 [facility] INFLUENZA INTERNAL MED THERAPEUT 55758 [facility] AND IC 4 [facility] PROPHYLAC INTERNAL TIC/DX MED INJECTION SUBQ/IM INJECTION J0696 [facility] AND 4 [facility] CEFTRIAXO INTERNAL NE SODIUM MED PER 250 MG INJECTION J1885 [facility] LYRIC 4 PHYSICIAN SEPIDEH KETOROLAC S GROUP TROMETHAM INE PER 15 MG THERAPEUT 12274 [facility] LYRIC IC 4 PHYSICIAN SEPIDEH PROPHYLAC S GROUP TIC/DX INJECTION SUBQ/IM URNLS DIP 60278 [facility] STICK/TAB INTERNAL LET RGNT MED NON-AUTO W/O MICRSCP CULTURE 47967 COMBINED COMBINED BACTERIAL 4 PHYSICIAN PHYSICIAN S LA S LA QUANTTATI VE COLONY COUNT URINE LIPID 46754 [facility]EL [facility] INC INC COMPREHEN 66588 [facility] SIVE 4 [facility] METABOLIC INC INC PANEL TDAP 27468 [facility] Y[facility]/> IM HLTH DEPT HLTH DEPT DONOVAN DONOVAN CYTP 69862 [facility], PICKLESIM CERV/VAG 4 LLC ER JR JARED AUTO THIN LAYER PREP MNL SCREEN HEPATIC 55210 [facility] FUNCTION 4 [facility] PANEL INC INC THYROID 78132 [facility] HORM 4 [facility] UPTK/THYR INC INC [place] [address] [facility] THYROXINE 4 [facility] [place] [address] [facility] THYROID 4 [facility] STIMULATI INC INC NG HORMONE TSH RADIOLOGI 11793 INDIRA MAT INDIRA MAT C 4 EXAMINATI ON NECK SOFT TISSUE US SOFT 33286 [facility] TISSUE 4 N N HEAD & COMMUNTIY COMMUNTIY NECK REAL HOSPITA HOSPITA TIME IMGE DOCM CULTURE 95122 COMBINED COMBINED BACTERIAL 4 PHYSICIAN PHYSICIAN [place] [address] NAA NAA MAXILLOFA 4 GIO GIO CIAL W/O CONTRAST MATERIAL CT SOFT 42074 [facility] TISSUE 4 [facility] NECK INC INC W/CONTRAS T MATERIAL LOCM Q9967 [facility] 300-399 4 [facility] MG/ML INC INC IODINE CONCENTRA TION PER ML IM ADM 23411 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 PRQ ID 4 SOP[facility]IE SOPHIE SUBQ/IM NJXS 1 VACCINE INJECTION J0696 AHSAN BESSON 4 SOPHIE SOPHIE CEFTRIAXO NE SODIUM PER 250 MG COMPREHEN 08655 [facility] SIVE 4 [facility] METABOLIC INC INC PANEL LIPID 99876 [facility] PANEL 4 [facility] INC INC TYMPANOME 87249 EAR, NOSE MARY TRY 4 AND KEHINDE THROAT SPECIAL PURE TONE 19839 EAR, NOSE MARY 4 AND KEHINDE AUDIOMETR THROAT Y AIR SPECIAL ONLY SPEECH 47417 EAR, NOSE MARY AUDIOMETR 4 AND KEHINDE Y THROAT THRESHOLD SPECIAL LARYNGOSC 09704 EAR, NOSE MARY OPY 4 AND KEHINDE FLEXIBLE THROAT DIAGNOSTI SPECIAL C INJECTION J0696 [facility] 4 PHYSICIAN PHYSICIAN CEFTRIAXO S GROUP S GROUP NE SODIUM PER 250 MG URNLS DIP 39798 [facility] 4 PHYSICIAN PHYSICIAN STICK/TAB S GROUP S GROUP LET RGNT NON-AUTO W/O MICRSCP THERAPEUT 84412 [facility] IC 4 PHYSICIAN PHYSICIAN PROPHYLAC S GROUP S GROUP TIC/DX INJECTION SUBQ/IM LEVEL III 57060 [facility] RICH SURG 1 [facility]OLOGY DUBILIER GROSS&SEPIDEH ROSCOPIC EXAM OTHER 8309 [facility] INCISION 1 [facility] OF SOFT INC INC TISSUE I&D DEEP 26787 C JAYDE DEVIN ABSC 1 DEVIN TRUNG BURSA/HEM PSC [place] THIGH/[place] [address] [facility] INFUSION 1 [facility] THERAPY INC INC PROPHYLAX IS/DX EA HOUR GONADOTRO 38191 [facility] PIN 1 [facility] CHORIONIC INC INC QUALITATI VE CUL BACT 05555 [facility] XCPT 1 [facility] URINE INC INC BLOOD/STO OL AEROBIC ISOL BLOOD 19404 [facility] COUNT 1 [facility] COMPLETE INC INC AUTO&AUTO DIFRNTL WBC CUL BACT 78063 [facility] AEROBIC 1 [facility] ADDL INC [place] [address] [facility] INFUSION 1 [facility] THERAPY INC INC PROPHYLAX IS/DX EA HOUR BASIC 46976 [facility] METABOLIC 1 [facility] [place] [address] [facility] INFUSION 1 [facility] THERAPY/P INC INC ROPHYLAXI S /DX 1ST TO 1 HR SUSCEPTIB 71012 [facility] LTY STDY 1 [facility] ANTIMICRB INC INC IAL MICRO/AGA R DILUTJ RADEX 82382 CARRANZA, CARRANZA, CALCANEUS 9 DON R DON R MINIMUM 2 VIEWS COMPRE 98282 NIKKI JORDAN, AUDIOMETR 9 WIN Null Y THRESHOLD EVAL SP RECOGNIJ ACOUSTIC 59000 NIKKI JORDAN, REFLEX 9 WIN Null THRESHOLD TYMPANOME 91368 NIKKI JORDAN, TRY 9 WIN Nlul Encounters Encounter Start End Date Code Location Performer Type Date OFFICE 69744 [facility] 7 7 [facility] T VISIT [facility]NAL 15 MED MINUTES [facility]OSP[facility] DEB - 7 7 [facility] T OFFICE 12302 [facility] [place] [facility] OUTJACOB 7 7 [facility] VISIT HOSPITAL 10 P MINUTES OFFICE 86530 [facility] OUTPATIEN 7 7 [facility] T VISIT INTERNAL 15 MED MINUTES OFFICE 92757 [facility] [place] JR OUTPATIEN 7 7 [facility] 20 HOSPITAL MINUTES HOSPITAL DEB - 7 7 [facility] OUTPATIEN INC T EMERGENCY 84698 DEB 7 7 [facility] DEPARTMEN INC T VISIT MODERATE SEVERITY OFFICE 32221 [facility] JORDAN OUTPATIEN 7 7 PHYSICIAN T VISIT S GROUP 15 MINUTES OFFICE 60222 [facility] B[facility]ON OUTPATI[facility] 6 6 [facility] T VISIT INTERNAL 25 MED MINUTES HOSPITAL DEB - 6 6 [facility] OUT[facility] T EMERGENCY 13179 [facility] V[facility]/M INOR PROB EMERGENCY 40912 PAMELA ANAYA, 6 6 PHYSICIAN [facility] S, [facility] T VISIT HIGH/URGE NT SEVERITY OFFICE 02698 [facility] B[facility]ON [facility] 6 6 [facility] SOP[facility]IE T VISIT INTERNAL 15 MED MINUTES HOSPITAL DEB - 6 6 [facility] T EMERGENCY 04511 [facility] DEPT 6 6 PHYSICIAN VISIT S, [facility] HIGH SEVERITY& THREAT FUNJ EMERGENCY 32882 [facility]B 6 6 [facility] T VISIT LOW/MODER SEVERITY EMERGENCY 69508 PAMELA GUNTER 6 6 PHYSICIAN [facility], [facility] VIS[facility] MODERATE SEVERITY HOSPITAL DEB - 6 6 [facility] OUTPAT[facility] INC T OFFICE 49627 [facility] 6 6 [facility] SOP[facility] T VISIT INTERNAL 15 MED MINUTES OFFICE 76762 [facility] JORDAN OUTPATIEN 6 6 PHYSICIAN KADEN T VISIT S GROUP 15 MINUTES OFFICE 45964 [facility] ANGELICA OUTPATIEN 6 6 [facility] ANNE MARIE T VISIT INTERNAL 15 MED MINUTES OFFICE 52066 [facility] LION OUTPATIEN 6 6 PHYSICIAN T VISIT GROUP 15 MINUTES EMERGENCY 17252 DEB 6 6 [facility] DEPARTMEN INC T VISIT HIGH/URGE NT SEVERITY EMERGENCY 77879 PAMELA MERINO DEPT 6 6 PHYSICIAN U SAURABH VISIT S, [facility] HIGH SEVERITY& [facility] OUT[facility] INC T OFFICE 20589 [facility] NEGIN OUTPATIEN 6 6 PHYSICIAN SOMMERS T VISIT S GROUP 25 MINUTES OFFICE 52307 [facility] JORDAN OUTPATIEN 6 6 PHYSICIAN KADEN T VISIT S GROUP 15 MINUTES HOSPITAL DEB - 6 6 [facility] OUTPATIEN INC T OFFICE 88013 [facility] JORDAN OUTPATIEN 6 6 PHYSICIAN KADEN T VISIT S GROUP 10 MINUTES HOSPITAL DEB - 6 6 [facility] OUTPATIEN INC T OFFICE 44564 [facility] [place] TER OUTPATIEN 6 6 PHYSICIAN T VISIT S GROUP 15 MINUTES HOSPITAL DEB - 6 6 [facility] OUTPATIEN INC T OFFICE 95295 [facility] 6 6 [facility] SOP[facility]IE T VISIT INTERNAL 25 MED MINUTES HOSPITAL DEB - 6 6 [facility] OUTPATIEN INC T OFFICE 41546 [facility] ADITI OUTPATIEN 6 6 PHYSICIAN SEPIDEH T VISIT S GROUP 15 MINUTES OFFICE 12577 EAR, NOSE SHASHY OUTPATIEN 6 6 AND SARITA T VISIT THROAT 25 SPECIAL MINUTES EMERGENCY 37502 PAMELA DIANE 5 5 PHYSICIAN DEPARTMEN S, [facility] T VISIT MODERATE SEVERITY EMERGENCY 14691 DEB 5 5 [facility] INC T VISIT LIMITED/M INOR [facility] DEB - 5 5 [facility] OUTPATIEN INC T OFFICE 89220 [place] JAMIA OUTPATIEN 5 5 IVONNE [place] T VISIT 15 MINUTES OFFICE 03183 [facility] 5 5 [facility] T VISIT INTERNAL 15 MED MINUTES HOSPITAL DEB - 5 5 [facility] OUTPATIEN INC HOSPITAL DEB - 5 5 [facility] OUTPATIEN INC T OFFICE [address] [place] [address] OUTPATIEN 5 5 [facility] T VISIT HOSPITAL 10 MINUTES OFFICE [address] [address] OUTPATIEN 5 5 [facility] T VISIT HOSPITAL 10 MINUTES HOSPITAL DEB - 5 5 [facility] OUTPATIEN INC T OFFICE 58220 [facility] 5 5 [facility] SOPHIE T VISIT INTERNAL 15 MED MINUTES OFFICE 66233 [facility] JORDAN OUTPATIEN 5 5 PHYSICIAN KADEN T VISIT S GROUP 15 MINUTES OFFICE 24102 [place] JAMIA OUTPATIEN 5 5 IVONNE MARIETTA T NEW 30 MINUTES [facility] DEB - 5 5 [facility] OUTPATIEN INC T OFFICE 92830 [facility] B[facility] OUTPATIEN 5 5 [facility] T VISIT INTERNAL 15 MED MINUTES HOSPITAL DEB - 5 5 [facility] OUTPATIEN INC T PERIODIC 88434 [facility]TH DEPT TH DEPT PATIENT DONOVAN DONOVAN 40-64YRS OFFICE 97003 [facility] JORDAN OUTPATIEN 5 5 PHYSICIAN KADEN T VISIT S GROUP 10 MINUTES HOSPITAL DEB - 5 5 [facility] OUTPATIEN INC T OFFICE 31333 [facility] ANGELICA OUTPATIEN 5 5 [facility] ANNE MARIE T VISIT INTERNAL 15 MED MINUTES HOSPITAL DEB - 5 5 [facility] OUTPATIEN INC T OFFICE 08073 [facility] JORDAN OUTPATIEN 5 5 PHYSICIAN KADEN T VISIT S GROUP 15 MINUTES OFFICE 98757 [facility] USERY AND OUTPATIEN 5 5 [facility] T VISIT INTERNAL 15 MED MINUTES OFFICE 20371 [facility] JORDAN OUTPATIEN 5 5 PHYSICIAN KADEN T VISIT S GROUP 15 MINUTES EMERGENCY 17150 PAMELA MERINO 5 5 PHYSICIAN [facility] T VISIT MODERATE SEVERITY HOSPITAL DEB - 5 5 [facility]EN INC T HOSPITAL DEB - 5 5 [facility] T [facility]OSPITAL DEB - 5 5 [facility] INC T OFFICE 24668 [facility]PAT[facility] 5 5 [facility] SOP[facility]IE T VISIT INTERNAL 15 MED MINUTES HOSPITAL DEB - 5 5 [facility] OUTPATIEN INC T EMERGENCY 38694 DEB 5 5 [facility] DEPARTMEN INC T VISIT LOW/MODER SEVERITY OFFICE 88027 [facility] 4 4 [facility] SOP[facility]IE T VISIT INTERNAL 15 MED MINUTES OFFICE 26263 [facility] PETTEY OUTPATIEN 4 4 PHYSICIAN JAM T NEW 30 S GROUP MINUTES OFFICE 78479 [facility] OUTPATIEN 4 4 [facility] SOP[facility]IE T VISIT INTERNAL 15 MED MINUTES OFFICE 50630 [facility] USERY AND OUTPATIEN 4 4 [facility] T VISIT INTERNAL 15 MED MINUTES OFFICE 50455 [facility] OUTPATIEN 4 4 [facility] T VISIT INTERNAL 15 MED MINUTES OFFICE 69745 [facility] LYRIC OUTPATIEN 4 4 PHYSICIAN SEPIDEH T VISIT S GROUP 15 MINUTES HOSPITAL DEB - 4 4 [facility] OUTPATIEN INC T OFFICE 47336 [facility] OUTPATIEN 4 4 [facility] SOPHIE T VISIT INTERNAL 25 MED MINUTES INITIAL 09790 [facility] DE[facility] DEPT MEDICINE DONOVAN KOHLI PT AGE [id number] HOSPITAL DEB - 4 4 [facility] OUTPATIEN INC T OFFICE 50584 MRAY HERNANDEZ OUTPATIEN 4 4 KHEINDE KEHINDE T VISIT 25 MINUTES HOSPITAL DEB - 4 4 [facility] OUTPATIEN INC T HOSPITAL GEORGEW - 4 4 N OUTPATIEN COMMUNTIY T HOSPITA OFFICE 37580 M[facility] HERNANDEZ OUTPATIEN 4 4 KEHINDE KEHINDE T VISIT 25 MINUTES OFFICE 20167 [facility] OUTPATIEN 4 4 SOPHIE T VISIT 15 MINUTES HOSPITAL DEB - 4 4 [facility] OUTPATIEN INC T OFFICE 57242 [facility] OUTPATIEN 4 4 SOPHIE T VISIT 15 MINUTES HOSPITAL DEB - 4 4 [facility] OUTPATIEN INC T OFFICE 55592 [facility] OUTPATIEN 4 4 PHYSICIAN T VISIT S GROUP 10 MINUTES OFFICE 30621 EAR, NOSE MARY CONSULTAT 4 4 AND KEHINDE ION THROAT NEW/ESTAB SPECIAL PATIENT 60 MIN OFFICE 90328 NIKKI JORDAN OUTPATIEN 4 4 KADEN KADEN T VISIT 15 MINUTES HOSPITAL DEB - 1 1 [facility] OUTPATIEN INC T OFFICE 61556 Marybel BELTRAN CONSULTAT 1 1 DEVIN VARGAS MD PSC NEW/ESTAB PATIENT 60 MIN OFFICE 76267 DILLON CARRANZA OUTPATIEN 1 1 DON DON T VISIT 15 MINUTES HOSPITAL DEB - 1 1 [facility] OUTPATIEN INC T OFFICE 28762 DILLON CARRANZA OUTPATIEN 1 1 DON DON T VISIT 15 MINUTES EMERGENCY 92406 RICH GUNTER 1 1 [facility] T VISIT HIGH/URGE NT SEVERITY HOSPITAL DEB - 1 1 [facility] OUTPATIEN INC T OFFICE 67558 CARRANZATRACY CARRANZA OUTPATIEN 1 1 DON DON T VISIT 15 MINUTES OFFICE 42484 DILLON CARRANZA, OUTPATIEN 9 9 DON R DON R T VISIT 15 MINUTES OFFICE 64201 DILLON CARRANZA OUTPATIEN 9 9 DON R DON R T VISIT 15 MINUTES OFFICE 55354 DILLON CARRANZA OUTPATIEN 9 9 DON R DON R T VISIT 15 MINUTES OFFICE 59400 DILLON CARRANZA OUTPATIEN 9 9 DON R DON R T VISIT 15 MINUTES OFFICE 01627 LATANYA JORDANON, OUTPATIEN 9 9 WIN Null T VISIT 10 MINUTES OFFICE 70359 NIKKI JORDAN, OUTPATIEN 9 9 WIN Null T NEW 30 MINUTES OFFICE 17437 DILLON CARRANZA OUTPATIEN 9 9 DON R DON R T VISIT 15 MINUTES OFFICE 61593 DILLON CARRANZA OUTPATIEN 9 9 DON R DON R T VISIT 15 MINUTES OFFICE 14910 DILLON CARRANZA OUTPATIEN 9 9 DON R DON R T VISIT 5 MINUTES OFFICE 57659 DILLON CARRANZA OUTPATIEN 9 9 DON R DON R T VISIT 15 MINUTES
--- OUTSIDE RECORDS SUMMARY | 2016-07-18 15:55 | External Medical Summary Rpt ---
Author Author , Organization [employer] Address Unknown Phone Unavailable Purpose Continuity of Care Document - 10-23-2013 through 2016 Immunization Name Date Route CVX Reacti Commen Provid Is Given on t er Refuse d Tdap, Histor H149 No Adsorb 2013 ical ed Inform ation - Source Unspec ified
--- NOTE | 2016-07-18 16:34 | Urgent Treatment Center Report ---
History of Present Issue Date/Time Seen by Provider 07/18/16 1634 Visit Reason Pt arrived:Walked Presenting Problem:PT C/O RIGHT EAR PAIN THAT RADIATES TO HER HEAD X1 WEEK Location if Accident: Onset of symptoms date/time:/ or onset unknown for:MEDICAL HX UNKNOWN Have you (or family members/close friends) recently traveled outside the [place]? N If Yes, where/when: Have you had exposure to infectious disease within the past month? TB? Other? Specify: Source patient Exam Limitations no limitations ALLERGIES Coded Allergies: codeine (Intermediate, CHEST PAIN 03/10/16) Home Medications Active Scripts CEPHALEXIN (Keflex 500MG Capsule) 500 MG PO Q6H #40 CAP Prov: 06/17/16 Reported Medications Alprazolam (Xanax 0.5MG) 0.5 MG PO BID Montelukast Sodium 10 MG PO DAILY #30 Melatonin Fluticasone Propionate (Flonase 50 Mcg Nasal [place]) 1 SPRAY NA BID #16 Pantoprazole Sodium 40 MG PO DAILY #30 Citalopram Hydrobromide (Citalopram HBr) 10 MG PO QHS #30 History Medical History General CAD? No Angina: No PA: No Hypertension? No Hyperlipidemia? Yes CHF? No DVT? No PE? No COPD? No Asthma? No Anemia? No GERD? Yes Gastric ulcers? No GI Bleed? No Hernia? No Thyroid Problems? No Hypothyroidism? No CVA? No Seizures? No Diabetes? No Renal Insuffiency? No UTI? No Stones? No BPH? No GB Disease: Yes Nephritic Syndrome? No Asplenia? No Hepatitis? No Sickle Cell Disease? No Arthritis? No Migraines? No Cataracts? No Glaucoma? No MRSA? No HIV? No TB? No Anxiety? Yes Depression? Yes Cancer? No More? No Immunization HX DT/Tetanus 1-4 Years Ago Flu RECDINPAST Pneumonia Never Had Surgical Hx Previous Surgery?Y GALLBLADDER Tubal Ligation LEFT ELBOW LEFT WRIST BILAT EAR TUBES EAR TUBES L (SECOND TIME) Family History Family HX Diabetes No CAD No Hypertension Yes Hyperlipidemia No Cancer Yes TB No Social History Smoking Hx Smoker: Current Every Day Smoker Tobacco: Yes Type Cigarettes Packs/day < 1 Pack Alcohol Alcohol: No Review of Systems All Other Systems Reviewed and Negative ENT see HPI, ear pain, ear discharge. Physical Exam Vital Signs Vital Signs Date Time Temp Pulse Resp B/P Pulse O2 O2 Flow FiO2 Ox Delivery Rate 07/18 1552 98.4 120 14 122/75 98 - WBC >12,000 or <4,000 or 10% bands? 2 or more SIRS Criteria Met? B/P:122/75 MAP:90 Creatinine >2.0? UA output<0.5ml/kg/hr for 2 hrs? Platelet count >100,000? Lactate >2.0mmol/1? INR >1.2 or PTT > than 60 sec? Evidence of Organ Dysfunction? Provider documented clinical suspician of infection? Sepsis Criteria Count: 1 Sepsis Risk: General Appearance normal appearance, no apparent distress, fever Eye Exam - bilateral eye normal exam, bilateral eye PERRL, bilateral eye EOMI Ear, Nose, Throat abnormal TM (R), pharyngeal erythema, BILATERAL TUBES PRESENT, right TYMPANIC MEMBRANE BULGING PUS PRESENT Neck normal inspection Respiratory Status Yes: trachea midline, chest symmetrical, non tender chest. No: respiratory distress. Lung Sounds bilateral: normal breath sounds, lungs clear. Cardiovascular normal exam, regular rate/rhythm, no peripheral edema Peripheral Pulses Pulses normal Yes Neurologic alert, normal exam, oriented x 3 Medical Decision Making LABS/Meds/Orders Pt receiving controlled substance in ED? No Results/Orders Current Medication Orders Sig/Vincent Start time Last Medication Dose Route Stop Time Status Admin Ceftriaxone Sodium 1 GM ONCE ONE 07/18 1645 DC 06/04 IM 06/ 1646 1641 Dexamethasone Sodium 4 MG ONCE ONE / 1645 DC 06/04 Phosphate IM / 1646 1641 Lidocaine HCl 0 ONCE ONE / 1645 DC 06/04 IM / 1646 1641 Ceftriaxone Sodium 0 .STK-MED ONE 07/18 1639 DC .ROUTE Lidocaine HCl 0 .STK-MED ONE 07/18 1639 DC IJ Dexamethasone Sodium 0 .STK-MED ONE / 1638 DC Phosphate .ROUTE Departure Departure Time of Disposition 1648 Disposition DC Home or Self Care(routine) Clinical Impression Primary Impression: Otitis media Qualifiers: Otitis media type: other nonsuppurative Laterality: right Chronicity: acute Recurrence: not specified as recurrent Qualified Code: H65.191 - Other acute nonsuppurative otitis media, right ear Condition STABLE Referrals Geo Townsend MD Patient Instructions DI for Otitis Media (Middle Ear Infection)-Child Additional Instructions Tylenol Motrin as needed for pain and fever antibiotics as ordered follow-up with PCP this week return or be seen in the ER if worsening or no improvement Discharge Counseling Counseled pt/family regarding diagnosis, test results, R/B of controlled subst., home care, follow up needs Prescriptions Current Visit Scripts Amoxicillin (Amoxicillin 500MG) 500 MG PO BID 10 Days at 2354
[2016-07-18] MEDS ORDERED: AMOXICOT500 MG PO (16:50)
[2016-07-18 16:53] VITALS: BP 122/75
== END 2016-07-18 16:55 | disposition home or self-care (01) ==
LOC: UTC 15:39
DX: H65.191 Other acute nonsuppurative otitis media, right ear (principal); Z72.0 Tobacco use; K21.9 Gastro-esophageal reflux disease without esophagitis

== ENCOUNTER 2016-10-23 11:45 | Emergency (ER) | payer MEDICAID ==
[~2016-10-23] VITALS: Ht 180.3 cm; Wt 108.9 kg
--- NOTE | 2016-10-23 12:15 | Urgent Treatment Center Report ---
History of Present Issue Date/Time Seen by Provider 10/23/16 1210 Visit Reason Pt arrived:Walked Presenting Problem:PT C/O SORE THROAT, BODYACHES, AND SINUS PRESSURE X2 DAYS Location if Accident: Onset of symptoms date/time:/ or onset unknown for:MEDICAL HX UNKNOWN Have you (or family members/close friends) recently traveled outside the [place]? N If Yes, where/when: Have you had exposure to infectious disease within the past month? TB? Other? Specify: Patient state that she has been having sorethroat, bodyaches, and sinus pain and pressure for several days states that it hurts when she swallows. States that she fells pressure in her ears from her sinuses and now has started having a cough. States that her throat feels really irritated and has continued to get worse so she came in today to get checked ALLERGIES Coded Allergies: codeine (Intermediate, CHEST PAIN 03/10/16) Home Medications Active Scripts CEPHALEXIN (Keflex 500MG Capsule) 500 MG PO Q6H #40 CAP Prov: 06/17/16 Amoxicillin (Amoxicillin 500MG) 500 MG PO BID 10 Days Prov: 07/18/16 Reported Medications Alprazolam (Xanax 0.5MG) 0.5 MG PO BID Montelukast Sodium 10 MG PO DAILY #30 Melatonin Fluticasone Propionate (Flonase 50 Mcg Nasal [place]) 1 SPRAY NA BID #16 Pantoprazole Sodium 40 MG PO DAILY #30 Citalopram Hydrobromide (Citalopram HBr) 10 MG PO QHS #30 History Medical History General CAD? No Angina: No SC: No Hypertension? No Hyperlipidemia? Yes CHF? No DVT? No PE? No COPD? No Asthma? No Anemia? No GERD? Yes Gastric ulcers? No GI Bleed? No Hernia? No Thyroid Problems? No Hypothyroidism? No CVA? No Seizures? No Diabetes? No Renal Insuffiency? No UTI? No Stones? No BPH? No GB Disease: Yes Nephritic Syndrome? No Asplenia? No Hepatitis? No Sickle Cell Disease? No Arthritis? No Migraines? No Cataracts? No Glaucoma? No MRSA? No HIV? No TB? No Anxiety? Yes Depression? Yes Cancer? No More? No Immunization HX DT/Tetanus 1-4 Years Ago Flu RECDINPAST Pneumonia Never Had Surgical Hx Previous Surgery?Y GALLBLADDER Tubal Ligation LEFT ELBOW LEFT WRIST BILAT EAR TUBES EAR TUBES L (SECOND TIME) Family History Family HX Diabetes No CAD No Hypertension Yes Hyperlipidemia No Cancer Yes TB No Social History Smoking Hx Smoker: Current Every Day Smoker Tobacco: Yes Type Cigarettes Packs/day < 1 Pack Alcohol Alcohol: No Review of Systems All Other Systems Reviewed and Negative ENT ear pain, nose discharge, nose congestion, throat pain, throat swelling. Respiratory cough Physical Exam Vital Signs Vital Signs Date Time Temp Pulse Resp B/P Pulse O2 O2 Flow FiO2 Ox Delivery Rate 10/23 1205 97.9 68 18 123/88 96 General Appearance normal appearance, WD/WN, no apparent distress Ear, Nose, Throat sinus pain/drainage, nasal congestion, tonsillar swelling, Throat red, irritated and swollen drainage noted, no redness noted in ears, nares red, drainage noted yellowish in color Respiratory Status Yes: trachea midline, chest symmetrical, non tender chest. No: respiratory distress. 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 No Results/Orders Laboratory Tests 10/23/16 1155: Group A Strep Screen NOT DETECTED Orders Procedure Date/time Status [facility] STREP SCREEN 10/23 1212 Complete Departure Departure Time of Disposition 1234 Disposition DC Home or Self Care(routine) Clinical Impression Primary Impression: Upper respiratory infection Qualifiers: URI type: unspecified URI Qualified Code: J06.9 - Acute upper respiratory infection, unspecified Condition STABLE Referrals Geo Townsend MD (Family): 3 Days-Call Office Patient Instructions DI for Nasal Congestion, Sore Throat Additional Instructions * Monitor Temp. Tylenol and/or Ibuprofen as needed. ER if fever is no less than 101 despite alternating Tylenol and Ibuprofen * Encourage fluids, water, Gatorade, powerade, pedialyte if /toddler/or child * Warm salt water gargles for throat irritation *Warm fluids *Sore throat lozenges *Sleep elevated *humidifier or vaporizer *Flonase 2 sprays each nostril daily but may take 2-3 days to notice improvement with it *Bromfed may cause drowsiness. Know how it effect you or your child. Before driving, caring for small children or sending your child to school Follow up IMMEDIATELY for new or worsening of symptoms OR no noticeable improvement over the next 48-72 hours. 911 immediately for any life threatening symptoms such as chest pain or difficulty breathing Discharge Counseling Counseled pt/family regarding diagnosis, test results, medications/RX, home care, follow up needs Prescriptions Current Visit Scripts Azithromycin (Zithromycin (Z-VIOLET) 250MG Tab) 250 MG PO DAILY #6 TAB TAKE TWO (2) TABLETS ON DAY 1, THEN ONE (1) TABLET DAY #2 THRU #5 Methylprednisolone (Medrol Dose Violet) 4 MG PO UD #1 VIOLET TAKE DIRECTED ON PACKAGING at 4049
[2016-10-23] MEDS ORDERED: ZITHROMAX Z PA250 MG PO (12:38)
[2016-10-23] MEDS ORDERED: MEDROL 4MG. DOSE4 MG PO (12:38)
[2016-10-23 12:47] VITALS: BP 123/88
== END 2016-10-23 12:47 | disposition home or self-care (01) ==
LOC: UTC 11:45
DX: J06.9 Acute upper respiratory infection, unspecified (principal); F17.210 Nicotine dependence, cigarettes, uncomplicated; Z79.51 Long term (current) use of inhaled steroids; Z79.899 Other long term (current) drug therapy; Z88.5 Allergy status to narcotic agent

== ENCOUNTER → 2016-11-12 | Outpatient (CLI) | payer MEDICAID ==
--- NOTE | 2016-11-16 08:50 | RADIOLOGY REPORT PS360 ---
DIG MAMM-SCREEN KARYNA W/CAD CAD Screening COMPARISON: Digital mammograms 11/29/2014 and follow-up additional views right breast 12/16/2014 INDICATION: There is a history of breast cancer patient maternal great-grandmother diagnosed after menopause TECHNIQUE: Standard CC and MLO images were obtained. R2 CAD reviewed. FINDINGS: The breasts are composed almost entirely of fat with minimal scattered fibroglandular densities in each breast. There is no new or suspicious lesion in either breast and there are no suspicious microcalcifications. There are tiny nodes in both axilla. IMPRESSION: Stable exam with low density breasts and no suspicious lesion seen recommend yearly follow-up BI-RADS CATEGORY: 1_Negative RECOMMENDED FOLLOWUP: 12M 12 MONTH FOLLOW-UP (A letter has been sent to the patient regarding results of the study.)
== END ==
LOC: RAD 11-11 10:15
DX: Z12.31 Encounter for screening mammogram for malignant neoplasm of breast (principal)

== ENCOUNTER 2016-11-20 19:45 | Emergency (ER) | payer MEDICAID ==
[~2016-11-20] VITALS: Ht 180.3 cm; Wt 110.2 kg
[~2016-11-20 19:45] MED LIST changes: +MEDROL 4MG. DOSE4 MG PO
[2016-11-20] MEDS ORDERED: FLEXERIL10 MG PO (20:17)
[2016-11-20] MEDS ORDERED: IBUPROFEN800 MG PO (20:17)
--- NOTE | 2016-11-20 20:31 | Urgent Treatment Center Report ---
History of Present Issue Date/Time Seen by Provider 11/20/162005 Visit Reason Pt arrived:Walked Presenting Problem:PT C/O POSSIBLE PULLED MUSCLE IN NECK 1 WEEK AGO Location if Accident: Onset of symptoms date/time:/ or onset unknown for:MEDICAL HX UNKNOWN Have you (or family members/close friends) recently traveled outside the [place]? N If Yes, where/when: Have you had exposure to infectious disease within the past month? TB? Other? Specify: Patient states that she feels like she may have pulled a muscle in her neck and upper back about a week ago State that she has used a heating pad but not helped much. State that she feels tight in the area and when she wakes up in the morning she feels stiff State that she felt the back of her shoulder and neck and feels hard and like the muscle is tight ALLERGIES Coded Allergies: codeine (Intermediate, CHEST PAIN 03/10/16) Home Medications Active Scripts CEPHALEXIN (Keflex 500MG Capsule) 500 MG PO Q6H #40 CAP Prov: 06/17/16 Azithromycin (Zithromycin (Z-FRANCIS) 250MG Tab) 250 MG PO DAILY #6 TAB Prov: 10/23/16 Methylprednisolone (Medrol Dose Francis) 4 MG PO UD #1 FRANCIS Prov: 10/23/16 Amoxicillin (Amoxicillin 500MG) 500 MG PO BID 10 Days Prov: 07/18/16 Reported Medications Alprazolam (Xanax 0.5MG) 0.5 MG PO BID Montelukast Sodium 10 MG PO DAILY #30 Melatonin Fluticasone Propionate (Flonase 50 Mcg Nasal [place]) 1 SPRAY NA BID #16 Pantoprazole Sodium 40 MG PO DAILY #30 Citalopram Hydrobromide (Citalopram HBr) 10 MG PO QHS #30 History Medical History General CAD? No Angina: No [place]: No Hypertension? No Hyperlipidemia? Yes CHF? No DVT? No PE? No COPD? No Asthma? No Anemia? No GERD? Yes Gastric ulcers? No GI Bleed? No Hernia? No Thyroid Problems? No Hypothyroidism? No CVA? No Seizures? No Diabetes? No Renal Insuffiency? No UTI? No Stones? No BPH? No GB Disease: Yes Nephritic Syndrome? No Asplenia? No Hepatitis? No Sickle Cell Disease? No Arthritis? No Migraines? No Cataracts? No Glaucoma? No MRSA? No HIV? No TB? No Anxiety? Yes Depression? Yes Cancer? No More? No Immunization HX DT/Tetanus 1-4 Years Ago Flu RECDINPAST Pneumonia Never Had Surgical Hx Previous Surgery?Y GALLBLADDER Tubal Ligation LEFT ELBOW LEFT WRIST BILAT EAR TUBES EAR TUBES L (SECOND TIME) Family History Family HX Diabetes No CAD No Hypertension Yes Hyperlipidemia No Cancer Yes TB No Social History Smoking Hx Smoker: Current Every Day Smoker Tobacco: Yes Type Cigarettes Packs/day < 1 Pack Alcohol Alcohol: No Review of Systems All Other Systems Reviewed and Negative Constitutional denies chills, denies fever, denies weakness Respiratory denies shortness of breath Cardiovascular denies chest pain, denies syncope Gastrointestinal denies abdominal pain, denies nausea Genitourinary denies: no symptoms reported. Musculoskeletal muscle pain, muscle stiffness Physical Exam Vital Signs Vital Signs Date Time Temp Pulse Resp B/P Pulse O2 O2 Flow FiO2 Ox Delivery Rate 11/21 1999 98.8 107 18 153/73 98 General Appearance normal appearance, WD/WN, no apparent distress Respiratory Status Yes: trachea midline, chest symmetrical. No: respiratory distress. Lung Sounds bilateral: normal breath sounds, lungs clear. Cardiovascular normal exam, regular rate/rhythm, no peripheral edema Back no CVA tenderness, no vertebral tenderness, bowel/bladder continent, gait normal, muscle spasm, Muscle spasm and muscle tightness felt right upper shoulder area and neck patient agreed when touched that is where pain is Neurologic alert, normal exam, oriented x 3 Medical Decision Making LABS/Meds/Orders Pt receiving controlled substance in ED? No Results/Orders Current Medication Orders Sig/Vincent Start time Last Medication Dose Route Stop Time Status Admin Ketorolac 60 MG ONCE ONE 11/20 2014 DC Tromethamine IM 11/21 2015 Orphenadrine Citrate 60 MG ONCE ONE 11/20 2014 DC IM 11/20 2016 Progress [facility] [place] Progress Notes Comment Patient state that she feels much better after injections Departure Departure Time of Disposition 2016 Disposition DC Home or Self Care(routine) Clinical Impression Primary Impression: Muscle spasm Condition STABLE Referrals Geo Townsend MD (Family) Patient Instructions DI for Muscle Spasm Additional Instructions Take medication as prescribed FOllow up with family doctor if no improvement or worsening of symptoms Return if needed No heavy lifting Home treatment includes applying heat or ice, taking it easy but staying as active as you can, and using [id number] pain relievers. For severe pain or muscle spasm, your doctor may prescribe stronger medicines. Manual therapy, including massage, mobilization, and manipulation, can help some neck pain. Discharge Counseling Counseled pt/family regarding diagnosis Prescriptions Current Visit Scripts Cyclobenzaprine Hcl (Flexeril) 10 MG PO TID #15 TAB Ibuprofen (Ibuprofen 800MG) 800 MG PO QIDP PRN pain #30 TAB at 2030
[2016-11-20 20:43] VITALS: BP 153/73
--- OUTSIDE RECORDS SUMMARY | 2016-11-26 16:21 | External Medical Summary Rpt | CCD ---
Author Author , [facility] Organization [facility] Address Unknown Phone .IActionable Care Team Providers Care Computer Science Professor Name Role Phone KAROL WILEY KAROL Unavailable Unavailable SAURABH BEDOYA TER, BEDOYA TER Unavailable Unavailable BESSON, BESSON Unavailable Unavailable BESSON SOPHIE, BESSON Unavailable Unavailable SOPHIE BESSON SOPHIE, BESSON Unavailable Unavailable SOPHIE MOORE, MOORE Unavailable Unavailable MOORE ALL, MOORE ALL Unavailable Unavailable BEN, BEN Unavailable Unavailable JAMIA MARIETTA, JAMIA Unavailable Unavailable [...] ANNE MARIE, Unavailable Unavailable ANGELICA ANNE MARIE LION, LION Unavailable Unavailable JR ANAYA FULLER, Unavailable Unavailable JR LYRIC SEPIDEH, LYRIC Unavailable Unavailable [facility] CARYL JAM, CARYL Unavailable Unavailable JAM CARYL JAM, CARYL Unavailable Unavailable JAM [facility] Unavailable Unavailable INC, [facility] Unavailable Unavailable HOSPITAL, [facility] Unavailable Unavailable HOSPITAL P, [facility] P [facility], Unavailable Unavailable [facility], Unavailable Unavailable [facility] OXANA FIELDS, OXANA FIELDS Unavailable Unavailable [facility], [facility] JORDAN, JORDAN Unavailable Unavailable JORDAN KADEN, JORDAN Unavailable Unavailable KADEN JORDAN KADEN, JORDAN Unavailable Unavailable KADEN WIN JORDAN, Unavailable Unavailable WIN JORDAN [facility] Unavailable Unavailable [facility], [facility] RICH ADAMS, Unavailable Unavailable RICH ADAMS [facility], Un[facility]available [facility], [facility] PETTEY, PETTEY Unavailable Unavailable PETTEY JAM, PETTEY Unavailable Unavailable JAM PICKLESIMER JR JARED, Unavailable Unavailable PICKLESIMER JR JARED SADEK MOH, SADEK MOH Unavailable Unavailable SCHULSTAD TRUNG, Unavailable Unavailable [facility] TR[facility] SHASHY, SHASHY Unavailable Unavailable SHASHY SARITA, SHASHY Unavailable Unavailable SARITA SOTINGEANU SAURABH, Unavailable Unavailable SOTINGEANU SAURABH ROLO SHE, Unavailable Unavailable ROLO SHE CARRANZA DON, Unavailable Unavailable CARRANZA DON CARRANZA DON, Unavailable Unavailable CARRANZA DON CARRANZA, DON R, Unavailable Unavailable CARRANZA, DON R TAMARA LASHAUN, TAMARA Unavailable Unavailable [facility] Unavailable Unavailable [facility] Unavailable Unavailable [address][id number], [id number] Unavailable Unavailable DEPT [facility], [facility] DE[facility] Unavailable Unavailable DEPT [facility], [facility] MARY BUSBY, MARY Unavailable Unavailable KEHINDE BUSBY, MARY Unavailable Unavailable KEHINDE INDIRA MAT, INDIRA MAT Unavailable Unavailable Purpose Continuity of Care Document - 04-19-2008 through 2016 Problems Code Diagnosis DOS Provider Status Z111 ENCOUNTER 10-25-2016 [facility] DE[facility] RESPIRATORY [facility] TUBERCULOSI S H6983 OTHER SPEC 10-05-2016 EAR, NOSE DISORDERS AND THROAT EUSTACHIAN SPECIAL TUBE BILAT 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 09-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 EAR, NOSE AL HEARING AND THROAT LOSS SPECIAL BILATERAL M1812 UNI PRIM 09-02-2016 [facility] OSTEOARTHRI PHYSICIANS TIS 1ST CMC GROUP JOINT LT HAND [id number] PAIN IN 08-14-2016 [facility] RIGHT [facility] FINGERS INC M654 RADIAL 08-13-2016 [facility] [facility] TENOSYNOVIT INTERNAL IS DE MED QUERVAIN M7122 SYNOVIAL 08-13-2016 [facility] [place] POPLITEAL INTERNAL SPACE BOSE MED LEFT KNEE [id number] SENSORNURL 07-23-2016 EAR, NOSE HEAR LOS AND THROAT UNI LT EAR SPECIAL RSTRC CNTRALATERL [id number] OTHER ACUTE 07-18-2016 [facility] NONSUPPURAT INC [place] OTITIS MEDIA RT EAR K219 GASTRO-ESOP 07-18-2016 [facility] REFLUX [facility] DISEASE INC WITHOUT ESOPHAGITIS Z720 TOBACCO USE 07-18-2016 [facility] M779 ENTHESOPATH 07-14-2016 [facility] [place] UNSPECIFIED INTERNAL MED [id number] PRIMARY 06-30-2016 [facility]STE[facility]ICAL TIS RIGHT IMAGING ASS WRIST M7989 OTHER 06-30-2016 [facility] SPECIFIED [place] SOFT TISSUE INTERNAL DISORDERS MED [id number] CELLULITIS 06-17-2016 [facility] LEFT [facility] LOWER LIMB INC R232 FLUSHING 06-01-2016 [facility] N393 STRESS 05-06-2016 [facility]PITAL P MALE L309 DERMATITIS 04-22-2016 [facility] UNSPECIFIED [place] INTERNAL MED J00 ACUTE 04-04-2016 [facility] NASOPHARYNG PHYSICIAN ITIS COMMON GROUP COLD [id number] AC 03-17-2016 [facility] SUPPURATIVE PHYSICIAN OM W/O GROUP RUPT EAR DRUM RECUR LT EAR K5730 DIVERTICULO 03-10-2016 [facility] S[facility] LG MEDICAL INTEST W/O IMAGING ASS PERF/ABSC W/O BLEED R1011 RIGHT UPPER 03-10-2016 [facility] H6023 MALIGNANT 03-01-2016 [facility] OTITIS PHYSICIANS EXTERNA GROUP BILATERAL H6503 ACUTE 03-01-2016 [facility] SEROUS PHYSICIANS OTITIS GROUP MEDIA BILATERAL 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 [facility] 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 M5441 LUMBAGO 01-23-2016 [facility] WITH [facility]ICI[facility], [facility] RIGHT SIDE M545 LOW BACK 01-23-2016 [facility] H5213 MYOPIA 11-28-2015 CARYL JAM BILATERAL R1031 RIGHT LOWER 11-28-2015 [facility] R1032 LEFT LOWER 11-28-2015 [facility] R310 GROSS 11-28-2015 [facility] HEMATURIA [place] INTERNAL MED R319 HEMATURIA 11-28-2015 [facility]NSPECIFIED [facility]ICAL IM[facility]ING ASS R079 CHEST PAIN 11-17-2015 [facility] UNSPECIFIED PHYSICIANS, PLLC S33928 CUTANEOUS 10-28-2015 [facility]ESS OF [facility] RIGHT LOWER INC LIMB K46639 CUTANEOUS 10-28-2015 [facility] ABSCESS OF PHYSICIANS, HEAD ANY PLLC PART EXCEPT FACE L0390 CELLULITIS 10-15-2015 [facility] UNSPECIFIED [place] INTERNAL MED H6120 IMPACTED 09-25-2015 [facility] CERUMEN PHYSICIANS UNSPECIFIED GROUP EAR H6590 UNSPECIFIED 09-25-2015 [facility] PHYSICIANS NONSUPPURAT GROUP [place] OTITIS MEDIA UNS EAR H6903 PATULOUS 09-25-2015 JORDAN KADEN EUSTACHIAN TUBE BILATERAL R0982 POSTNASAL 09-18-2015 [facility] DRIP [place] INTERNAL MED J029 ACUTE 09-15-2015 [facility] PHARYNGITIS PHYSICIAN GROUP UNSPECIFIED K120 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[facility] ORAL PHYSICIAN APHTHAE GROUP J0101 ACUTE 09-09-2015 [facility] RECURRENT PHYSICIANS, [facility] SINUSITIS J4520 MILD 09-09-2015 [facility] INTERMITTEN PHYSICIANS, T ASTHMA [facility] UNCOMPLICAT ED R0600 DYSPNEA 09-09-2015 [facility]PEC[facility]ING ASS R221 LOCALIZED 09-09-2015 [facility] MASS AND IMAGING ASS LUMP NECK R05 COUGH 09-08-2015 [facility] PHYSICIANS GROUP H6090 UNSPECIFIED 08-25-2015 [facility] OTITIS PHYSICIANS EXTERNA GROUP UNSPECIFIED EAR H6501 ACUTE 07-17-2015 [facility] SEROUS PHYSICIANS OTITIS GROUP MEDIA RIGHT EAR H6591 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-17-2015 [facility] NONSUPPURAT INC [place] OTITIS MEDIA RT EAR H9391 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-17-2015 [facility] DISORDER ANESTH OF OF RIGHT THE BLUE EAR I50644 PAIN IN 05-28-2015 [facility] HAND [facility] J0190 ACUTE 05-11-2015 [facility] SINUSITIS PHYSICIANS UNSPECIFIED GROUP A09 INFECTIOUS 03-14-2015 [facility] ITIS AND INC COLITIS UNSPEC J069 ACUTE UPPER 03-12-2015 [facility] INTERNAL INFECTION MED UNSPECIFIED M542 CERVICALGIA 02-28-2015 [facility] 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, 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 N390 URINARY 02-24-2015 [facility] TRACT PHYSICIANS INFECTION GROUP SITE NOT SPECIFIED L664 FOLLICULITI 02-09-2015 [facility] RETIC[facility] L738 OTHER 02-09-2015 [facility] FOLLICULAR INC DISORDERS B351 TINEA 01-30-2015 [facility] UNGUIUM B353 TINEA PEDIS 01-30-2015 [facility] I890 LYMPHEDEMA 01-30-2015 [facility] NOT ELSEWHERE CLASSIFIED M2570 OSTEOPHYTE 01-30-2015 [facility] UNSPECIFIED JOINT H9202 OTALGIA 01-17-2015 [facility] LEFT EAR VALLEY INTERNAL MED H6506 ACUTE 01-16-2015 [facility] SEROUS PHYSICIANS OTITIS GROUP MEDIA RECURRENT BILATERAL H6523 CHRONIC 01-16-2015 [facility] SEROUS [facility] OTITIS INC MEDIA BILATERAL H6693 OTITIS 01-16-2015 [facility] MEDIA ANESTH OF UNSPECIFIED THE BLUE BILATERAL S64026 ENCOUNTER 01-15-2015 [facility] FOR OTHER [facility] PREPROCEDUR INC AL EXAMINATION V52531 ACUTE & 12-27-2014 [facility] OTITS MEDIA BILATERAL H1032 UNSPECIFIED 12-17-2014 [facility] CONJUNCTIVI [facility] TIS LEFT EYE N6489 OTHER 12-16-2014 [place] SPECIFIED MEDICAL DISORDERS IMAGING ASS OF BREAST R928 OTH ABNORM 12-16-2014 [facility] & [facility] INCONCLUSIV INC E FIND ON DX IMAG BREAST B9789 OT VIRAL 12-13-2014 [facility] AGENT CAUSE [facility] DISEASES INTERNAL CLASSIFIED MED ELSW H6504 ACUTE 12-09-2014 [facility] SEROUS PHYSICIANS OTITIS GROUP MEDIA RECURRENT RIGHT EAR N15724 ANKYLOSIS 12-09-2014 [facility] OF EAR PHYSICIANS OSSICLES GROUP RIGHT EAR H9191 UNSPECIFIED 12-09-2014 [facility] HEARING PHYSICIANS LOSS RIGHT GROUP EAR S73567 PAIN IN 12-05-2014 [place] [facility] RIGHT TOES V08791 PAIN IN 12-05-2014 [place] [facility] LEFT TOES Z1231 ENCOUNTER 11-29-2014 [facility] SCREENING MEDICAL MAMMO MALIG IMAGING ASS NEOPLASM BREAST Z803 FAMILY 11-29-2014 [facility] HISTORY OF MEDICAL MALIGNANT IMAGING ASS NEOPLASM OF BREAST B55014 PAIN IN 11-15-2014 [facility] LEFT FOOT VALLEY INTERNAL MED V252 STERILIZATI 11-05-2014 [facility] DEPT DON[facility] 29761 DYSFUNCTION 09-19-2014 [facility] OF PHYSICIANS EUSTACHIAN GROUP TUBE 4779 ALLERGIC 09-19-2014 [facility] RHINITIS PHYSICIANS CAUSE GROUP UNSPECIFIED 61832 OTHER 09-19-2014 [facility] DISEASES OF PHYSICIANS NASAL GROUP CAVITY AND SINUSES 7295 PAIN IN 09-18-2014 [facility] SOFT [place] TISSUES OF INTERNAL LIMB MED 48291 SIMPLE/UNSP 2014 [facility] ECIFIED [facility] CHRONIC INC SEROUS OTITIS MEDIA 3814 NONSUPPRATV 2014 [facility] OTITIS MEDICAL MEDIA NOT IMAGING ASS SPEC ACUT/CHRON 470 DEVIATED 2014 [facility] NASAL MEDICAL SEPTUM IMAGING ASS 56542 UNSPECIFIED 09-02-2014 [facility] CONDUCTIVE PHYSICIANS HEARING GROUP LOSS 4730 CHRONIC 09-02-2014 [facility] MAXILLARY PHYSICIANS SINUSITIS GROUP 3829 UNSPECIFIED 08-29-2014 JORDAN KADEN OTITIS MEDIA 01498 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 4619 ACUTE 08-22-2014 [facility] SINUSITIS, VALLEY UNSPECIFIED INTERNAL MED 3899 UNSPECIFIED 08-13-2014 [facility] HEARING PHYSICIANS LOSS GROUP 7856 ENLARGEMENT 08-13-2014 [facility] OF LYMPH PHYSICIANS NODES GROUP 08136 GANGLION OF 05-31-2014 [facility] TENDON PHYSICIANS SHEATH GROUP 57213 UNSPECIFIED 05-31-2014 COMMUNITY GANGLION ANESTH OF THE BLUE 49624 PAIN IN 05-30-2014 [place] JOINT, MEDICAL FOREARM IMAGING ASS 42768 GANGLION OF 05-29-2014 [facility] JOINT [facility] INC V7283 OTHER 05-29-2014 [facility] PRE-OPERATI INC VE EXAMINATION 21264 UNSPECIFIED 02-27-2014 [facility] OTALGIA [place] INTERNAL MED 4871 INFLUENZA 02-13-2014 [facility] WITH OTHER [place] RESPIRATORY INTERNAL MED MANIFESTATI ONS 91383 GENERALIZED 02-13-2014 [facility] PAIN [place] INTERNAL MED 4659 ACUTE URIS 12-06-2013 [facility] OF [place] UNSPECIFIED INTERNAL SITE MED 486 PNEUMONIA, 12-03-2013 [facility] ORGANISM [place] UNSPECIFIED INTERNAL MED 7840 HEADACHE 12-03-2013 [facility] [place] INTERNAL MED 6822 CELLULITIS 11-15-2013 [facility] AND ABSCESS PHYSICIANS OF TRUNK GROUP 40130 ABDOMINAL 11-15-2013 [facility] PAIN, PHYSICIANS UNSPECIFIED GROUP SITE 19065 ABDOMINAL 10-29-2013 [facility] PAIN, [place] GENERALIZED INTERNAL MED 44681 POLYURIA 10-27-2013 [facility] V700 ROUTINE 10-27-2013 [facility] EXAM@HEALTH CARE FACL 94505 ESOPHAGEAL 10-26-2013 [facility] REFLUX [place] INTERNAL MED 80793 INSOMNIA 10-26-2013 [facility] UNSPECIFIED [place] INTERNAL MED 6160 CERVICITIS 10-23-2013 [facility] ENDOCERVICI TIS V7231 ROUTINE 10-23-2013 [facility] AL EXAMINATION 1101 DERMATOPHYT 2013 [facility] OSIS OF [facility] NAIL INC 2400 GOITER, 07-03-2013 MARY KEHINDE SPECIFIED SIMPLE 2449 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-03-2013 [facility] HYPOTHYROID INC [place]M 12953 OTOGENIC 07-03-2013 M[facility] KEHINDE PAIN 54122 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-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 7842 SWELLING 07-03-2013 MARY KEHINDE MASS OR LUMP IN HEAD AND NECK 09733 UNSPECIFIED 06-19-2013 MARY KEHINDE TINNITUS 5990 URINARY 06-11-2013 [facility] TRACT INFECTION SITE NOT SPECIFIED 2409 GOITER, 06-08-2013 [facility] UNSPECIFIED GIO 37587 OBESITY, 06-06-2013 [facility] UNSPECIFIED [facility] INC 45171 UNSPECIFIED 06-05-2013 EAR, NOSE ABNORMAL AND THROAT AUDITORY SPECIAL PERCEPTION 09946 UNSPECIFIED 06-05-2013 [facility] VAGINITIS PHYSICIANS AND GROUP VULVOVAGINI TIS 56571 UNSPECIFIED 05-28-2013 JORDAN KADEN ACUTE NONSUPPURAT [place] OTITIS MEDIA 70967 METHICILLIN 05-28-2010 [facility] RESISTANT [facility] STAPHYLOCOC INC CUS AUREUS 6826 CELLULITIS 05-28-2010 [facility] AND ABSCESS [facility] OF LEG INC EXCEPT FOOT 82871 METHICILLIN 05-26-2010 [facility] RESISTANT DON STAPH AUREUS SEPTICEMIA V090 INFECTION 05-26-2010 [facility] W/MICROORGA DON NISMS RESISTANT PENICILLINS V7241 05-26-2010 [facility] EXAMINATION [facility] OR TEST INC NEGATIVE RESULT 9164 HIP THI 05-23-2010 [facility] LEG&ANK DON INSECT BITE NONVENOMOUS W/O INF 5589 OTH&UNSPEC 12-13-2008 [facility] NONINFECTIO DON R US GASTROENTER ITIS&COLITI S 22965 CALCANEAL 12-13-2008 [facility] SPUR DON R 1105 DERMATOPHYT 12-02-2008 [facility] OSIS OF THE MARCIA R BODY 88270 OVERWEIGHT 10-09-2008 MARCIA CARRANZA R 4618 OTHER ACUTE 10-09-2008 [facility], SINUSITIS DON R 34722 UNSPECIFIED 06-11-2008 WIN JORDAN SENSORINEUR AL HEARING LOSS 68615 UNSPECIFIED 06-06-2008 [facility] OBSTRUCTION OF EUSTACHIAN TUBE 3882 UNSPECIFIED 04-23-2009 JORDAN, SUDDEN WIN G HEARING LOSS Medications Na ND Rx Da Fi Fi Am Da Di Ph RX Ph St me C No te ll ll ou ys ag ar # ys at rm s nt no ma ic us Or Da si cy ia de te s n re d AL 67 09 10 60 30 00 EA Ac IN 25 -0 -[address] ti AZ 30 8- 6- 00 00 SI ve OL 90 20 20 50 DE AM 11 17 17 08 1 44 PH 0. AR 5 MA MG CY TA OF BL CY ET NT HI AN A IN C MO 60 09 10 30 30 00 EA Ac NT 50 -0 -[address] ti EL 53 8- 6- 00 00 SI ve UK 56 20 20 49 DE 20 17 17 73 T 8 26 PH SO AR D MA 10 CY MG OF CY TA NT BL HI ET AN A IN C AZ 64 09 10 6. 5 00 EA Ac IT 67 -0 -[address] ti HR 90 9- 6- 0 00 SI ve OM 96 20 20 50 DE YC 10 17 17 09 IN 5 56 PH AR 25 MA 0 CY MG OF TA CY BL NT ET HI AN A IN C ME 00 09 10 21 6 00 EA Ac TH 78 -0 -[address] ti YL 15 9- 6- 00 00 SI ve IN 02 20 20 50 DE ED 20 17 17 09 NI 7 57 PH SO AR LO MA NE CY 4 OF MG CY NT DO HI SE AN PK A IN C IM 00 08 09 30 30 00 EA Ac IP 78 -3 -[address] ti RA 11 1- 9- 00 00 SI ve NV 76 20 20 48 DE NE 60 17 17 23 1 24 PH HC AR L MA 50 CY MG OF CY TA NT BL HI ET AN A IN C PA 65 08 09 30 30 00 EA Ac NT 86 -2 -[address] ti OP 20 4- 2- 00 00 SI ve RA 56 20 20 49 DE ZO 09 17 17 24 LE 0 35 PH AR SO MA D CY DR OF 40 CY NT MG HI AN TA A B IN C NE 24 08 09 10 10 00 EA Ac OM 20 -2 -[address] ti YC 80 2- 5- 00 00 SI ve IN 63 20 20 49 DE -P 11 17 17 87 OL 0 65 PH YM AR YX MA IN CY -H C OF EA CY R NT SO HI LN AN A IN C CI 00 08 09 7. 7 00 EA Ac IN 06 -1 -[address] ti OD 58 4- 8- 0 00 SI ve EX 53 20 20 49 DE 30 17 17 77 OT 2 56 PH IC AR MA REYES CY SP EN OF SI CY ON NT HI AN A IN C CI 65 08 09 30 30 00 EA Ac TA 86 -1 -[address] ti LO 20 6- 8- 00 00 SI ve IN 00 20 20 49 DE AM 50 17 17 00 5 32 PH HB AR R MA 10 CY MG OF CY TA NT BL HI ET AN A IN C AL 67 08 09 60 30 00 EA Ac IN 25 -0 -[address] ti AZ 30 7- 1- 00 00 SI ve OL 90 20 20 49 DE AM 11 17 17 71 1 13 PH 0. AR 5 MA MG CY TA OF BL CY ET NT HI AN A IN C MO 60 08 09 30 30 00 EA Ac NT 50 -0 -[address] ti EL 53 9- 1- 00 00 SI ve UK 56 20 20 49 DE 20 17 17 73 T 8 26 PH SO AR D MA 10 CY MG OF CY TA NT BL HI ET AN A IN C IM 00 07 08 30 30 00 EA Ac IP 78 -2 -[address] ti RA 11 4- 8- 00 00 SI ve NV 76 20 20 48 DE NE 60 17 17 23 1 24 PH HC AR L MA 50 CY MG OF CY TA NT BL HI ET AN A IN C PA 65 07 08 30 30 00 EA Ac NT 86 -2 -[address] ti OP 20 4- 8- 00 00 SI ve RA 56 20 20 49 DE ZO 09 17 17 24 LE 0 35 PH AR SO MA D CY DR OF 40 CY NT MG HI AN TA A B IN C DI 65 07 08 10 30 00 EA Ac CL 16 -2 -[address] ti OF 20 0- 8- 00 00 SI ve EN 83 20 20 0 49 DE AC 36 17 17 50 6 51 PH SO AR DI MA UM CY 1% OF CY GE NT L HI AN A IN C MO 60 07 08 30 30 00 EA Ac NT 50 -1 -[address] ti EL 53 0- 4- 00 00 SI ve UK 56 20 20 49 DE 20 17 17 00 T 8 33 PH SO AR D MA 10 CY MG OF CY TA NT BL HI ET AN A IN C CI 65 07 08 30 30 00 EA Ac TA 86 -1 -[address] ti LO 20 0- 4- 00 00 SI ve IN 00 20 20 49 DE AM 50 17 17 00 5 32 PH HB AR R MA 10 CY MG OF CY TA NT BL HI ET AN A IN C IB 53 07 08 60 30 00 EA Ac UP 74 -0 -[address] ti RO 60 7- 4- 00 00 SI ve FE 46 20 20 49 DE N 60 17 17 36 80 5 91 PH 0 AR MG MA CY TA BL OF ET CY NT HI AN A IN C CH 00 07 08 56 28 00 EA Ac AN 06 -0 -[address] ti TI 90 7- 4- 00 00 SI ve X 46 20 20 49 DE 1 95 17 17 36 MG 6 97 PH AR TA MA BL CY ET OF CY NT HI AN A IN C AL 67 07 08 60 30 00 EA Ac IN 25 -0 -[address] ti AZ 30 7- 4- 00 00 SI ve OL 90 20 20 49 DE AM 11 17 17 37 1 03 PH 0. AR 5 MA MG CY TA OF BL CY ET NT HI AN A IN C FL 60 07 08 16 15 00 EA Ac UT 43 -0 -[address] ti IC 20 7- 4- 00 00 SI ve 26 20 20 49 DE ON 41 17 17 37 E 5 04 PH IN AR OP MA CY 50 OF MC CY G NT SP HI RA AN Y A IN C CI 00 07 08 7. 7 00 CL Ac IN 06 -0 -0 50 00 IN ti OD 58 6- 4- 0 00 IC ve EX 53 20 20 43 30 17 17 60 PH OT 2 63 AR IC MA CY REYES SP EN SI ON HY 00 06 07 [address] 40 -3 -[address] ti OC 60 0- 8- 00 00 SI ve OD 12 20 20 49 DE ON 30 17 17 31 -A 5 66 PH CE AR TA MA NV CY NO PH OF EN CY NT 5- HI 32 AN 5 A IN C PA 65 06 07 30 30 00 EA Ac NT 86 -2 -[address] ti OP 20 4- 1- 00 00 SI ve RA 56 20 20 49 DE ZO 09 17 17 24 LE 0 35 PH AR SO MA D CY DR OF 40 CY NT MG HI AN TA A B IN C IM 00 06 07 30 30 00 EA Ac IP 78 -2 -[address] ti RA 11 2- 1- 00 00 SI ve NV 76 20 20 48 DE NE 60 17 17 23 1 24 PH HC AR L MA 50 CY MG OF CY TA NT BL HI ET AN A IN C IN 59 06 07 42 9 00 EA Ac ED 74 -0 -[address] ti NI 60 9- 7- 00 00 SI ve SO 17 20 20 49 DE NE 31 17 17 06 0 85 PH 10 AR MA MG CY TA OF BL CY ET NT HI AN A IN C NE 24 06 07 10 7 00 EA Ac OM 20 -0 -[address] ti YC 80 9- 7- 00 00 SI ve IN 63 20 20 49 DE -P 11 17 17 07 OL 0 01 PH YM AR YX MA IN CY -H C OF EA CY R NT SO HI LN AN A IN C AL 67 06 06 60 30 00 EA Ac IN 25 -0 -[address] ti AZ 30 4- 0- 00 00 SI ve OL 90 20 20 49 DE AM 11 17 17 00 1 19 PH 0. AR 5 MA MG CY TA OF BL CY ET NT HI AN A IN C CI 65 06 06 30 30 00 EA Ac TA 86 -0 -[address] ti LO 20 5- 0- 00 00 SI ve IN 00 20 20 49 DE AM 50 17 17 00 5 32 PH HB AR R MA 10 CY MG OF CY TA NT BL HI ET AN A IN C MO 60 06 06 30 30 00 EA Ac NT 50 -0 -[address] ti EL 53 5- 0- 00 00 SI ve UK 56 20 20 49 DE 20 17 17 00 T 8 33 PH SO AR D MA 10 CY MG OF CY TA NT BL HI ET AN A IN C AM 16 06 06 20 10 00 EA Ac OX 71 -0 -[address] ti IC 40 5- 0- 00 00 SI ve IL 29 20 20 49 DE LI 90 17 17 00 N 4 52 PH 50 AR 0 MA MG CY CA OF PS CY UL NT E HI AN A IN C PA 65 05 06 30 30 00 EA Ac NT 86 -2 -[address] ti OP 20 7- 3- 00 00 SI ve RA 56 20 20 48 DE ZO 09 17 17 91 LE 0 40 PH AR SO MA D CY DR OF 40 CY NT MG HI AN TA A B IN C AL 67 05 06 10 5 00 EA Ac IN 25 -2 -[address] ti AZ 30 7- 3 00 SI ve OL 90 20 20 48 DE AM 11 17 17 91 1 41 PH 0. AR 5 MA MG CY TA OF BL CY ET NT HI AN A IN C IB 53 05 06 60 30 00 EA Ac UP 74 -1 -[address] ti RO 60 - 00 SI ve FE 46 20 20 48 DE N 60 17 17 71 80 5 79 PH 0 AR MG MA CY TA BL OF ET CY NT HI AN A IN C RA 53 05 06 60 30 00 EA Ac NI 74 -1 -[address] ti TI 60 1- 00 SI ve DI 25 20 20 48 DE NE 30 17 17 71 5 80 PH 15 AR 0 MA MG CY TA OF BL CY ET NT HI AN A IN C MO 60 05 30 30 00 EA Ac NT 50 -0 -[address] ti EL 53 9- 00 SI ve UK 56 20 20 47 DE 20 17 17 88 T 8 25 PH SO AR D MA 10 CY MG OF CY TA NT BL HI ET AN A IN C IM 00 05 30 30 00 EA Ac IP 78 -0 -[address] ti RA 11 9- 00 SI ve NV 76 20 20 48 DE NE 60 17 17 23 1 24 PH HC AR L MA 50 CY MG OF CY TA NT BL HI ET AN A IN C CE 65 05 06 40 10 00 EA Ac PH 86 -0 -[address] ti AL 20 5- 2- 00 SI ve EX 01 20 20 48 DE IN 90 17 17 62 5 36 PH 50 AR 0 MA MG CY CA OF PS CY UL NT E HI AN A IN C AL 67 02 05 60 30 00 EA Ac IN 25 -1 -[address] ti AZ 30 3- 00 SI ve OL 90 20 20 47 DE AM 11 17 17 58 1 74 PH 0. AR 5 MA MG CY TA OF BL CY ET NT HI AN A IN C PA 65 04 05 30 30 00 EA Ac NT 86 -2 -[address] ti OP 20 5- 9- 00 SI ve RA 56 20 20 47 DE ZO 09 17 17 33 LE 0 52 PH AR SO MA D CY DR OF 40 CY NT MG HI AN TA A B IN C CI 65 04 05 30 30 00 EA Ac TA 86 -2 -[address] ti LO 20 5- 9- 00 00 SI ve IN 00 20 20 47 DE AM 50 17 17 24 5 82 PH HB AR R MA 10 CY MG OF CY TA NT BL HI ET AN A IN C AL 67 04 05 60 30 00 EA Ac IN 25 -1 -[address] ti [...] 11 3- 8- 00 00 SI ve NV 76 20 20 48 DE NE 60 [...] 20 3- 8- 00 00 SI ve IN 00 20 20 47 DE AM 50 [...] 03 04 60 30 00 EA Ac IN 25 -2 -[address] ti [...] 11 3- 1- 00 00 SI ve NV 76 20 20 47 DE NE 60 [...] 20 6- 4- 00 00 SI ve IN 00 20 20 47 DE AM 50 [...] 17 17 56 E 5 51 PH IN AR OP MA CY 50 OF MC [...] TA A B IN C CI 65 01 02 30 30 00 EA Ac TA 86 -1 -[address] ti LO 20 6- 7- 00 00 SI ve IN 00 20 20 47 DE AM 50 17 17 24 5 82 PH HB AR R MA 10 CY MG OF CY TA NT BL HI ET AN A IN C CI 00 01 02 7. 5 00 EA Ac IN 06 -1 -[address] ti OD 58 6- 7- 0 00 SI ve EX 53 20 20 47 DE 30 17 17 26 OT 2 50 PH IC AR MA REYES CY SP EN OF SI CY ON NT HI AN A IN C MO 60 01 [...] HI AN TA A B IN C IN 59 12 01 12 6 00 EA Ac ED 74 -1 -[address] ti NI 60 2- 3- 00 00 SI ve SO 17 20 20 46 DE NE 50 16 17 85 6 64 PH 20 AR MA MG CY TA OF BL CY ET NT HI AN A IN C TR 16 12 01 15 3 00 EA Ac AM 71 -0 -[address] ti AD 40 9- 3- 00 00 SI ve OL 11 20 20 46 DE 11 16 17 83 HC 2 03 PH L AR 50 MA CY MG OF TA CY BL NT ET HI AN A IN C ME 00 12 01 40 20 00 EA Ac TH 60 -0 -[address] ti OC 34 9- 3- 00 00 SI ve AR 48 20 20 46 DE BA 52 16 17 82 MO 1 98 PH L AR 50 MA 0 CY MG OF TA CY BL NT ET HI AN A IN C DI 00 12 01 60 30 00 EA Ac CL 22 -0 -[address] ti OF 82 9- 3- 00 00 SI ve EN 55 20 20 46 DE AC 09 16 17 82 6 97 PH SO AR D MA EC CY 50 OF CY MG NT HI TA AN B A IN C CH 00 12 01 56 28 00 EA Ac AN 06 -0 -[address] ti TI 90 6- 9- 00 SI ve X 46 20 20 46 DE 1 95 16 17 78 MG 6 49 PH AR TA MA BL CY ET OF CY NT HI AN A IN C IN 65 12 01 10 3 00 EA [...] [address] Ac IN 09 -3 -[address] 92 EP [...] 1- 8- 00 MA 69 HE ve IN 34 20 20 RT 7 NS AM [...] 01 [address] Ac IN 25 -1 -[address] 47 EP [...] [address] Ac IN 25 -1 -[address] 47 EP [...] [address] Ac IN 25 -1 -[address] 49 EP [...] #5 BL 91 ET Immunization Name Date Rout CVX Reac Dose Comm Prov Is Faci e tion ent ider Refu lity Give sed n TDAP 0 115 [facility] No [facility] 9-20 O O VACC 14 DIST DIST INE RICT RICT 7 YRS/ [facility] > IM DEPT DEPT [facility] Procedures Procedure DOS Code Location Performer Comment SKIN TEST 60935 [facility] SIS [facility] DONOVAN INTRADERM AL PURE TONE 79070 EAR, NOSE SHASHY 7 AND AUDIOMETR THROAT Y AIR SPECIAL ONLY TYMPANOME 17650 EAR, NOSE SHASHY TRY 7 AND THROAT SPECIAL APPL 28890 [facility] 7 [facility]/> AREAS INC INC ULTRASOUN D EA 15 MIN MANUAL [id number] [facility]Y 7 [facility] TQS 1/> INC INC REGIONS EACH 15 MINUTES COMPRE 38387 EAR, NOSE SHASHY AUDIOMETR 7 AND Y THROAT THRESHOLD SPECIAL EVAL SP RECOGNIJ TYMPANOME 77723 EAR, NOSE SHASHY TRY 7 AND THROAT SPECIAL UNCLASSIF J3490 [facility]OD IED DRUGS 7 [facility] INC INC THERAPEUT 78608 [facility] IC 7 [facility] PROPHYLAC INC INC TIC/DX INJECTION SUBQ/IM RADEX 72046 [facility] WRIST 7 [facility] COMPLETE INC INC MINIMUM 3 VIEWS RADEX 42484 [facility] HAND 7 [facility] MINIMUM 3 INC INC VIEWS UNCLASSIF J3490 [facility] IED DRUGS 7 [facility] INC INC GONADOTRO 75545 [facility] PIN 7 [facility] [place] [address] [facility] ESTROGENS 7 [facility] TOTAL INC INC GONADOTRO 61800 DEB [facility] PIN 7 [facility] FOLLICLE INC INC STIMULATI NG HORMONE COMPREHEN 91700 [facility] SIVE 7 [facility] METABOLIC INC INC PANEL THERAPEUT 18579 [facility] BEN IC 7 PHYSICIAN PROPHYLAC GROUP TIC/DX INJECTION SUBQ/IM INJECTION J1100 [facility] BEN 7 PHYSICIAN DEXAMETHO GROUP SONE SODIUM PHOSPHATE 1 MG THER 92883 DEB [facility] PROPH/DX 7 [facility] NJX IV INC INC PUSH SINGLE/1S T SBST/[place] [address] [facility] ABDOMEN & 7 MEDICAL PELVIS IMAGING W/[place] [address] [facility] LIPASE 7 [facility] INC INC BLOOD 41295 [facility] COUNT 7 [facility] COMPLETE INC INC AUTO&AUTO DIFRNTL WBC FINAL G9551 [place] [facility] REPR ABD 7 MEDICAL IMAG STS IMAGING W/O ASS INCIDNT FND LES NTD: URNLS DIP 54013 [facility]D 7 [facility] STICK/TAB INC INC LET REAGENT AUTO MICROSCOP Y URINE 14394 DEB BO[facility]D 7 [facility] TEST INC INC V[place] [address] [facility] AMYLASE 7 [facility] INC INC FINAL G9638 [facility] REPORTS 7 MEDICAL W/O DOC IMAGING 1/MORE ASS DOSE REDUCTION TECH COMPREHEN 80516 [facility] SIVE 7 [facility] METABOLIC INC INC PANEL RADEX 53024 [facility] [facility] SPINE 6 MEDICAL LUMBOSACR IMAGING AL ASS MINIMUM 4 VIEWS OPHTH 86629 [facility] 6 JAM JAM XM&EVAL INTERMEDI ATE NEW PT DETERMINA 12548 [facility] 6 [place] [address] [facility] ALL ABDOMEN & 6 MEDICAL PELVIS IMAGING W/O ASS CONTRAST MATERIAL RADIOLOGI 58950 [facility] C 6 MEDICAL GIO EXAMINATI IMAGING ON CHEST ASS SINGLE VIEW FRONTAL CUL BACT 22846 [facility] XCPT 6 [facility] URINE INC INC BLOOD/STO OL AEROBIC ISOL CUL BACT 09462 [facility] AEROBIC 6 [facility] ADDL INC INC METHS DEFINITIV E EA ISOL SUSCEPTIB 99675 [facility] LTY STDY 6 [facility] ANTIMICRB INC INC IAL MICRO/AGA R DILUTJ INCISION 28216 PAMELA GUNTER & 6 PHYSICIAN SEPIDEH DRAINAGE S, PLLC ABSCESS COMPLICAT ED/MULTIP LE CUR MEDS G8428 [facility] NO DOC 6 [facility] OBDT INTERNAL INTERNAL UPD/REV MED MED ELIG CLIN RSN N GVN COMPRE 02965 NIKKI JORDAN AUDIOMETR 6 KADEN KADEN Y THRESHOLD EVAL SP RECOGNIJ IAADIADOO 60913 [facility] LION 6 PHYSICIAN STREPTOCO GROUP CCUS GROUP A COMPREHEN 85173 DE[facility] SIVE 6 [facility] METABOLIC INC INC PANEL RADIOLOGI 60752 DEB No 6 [facility] EXAMINATI INC INC ON NECK SOFT TISSUE CREATINE 77212 DEB BO[facility]D KINASE MB 6 [facility] FRACTION INC INC ONLY RADIOLOGI 31793 DEB No EXAM 6 [facility] CHEST 2 INC INC VIEWS FRONTAL&L ATERAL FIBRIN 23861 [facility] DGRADJ 6 [facility] PRODUCTS INC INC D-DIMER QUAL/SEMI LAUREANO ECG 10261 DEB [facility] ROUTINE 6 [facility] ECG INC INC W/LEAST 12 LDS TRCG ONLY W/O I&R BLOOD 04301 DEB [facility] COUNT 6 [facility] COMPLETE INC INC AUTO&AUTO DIFRNTL WBC CREATINE 06278 DE[facility] KINASE 6 [facility] TOTAL INC INC THERAPEUT 73216 DEB BOYD IC 6 [facility] PROPHYLAC INC INC TIC/DX INJECTION SUBQ/IM ECG 78211 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 ROUTINE 6 [facility] W/LEAST P 12 LDS I&R ONLY PRESSURIZ 91455 DEB BO[facility]D ED/NONPRE 6 [facility] SSURIZED INC INC INHALATIO N TREATMENT NATRIURET 93370 DEB BO[facility] IC 6 [facility] [place] [address] DE[facility] TROPONIN 6 [facility] QUANTITAT INC INC PARRISH INJECTION J2405 DEB BO[facility]D 6 [facility] ONDANSETR INC INC ON HCL PER 1 [place] [address] DEB [facility] INFUSION 6 [facility] THERAPY/P INC INC ROPHYLAXI S /DX 1ST TO 1 HR THERAPEUT 32590 [facility] IC 6 [facility] INJECTION [place] [address] [facility] INFUSION 6 [facility] THERAPY INC INC PROPHYLAX IS/DX EA HOUR TYMPANOST 69737 [facility] JORDAN DE 6 PHYSICIAN KADEN GENERAL S GROUP ANESTHESI A ANES 58337 [facility] FEEBACK XTRNL MID 6 ANESTH REE & INNER OF THE EAR W/BX BLUE TYMPANOTO MY URINE 18393 DEB BOYD 6 [facility] TEST INC INC VISUAL COLOR CMPRSN METHS RADEX 96602 [place] [facility] ALL HAND 2 6 MEDICAL VIEWS IMAGING ASS INJECTION J1040 [facility] [place] TER 6 PHYSICIAN METHYLPRE S GROUP DNISOLONE ACETATE 80 MG THERAPEUT 69126 [facility] [place] [address] IC 6 PHYSICIAN PROPHYLAC S GROUP TIC/DX INJECTION SUBQ/IM IADNA-DNA 55520 DEB BO[facility]D /RNA GI 6 [facility] PTHGN INC INC MULTIPLEX PROBE TQ 12-25 PHYSICAL 21440 [facility] THERAPY 6 [facility] EVALUATIO INC INC N ANES 28528 [facility] XTRNL MID 5 ANESTH LASHAUN & INNER OF THE EAR W/BX BLUE TYMPANOTO MY TYMPANOST 91545 [facility] DE 5 [facility] GENERAL INC INC ANESTHESI A BASIC 61245 DEB [facility] METABOLIC 5 [facility] PANEL INC INC CALCIUM TOTAL COLLECTIO 91472 DEB BO[facility]D N VENOUS 5 [facility] BLOOD INC INC VENIPUNCT URE BLOOD 58442 DEB [facility] COUNT 5 [facility] COMPLETE INC INC AUTO&AUTO DIFRNTL WBC GONADOTRO 81304 [facility] PIN 5 [facility] CHORIONIC INC INC QUALITATI VE DIAGNOSTI G0206 [facility] C 5 [facility] MAMMOGRAP INC INC HY INCL CAD WHEN PERF; UNI IAADIADOO 01184 [facility] 5 [facility] STREPTOCO INTERNAL CCUS MED GROUP A SCREENING G0202 [facility] ROBERSON 5 MEDICAL SAURABH MAMMOGRAP IMAGING HY KARYNA ASS INCL CAD WHEN PERFORMD COMPUTER- 71232 [place] [facility] AIDED 5 MEDICAL SAURABH DETECTION IMAGING ASS SCREENING MAMMOGRAP HY RADEX 77562 [facility] HAND 5 [facility] MINIMUM 3 INC INC VIEWS SCREENING 21661 [facility] VISUAL HLTH DEPT HLTH DEPT ACUITY DONOVAN DONOVAN QUANTITAT PARRISH BILAT RADEX 73611 [facility] ROBERSON FOOT 5 MEDICAL SAURABH COMPLETE IMAGING MINIMUM [address] [place] [address] DEB BO[facility]D MAXILLOFA 5 [facility] CIAL W/O INC INC CONTRAST MATERIAL DISTORT 62981 NIKKI JORDAN PRODUCT 5 KADEN KADEN EVOKED OTOACOUST IC EMISNS LIMITD TYMPANOME 40706 NIKKI JORDAN TRY 5 KADEN KADEN COMPRE 91081 NIKKI JORDAN AUDIOMETR 5 KADEN KADEN Y THRESHOLD EVAL SP RECOGNIJ INJECTION J0696 [facility] AND 5 [facility] CEFTRIAXO INTERNAL NE SODIUM MED PER 250 MG INJECTION J3301 [facility] AND 5 [facility] TRIAMCINO INTERNAL LONE MED ACETONIDE NOS 10 MG THERAPEUT 54695 [facility] AND IC 5 [facility] PROPHYLAC INTERNAL TIC/DX MED INJECTION SUBQ/IM ANES 11996 [facility] NERVE 5 ANESTH SHE MUSCLE OF THE TDN BLUE FASCIA&BU RSA FOREARM WRIST REPAIR 32078 [facility] COMPLEX 5 [facility] SCALP/ARM INC INC /LEG 2.6-7.5 CM EXCISION 54399 [facility] [place] LESION 5 PHYSICIAN ROXANE TENDON S GROUP SHEATH FOREARM&/ WRIST MRI UPPER 75538 [facility]D 5 [facility] EXTREMITY INC INC OTH THAN JT W/O CONTR MATRL COLLECTIO 55475 [facility] N VENOUS 5 [facility] BLOOD INC INC VENIPUNCT URE GONADOTRO 47156 [facility] PIN 5 [facility] CHORIONIC INC INC QUALITATI VE INJECTION J3301 [facility] 5 [facility] SOPHEI TRIAMCINO INTERNAL LONE MED ACETONIDE NOS 10 MG THERAPEUT 21538 [facility] IC 5 [facility] SOP[facility]IE PROPHYLAC INTERNAL TIC/DX MED INJECTION SUBQ/IM IAADIADOO 14852 [facility] 4 [facility] INFLUENZA INTERNAL MED THERAPEUT 08335 [facility] USERY AND IC 4 [facility] PROPHYLAC INTERNAL TIC/DX MED INJECTION SUBQ/IM INJECTION J0696 [facility] AND 4 [facility] CEFTRIAXO INTERNAL NE SODIUM MED PER 250 MG THERAPEUT 11130 [facility] LYRIC IC 4 PHYSICIAN SEPIDEH PROPHYLAC S GROUP TIC/DX INJECTION SUBQ/IM INJECTION J1885 [facility] LYRIC 4 PHYSICIAN SEPIDEH KETOROLAC S GROUP TROMETHAM INE PER 15 MG URNLS DIP 24758 [facility] 4 [facility] STICK/TAB INTERNAL LET RGNT MED NON-AUTO W/O MICRSCP CULTURE 93353 COMBINED COMBINED BACTERIAL 4 PHYSICIAN PHYSICIAN S LA S LA QUANTTATI VE COLONY COUNT URINE LIPID 79277 [facility] PANEL 4 [facility] INC INC COMPREHEN 82776 [facility] SIVE 4 [facility] METABOLIC INC INC PANEL CYTP 92668 [facility], P[facility] CERV/VAG 4 LLC ER JR JARED AUTO THIN LAYER PREP MNL SCREEN TDAP 95274 [facility]INE 7 [facility] YRS/> IM HLTH DEPT HLTH DEPT DONOVAN DONOVAN HEPATIC 98111 [facility] FUNCTION 4 [facility] [place] [address] DEB BOYD THYROXINE 4 [facility] [place] [address] DEB BO[facility] THYROID 4 [facility] STIMULATI INC INC NG HORMONE TSH THYROID 79426 DEB BO[facility]D HORM 4 [facility] UPTK/THYR INC INC OID HORMONE BINDING RATIO US SOFT [address] [facility] TISSUE 4 N N HEAD & COMMUNTIY COMMUNTIY NECK REAL [facility] HOSPITA TIME IMGE DOCM RADIOLOGI 70554 INDIRA MAT INDIRA MAT C [address] [place] [address] NAA NAA MAXILLOFA 4 GIO GIO CIAL W/O CONTRAST MATERIAL CULTURE 14850 COMBINED COMBINED BACTERIAL 4 PHYSICIAN PHYSICIAN S LA S LA QUANTTATI VE COLONY COUNT URINE CT SOFT 03481 [facility] TISSUE 4 [facility] NECK INC INC W/CONTRAS T MATERIAL LOCM Q9967 DEB BOYD 300-399 4 [facility] MG/ML INC INC IODINE CONCENTRA TION PER ML IM ADM 12429 AHSAN BESCHANTELLE PRQ ID 4 SOPHIE SOPHIE SUBQ/IM NJXS 1 VACCINE INJECTION J0696 [facility] 4 SOPHIE SOPHIE CEFTRIAXO NE SODIUM PER 250 MG LIPID 38514 DEB [facility] PANEL 4 [facility] INC INC COMPREHEN 82526 DEB [facility] SIVE 4 [facility] METABOLIC INC INC PANEL LARYNGOSC 04871 EAR, NOSE MARY OPY 4 AND KEHINDE FLEXIBLE THROAT DIAGNOSTI SPECIAL C PURE TONE 64767 EAR, NOSE MARY 4 AND KEHINDE AUDIOMETR THROAT Y AIR SPECIAL ONLY TYMPANOME 43371 EAR, NOSE MARY TRY 4 AND KEHINDE THROAT SPECIAL SPEECH 45956 EAR, NOSE MARY AUDIOMETR 4 AND KEHINDE Y THROAT THRESHOLD SPECIAL INJECTION J0696 [facility] 4 PHYSICIAN PHYSICIAN CEFTRIAXO S GROUP S GROUP NE SODIUM PER 250 MG THERAPEUT 97432 [facility] IC 4 PHYSICIAN PHYSICIAN PROPHYLAC S GROUP S GROUP TIC/DX INJECTION SUBQ/IM URNLS DIP 76125 [facility] 4 PHYSICIAN PHYSICIAN STICK/TAB S GROUP S GROUP LET RGNT NON-AUTO W/O MICRSCP LEVEL III 72558 [facility] SURG 1 [facility] ANGIE PATHOLOGY DUBILIER GROSS&SEPIDEH ROSCOPIC EXAM I&D DEEP 51903 C JAYDE BELTRAN ABSC 1 DEVIN NINO BURSA/HEM PSC ATOMA THIGH/KNE E REGION OTHER 8309 [facility] INCISION 1 [facility] [place] [address] [facility] INFUSION 1 [facility] THERAPY INC INC PROPHYLAX IS/DX EA HOUR GONADOTRO 97322 [facility] PIN 1 [facility] [place] [address] DEB [facility] INFUSION 1 [facility] THERAPY/P INC INC ROPHYLAXI S /DX 1ST TO 1 [place] [address] [facility] INFUSION 1 [facility] THERAPY INC INC PROPHYLAX IS/DX EA HOUR BLOOD 95790 [facility] COUNT 1 [facility] COMPLETE INC INC AUTO&AUTO DIFRNTL WBC SUSCEPTIB 56020 [facility] LTY STDY 1 [facility] ANTIMICRB INC INC IAL MICRO/AGA R DILUTJ CUL BACT 40054 [facility] AEROBIC 1 [facility] ADDL INC INC METHS DEFINITIV E EA ISOL BASIC 55468 [facility] METABOLIC 1 [facility] PANEL INC INC CALCIUM TOTAL CUL BACT 96120 [facility] XCPT 1 [facility] URINE INC INC BLOOD/STO OL AEROBIC ISOL RADEX 00357 CARRANZA, CARRANZA, CALCANEUS 9 DON R DON R MINIMUM 2 VIEWS COMPRE 04710 NIKKI JORDAN, AUDIOMETR 9 WIN Null Y THRESHOLD EVAL SP RECOGNIJ TYMPANOME 42587 NIKKI JORDAN, TRY 9 WIN Null ACOUSTIC 46680 NIKKI JORDAN, REFLEX 9 WIN Null THRESHOLD Encounters Encounter Start End Date Code Location Performer Type Date OFFICE 37329 [facility] T VISIT 5 HLTH DEPT HL DEPT MINUT[facility] OFFICE 99266 [facility] 7 [facility] T VISIT HLTH DEPT [facility] DEPT 10 [facility] MINUTES OFFICE 41783 EAR, NOSE SHASHY OUTPATIEN 7 7 AND T VISIT THROAT 25 SPECIAL MINUTES OFFICE 57245 EAR, NOSE SHASHY OUTPATIEN 7 7 AND T VISIT THROAT 25 SPECIAL MINUTES OFFICE 24467 [facility] OUTPATIEN 7 7 PHYSICIAN T VISIT S GROUP 15 MINUTES OFFICE 87180 EAR, NOSE SHASHY OUTPATIEN 7 7 AND T VISIT THROAT 15 SPECIAL MINUTES HOSPITAL DEB - 7 7 [facility] OUTPATIEN INC T OFFICE 83302 [facility] 7 7 [facility] T VISIT INTERNAL 15 MED MINUTES OFFICE 02797 EAR, NOSE SHASHY OUTPATIEN 7 7 AND T VISIT THROAT 25 SPECIAL MINUTES HOSPITAL DEB - 7 7 [facility] OUTPATIEN INC T OFFICE 71685 DEB OUTPATIEN 7 7 [facility] T VISIT 5 INC MINUTES OFFICE 87305 [facility] 7 7 [facility] T VISIT INTERNAL 15 MED MINUTES OFFICE 44854 [facility] OUT[facility] 7 7 [facility] T VISIT INTERNAL 15 MED MINUTES HOSPITAL DEB - 7 7 [facility] OUTPATIEN INC T OFFICE 48579 [facility] 7 7 [facility] T VISIT INTERNAL 15 MED MINUTES HOSPITAL DEB - 7 7 [facility] OUTPATIEN INC T OFFICE 61461 DEB OUTPATIEN 7 7 [facility] T VISIT 5 INC MINUTES HOSPITAL DEB - 7 7 [facility] OUTPATIEN INC T OFFICE 87864 [facility] OUTPATIEN 7 7 [facility] 10 P MINUTES OFFICE 88687 [facility] OUTPATIEN 7 7 [facility]LEY T VISIT INTERNAL 15 MED MINUTES OFFICE 84708 [facility] [facility] OUTPATIEN 7 7 [facility] 20 HOSPITAL MINUTES P OFFICE 26526 [facility] BEN OUTPATIEN 7 7 PHYSICIAN T VISIT GROUP 25 MINUTES OFFICE 71258 [facility] BEN OUTPATIEN 7 7 PHYSICIAN T VISIT GROUP 25 MINUTES EMERGENCY 73017 DEB 7 7 [facility] DEPARTMEN INC T VISIT MODERATE SEVERITY HOSPITAL DEB - 7 7 [facility] OUTPATIEN INC T OFFICE 92716 [facility] JORDAN OUTPATIEN 7 7 PHYSICIAN T VISIT S GROUP 15 MINUTES OFFICE 81578 [facility] OUTPATIEN 6 6 [facility] T VISIT INTERNAL 25 MED MINUTES EMERGENCY 79645 PAMEL[facility] ANAYA, 6 6 PHYSICIAN JR DEPARTMEN S, [facility] T VISIT HIGH/URGE NT SEVERITY OFFICE 44401 [facility] OUTPATIEN 6 6 [facility] T VISIT INTERNAL 15 MED MINUTES EMERGENCY 38963 PAMELA DAIGLE DIAMOND DEPT 6 6 PHYSICIAN VISIT S, [facility] HIGH SEVERITY& THREAT [facility] DEB - 6 6 [facility] OUTPATIEN INC T EMERGENCY 66553 PAMELA GUNTER 6 6 PHYSICIAN SEPIDEH DEPARTMEN S, [facility] T VISIT MODERATE SEVERITY EMERGENCY 73438 DEB 6 6 [facility] DEPARTMEN INC T VISIT LOW/MODER SEVERITY OFFICE 24204 [facility] OUTPATIEN 6 6 [facility] T VISIT INTERNAL 15 MED MINUTES OFFICE 41462 [facility] OUTPATIEN 6 6 PHYSICIAN KADEN T VISIT S GROUP 15 MINUTES OFFICE 84894 [facility] ANGELICA OUTPATIEN 6 6 [place] T VISIT INTERNAL 15 MED MINUTES OFFICE 18951 [facility] LION OUTPATIEN 6 6 PHYSICIAN T VISIT GROUP 15 MINUTES HOSPITAL DEB - 6 6 [facility] OUTPATIEN INC T EMERGENCY 00879 PAMELA MERINO DEPT 6 6 PHYSICIAN U SAURABH VISIT S, [facility] HIGH SEVERITY& THREAT FUNJ EMERGENCY 48291 DEB 6 6 [facility] DEPARTMEN INC T VISIT HIGH/URGE NT SEVERITY OFFICE 73134 [facility] NEGIN OUTPATIEN 6 6 PHYSICIAN SOMMERS T VISIT S GROUP 25 MINUTES OFFICE 95921 [facility] JORDAN OUTPATIEN 6 6 PHYSICIAN KADEN T VISIT S GROUP 15 MINUTES HOSPITAL DEB - 6 6 [facility] OUTPATIEN INC T OFFICE 85577 [facility] JORDAN OUTPATIEN 6 6 PHYSICIAN KADEN T VISIT S GROUP 10 MINUTES OFFICE 24221 [facility] [place] [address] OUTPATIEN 6 6 PHYSICIAN T VISIT S GROUP 15 MINUTES HOSPITAL DEB - 6 6 [facility] OUTPATIEN INC T OFFICE 01947 [facility] OUTPATIEN 6 6 [place] [facility] T VISIT INTERNAL 25 MED MINUTES HOSPITAL DEB - 6 6 [facility] OUTPATIEN INC T OFFICE 18311 EAR, NOSE SHASHY OUTPATIEN 6 6 AND SARITA T VISIT THROAT 25 SPECIAL MINUTES OFFICE 08069 [facility] ADITI OUTPATIEN 6 6 PHYSICIAN SEPIDEH T VISIT S GROUP 15 MINUTES EMERGENCY 35172 DEB 5 5 [facility] DEPARTMEN INC T VISIT LIMITED/M INOR PROB EMERGENCY 12531 PAMELA [facility]MA [facility] 5 5 PHYSICIAN DEPARTMEN S, [facility] T VISIT MODERATE SEVERITY HOSPITAL DEB - 5 5 [facility] OUTPATIEN INC OFFICE 71714 [facility] OUTPATIEN 5 5 [place] T VISIT 15 MINUTES OFFICE 82891 [facility] OUTPATIEN 5 5 [facility] T VISIT INTERNAL 15 MED MINUTES HOSPITAL DEB - 5 5 [facility] OUTPATIEN INC [facility] DEB - 5 5 [facility] OUTPATIEN [facility] OFFICE [address] OUTPATIEN 5 5 [facility] 10 MINUTES OFFICE [address] OUTPATIEN 5 5 [facility] VISIT [facility] 10 MINUTES HOSPITAL DEB - 5 5 [facility] OUTPATIEN [facility] OFFICE 06493 [facility] OUTPATIEN 5 5 [facility] T VISIT INTERNAL 15 MED MINUTES OFFICE 54275 [facility] JORDAN OUTPATIEN 5 5 PHYSICIAN KADEN T VISIT S GROUP 15 MINUTES OFFICE 03085 [facility] J[facility] OUTPATIEN 5 5 [place] T NEW 30 MINUTES [facility] DEB - 5 5 [facility] DEB - 5 5 [facility] OUTPATIEN INC T OFFICE 23401 [facility] OUTPATIEN 5 5 [place] [facility] T VISIT INTERNAL 15 MED MINUTES PERIODIC 82674 [facility] MED EST TH DEPT [facility] DEPT PATIENT DONOVAN DONOVAN 40-64YRS OFFICE 34958 [facility] JORDAN OUTPATIEN 5 5 PHYSICIAN KADEN T VISIT S GROUP 10 MINUTES OFFICE 70578 [facility] ANGELICA OUTPATIEN 5 5 [facility] ANNE MARIE T VISIT INTERNAL 15 MED MINUTES HOSPITAL DEB - 5 5 [facility] OUTPATIEN INC T HOSPITAL DEB - 5 5 [facility] OUTPATIEN INC T OFFICE 76262 [facility] JORDAN OUTPATIEN 5 5 PHYSICIAN KADEN T VISIT S GROUP 15 MINUTES OFFICE 16115 [facility] USERY AND OUTPATIEN 5 5 [facility] T VISIT INTERNAL 15 MED MINUTES OFFICE 48331 [facility] J[facility]AN OUTPATIEN 5 5 PHYSICIAN KADEN T VISIT S GROUP 15 MINUTES EMERGENCY 24433 PAMELA MERINO 5 5 PHYSICIAN U SAURABH DEPARTMEN S, [facility] T VISIT MODERATE SEVERITY HOSPITAL DEB - 5 5 [facility] OUTPATIEN INC T HOSPITAL DEB - 5 5 [facility] OUTPATIEN INC T HOSPITAL DEB - 5 5 [facility] OUTPATIEN INC T OFFICE 31469 [facility] OUTPATIEN 5 5 [facility] T VISIT INTERNAL 15 MED MINUTES HOSPITAL DEB - 5 5 [facility] OUTPATIEN INC T EMERGENCY 35436 DEB 5 5 [facility] DEPARTMEN INC T VISIT LOW/MODER SEVERITY OFFICE 49152 [facility] 4 4 [facility] T VISIT INTERNAL 15 MED MINUTES OFFICE 10444 [facility] PETTEY OUTPATIEN 4 4 PHYSICIAN JAM T NEW 30 S GROUP MINUTES OFFICE 28944 [facility] 4 4 [facility] T VISIT INTERNAL 15 MED MINUTES OFFICE 74120 [facility] 4 4 [facility] T VISIT INTERNAL 15 MED MINUTES OFFICE 08965 [facility] 4 4 [facility] T VISIT INTERNAL 15 MED MINUTES OFFICE 78508 [facility] LYRIC OUTPATIEN 4 4 PHYSICIAN SEPIDEH T VISIT S GROUP 15 MINUTES [facility]OSPITAL DEB - 4 4 [facility] T OFFICE 89574 [facility] 4 4 [facility] T VISIT INTERNAL 25 MED MINUTES INITIAL 34739 [facility] DEPT [facility] DEPT MEDICINE DONOVAN KOHLI PT AGE [id number] [facility] DEB - 4 4 [facility] INC T OFFICE 57361 [facility] HERNANDEZ OUTPATIEN 4 4 KEHINDE KEHINDE T VISIT 25 MINUTES HOSPITAL DEB - 4 4 [facility] - 4 4 N OUTPATIEN COMMUNTIY T HOSPITA OFFICE 93983 [facility] HERNANDEZ OUTPATIEN 4 4 KEHINDE KEHINDE T VISIT 25 MINUTES OFFICE 59937 [facility] 4 4 [facility] T VISIT 15 MINUTES [facility] DEB - 4 4 [facility] T OFFICE 81793 [facility] 4 4 [facility] T VISIT 15 MINUTES [facility]B - 4 4 [facility] T OFFICE 73172 EAR, NOSE MARY CONSULTAT 4 4 AND KEHINDE ION THROAT NEW/ESTAB SPECIAL PATIENT 60 MIN OFFICE 12710 [facility] OUTPATIEN 4 4 PHYSICIAN T VISIT S GROUP 10 MINUTES OFFICE 53293 NIKKI JORDAN OUTPATIEN 4 4 KADEN KADEN T VISIT 15 MINUTES [facility]OSPITAL DEB - 1 1 [facility] T OFFICE 10633 [facility] CARR[facility] OUTPATIEN 1 1 DON DON T VISIT 15 MINUTES HOSPITAL DEB - 1 1 [facility] T OFFICE 65656 Marybel BELTRAN CONSULTAT 1 1 DEVIN VARGAS MD PSC NEW/ESTAB PATIENT 60 MIN OFFICE 72138 [facility] OUTPATIEN 1 1 DON DON T VISIT 15 MINUTES [facility] DEB - 1 1 [facility] INC T EMERGENCY 82048 DEB 1 1 [facility] DEPARTMEN INC T VISIT HIGH/URGE NT SEVERITY OFFICE 39128 [facility] OUTPATIEN 1 1 DON DON T VISIT 15 MINUTES OFFICE 86806 [facility] C[facility] OUTPATIEN 9 9 DON R DON R T VISIT 15 MINUTES OFFICE 68315 [facility] CARRAN[facility] OUTPATIEN 9 9 DON R DON R T VISIT 15 MINUTES OFFICE 57420 [facility] CARRANZA OUTPATIEN 9 9 DON R DON R T VISIT 15 MINUTES OFFICE 20511 [facility] CARR[facility] OUTPATIEN 9 9 DON R DON R T VISIT 15 MINUTES OFFICE 31210 NIKKI JORDAN, OUTPATIEN 9 9 WIN Null T VISIT 10 MINUTES OFFICE 31670 NIKKI JORDAN, OUTPATIEN 9 9 WIN Null T NEW 30 MINUTES OFFICE 10127 [facility] OUTPATIEN 9 9 DON R DON R T VISIT 15 MINUTES OFFICE 16468 [facility] OUTPATIEN 9 9 DON R DON R T VISIT 15 MINUTES OFFICE 22643 [facility] OUTPATIEN 9 9 DON R DON R T VISIT 5 MINUTES OFFICE 39339 [facility] OUTPATIEN 9 9 DON R DON R T VISIT 15 MINUTES
--- OUTSIDE RECORDS SUMMARY | 2016-11-26 16:21 | External Medical Summary Rpt | CCD ---
Author Author , DIMITRIOS Organization DIMITRIOS Address Unknown Phone [email or web address] Care Team Providers Care Bungy Jump Master Name Role Phone KAROL WILEY KAROL Unavailable [...] [facility] [place] [place] FALLIS IVONNE, FALLIS Unavailable Unavailable IVONNE FEEBACK REE, FEEBACK Unavailable Unavailable REE ANGELICA ANNE MARIE, Unavailable Unavailable ANGELICA ANNE MARIE LION, LION Unavailable Unavailable JR ANAYA FULLER, Unavailable Unavailable JR LYRIC SEPIDEH, LYRIC Unavailable Unavailable [facility], [facility] CARYL JAM, CARYL Unavailable Unavailable JAM CARYL JAM, CARYL Unavailable Unavailable JAM [facility] Unavailable Unavailable INC, [facility] Unavailable Unavailable HOSPITAL, [facility] Unavailable Unavailable HOSPITAL P, [facility] P [facility], Unavailable Unavailable [facility], Unavailable Unavailable [facility] OXANA FIELDS, OXANA FIELDS Unavailable Unavailable [facility] Un[facility], [facility] JORDAN, JORDAN Unavailable Unavailable [...] PHARMACY Unavailable Unavailable #591, [facility] Unavailable Unavailable DEPT DON[facility], [facility] Unavailable Unavailable DEPT [facility], [facility] MARY BUSBY, MARY Unavailable Unavailable KEHINDE BUSBY, MARY Unavailable Unavailable KEHINDE INDIRA MAT, INDIRA MAT Unavailable Unavailable Purpose Continuity of Care Document - 04-19-2008 through 2016 Problems Code Diagnosis DOS Provider Status Z111 ENCOUNTER 10-25-[address] [facility] DEPT RESPIRATORY DONOVAN TUBERCULOSI S H6983 OTHER SPEC 10-05-2016 EAR, NOSE DISORDERS AND THROAT EUSTACHIAN SPECIAL TUBE BILAT 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 09-24-2016 EAR, NOSE AL HEARING AND THROAT LOSS SPECIAL BILATERAL M1812 UNI PRIM 09-02-2016 [facility] OSTEOARTHRI PHYSICIANS TIS 1ST [facility] GROUP JOINT LT HAND [id number] PAIN IN 08-14-2016 [facility] RIGHT [facility] FINGERS INC M654 RADIAL 08-13-2016 [facility] STYLOID VAL[place] TENOSYNOVIT INTERNAL IS DE MED QUERVAIN M7122 SYNOVIAL 08-13-2016 [facility] CYST [place] POPLITEAL INTERNAL SPACE BOSE MED LEFT KNEE H90A22 SENSORNURL 07-23-2016 EAR, NOSE HEAR LOS AND THROAT UNI LT EAR SPECIAL RSTRC CNTRALATERL [id number] OTHER ACUTE 07-18-2016 [facility] NONSUPPURAT INC [place] OTITIS MEDIA RT EAR K219 GASTRO-ESOP 07-18-2016 DEB H REFLUX [facility] DISEASE INC WITHOUT ESOPHAGITIS Z720 TOBACCO USE 07-18-2016 [facility] M779 ENTHESOPATH 07-14-2016 [facility] [place] UNSPECIFIED INTERNAL MED I81236 PRIMARY 06-30-2016 [place] [facility]ICAL TIS RIGHT IMAGING ASS WRIST M7989 OTHER 06-30-2016 [facility] SPECIFIED [place] SOFT TISSUE INTERNAL DISORDERS MED M96937 CELLULITIS 06-17-2016 [facility] OF LEFT [facility] LOWER LIMB INC R232 FLUSHING 06-01-2016 [facility] N393 STRESS 05-06-2016 [facility] P MALE L309 DERMATITIS 04-22-2016 [facility] UNSPECIFIED [place] INTERNAL MED J00 ACUTE 04-04-2016 [facility] NASOPHARYNG PHYSICIAN ITIS COMMON GROUP COLD [id number] AC 03-17-2016 [facility] SUPPURATIVE PHYSICIAN OM W/O GROUP RUPT EAR DRUM RECUR LT EAR K5730 DIVERTICULO 03-10-2016 [place] [facility]ICAL INTEST W/O IMAGING ASS PERF/ABSC W/O BLEED R1011 RIGHT UPPER 03-10-2016 [place] H6023 MALIGNANT 03-01-2016 [facility] OTITIS PHYSICIANS EXTERNA GROUP BILATERAL H6503 ACUTE 03-01-2016 [facility] SEROUS PHYSICIANS OTITIS GROUP MEDIA BILATERAL 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 RIGHT SIDE M545 LOW BACK 01-23-2016 [place] [facility] H5213 MYOPIA 11-28-2015 CARYL JAM BILATERAL R1031 RIGHT LOWER 11-28-2015 [place] [facility] R1032 LEFT LOWER 11-28-2015 [place] [facility] R310 GROSS 11-28-2015 [facility] HEMATURIA [place] INTERNAL MED R319 HEMATURIA 11-28-2015 [place] [facility] R079 CHEST PAIN 11-17-2015 [facility] UNSPECIFIED PHYSICIANS, PLLC N00289 CUTANEOUS 10-28-2015 [facility] ABSCESS OF [facility] RIGHT LOWER INC LIMB C42480 CUTANEOUS 10-28-2015 [facility] ABSCESS OF PHYSICIANS, HEAD ANY PLLC PART EXCEPT FACE L0390 CELLULITIS 10-15-2015 [facility] UNSPECIFIED [place] INTERNAL MED H6120 IMPACTED 09-25-2015 [facility] CERUMEN PHYSICIANS UNSPECIFIED GROUP EAR H6590 UNSPECIFIED 09-25-2015 [facility] PHYSICIANS NONSUPPURAT GROUP [place] OTITIS MEDIA UNS EAR H6903 PATULOUS 09-25-2015 JORDAN KADEN EUSTACHIAN TUBE BILATERAL R0982 POSTNASAL 09-18-2015 [facility] DRIP [place] INTERNAL MED J029 ACUTE 09-15-2015 [facility] PHARYNGITIS PHYSICIAN GROUP UNSPECIFIED K120 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[facility] ORAL PHYSICIAN APHTHAE GROUP J0101 ACUTE 09-09-2015 [facility] RECURRENT PHYSICIANS, [facility]ARY [facility] SINUSITIS J4520 MILD 09-09-2015 [facility] INTERMITTEN PHYSICIANS, T AST[facility]MA [facility] UNCOMPLICAT ED R0600 DYSPNEA 09-09-2015 [place] [facility] R221 LOCALIZED 09-09-2015 [place] SWELLING MEDICAL MASS AND IMAGING ASS LUMP NECK R05 COUGH 09-08-2015 [facility] PHYSICIANS GROUP H6090 UNSPECIFIED 08-25-2015 [facility] OTITIS PHYSICIANS EXTERNA GROUP UNSPECIFIED EAR H6501 ACUTE 07-17-2015 [facility] SEROUS PHYSICIANS OTITIS GROUP MEDIA RIGHT EAR H6591 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-17-2015 [facility] NONSUPPURAT INC [place] OTITIS MEDIA RT EAR H9391 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-17-2015 COMMUNITY DISORDER ANESTH OF OF RIGHT THE BLUE EAR P14476 PAIN IN 05-28-2015 [place] [facility] HAND [facility] J0190 ACUTE 05-11-2015 [facility] SINUSITIS PHYSICIANS UNSPECIFIED GROUP A09 INFECTIOUS 03-14-2015 [facility] ITIS AND INC COLITIS UNSPEC J069 ACUTE UPPER 03-12-2015 [facility] RESPIRATORY INTERNAL INFECTION MED UNSPECIFIED M542 CERVICALGIA 02-28-2015 [facility] INC 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 FOLLICULAR INC DISORDERS B351 TINEA 01-30-2015 [place] IVONNE UNGUIUM B353 TINEA PEDIS 01-30-2015 [place] IV[place]NE I890 LYMPHEDEMA 01-30-2015 [place] IV[facility]NE NOT ELSEWHERE CLASSIFIED M2570 OSTEOPHYTE 01-30-2015 [place] IV[place]NE UNSPECIFIED JOINT H9202 OTALGIA 01-17-2015 [facility] LEFT EAR VALLEY INTERNAL MED H6506 ACUTE 01-16-2015 [facility] SEROUS PHYSICIANS OTITIS GROUP MEDIA RECURRENT BILATERAL H6523 CHRONIC 01-16-2015 [facility] SEROUS [facility] OTITIS INC MEDIA BILATERAL H6693 OTITIS 01-16-2015 COMMUNITY MEDIA ANESTH OF UNSPECIFIED THE BLUE BILATERAL U12245 ENCOUNTER 01-15-2015 [facility] FOR OTHER [facility] PREPROCEDUR INC AL EXAMINATION X08725 ACUTE & 12-27-2014 [facility] OTITS MEDIA BILATERAL H1032 UNSPECIFIED 12-17-2014 [facility] CONJUNCTIVI [facility] TIS LEFT EYE N6489 OTHER 12-16-2014 [place] SPECIFIED MEDICAL DISORDERS IMAGING ASS OF BREAST R928 OTH ABNORM 12-16-2014 [facility] & [facility] INCONCLUSIV INC E FIND ON DX IMAG BREAST B9789 OT VIRAL 12-13-2014 [facility] AGENT CAUSE VALLEY DISEASES INTERNAL CLASSIFIED MED ELSW H6504 ACUTE 12-09-2014 [facility] SEROUS PHYSICIANS OTITIS GROUP MEDIA RECURRENT RIGHT EAR H69774 ANKYLOSIS 12-09-2014 [facility] OF EAR PHYSICIANS OSSICLES GROUP RIGHT EAR H9191 UNSPECIFIED 12-09-2014 [facility] HEARING PHYSICIANS LOSS RIGHT GROUP EAR P86286 PAIN IN 12-05-2014 [place] IV[place]NE RIGHT TOES N26566 PAIN IN 12-05-2014 [place] LEFT TOES Z1231 ENCOUNTER 11-29-2014 [place] SCREENING MEDICAL MAMMO MALIG IMAGING ASS NEOPLASM BREAST Z803 FAMILY 11-29-2014 [place] HISTORY OF MEDICAL MALIGNANT IMAGING ASS NEOPLASM OF BREAST M96600 PAIN IN 11-15-2014 [facility] LEFT FOOT VALLEY INTERNAL MED V252 STERILIZATI 11-05-2014 [facility] DEPT DONOVAN 98197 DYSFUNCTION 09-19-2014 [facility] OF PHYSICIANS EUSTACHIAN GROUP TUBE 4779 ALLERGIC 09-19-2014 [facility] RHINITIS PHYSICIANS CAUSE GROUP UNSPECIFIED 02986 OTHER 09-19-2014 [facility] DISEASES OF PHYSICIANS NASAL GROUP CAVITY AND SINUSES 7295 PAIN IN 09-18-2014 [facility] SOFT VALLEY TISSUES OF INTERNAL LIMB MED 48364 SIMPLE/UNSP 2014 [facility] ECIFIED [facility] CHRONIC INC SEROUS OTITIS MEDIA 3814 NONSUPPRATV 2014 [place] OTITIS MEDICAL MEDIA NOT IMAGING ASS SPEC ACUT/CHRON 470 DEVIATED 2014 [place] NASAL MEDICAL SEPTUM IMAGING ASS 26792 UNSPECIFIED 09-02-2014 [facility] CONDUCTIVE PHYSICIANS HEARING GROUP LOSS 4730 CHRONIC 09-02-2014 [facility] MAXILLARY PHYSICIANS SINUSITIS GROUP 3829 UNSPECIFIED 08-29-2014 JORDAN KADEN OTITIS MEDIA 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 4619 ACUTE 08-22-2014 [facility] SINUSITIS, VALLEY UNSPECIFIED INTERNAL MED 3899 UNSPECIFIED 08-13-2014 [facility] HEARING PHYSICIANS LOSS GROUP 7856 ENLARGEMENT 08-13-2014 [facility] OF LYMPH PHYSICIANS NODES GROUP 32322 GANGLION OF 05-31-2014 [facility] TENDON PHYSICIANS SHEATH GROUP 91186 UNSPECIFIED 05-31-2014 COMMUNITY GANGLION ANESTH OF THE BLUE 72270 PAIN IN 05-30-2014 [place] JOINT, MEDICAL FOREARM IMAGING ASS 09510 GANGLION OF 05-29-2014 [facility] JOINT [facility] INC V7283 OTHER 05-29-2014 [facility] PRE-OPERATI INC VE EXAMINATION 00024 UNSPECIFIED 02-27-2014 [facility] OTALGIA [place] INTERNAL MED 4871 INFLUENZA 02-13-2014 [facility] WITH OTHER [place] RESPIRATORY INTERNAL MED MANIFESTATI ONS 59455 GENERALIZED 02-13-2014 [facility] PAIN [place] INTERNAL MED 4659 ACUTE URIS 12-06-2013 [facility] OF [place] UNSPECIFIED INTERNAL SITE MED 486 PNEUMONIA, 12-03-2013 [facility] ORGANISM [place] UNSPECIFIED INTERNAL MED 7840 HEADACHE 12-03-2013 [facility] [place] INTERNAL MED 6822 CELLULITIS 11-15-2013 [facility] AND ABSCESS PHYSICIANS OF TRUNK GROUP 93772 ABDOMINAL 11-15-2013 [facility] PAIN, PHYSICIANS UNSPECIFIED GROUP SITE 57892 ABDOMINAL 10-29-2013 [facility] PAIN, [place] GENERALIZED INTERNAL MED 68373 POLYURIA 10-27-2013 [facility] V700 ROUTINE 10-27-2013 [facility] MEDICAL [facility] EXAM@HEALTH CARE FACL 59836 ESOPHAGEAL 10-26-2013 [facility] REFLUX [place] INTERNAL MED 37529 INSOMNIA 10-26-2013 [facility] UNSPECIFIED [place] INTERNAL MED 6160 CERVICITIS 10-23-2013 [facility] ENDOCERVICI TIS V7231 ROUTINE 10-23-2013 [facility] AL EXAMINATION 1101 DERMATOPHYT 2013 [facility] OSIS OF [facility] NAIL INC 2400 GOITER, 07-03-2013 MARY KEHINDE SPECIFIED SIMPLE 2449 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-03-2013 [facility] [place] 30504 OTOGENIC 07-03-2013 MARY KEHINDE PAIN 69459 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-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 7842 SWELLING 07-03-2013 MARY KEHINDE MASS OR LUMP IN HEAD AND NECK 07957 UNSPECIFIED 06-19-2013 MARY KEHINDE TINNITUS 5990 URINARY 06-11-2013 [facility] TRACT INFECTION SITE NOT SPECIFIED 2409 GOITER, 06-08-2013 NAA UNSPECIFIED GIO 23248 OBESITY, 06-06-2013 [facility] UNSPECIFIED [facility] INC 65929 UNSPECIFIED 06-05-2013 EAR, NOSE ABNORMAL AND THROAT AUDITORY SPECIAL PERCEPTION 75567 UNSPECIFIED 06-05-2013 [facility] VAGINITIS PHYSICIANS AND GROUP VULVOVAGINI TIS 26695 UNSPECIFIED 05-28-2013 JORDAN KADEN ACUTE NONSUPPURAT [place] OTITIS MEDIA 96778 METHICILLIN 05-28-2010 [facility] RESISTANT [facility] STAPHYLOCOC INC CUS AUREUS 6826 CELLULITIS 05-28-2010 [facility] AND ABSCESS [facility] OF LEG INC EXCEPT FOOT 44722 METHICILLIN 05-26-2010 [facility] RESISTANT DON STAPH AUREUS SEPTICEMIA V090 INFECTION 05-26-2010 [facility] W/MICROORGA DON NISMS RESISTANT PENICILLINS V7241 05-26-2010 [facility] EXAMINATION [facility] OR TEST INC NEGATIVE RESULT 9164 HIP THI 05-23-2010 [facility] LEG&ANK DON INSECT BITE NONVENOMOUS W/O INF 5589 OTH&UNSPEC 12-13-2008 [facility] NONINFECTIO DON R US GASTROENTER ITIS&COLITI S 86018 CALCANEAL 12-13-2008 [facility] SPUR DON R 1105 DERMATOPHYT 12-02-2008 [facility] OSIS OF THE MARCIA R BODY 37886 OVERWEIGHT 10-09-2008 MARCIA CARRANZA R 4618 OTHER ACUTE 10-09-2008 [facility], [place]IN[place]IT[place] R [address] UNSPECIFIED 06-11-2008 WIN JORDAN SENSORINEUR AL HEARING LOSS 22012 UNSPECIFIED 06-06-2008 WIN JORDAN OBSTRUCTION OF EUSTACHIAN [...] 09 10 60 30 00 EA Ac [place] 25 -0 -[address] ti [...] 15 9- 6- 00 00 SI ve NJ 02 20 20 50 DE ED 20 17 17 09 NI 7 57 PH SO AR LO MA NE CY 4 OF MG CY NT DO HI SE AN PK A IN C IM 00 08 09 30 30 00 EA Ac IP 78 -3 -[address] ti RA 11 1- 9- 00 00 SI ve [place] 76 20 20 48 DE NE 60 [...] 08 09 7. 7 00 EA Ac [place] 06 -1 -[address] ti [...] 20 6- 8- 00 00 SI ve [place] 00 20 20 49 DE AM 50 17 17 00 5 32 PH HB AR R MA 10 CY MG OF CY TA NT BL HI ET AN A IN C AL 67 08 09 60 30 00 EA Ac [place] 25 -0 -[address] ti [...] 11 4- 8- 00 00 SI ve [place] 76 20 20 48 DE NE 60 [...] 20 0- 4- 00 00 SI ve [place] 00 20 20 49 DE AM 50 [...] 07 08 60 30 00 EA Ac [place] 25 -0 -[address] ti [...] 17 17 37 E 5 04 PH NJ AR OP MA CY 50 OF MC CY G NT SP HI RA AN Y A IN C CI 00 07 08 7. 7 00 CL Ac NJ 06 -0 -0 50 00 IN ti [...] 5 66 PH CE AR TA MA [place] CY NO PH OF EN CY NT [...] 11 2- 1- 00 00 SI ve [place] 76 20 20 48 DE NE 60 17 17 23 1 24 PH HC AR L MA 50 CY MG OF CY TA NT BL HI ET AN A IN C NJ 59 06 07 42 9 00 EA [...] 06 06 60 30 00 EA Ac [place] 25 -0 -[address] ti [...] 20 5- 0- 00 00 SI ve [place] 00 20 20 49 DE AM 50 [...] 05 06 10 5 00 EA Ac [place] 25 -2 -[address] ti [...] ti RA 11 9- 00 SI ve [place] 76 20 20 48 DE NE 60 [...] 02 05 60 30 00 EA Ac [place] 25 -1 -[address] ti [...] 20 5- 9- 00 00 SI ve [place] 00 20 20 47 DE AM 50 17 17 24 5 82 PH HB AR R MA 10 CY MG OF CY TA NT BL HI ET AN A IN C AL 67 04 05 60 30 00 EA Ac [place] 25 -1 -[address] ti [...] 11 3- 8- 00 00 SI ve [place] 76 20 20 48 DE NE 60 [...] 20 3- 8- 00 00 SI ve [place] 00 20 20 47 DE AM 50 [...] 03 04 60 30 00 EA Ac [place] 25 -2 -[address] ti [...] 11 3- 1- 00 00 SI ve [place] 76 20 20 47 DE NE 60 [...] 20 6- 4- 00 00 SI ve [place] 00 20 20 47 DE AM 50 [...] 17 17 56 E 5 51 PH NJ AR OP MA CY 50 OF MC [...] 20 6- 7- 00 00 SI ve NJ 00 20 20 47 DE AM 50 17 17 24 5 82 PH HB AR R MA 10 CY MG OF CY TA NT BL HI ET AN A IN C CI 00 01 02 7. 5 00 EA Ac NJ 06 -1 -[address] ti [...] HI AN TA A B IN C NJ 59 12 01 12 6 00 EA [...] CY NT HI AN A IN C NJ 65 12 01 10 3 00 EA [...] [address] Ac [place] 09 -3 -[address] 92 EP [...] 1- 8- 00 MA 69 HE ve NJ 34 20 20 RT 7 NS AM [...] 01 [address] Ac [place] 25 -1 -[address] 47 EP [...] [address] Ac [place] 25 -1 -[address] 47 EP [...] [address] Ac [place] 25 -1 -[address] 49 EP [...] DOS Code Location Performer Comment SKIN TEST 47241 [facility] DEPT SIS DONOVAN DONOVAN INTRADERM AL PURE TONE 75784 EAR, NOSE SHASHY 7 AND AUDIOMETR THROAT Y AIR SPECIAL ONLY TYMPANOME 50979 EAR, NOSE SHASHY TRY 7 AND THROAT SPECIAL APPL 60255 [facility] MODALITY 7 [facility] 1/> AREAS INC INC ULTRASOUN D EA 15 MIN MANUAL 46766 [facility] THERAPY 7 [facility] TQS 1/> INC INC REGIONS EACH 15 MINUTES COMPRE 77019 EAR, NOSE SHASHY AUDIOMETR 7 AND Y THROAT THRESHOLD SPECIAL EVAL SP RECOGNIJ TYMPANOME 61205 EAR, NOSE SHASHY TRY 7 AND THROAT SPECIAL UNCLASSIF J3490 [facility] IED DRUGS 7 [facility] INC INC THERAPEUT 82969 [facility] IC 7 [facility] PROPHYLAC INC INC TIC/DX INJECTION SUBQ/IM RADEX 24945 [facility] WRIST 7 [facility] COMPLETE INC INC MINIMUM 3 VIEWS RADEX 30289 [facility] HAND 7 [facility] MINIMUM 3 INC INC VIEWS UNCLASSIF J3490 [facility] IED DRUGS 7 [facility] INC INC GONADOTRO 80552 [facility] PIN 7 [facility] [place] [address] [facility] ESTROGENS 7 [facility] TOTAL INC INC GONADOTRO 51789 [facility] PIN 7 [facility] FOLLICLE INC INC STIMULATI NG HORMONE COMPREHEN 17812 [facility] SIVE 7 [facility] METABOLIC INC INC PANEL THERAPEUT 16909 [facility] BEN IC 7 PHYSICIAN PROPHYLAC GROUP TIC/DX INJECTION SUBQ/IM INJECTION J1100 [facility] BEN 7 PHYSICIAN DEXAMETHO GROUP SONE SODIUM PHOSPHATE 1 MG THER 80964 [facility] PROPH/DX 7 [facility] NJX IV INC INC PUSH SINGLE/1S T SBST/[place] [address] [facility] ABDOMEN & 7 MEDICAL PELVIS IMAGING W/[place] [address] [facility] LIPASE 7 [facility] INC INC BLOOD 13317 [facility] COUNT 7 [facility] COMPLETE INC INC AUTO&AUTO DIFRNTL WBC FINAL G9551 [facility] [facility] REPR ABD 7 MEDICAL IMAG STS IMAGING W/O ASS INCIDNT FND LES NTD: URNLS DIP 53538 [facility]D 7 [facility] STICK/TAB INC INC LET REAGENT AUTO MICROSCOP Y URINE 10156 [facility] BO[facility]D 7 [facility] TEST INC [place] [address] [facility] AMYLASE 7 [facility] INC INC FINAL G9638 [facility] [facility] REPORTS 7 MEDICAL W/O DOC IMAGING 1/MORE ASS DOSE REDUCTION TECH COMPREHEN 91957 [facility] SIVE 7 [facility] METABOLIC INC INC PANEL RADEX 02027 [facility] SPINE 6 MEDICAL LUMBOSACR IMAGING AL ASS MINIMUM 4 VIEWS OPHTH 61683 [facility] 6 JAM JAM XM&EVAL INTERMEDI ATE NEW PT DETERMINA 64514 [facility] 6 [place] [address] [place] [facility] ALL ABDOMEN & 6 MEDICAL PELVIS IMAGING W/O ASS CONTRAST MATERIAL RADIOLOGI 45[facility] 6 MEDICAL GIO EXAMINATI IMAGING ON CHEST ASS SINGLE VIEW FRONTAL CUL BACT 67175 [facility] XCPT 6 [facility] URINE INC INC BLOOD/STO OL AEROBIC ISOL CUL BACT 22264 [facility] AEROBIC 6 [facility] ADDL INC INC METHS DEFINITIV E EA ISOL SUSCEPTIB 08080 [facility] LTY STDY 6 [facility] ANTIMICRB INC INC IAL MICRO/AGA R DILUTJ INCISION 15008 [facility] GUNTER & 6 PHYSICIAN SEPIDEH DRAINAGE S, PLLC ABSCESS COMPLICAT ED/MULTIP LE CUR MEDS G8428 [facility] NO DOC 6 [facility] OBDT INTERNAL INTERNAL UPD/REV MED MED ELIG CLIN RSN N GVN COMPRE 15651 NIKKI JORDAN AUDIOMETR 6 KADEN KADEN Y THRESHOLD EVAL SP RECOGNIJ IAADIADOO 88484 [facility] LION 6 PHYSICIAN STREPTOCO GROUP CCUS GROUP A COMPREHEN 24695 [facility] SIVE 6 [facility] METABOLIC INC INC PANEL RADIOLOGI 75864 DEB No 6 [facility] EXAMINATI INC INC ON NECK SOFT TISSUE CREATINE 15561 [facility] KINASE MB 6 [facility] FRACTION INC INC ONLY RADIOLOGI 70207 DEB No EXAM 6 [facility] CHEST 2 INC INC VIEWS FRONTAL&L ATERAL FIBRIN 34709 [facility] DGRADJ 6 [facility] PRODUCTS INC INC D-DIMER QUAL/SEMI LAUREANO ECG 70950 [facility] ROUTINE 6 [facility] ECG INC INC W/LEAST 12 LDS TRCG ONLY W/O I&R BLOOD 20497 [facility] COUNT 6 [facility] COMPLETE INC INC AUTO&AUTO DIFRNTL WBC CREATINE 12457 [facility] KINASE 6 [facility] TOTAL INC INC THERAPEUT 14153 [facility] IC 6 [facility] PROPHYLAC INC INC TIC/DX INJECTION SUBQ/IM ECG 22335 DEB FOREMAN ROUTINE 6 [facility] W/LEAST P 12 LDS I&R ONLY PRESSURIZ 19844 [facility]B BO[facility]D ED/NONPRE 6 [facility] SSURIZED INC INC INHALATIO N TREATMENT NATRIURET 75985 DEB BOYD IC 6 [facility] [place] [address] [facility] TROPONIN 6 [facility] QUANTITAT INC INC PARRISH INJECTION J2405 DEB BOYD 6 [facility] ONDANSETR INC INC ON HCL [place] 1 [place] [address] DEB BO[facility]D INFUSION 6 [facility] THERAPY/P INC INC ROPHYLAXI S /DX 1ST TO 1 HR THERAPEUT 30326 [facility] IC 6 [facility] INJECTION INC [place] [address] DEB BO[facility]D INFUSION 6 [facility] THERAPY INC INC PROPHYLAX IS/DX EA HOUR TYMPANOST 92682 [facility] JORDAN DE 6 PHYSICIAN [facility] S GROUP ANESTHESI A ANES 42849 [facility] FEEBACK XTRNL MID 6 ANESTH REE & INNER OF THE EAR W/BX BLUE TYMPANOTO MY URINE 88340 DEB BOYD 6 [facility] TEST INC INC VISUAL COLOR CMPRSN METHS RADEX 54658 [place] ALL HAND 2 6 MEDICAL VIEWS IMAGING ASS INJECTION J1040 [facility] 6 PHYSICIAN METHYLPRE S GROUP DNISOLONE ACETATE 80 MG THERAPEUT 98096 [facility] IC 6 PHYSICIAN PROPHYLAC S GROUP TIC/DX INJECTION SUBQ/IM IADNA-DNA 81255 DEB BOYD /RNA GI 6 [facility] PTHGN INC INC MULTIPLEX PROBE TQ 12-25 PHYSICAL 77976 DEB [facility] THERAPY 6 [facility] EVALUATIO INC INC N ANES 98630 [facility] XTRNL MID 5 ANESTH LASHAUN & INNER OF THE EAR W/BX BLUE TYMPANOTO MY TYMPANOST 98761 [facility] DE 5 [facility] GENERAL INC INC ANESTHESI A BASIC 73025 DE[facility] METABOLIC 5 [facility] PANEL INC INC CALCIUM TOTAL COLLECTIO 59405 DEB BO[facility]D N VENOUS 5 [facility] BLOOD INC INC VENIPUNCT URE BLOOD 37022 DE[facility] COUNT 5 [facility] COMPLETE INC INC AUTO&AUTO DIFRNTL WBC GONADOTRO 92529 [facility] PIN 5 [facility] CHORIONIC INC INC QUALITATI VE DIAGNOSTI G0206 [facility] C 5 [facility] MAMMOGRAP INC INC HY INCL CAD WHEN PERF; UNI IAADIADOO 82516 [place] [facility] MED GROUP A SCREENING G0202 [facility] MAMMOGRAP IMAGING HY KARYNA ASS INCL CAD WHEN PERFORMD COMPUTER- 87505 [place] AIDED 5 [facility] DETECTION IMAGING ASS SCREENING MAMMOGRAP HY RADEX 78462 [facility] HAND 5 [facility] MINIMUM 3 INC INC VIEWS SCREENING 40944 [facility] DEPT HLTH DEPT ACUITY DONOVAN DONOVAN QUANTITAT PARRISH BILAT RADEX 10995 [facility] FOOT [facility] COMPLETE IMAGING [place] [place] [address] DE[facility] MAXILLOFA 5 [facility] CIAL W/O INC INC CONTRAST MATERIAL DISTORT 69431 NIKKI JORDAN PRODUCT 5 KADEN KADEN EVOKED OTOACOUST IC EMISNS LIMITD TYMPANOME 74362 NIKKI JORDAN TRY 5 KADEN KADEN COMPRE 97559 NIKKI JORDAN AUDIOMETR 5 KADEN KADEN Y THRESHOLD EVAL SP RECOGNIJ INJECTION J0696 [facility] AND 5 [facility] CEFTRIAXO INTERNAL NE SODIUM MED PER 250 MG INJECTION J3301 [facility] TRIAMCINO INTERNAL LONE MED ACETONIDE NOS 10 MG THERAPEUT 22903 [facility] AND IC 5 [facility] PROPHYLAC INTERNAL TIC/DX MED INJECTION SUBQ/IM ANES 20037 [facility] NERVE 5 ANESTH SHE MUSCLE OF THE TDN BLUE FASCIA&BU RSA FOREARM WRIST REPAIR 11547 [facility] COMPLEX 5 [facility] SCALP/ARM INC INC /LEG 2.6-7.5 CM EXCISION 91120 [facility] LESION 5 PHYSICIAN ROXANE TENDON S GROUP SHEATH FOREARM&/ WRIST MRI UPPER 53850 [facility] EXTREMITY INC INC OTH THAN JT W/O CONTR MATRL COLLECTIO 93550 [facility] N VENOUS 5 [facility] BLOOD INC INC VENIPUNCT URE GONADOTRO 07866 [facility] PIN 5 [facility] CHORIONIC INC INC QUALITATI VE INJECTION J3301 [facility] 5 [facility] TRIAMCINO INTERNAL LONE MED ACETONIDE NOS 10 MG THERAPEUT 64961 [facility] IC 5 [facility] PROPHYLAC INTERNAL TIC/DX MED INJECTION SUBQ/IM IAADIADOO 32537 [facility] 4 [facility] INFLUENZA INTERNAL MED THERAPEUT 09552 [facility] AND IC 4 [facility] PROPHYLAC INTERNAL TIC/DX MED INJECTION SUBQ/IM INJECTION J0696 [facility] AND 4 [facility] CEFTRIAXO INTERNAL NE SODIUM MED PER 250 MG THERAPEUT 68209 [facility] LYRIC IC 4 PHYSICIAN SEPIDEH PROPHYLAC S GROUP TIC/DX INJECTION SUBQ/IM INJECTION J1885 [facility] LYRIC 4 PHYSICIAN SEPIDEH KETOROLAC S GROUP TROMETHAM INE PER 15 MG URNLS DIP 07233 [facility] 4 [facility] STICK/TAB INTERNAL LET RGNT MED NON-AUTO W/O MICRSCP CULTURE 56579 COMBINED COMBINED BACTERIAL 4 PHYSICIAN PHYSICIAN S LA S LA QUANTTATI VE COLONY COUNT URINE LIPID 49024 [facility] PANEL 4 [facility] INC INC COMPREHEN 48712 [facility] SIVE 4 [facility] METABOLIC INC INC PANEL CYTP 30905 [facility], [facility] CERV/VAG 4 LLC ER JR JARED AUTO THIN LAYER PREP MNL SCREEN TDAP 16691 [facility] Y[facility]/> IM HLTH DEPT HLTH DEPT DONOVAN DONOVAN HEPATIC 74380 [facility] FUNCTION 4 [facility] [place] [address] [facility] THYROXINE 4 [facility] [place] [address] [facility] BO[facility] THYROID 4 [facility] STIMULATI INC INC NG HORMONE TSH THYROID 12792 [facility] HORM 4 [facility] UPTK/THYR INC INC OID HORMONE BINDING RATIO US SOFT 85919 [facility] TISSUE 4 N N HEAD & COMMUNTIY COMMUNTIY NECK REAL HOSPITA HOSPITA TIME IMGE DOCM RADIOLOGI 04195 INDIRA MAT INDIRA MAT C [address] [place] [address] NAA NAA MAXILLOFA 4 GIO GIO CIAL W/O CONTRAST MATERIAL CULTURE 58453 COMBINED COMBINED BACTERIAL 4 PHYSICIAN PHYSICIAN S LA S LA QUANTTATI VE COLONY COUNT URINE CT SOFT 24413 [facility] TISSUE 4 [facility] NECK INC INC W/CONTRAS T MATERIAL LOCM Q9967 DEB [facility]D [phone] 4 [facility] MG/ML INC INC IODINE CONCENTRA TION PER ML IM ADM 91861 AHSAN BESCHANTELLE PRQ ID 4 SOPHIE SOPHIE SUBQ/IM NJXS 1 VACCINE INJECTION J0696 [facility] 4 SOPHIE SOPHIE CEFTRIAXO NE SODIUM PER 250 MG LIPID 52508 [facility] PANEL 4 [facility] INC INC COMPREHEN 98895 DEB [facility] SIVE 4 [facility] METABOLIC INC INC PANEL LARYNGOSC 08508 EAR, NOSE MARY OPY 4 AND KEHINDE FLEXIBLE THROAT DIAGNOSTI SPECIAL C PURE TONE 10713 EAR, NOSE MARY 4 AND KEHINDE AUDIOMETR THROAT Y AIR SPECIAL ONLY TYMPANOME 61246 EAR, NOSE MARY TRY 4 AND KEHINDE THROAT SPECIAL SPEECH 33576 EAR, NOSE MARY AUDIOMETR 4 AND KEHINDE Y THROAT THRESHOLD SPECIAL INJECTION J0696 [facility] 4 PHYSICIAN PHYSICIAN CEFTRIAXO S GROUP S GROUP NE SODIUM PER 250 MG THERAPEUT 84158 [facility] IC 4 PHYSICIAN PHYSICIAN PROPHYLAC S GROUP S GROUP TIC/DX INJECTION SUBQ/IM URNLS DIP 20477 [facility] 4 PHYSICIAN PHYSICIAN STICK/TAB S GROUP S GROUP LET RGNT NON-AUTO W/O MICRSCP LEVEL III 12347 [facility] SURG 1 [facility] ANGIE PATHOLOGY DUBILIER GROSS&SEPIDEH ROSCOPIC EXAM I&D DEEP 96285 C JAYDE BELTRAN ABSC 1 DEVIN NINO BURSA/HEM PSC ATOMA THIGH/KNE E REGION OTHER 8309 [facility] INCISION 1 [facility] [place] [address] [facility] INFUSION 1 [facility] THERAPY INC INC PROPHYLAX IS/DX EA HOUR GONADOTRO 25458 [facility] PIN 1 [facility] [place] [address] DE[facility] INFUSION 1 [facility] THERAPY/P INC INC ROPHYLAXI S /DX 1ST TO 1 [place] [address] [facility] INFUSION 1 [facility] THERAPY INC INC PROPHYLAX IS/DX EA HOUR BLOOD 15279 [facility] COUNT 1 [facility] COMPLETE INC INC AUTO&AUTO DIFRNTL WBC SUSCEPTIB 38902 [facility] LTY STDY 1 [facility] ANTIMICRB INC INC IAL MICRO/AGA R DILUTJ CUL BACT 36572 [facility] AEROBIC 1 [facility] ADDL INC INC METHS DEFINITIV E EA ISOL BASIC 27711 [facility] METABOLIC 1 [facility] PANEL INC INC CALCIUM TOTAL CUL BACT 79778 [facility] XCPT 1 [facility] URINE INC INC BLOOD/STO OL AEROBIC ISOL RADEX 67102 CARRANZA, CARRANZA, CALCANEUS 9 DON R DON R MINIMUM 2 VIEWS COMPRE 03360 NIKKI JORDAN, AUDIOMETR 9 WIN Null Y THRESHOLD EVAL SP RECOGNIJ TYMPANOME 44634 NIKKI JORDAN, TRY 9 WIN Null ACOUSTIC 85991 NIKKI JORDAN, REFLEX 9 WIN Null THRESHOLD Encounters Encounter Start End Date Code Location Performer Type Date OFFICE 38709 [facility] T VISIT 5 HLTH DEPT HL DEPT MINUTES [facility] OFFICE 56172 [facility] 7 7 [facility] T VISIT HLTH DEPT [facility] DEPT 10 [facility] MINUTES OFFICE 20419 EAR, NOSE SHASHY OUTPATIEN 7 7 AND T VISIT THROAT 25 SPECIAL MINUTES OFFICE 86342 EAR, NOSE SHASHY OUTPATIEN 7 7 AND T VISIT THROAT 25 SPECIAL MINUTES OFFICE 59260 [facility] OUTPATIEN 7 7 PHYSICIAN T VISIT S GROUP 15 MINUTES OFFICE 19174 EAR, NOSE SHASHY OUTPATIEN 7 7 AND T VISIT THROAT 15 SPECIAL MINUTES [facility]OSPITAL DEB - 7 7 [facility] OUTPATIEN INC T OFFICE 79213 [facility] 7 7 [facility] T VISIT INTERNAL 15 MED MINUTES OFFICE 93269 EAR, NOSE SHASHY OUTPATIEN 7 7 AND T VISIT THROAT 25 SPECIAL MINUTES HOSPITAL DEB - 7 7 [facility] OUTPATIEN INC T OFFICE 20625 DEB OUTPATIEN 7 7 [facility] T VISIT 5 INC MINUTES OFFICE 60270 [facility] 7 7 [facility] T VISIT INTERNAL 15 MED MINUTES OFFICE 55936 [facility] 7 7 [facility] T VISIT INTERNAL 15 MED MINUTES HOSPITAL DEB - 7 7 [facility] OUTPATIEN INC T OFFICE 75066 [facility] 7 7 [facility] T VISIT INTERNAL 15 MED MINUTES HOSPITAL DEB - 7 7 [facility] OUTPATIEN INC T OFFICE 31849 DEB OUTPATIEN 7 7 [facility] T VISIT 5 INC MINUTES HOSPITAL DEB - 7 7 [facility] OUTPATIEN INC T OFFICE 16494 [facility] [place] [facility] OUTPATIEN 7 7 [facility] VISIT HOSPITAL 10 P MINUTES OFFICE 55253 [facility] CAN[facility]A OUTPATIEN 7 7 VAL[facility] T VISIT INTERNAL 15 MED MINUTES OFFICE 81423 [facility] [place] JR OUTPATIEN 7 7 [facility] 20 HOSPITAL MINUTES P OFFICE 29856 [facility] BEN OUTPATIEN 7 7 PHYSICIAN T VISIT GROUP 25 MINUTES OFFICE 23840 [facility] BEN OUTPATIEN 7 7 PHYSICIAN T VISIT GROUP 25 MINUTES EMERGENCY 49521 DEB 7 7 [facility] DEPARTMEN INC T VISIT MODERATE SEVERITY HOSPITAL DEB - 7 7 [facility] OUTPATIEN INC T OFFICE 38660 [facility] JORDAN OUTPATIEN 7 7 PHYSICIAN T VISIT S GROUP 15 MINUTES OFFICE 00072 [facility] OUTPATIEN 6 6 [facility] T VISIT INTERNAL 25 MED MINUTES EMERGENCY 62986 PAMELA ANAYA, 6 6 PHYSICIAN JR DEPARTMEN S, [facility] T VISIT HIGH/URGE NT SEVERITY OFFICE 29278 [facility] OUTPATIEN 6 6 [facility] T VISIT INTERNAL 15 MED MINUTES EMERGENCY 53614 PAMELA DAIGLE DIAMOND DEPT 6 6 PHYSICIAN VISIT S, [facility] HIGH SEVERITY& THREAT [facility] H[facility]PITAL DEB - 6 6 [facility] OUTPATIEN INC T EMERGENCY 72439 PAMELA GUNTER 6 6 PHYSICIAN SEPIDEH DEPARTMEN S, [facility] T VISIT MODERATE SEVERITY EMERGENCY 19658 DEB 6 6 [facility] DEPARTMEN INC T VISIT LOW/MODER SEVERITY OFFICE 79784 [facility] OUTPAT[facility]EN 6 6 [facility] T VISIT INTERNAL 15 MED MINUTES OFFICE 24326 [facility] OUTPATIEN 6 6 PHYSICIAN KADEN T VISIT S GROUP 15 MINUTES OFFICE 99855 [facility] ANGELICA OUTPATIEN 6 6 [place] ANNE MARIE T VISIT INTERNAL 15 MED MINUTES OFFICE 59218 [facility] LION OUTPATIEN 6 6 PHYSICIAN T VISIT GROUP 15 MINUTES HOSPITAL DEB - 6 6 [facility] OUTPATIEN INC T EMERGENCY 08189 PAMELA MERINO DEPT 6 6 PHYSICIAN U SAURABH VISIT S, [facility] HIGH SEVERITY& THREAT FUNJ EMERGENCY 47050 DEB 6 6 [facility] DEPARTMEN INC T VISIT HIGH/URGE NT SEVERITY OFFICE 25058 [facility] NEGIN OUTPATIEN 6 6 PHYSICIAN SOMMERS T VISIT S GROUP 25 MINUTES OFFICE 21837 [facility] JORDAN OUTPATIEN 6 6 PHYSICIAN KADEN T VISIT S GROUP 15 MINUTES HOSPITAL DEB - 6 6 [facility] OUTPATIEN INC T OFFICE 53443 [facility] JORDAN OUTPATIEN 6 6 PHYSICIAN KADEN T VISIT S GROUP 10 MINUTES OFFICE 00501 [facility] [place] OUTPATIEN 6 6 PHYSICIAN T VISIT S GROUP 15 MINUTES HOSPITAL DEB - 6 6 [facility] OUTPATIEN INC T OFFICE 73499 [facility]PATI[facility] 6 6 [place] [facility] T VISIT INTERNAL 25 MED MINUTES HOSPITAL DEB - 6 6 [facility] OUTPATIEN INC T OFFICE 24256 EAR, NOSE SHASHY OUTPATIEN 6 6 AND SARITA T VISIT THROAT 25 SPECIAL MINUTES OFFICE 75085 [facility] ADITI OUTPATIEN 6 6 PHYSICIAN SEPIDEH T VISIT S GROUP 15 MINUTES EMERGENCY 24438 DEB 5 5 [facility] DEPARTMEN INC T VISIT LIMITED/M INOR PROB EMERGENCY 77325 [facility] 5 5 PHYSICIAN DEPARTMEN S, [facility] T VISIT MODERATE SEVERITY HOSPITAL DEB - 5 5 [facility] OUTPATIEN INC OFFICE 45860 [facility] JAMIA OUTPATIEN 5 5 IVONNE MARIETTA T VISIT 15 MINUTES OFFICE 29914 [facility] OUTPATIEN 5 5 [facility] T VISIT INTERNAL 15 MED MINUTES HOSPITAL DEB - 5 5 [facility] OUTPATIEN INC [facility] DEB - 5 5 [facility] OUTPATIEN [facility] OFFICE [address] [place] [address] OUTPATIEN 5 5 [facility] 10 MINUTES OFFICE [address] [address] OUTPATIEN 5 5 [facility] VISIT [facility] 10 MINUTES HOSPITAL DEB - 5 5 [facility] OUTPATIEN [facility] OFFICE 87037 [facility] OUTPATIEN 5 5 [facility] T VISIT INTERNAL 15 MED MINUTES OFFICE 56891 [facility] JORDAN OUTPATIEN 5 5 PHYSICIAN KADEN T VISIT S GROUP 15 MINUTES OFFICE 59248 [facility] JAMIA OUTPATIEN 5 5 IVONNE MARIETTA T NEW 30 MINUTES [facility] DEB - 5 5 [facility] OUTPATIEN [facility] DEB - 5 5 [facility] OUTPATIEN INC T OFFICE 13206 [facility]PAT[facility]EN 5 5 [place] [facility] T VISIT INTERNAL 15 MED MINUTES PERIODIC 38397 [facility] MED EST TH DEPT [facility] DEPT PATIENT DONOVAN DONOVAN [id number] OFFICE 68634 [facility] JORDAN OUTPATIEN 5 5 PHYSICIAN KADEN T VISIT S GROUP 10 MINUTES OFFICE 89773 [facility] ANGELICA OUTPATIEN 5 5 [facility] ANNE MARIE T VISIT INTERNAL 15 MED MINUTES HOSPITAL DEB - 5 5 [facility] OUTPATIEN INC T HOSPITAL DEB - 5 5 [facility] OUTPATIEN INC T OFFICE 02829 [facility] JORDAN OUTPATIEN 5 5 PHYSICIAN KADEN T VISIT S GROUP 15 MINUTES OFFICE 88924 [facility] USERY AND OUTPATIEN 5 5 [facility]LEY T VISIT INTERNAL 15 MED MINUTES OFFICE 24696 [facility] JORDAN OUTPATIEN 5 5 PHYSICIAN KADEN T VISIT S GROUP 15 MINUTES EMERGENCY 79552 PAMELA MERINO 5 5 PHYSICIAN U SAURABH DEPARTMEN S, [facility] T VISIT MODERATE SEVERITY HOSPITAL DEB - 5 5 [facility] INC T [facility]OSPITAL DEB - 5 5 [facility] OUTPATIEN INC T HOSPITAL DEB - 5 5 [facility] OUTPATIEN INC T OFFICE 23349 [facility] 5 5 [facility] T VISIT INTERNAL 15 MED MINUTES HOSPITAL DEB - 5 5 [facility] OUTPATIEN INC T EMERGENCY 37578 DEB 5 5 [facility] DEPART[facility] INC T VISIT LOW/MODER SEVERITY OFFICE 09902 [facility] 4 4 [facility] T VISIT INTERNAL 15 MED MINUTES OFFICE 02976 [facility] OUTPATIEN 4 4 PHYSICIAN JAM T NEW 30 S GROUP MINUTES OFFICE 65054 [facility]PAT[facility] 4 4 [facility] S[facility] T VISIT INTERNAL 15 MED MINUTES OFFICE 48623 [facility] USERY AND OUTPATIEN 4 4 [facility] T VISIT INTERNAL 15 MED MINUTES OFFICE 10828 [facility] USERY AND OUTPATIEN 4 4 [facility] T VISIT INTERNAL 15 MED MINUTES OFFICE 63625 [facility] LYRIC OUTPATIEN 4 4 PHYSICIAN SEPIDEH T VISIT S GROUP 15 MINUTES HOSPITAL DEB - 4 4 [facility] OUTPATIEN INC T OFFICE 42637 [facility] MASOODSON OUTPATIEN 4 4 [facility] SOP[facility]IE T VISIT INTERNAL 25 MED MINUTES INITIAL 35855 [facility] DEPT [facility] DEPT MEDICINE DONOVAN KOHLI PT AGE [id number] [facility] DEB - 4 4 [facility] OUTPATIEN INC T OFFICE 03776 [facility] HERNANDEZ OUTPATIEN 4 4 KEHINDE KEHINDE T VISIT 25 MINUTES HOSPITAL DEB - 4 4 [facility] OUTPATIEN INC T [facility] 4 N OUTPATIEN COMMUNTIY T HOSPITA OFFICE 50097 [facility] HERNANDEZ OUTPATIEN 4 4 KEHINDE KEHINDE T VISIT 25 MINUTES OFFICE 65174 [facility] OUT[facility]IEN 4 4 SOPHIE T VISIT 15 MINUTES HOSPITAL DEB - 4 4 [facility] OUTPATIEN INC T OFFICE 64863 [facility] OUT[facility] 4 4 SOPHIE T VISIT 15 MINUTES HOSPITAL DEB - 4 4 [facility] OUTPATIEN INC T OFFICE 48081 EAR, NOSE MARY CONSULTAT 4 4 AND KEHINDE ION THROAT NEW/ESTAB SPECIAL PATIENT 60 MIN OFFICE 65441 [facility] OUTPATIEN 4 4 PHYSICIAN T VISIT S GROUP 10 MINUTES OFFICE 41486 NIKKI JORDAN OUTPATIEN 4 4 KADEN KADEN T VISIT 15 MINUTES HOSPITAL DEB - 1 1 [facility] OUTPATIEN INC T OFFICE 35497 DILLON CARRANZA OUTPATIEN 1 1 DON DON T VISIT 15 MINUTES HOSPITAL DEB - 1 1 [facility] OUTPATIEN INC T OFFICE 88532 Marybel BELTRAN CONSULTAT 1 1 DEVIN VARGAS MD PSC NEW/ESTAB PATIENT 60 MIN OFFICE 45964 D[facility] CARRANZA OUTPATIEN 1 1 DON DON T VISIT 15 MINUTES [facility] DEB - 1 1 [facility] OUTPATIEN INC T EMERGENCY 12976 DEB 1 1 [facility] DEPARTMEN INC T VISIT HIGH/URGE NT SEVERITY OFFICE 12620 [facility] CARRANZA OUTPATIEN 1 1 DON DON T VISIT 15 MINUTES OFFICE 59924 [facility] CARRANZA OUTPATIEN 9 9 DON R DON R T VISIT 15 MINUTES OFFICE 68917 [facility] CARRANZA OUTPATIEN 9 9 DON R DON R T VISIT 15 MINUTES OFFICE 38891 [facility] CARRANZA OUTPATIEN 9 9 DON R DON R T VISIT 15 MINUTES OFFICE 17633 [facility] CARRANZA OUTPATIEN 9 9 DON R DON R T VISIT 15 MINUTES OFFICE 90202 NIKKI JORDAN, OUTPATIEN 9 9 WIN Null T VISIT 10 MINUTES OFFICE 94587 NIKKI JORDAN, OUTPATIEN 9 9 WIN Null T NEW 30 MINUTES OFFICE 86585 D[facility]ON CARRANZA OUTPATIEN 9 9 DON R DON R T VISIT 15 MINUTES OFFICE 11810 D[facility]ON CARRANZA OUTPATIEN 9 9 DON R DON R T VISIT 15 MINUTES OFFICE 24032 [facility] CARRANZA OUTPATIEN 9 9 DON R DON R T VISIT 5 MINUTES OFFICE 48669 [facility] CARRANZA OUTPATIEN 9 9 DON R DON R T VISIT 15 MINUTES
--- OUTSIDE RECORDS SUMMARY | 2016-11-26 16:28 | External Medical Summary Rpt | CCD ---
Author Author , DIMITRIOS CUENCAAMY Address Unknown Phone [email or web address] Care Team Providers Care Book Editor Name Role Phone KAROL ROBERSON Unavailable Unavailable BEDOYA TER, BEDOYA TER Unavailable [...] [facility] [place] [place] [place] F[place] IVONNE, FALLIS Unavailable Unavailable IVONNE FEEBACK REE, FEEBACK Unavailable Unavailable REE ANGELICA ANNE MARIE, Unavailable Unavailable ANGELICA ANNE MARIE LION, LION Unavailable Unavailable JR HÉCTOR, HÉCTOR, Unavailable Unavailable JR LYRIC SEPIDEH, LYRIC Unavailable Unavailable SEPIDEH [facility], [facility] CARYL JAM, CARYL Unavailable Unavailable JAM CARYL JAM, CARYL Unavailable Unavailable JAM [facility] Unavailable Unavailable INC, [facility] Unavailable Unavailable HOSPITAL, [facility] Unavailable Unavailable HOSPITAL P, [facility] P [facility], Unavailable Unavailable [facility], Unavailable Unavailable [facility] OXANA FIELDS, OXANA FIELDS Unavailable Unavailable [facility] Un[facility], [facility] JORDAN, JORDAN [...] PHARMACY Unavailable Unavailable #591, [facility] Unavailable Unavailable DEPT [facility], [facility] DEPT [facility] Unavailable Unavailable DEPT [facility], [facility] DE[facility] MARY BUSBY, MARY Unavailable Unavailable KEHINDE BUSBY, MARY Unavailable Unavailable KEHINDE INDIRA MAT, INDIRA MAT Unavailable Unavailable Purpose Continuity of Care Document - 04-19-2008 through 2016 Problems Code Diagnosis DOS Provider Status Z111 ENCOUNTER 10-25-2016 [facility] DEPT RESPIRATORY DONOVAN TUBERCULOSI S H6983 OTHER SPEC 10-05-2016 EAR, NOSE DISORDERS AND THROAT EUSTACHIAN SPECIAL TUBE BILAT 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 09-24-2016 EAR, NOSE AL HEARING AND THROAT LOSS SPECIAL BILATERAL M1812 UNI PRIM 09-02-2016 [facility] OSTEOARTHRI PHYSICIANS TIS 1ST [facility] GROUP JOINT LT HAND [id number] PAIN IN 08-14-2016 [facility] RIGHT [facility] FINGERS INC M654 RADIAL 08-13-2016 [facility] STY[place]ID [place] TENOSYNOVIT INTERNAL IS DE MED QUERVAIN M7122 SYNOVIAL 08-13-2016 [facility] [place]ST [place] POPLITEAL INTERNAL SPACE BOSE MED LEFT KNEE H90A22 SENSORNURL 07-23-2016 EAR, NOSE HEAR LOS AND THROAT UNI LT EAR SPECIAL RSTRC CNTRALATERL [id number] OTHER ACUTE 07-18-2016 [facility] NONSUPPURAT INC [place] OTITIS MEDIA RT EAR K219 GASTRO-ESOP 07-18-2016 [facility] H REFLUX [facility] DISEASE INC WITHOUT ESOPHAGITIS Z720 TOBACCO USE 07-18-2016 [facility] INC M779 ENTHESOPATH 07-14-2016 [facility] Y ANDERSON UNSPECIFIED INTERNAL MED [id number] PRIMARY 06-30-2016 [facility] OSTEOARTHRI MEDICAL TIS RIGHT IMAGING ASS WRIST M7989 OTHER 06-30-2016 [facility] SPECIFIED ANDERSON SOFT TISSUE INTERNAL DISORDERS MED W12144 CELLULITIS 06-17-2016 [facility] OF LEFT [facility] LOWER LIMB INC R232 FLUSHING 06-01-2016 [facility] N393 STRESS 05-06-2016 [facility] P MALE L309 DERMATITIS 04-22-2016 [facility] UNSPECIFIED ANDERSON INTERNAL MED J00 ACUTE 04-04-2016 [facility] NASOPHARYNG PHYSICIAN ITIS COMMON GROUP COLD Q72918 AC 03-17-2016 [facility] SUPPURATIVE PHYSICIAN OM W/O GROUP RUPT EAR DRUM RECUR LT EAR K5730 DIVERTICULO 03-10-2016 [place] SIS LG MEDICAL INTEST W/O IMAGING ASS PERF/ABSC W/O BLEED R1011 RIGHT UPPER 03-10-2016 [place] [facility] PAIN IMAGING ASS H6023 MALIGNANT 03-01-2016 [facility] OTITIS PHYSICIANS EXTERNA GROUP BILATERAL H6503 ACUTE 03-01-2016 [facility] SEROUS PHYSICIANS OTITIS GROUP MEDIA BILATERAL 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 M5441 LUMBAGO 01-23-2016 [facility] WITH PHYSICIANS, SCIATICA [facility] RIGHT SIDE M545 LOW BACK 01-23-2016 [place] PAIN MEDICAL IM[facility]ING ASS H5213 MYOPIA 11-28-2015 CARYL JAM BILATERAL R1031 RIGHT LOWER 11-28-2015 [place] [facility] ASS R1032 LEFT LOWER 11-28-2015 [place] [facility] PA[facility] ASS R310 GROSS 11-28-2015 [facility] HEMATURIA ANDERSON INTERNAL MED R319 HEMATURIA 11-28-2015 [place] UNSPECIFIED [facility]ICAL IMAGING ASS R079 CHEST PAIN 11-17-2015 [facility] UNSPECIFIED PHYSICIANS, PLLC F75855 CUTANEOUS 10-28-2015 [facility] ABSCESS OF [facility] RIGHT LOWER INC LIMB C96024 CUTANEOUS 10-28-2015 [facility] ABSCESS OF PHYSICIANS, HEAD ANY PLLC PART EXCEPT FACE L0390 CELLULITIS 10-15-2015 [facility] UNSPECIFIED [facility]ERSON INTERNAL MED H6120 IMPACTED 09-25-2015 [facility] CERUMEN PHYSICIANS UNSPECIFIED GROUP EAR H6590 UNSPECIFIED 09-25-2015 [facility] PHYSICIANS NONSUPPURAT GROUP [place] OTITIS MEDIA UNS EAR H6903 PATULOUS 09-25-2015 JORDAN KADEN EUSTACHIAN TUBE BILATERAL R0982 POSTNASAL 09-18-2015 [facility] DRIP ANDERSON INTERNAL MED J029 ACUTE 09-15-2015 [facility] PHARYNGITIS PHYSICIAN GROUP UNSPECIFIED K120 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[facility] ORAL PHYSICIAN APHTHAE GROUP J0101 ACUTE 09-09-2015 [facility] RECURRENT PHYSICIANS, MAXILLARY [facility] SINUSITIS J4520 MILD 09-09-2015 [facility] INTERMITTEN PHYSICIANS, T ASTHMA [facility] UNCOMPLICAT ED R0600 DYSPNEA 09-09-2015 [place] UNSPECIFIED MEDICAL IMAGING ASS R221 LOCALIZED 09-09-2015 [place] SWELLING MEDICAL MASS AND IMAGING ASS LUMP NECK R05 COUGH 09-08-2015 [facility] PHYSICIANS GROUP H6090 UNSPECIFIED 08-25-2015 [facility] OTITIS PHYSICIANS EXTERNA GROUP UNSPECIFIED EAR H6501 ACUTE 07-17-2015 [facility] SEROUS PHYSICIANS OTITIS GROUP MEDIA RIGHT EAR H6591 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-17-2015 [facility] NONSUPPURAT INC [place] OTITIS MEDIA RT EAR H9391 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-17-2015 COMMUNITY DISORDER ANESTH OF OF RIGHT THE BLUE EAR [id number] PAIN IN 05-28-2015 [place] RIGHT HAND MEDICAL IMAGING ASS J0190 ACUTE 05-11-2015 [facility] SINUSITIS PHYSICIANS UNSPECIFIED GROUP A09 INFECTIOUS 03-14-2015 [facility] ITIS AND INC COLITIS UNSPEC J069 ACUTE UPPER 03-12-2015 [facility] INTERNAL INFECTION MED UNSPECIFIED M542 CERVICALGIA 02-28-2015 [facility] INC 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, 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 N390 URINARY 02-24-2015 [facility] TRACT PHYSICIANS INFECTION GROUP SITE NOT SPECIFIED L664 FOLLICULITI 02-09-2015 [facility] S [facility]ICI[facility], [facility] RETIC[facility] L738 OTHER 02-09-2015 [facility] FOLLICULAR INC DISORDERS B351 TINEA 01-30-2015 [place] IVONNE UNGUIUM B353 TINEA PEDIS 01-30-2015 [place] IV[place]NE I890 LYMPHEDEMA 01-30-2015 [place] [facility] NOT ELSEWHERE CLASSIFIED M2570 OSTEOPHYTE 01-30-2015 [place] UNSPECIFIED JOINT H9202 OTALGIA 01-17-2015 [facility] LEFT EAR VALLEY INTERNAL MED H6506 ACUTE 01-16-2015 [facility] SEROUS PHYSICIANS OTITIS GROUP MEDIA RECURRENT BILATERAL H6523 CHRONIC 01-16-2015 [facility] SEROUS [facility] OTITIS INC MEDIA BILATERAL H6693 OTITIS 01-16-2015 COMMUNITY MEDIA ANESTH OF UNSPECIFIED THE BLUE BILATERAL W21618 ENCOUNTER 01-15-2015 [facility] FOR OTHER [facility] PREPROCEDUR INC AL EXAMINATION P68317 ACUTE & 12-27-2014 [facility] OTITS MEDIA BILATERAL H1032 UNSPECIFIED 12-17-2014 [facility] CONJUNCTIVI [facility] TIS LEFT EYE N6489 OTHER 12-16-2014 [place] SPECIFIED MEDICAL DISORDERS IMAGING ASS OF BREAST R928 OTH ABNORM 12-16-2014 [facility] & [facility] INCONCLUSIV INC E FIND ON DX IMAG BREAST B9789 OT VIRAL 12-13-2014 [facility] AGENT CAUSE VALLEY DISEASES INTERNAL CLASSIFIED MED ELSW H6504 ACUTE 12-09-2014 [facility] SEROUS PHYSICIANS OTITIS GROUP MEDIA RECURRENT RIGHT EAR J50827 ANKYLOSIS 12-09-2014 [facility] OF EAR PHYSICIANS OSSICLES GROUP RIGHT EAR H9191 UNSPECIFIED 12-09-2014 [facility] HEARING PHYSICIANS LOSS RIGHT GROUP EAR [id number] PAIN IN 12-05-2014 [place] [facility] RIGHT TOES M19171 PAIN IN 12-05-2014 [place] LEFT TOES Z1231 ENCOUNTER 11-29-2014 [place] SCREENING MEDICAL MAMMO MALIG IMAGING ASS NEOPLASM BREAST Z803 FAMILY 11-29-2014 [place] HISTORY OF MEDICAL MALIGNANT IMAGING ASS NEOPLASM OF BREAST B52017 PAIN IN 11-15-2014 [facility] LEFT FOOT VALLEY INTERNAL MED V252 STERILIZATI 11-05-2014 [facility] DEPT DONOVAN 14286 DYSFUNCTION 09-19-2014 [facility] OF PHYSICIANS EUSTACHIAN GROUP TUBE 4779 ALLERGIC 09-19-2014 [facility] RHINITIS PHYSICIANS CAUSE GROUP UNSPECIFIED 00949 OTHER 09-19-2014 [facility] DISEASES OF PHYSICIANS NASAL GROUP CAVITY AND SINUSES 7295 PAIN IN 09-18-2014 [facility] SOFT VALLEY TISSUES OF INTERNAL LIMB MED 15332 SIMPLE/UNSP 2014 [facility] ECIFIED [facility] CHRONIC INC SEROUS OTITIS MEDIA 3814 NONSUPPRATV 2014 [place] OTITIS MEDICAL MEDIA NOT IMAGING ASS SPEC ACUT/CHRON 470 DEVIATED 2014 [place] NASAL MEDICAL SEPTUM IMAGING ASS 61459 UNSPECIFIED 09-02-2014 [facility] CONDUCTIVE PHYSICIANS HEARING GROUP LOSS 4730 CHRONIC 09-02-2014 [facility] MAXILLARY PHYSICIANS SINUSITIS GROUP 3829 UNSPECIFIED 08-29-2014 JORDAN KADEN OTITIS MEDIA 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 4619 ACUTE 08-22-2014 [facility] SINUSITIS, VALLEY UNSPECIFIED INTERNAL MED 3899 UNSPECIFIED 08-13-2014 [facility] HEARING PHYSICIANS LOSS GROUP 7856 ENLARGEMENT 08-13-2014 [facility] OF LYMPH PHYSICIANS NODES GROUP 63513 GANGLION OF 05-31-2014 [facility] TENDON PHYSICIANS SHEATH GROUP 93555 UNSPECIFIED 05-31-2014 COMMUNITY GANGLION ANESTH OF THE BLUE 74655 PAIN IN 05-30-2014 [place] JOINT, MEDICAL FOREARM IMAGING ASS 71151 GANGLION OF 05-29-2014 [place] JOINT [facility] INC V7283 OTHER 05-29-2014 [facility] PRE-OPERATI INC VE EXAMINATION 60357 UNSPECIFIED 02-27-2014 [facility] OTALGIA ANDERSON INTERNAL MED 4871 INFLUENZA 02-13-2014 [facility] WITH OTHER ANDERSON RESPIRATORY INTERNAL MED MANIFESTATI ONS 90961 GENERALIZED 02-13-2014 [facility] PAIN ANDERSON INTERNAL MED 4659 ACUTE URIS 12-06-2013 [facility] OF ANDERSON UNSPECIFIED INTERNAL SITE MED 486 PNEUMONIA, 12-03-2013 [facility] ORGANISM ANDERSON UNSPECIFIED INTERNAL MED 7840 HEADACHE 12-03-2013 [facility] ANDERSON INTERNAL MED 6822 CELLULITIS 11-15-2013 [facility] AND ABSCESS PHYSICIANS OF TRUNK GROUP 11510 ABDOMINAL 11-15-2013 [facility] PAIN, PHYSICIANS UNSPECIFIED GROUP SITE 84494 ABDOMINAL 10-29-2013 [facility] PAIN, ANDERSON GENERALIZED INTERNAL MED 61038 POLYURIA 10-27-2013 [facility] INC V700 ROUTINE 10-27-2013 [facility][1] MEDICAL [facility] EXAM@HEALTH CARE FACL 74538 ESOPHAGEAL 10-26-2013 [facility] REFLUX ANDERSON INTERNAL MED 57063 INSOMNIA 10-26-2013 [facility] UNSPECIFIED ANDERSON INTERNAL MED 6160 CERVICITIS 10-23-2013 [facility] ENDOCERVICI TIS V7231 ROUTINE 10-23-2013 [facility] AL EXAMINATION 1101 DERMATOPHYT 2013 [facility] OSIS OF [facility] NAIL INC 2400 GOITER, 07-03-2013 MARY KEHINDE SPECIFIED SIMPLE 2449 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-03-2013 [facility] HYPOTHYROID INC ISM 08573 OTOGENIC 07-03-2013 MARY KEHINDE PAIN 30532 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-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 7842 SWELLING 07-03-2013 MARY KEHINDE MASS OR LUMP IN HEAD AND NECK 37153 UNSPECIFIED 06-19-2013 MARY KEHINDE TINNITUS 5990 URINARY 06-11-2013 [facility] TRACT INFECTION SITE NOT SPECIFIED 2409 GOITER, 06-08-2013 [facility] UNSPECIFIED GIO 56071 OBESITY, 06-06-2013 [facility] UNSPECIFIED [facility] INC 43772 UNSPECIFIED 06-05-2013 EAR, NOSE ABNORMAL AND THROAT AUDITORY SPECIAL PERCEPTION 81078 UNSPECIFIED 06-05-2013 [facility] VAGINITIS PHYSICIANS AND GROUP VULVOVAGINI TIS 19659 UNSPECIFIED 05-28-2013 JORDAN KADEN ACUTE NONSUPPURAT [place] OTITIS MEDIA 37031 METHICILLIN 05-28-2010 [facility] RESISTANT [facility] STAPHYLOCOC INC CUS AUREUS 6826 CELLULITIS 05-28-2010 [facility] AND ABSCESS [facility] OF LEG INC EXCEPT FOOT 48607 METHICILLIN 05-26-2010 [facility] RESISTANT DON STAPH AUREUS SEPTICEMIA V090 INFECTION 05-26-2010 [facility] W/MICROORGA DON NISMS RESISTANT PENICILLINS V7241 05-26-2010 [facility] EXAMINATION [facility] OR TEST INC NEGATIVE RESULT 9164 HIP THI 05-23-2010 [facility] LEG&ANK DON INSECT BITE NONVENOMOUS W/O INF 5589 OTH&UNSPEC 12-13-2008 [facility] NONINFECTIO DON R US GASTROENTER ITIS&COLITI S 14492 CALCANEAL 12-13-2008 [facility] SPUR DON R 1105 DERMATOPHYT 12-02-2008 [facility] OSIS OF THE MARCIA R BODY 11203 OVERWEIGHT 10-09-2008 MARCIA [facility] R 4618 OTHER ACUTE 10-09-2008 [facility], SINUSITIS DON R 93800 UNSPECIFIED 06-11-2008 WIN [facility]ORD[facility] SENSORINEUR AL HEARING LOSS 78545 UNSPECIFIED 06-06-2008 [facility] OBSTRUCTION OF EUSTACHIAN [...] 09 10 60 30 00 EA Ac VA 25 -0 -[address] ti [...] 15 9- 6- 00 00 SI ve VA 02 20 20 50 DE ED 20 17 17 09 NI 7 57 PH SO AR LO MA NE CY 4 OF MG CY NT DO HI SE AN PK A IN C IM 00 08 09 30 30 00 EA Ac IP 78 -3 -[address] ti RA 11 1- 9- [address] 76 20 20 48 DE NE 60 [...] 08 09 7. 7 00 EA Ac VA 06 -1 -[address] ti [...] 20 6- 8- 00 00 SI ve VA 00 20 20 49 DE AM 50 17 17 00 5 32 PH HB AR R MA 10 CY MG OF CY TA NT BL HI ET AN A IN C AL 67 08 09 60 30 00 EA Ac VA 25 -0 -[address] ti [...] BL HI ET AN A IN C DI 65 07 08 10 30 00 EA Ac CL 16 -2 -[address] ti OF 20 0- 8- 00 00 SI ve EN 83 20 20 0 49 DE AC 36 17 17 50 6 51 PH SO AR DI MA UM CY 1% OF CY GE NT L HI AN A IN C IM 00 07 08 30 30 00 EA Ac IP 78 -2 -[address] ti RA 11 4- 8- [address] 76 20 20 48 DE NE 60 [...] TA A B IN C MO 60 07 08 30 [...] 20 0- 4- 00 00 SI ve VA 00 20 20 49 DE AM 50 17 17 00 5 32 PH HB AR R MA 10 CY MG OF CY TA NT BL HI ET AN A IN C CI 00 07 08 7. 7 00 CL Ac VA 06 -0 -0 50 00 IN ti OD 58 6- 4- 0 00 IC ve EX 53 20 20 43 30 17 17 60 PH OT 2 63 AR IC MA CY REYES SP EN SI ON IB 53 07 08 60 30 00 [...] 07 08 60 30 00 EA Ac VA 25 -0 -[address] ti [...] 17 17 37 E 5 04 PH VA AR OP MA CY 50 OF MC CY G NT SP HI RA AN Y A IN C HY 00 06 07 [address] 40 -3 -[address] ti OC 60 0- 8- 00 00 SI ve OD 12 20 20 49 DE ON 30 17 17 31 -A 5 66 PH CE AR TA MA CT CY NO PH OF EN CY NT [...] 11 2- 1- [address] 76 20 20 48 DE NE 60 17 17 23 1 24 PH HC AR L MA 50 CY MG OF CY TA NT BL HI ET AN A IN C VA 59 06 07 42 9 00 EA [...] 06 06 60 30 00 EA Ac VA 25 -0 -[address] ti [...] 20 5- 0- 00 00 SI ve VA 00 20 20 49 DE AM 50 [...] 05 06 10 5 00 EA Ac VA 25 -2 -[address] ti [...] -0 .[address] ti TI 60 00 SI ve DI 25 20 20 48 DE NE 30 17 17 71 5 80 PH 15 AR 0 MA MG CY TA OF BL CY ET NT HI AN A IN C CE 65 05 06 40 10 00 EA Ac PH 86 -0 -[address] ti AL 20 5- 00 SI ve EX 01 20 20 48 DE IN 90 17 17 62 5 36 PH 50 AR 0 MA MG CY CA OF PS CY UL NT E HI AN A IN C MO 60 [...] ti RA 11 9- [address] 76 20 20 48 DE NE 60 17 17 23 1 24 PH HC AR L MA 50 CY MG OF CY TA NT BL HI ET AN A IN C PA 65 04 05 30 30 00 EA Ac NT 86 -2 -[address] ti OP 20 - 00 SI ve RA 56 20 20 47 DE ZO 09 17 17 33 LE 0 52 PH AR SO MA D CY DR OF 40 CY NT MG HI AN TA A B IN C CI 65 04 05 30 30 00 EA Ac TA 86 -2 -[address] ti LO 20 5- 9 00 SI ve VA 00 20 20 47 DE AM 50 17 17 24 5 82 PH HB AR R MA 10 CY MG OF CY TA NT BL HI ET AN A IN C AL 67 02 05 60 30 00 EA Ac VA 25 -1 -[address] ti AZ 30 3- 9- 00 00 SI ve OL 90 20 20 47 DE AM 11 17 17 58 1 74 PH 0. AR 5 MA MG CY TA OF BL CY ET NT HI AN A IN C AL 67 04 05 60 30 00 EA Ac VA 25 -1 -[address] ti [...] 20 3- 8- 00 00 SI ve VA 00 20 20 47 DE AM 50 17 17 24 5 82 PH HB AR R MA 10 CY MG OF CY TA NT BL HI ET AN A IN C IM 00 04 04 30 30 00 EA Ac IP 78 -0 -[address] ti RA 11 3- 8- [address] 76 20 20 48 DE NE 60 [...] 03 04 60 30 00 EA Ac VA 25 -2 -[address] ti [...] ST ti RA 11 3- 1- [address] 76 20 20 47 DE NE 60 [...] 20 6- 4- 00 00 SI ve VA 00 20 20 47 DE AM 50 17 17 24 5 82 PH HB AR R MA 10 CY MG OF CY TA NT BL HI ET AN A IN C PA 65 02 03 30 30 00 EA Ac NT 86 -2 -[address] ti OP 20 2- 4- 00 SI ve RA 56 20 20 [...] 17 17 56 E 5 51 PH VA AR OP MA CY 50 OF MC [...] 01 02 7. 5 00 EA Ac VA 06 -1 -[address] ti [...] 20 6- 7- 00 00 SI ve VA 00 20 20 47 DE AM 50 [...] NT ET HI AN A IN C VA 59 12 01 12 6 00 EA [...] CY NT HI AN A IN C VA 65 12 01 10 3 00 EA Ac OM 16 -0 -[address] ti ET 20 7- 9- 00 SI ve TRAN 52 20 20 46 DE ZI 11 16 17 80 NE 1 72 PH AR 25 MA CY MG OF TA CY BL NT ET HI AN A IN C NA 00 10 11 [address] Ac VA 09 -3 -[address] 92 EP [...] 1- 8- 00 MA 69 HE ve VA 34 20 20 RT 7 NS AM [...] 01 [address] Ac VA 25 -1 -[address] 47 EP ti AZ 30 4- 0- 00 SI 93 HE ve OL 90 20 20 DE NS AM 11 09 09 1 PH DO 0. AR N 5 MA R MG CY TA OF BL CY ET NT HI AN A AL 67 07 07 00 [address] Ac VA 25 -1 -[address] 47 EP [...] 00 [address] Ac VA 25 -1 -[address] 49 EP [...] DOS Code Location Performer Comment SKIN TEST 54985 [facility] DEPT SIS DONOVAN DONOVAN INTRADERM AL PURE TONE 89694 EAR, NOSE SHASHY 7 AND AUDIOMETR THROAT Y AIR SPECIAL ONLY TYMPANOME 41467 EAR, NOSE SHASHY TRY 7 AND THROAT SPECIAL APPL 40403 [facility]ALITY 7 [facility] 1/> AREAS INC INC ULTRASOUN D EA 15 MIN MANUAL 80607 [facility] THERAPY 7 [facility] TQS 1/> INC INC REGIONS EACH 15 MINUTES TYMPANOME 86844 EAR, NOSE SHASHY TRY 7 AND THROAT SPECIAL COMPRE 69766 EAR, NOSE SHASHY AUDIOMETR 7 AND Y THROAT THRESHOLD SPECIAL EVAL SP RECOGNIJ THERAPEUT 79492 [facility] IC 7 [facility] PROPHYLAC INC INC TIC/DX INJECTION SUBQ/IM UNCLASSIF J3490 [facility] I[facility] DRUGS 7 [facility] INC INC RADEX 25916 [facility] WRIST 7 MEDICAL COMPLETE IMAGING MINIMUM 3 ASS VIEWS RADEX 05415 [facility] HAND 7 MEDICAL MINIMUM 3 IMAGING VIEWS ASS UNCLASSIF J3490 [facility] IED DRUGS 7 [facility] INC INC COMPREHEN 67021 [facility] SIVE 7 [facility] [address] [facility] ESTROGENS 7 [facility] TOTAL INC INC GONADOTRO 82637 [facility] PIN 7 [facility] FOLLICLE INC INC STIMULATI NG HORMONE GONADOTRO 74093 [facility] PIN 7 [facility] LUTEINIZI INC INC NG HORMONE INJECTION J1100 [facility] BEN 7 PHYSICIAN DEXAMETHO GROUP SONE SODIUM PHOSPHATE 1 MG THERAPEUT 66054 [facility] BEN IC 7 PHYSICIAN PROPHYLAC GROUP TIC/DX INJECTION SUBQ/IM THER 10032 [facility] PROPH/DX 7 [facility] NJX IV INC INC PUSH SINGLE/1S T SBST/[place] [address] [facility] ABDOMEN & 7 MEDICAL PELVIS IMAGING W/O ASS CONTRAST MATERIAL COMPREHEN 01350 [facility] SIVE 7 [facility] METABOLIC INC INC PANEL FINAL G9638 [facility] REPORTS 7 MEDICAL W/O DOC IMAGING 1/[place] [address] [facility] AMYLASE 7 [facility] INC INC BLOOD 11861 [facility] COUNT 7 [facility] COMPLETE INC INC AUTO&[place] [address] [facility] LIPASE 7 [facility] INC INC URNLS DIP 84263 [facility] 7 [facility] STICK/TAB INC INC LET REAGENT AUTO MICROSCOP Y URINE 65414 [facility] 7 [facility] TEST INC INC VISUAL COLOR CMPRSN METHS FINAL G9551 [facility] REPR ABD 7 MEDICAL IMAG STS IMAGING W/O ASS INCIDNT FND LES NTD: RADEX 74847 [facility] SPINE 6 MEDICAL LUMBOSACR IMAGING AL ASS MINIMUM 4 VIEWS OPHTH 91806 [facility] 6 JAM JAM XM&EVAL INTERMEDI ATE NEW PT DETERMINA 90303 [facility] 6 [place] [address] [facility] ALL ABDOMEN & 6 MEDICAL PELVIS IMAGING W/O ASS CONTRAST MATERIAL RADIOLOGI 29050 [facility] NAA C 6 MEDICAL GIO EXAMINATI IMAGING ON CHEST ASS SINGLE VIEW FRONTAL INCISION 77336 [facility] GUNTER & 6 PHYSICIAN SEPIDEH DRAINAGE S, PLLC ABSCESS COMPLICAT ED/MULTIP LE SUSCEPTIB 64352 [facility] LTY STDY 6 [facility] ANTIMICRB INC INC IAL MICRO/AGA R DILUTJ CUL BACT 63216 [facility] XCPT 6 [facility] URINE INC INC BLOOD/STO OL AEROBIC ISOL CUL BACT 53189 DEB BOYD AEROBIC 6 [facility] ADDL INC INC METHS DEFINITIV E EA ISOL CUR MEDS [id number] [place] NO DOC 6 [facility] OBDT INTERNAL INTERNAL UPD/REV MED MED ELIG CLIN RSN N GVN COMPRE 00018 NIKKI JORDAN AUDIOMETR 6 KADEN KADEN Y THRESHOLD EVAL SP RECOGNIJ IAADIADOO [id number] [facility] LION 6 PHYSICIAN STREPTOCO GROUP CCUS GROUP A NATRIURET 55596 DEB BOYD IC 6 [facility] [place] [address] DEB BOYD TROPONIN 6 [facility] QUANTITAT INC INC [place] RADIOLOGI 33475 [facility] C EXAM 6 MEDICAL CHEST 2 IMAGING VIEWS ASS FRONTAL&L ATERAL ECG 16693 DEB FOREMAN ROUTINE 6 [facility] W/LEAST P 12 LDS I&R ONLY PRESSURIZ 45438 DEB BOYD ED/NONPRE 6 [facility] SSURIZED INC INC INHALATIO N TREATMENT RADIOLOGI 02553 DEB BOYD C 6 [facility] EXAMINATI INC INC ON NECK SOFT TISSUE CREATINE 53559 DEB BO[facility]D KINASE MB 6 [facility] FRACTION INC INC ONLY COMPREHEN 63281 DEB BO[facility]D SIVE 6 [facility] METABOLIC INC INC PANEL ECG 36004 DEB BO[facility]D ROUTINE 6 [facility] ECG INC INC W/LEAST 12 LDS TRCG ONLY W/O I&R THERAPEUT 98585 DEB [facility]D IC 6 [facility] PROPHYLAC INC INC TIC/DX INJECTION SUBQ/IM BLOOD 98448 [facility] COUNT 6 [facility] COMPLETE INC INC AUTO&AUTO DIFRNTL WBC FIBRIN 36627 DE[facility] DGRADJ 6 [facility] PRODUCTS INC INC D-DIMER QUAL/SEMI LAUREANO CREATINE 92318 [facility] KINASE 6 [facility] TOTAL INC INC ANES 57037 [facility] FEEBACK XTRNL MID 6 ANESTH REE & INNER OF THE EAR W/BX BLUE TYMPANOTO MY URINE 48857 DE[facility]D 6 [facility] TEST INC [place] [address] DEB BOYD INFUSION 6 [facility] THERAPY/P INC INC ROPHYLAXI S /DX 1ST TO 1 HR THERAPEUT 29948 DEB BOYD IC 6 [facility] INJECTION INC INC IV PUSH EACH NEW DRUG INJECTION J2405 DEB BOYD 6 [facility] ONDANSETR INC INC ON HCL PER 1 MG TYMPANOST 96313 DEB BO[facility]D DE 6 [facility] [place] [address] DEB BO[facility]D INFUSION 6 [facility] THERAPY INC INC PROPHYLAX IS/DX EA HOUR RADEX 61111 [place] ALL HAND 2 6 MEDICAL VIEWS IMAGING ASS THERAPEUT 19970 [facility] BED[facility] TER IC 6 PHYSICIAN PROPHYLAC S GROUP TIC/DX INJECTION SUBQ/IM INJECTION J1040 [facility] [address] 6 PHYSICIAN METHYLPRE S GROUP DNISOLONE ACETATE 80 MG IADNA-DNA 75284 DEB BOYD /RNA GI 6 [facility] PTHGN INC INC MULTIPLEX PROBE TQ 12-25 PHYSICAL 82508 DEB BOYD THERAPY 6 [facility] EVALUATIO INC INC N ANES 31675 [facility] XTRNL MID 5 ANESTH LASHAUN & INNER OF THE EAR W/BX BLUE TYMPANOTO MY TYMPANOST 24888 [facility] JORDAN DE 5 PHYSICIAN KADEN GENERAL S GROUP ANESTHESI A GONADOTRO 42276 DEB BOYD PIN 5 [facility] CHORIONIC INC INC QUALITATI VE BLOOD 47977 DEB BOYD COUNT 5 [facility] COMPLETE INC INC AUTO&AUTO DIFRNTL WBC BASIC 77999 DEB BO[facility]D METABOLIC 5 [facility] PANEL INC INC CALCIUM TOTAL COLLECTIO 79090 [facility] N VENOUS 5 [facility] BLOOD INC INC VENIPUNCT URE DIAGNOSTI G0206 [facility] C 5 [facility] MAMMOGRAP INC INC HY INCL CAD WHEN PERF; UNI IAADIADOO 09612 [facility] 5 [facility] STREPTOCO INTERNAL CCUS MED GROUP A SCREENING G0202 [facility]B BOYD 5 [facility] MAMMOGRAP INC INC HY KARYNA INCL CAD WHEN PERFORMD COMPUTER- 04125 DEB BOYD AIDED 5 [facility] DETECTION INC INC SCREENING MAMMOGRAP HY RADEX 02841 [facility]B BO[facility] HAND 5 [facility] MINIMUM 3 INC INC VIEWS SCREENING 76172 [facility] VISUAL HLTH DEPT HLTH DEPT ACUITY DONOVAN DONOVAN QUANTITAT PARRISH BILAT RADEX 36153 [facility] FOOT 5 [facility] COMPLETE [place] [address] [place] [address] [place] ALL MAXILLOFA 5 MEDICAL CIAL W/O IMAGING CONTRAST ASS MATERIAL COMPRE 02954 NIKKI JORDAN AUDIOMETR 5 KADEN KADEN Y THRESHOLD EVAL SP RECOGNIJ TYMPANOME 78024 NIKKI JORDAN TRY 5 KADEN KADEN DISTORT 19440 JORDAN JORDAN PRODUCT 5 KADEN KADEN EVOKED OTOACOUST IC EMISNS LIMITD INJECTION J0696 [facility] USERY AND 5 [facility] CEFTRIAXO INTERNAL NE SODIUM MED PER 250 MG INJECTION J3301 [facility] AND 5 [facility] TRIAMCINO INTERNAL LONE MED ACETONIDE NOS 10 MG THERAPEUT 16122 [facility] USERY AND IC 5 [facility] PROPHYLAC INTERNAL TIC/DX MED INJECTION SUBQ/IM ANES 03267 [facility] NERVE 5 ANESTH SHE MUSCLE OF THE TDN BLUE FASCIA&BU RSA FOREARM WRIST EXCISION 06543 [facility] LESION 5 PHYSICIAN ROXANE TENDON S GROUP SHEATH FOREARM&/ WRIST REPAIR 91568 DEB BO[facility] COMPLEX 5 [facility] SCALP/ARM INC INC /LEG 2.6-7.5 CM MRI UPPER 51619 [place] NAA 5 MEDICAL EXTREMITY IMAGING OTH THAN ASS JT W/O CONTR MATRL COLLECTIO 06014 [facility] N VENOUS 5 [facility] BLOOD INC INC VENIPUNCT URE GONADOTRO 81862 [facility] PIN 5 [facility] CHORIONIC INC INC QUALITATI VE THERAPEUT 99284 [facility] IC 5 [facility] PROPHYLAC INTERNAL TIC/DX MED INJECTION SUBQ/IM INJECTION J3301 [facility] 5 [facility] TRIAMCINO INTERNAL LONE MED ACETONIDE NOS 10 MG IAADIADOO 60533 [facility] 4 [facility] INFLUENZA INTERNAL MED INJECTION J0696 [facility] USERY AND 4 [facility] CEFTRIAXO INTERNAL NE SODIUM MED PER 250 MG THERAPEUT 36083 [facility] USERY AND IC 4 [facility] PROPHYLAC INTERNAL TIC/DX MED INJECTION SUBQ/IM THERAPEUT 81032 [facility] LYRIC IC 4 PHYSICIAN SEPIDEH PROPHYLAC S GROUP TIC/DX INJECTION SUBQ/IM INJECTION J1885 [facility] LYRIC 4 PHYSICIAN SEPIDEH KETOROLAC S GROUP TROMETHAM INE PER 15 MG URNLS DIP 94474 [facility] 4 [facility] STICK/TAB INTERNAL LET RGNT MED NON-AUTO W/O MICRSCP CULTURE 26891 COMBINED COMBINED BACTERIAL 4 PHYSICIAN PHYSICIAN S LA S LA QUANTTATI VE COLONY COUNT URINE LIPID 82678 DEB BO[facility]D PANEL 4 [facility] INC INC COMPREHEN 26677 [facility] SIVE 4 [facility] METABOLIC INC INC PANEL TDAP 84961 [facility] VACCINE 7 4 [facility] YRS/> IM HLTH DEPT HLTH DEPT DONOVAN DONOVAN CYTP 37898 [facility], PICK[facility] CERV/VAG 4 LLC ER JR JARED AUTO THIN LAYER PREP MNL SCREEN HEPATIC 74080 [facility] FUNCTION 4 [facility] [place] [address] DEB BO[facility]D THYROXINE 4 [facility] [place] [address] DEB BO[facility] THYROID 4 [facility] STIMULATI INC INC NG HORMONE TSH THYROID 06583 DEB BO[facility]D HORM 4 [facility] UPTK/THYR INC INC OID HORMONE BINDING RATIO RADIOLOGI 32393 INDIRA EVERETT C 4 EXAMINATI ON NECK SOFT TISSUE US SOFT 61805 [facility] TISSUE 4 N N HEAD & COMMUNTIY COMMUNTIY NECK [place] [address] NAA NAA MAXILLOFA 4 GIO GOI CIAL W/O CONTRAST MATERIAL CT SOFT 76067 DEB BO[facility]D TISSUE 4 [facility] NECK INC INC W/CONTRAS T MATERIAL CULTURE 57139 COMBINED COMBINED BACTERIAL 4 PHYSICIAN PHYSICIAN Oziel CARDENAS S LA QUANTTATI VE COLONY COUNT URINE LOCM Q9967 DEB [facility]D 300-399 4 [facility] MG/ML INC INC IODINE CONCENTRA TION PER ML IM ADM 07977 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 PRQ ID 4 [facility]IE SUBQ/IM NJXS 1 VACCINE INJECTION J0696 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 4 SOPHIE SOPHIE CEFTRIAXO NE SODIUM PER 250 MG COMPREHEN 57990 DEB BO[facility] SIVE 4 [facility] METABOLIC INC INC PANEL LIPID 90261 DEB DEB PANEL 4 [facility] INC INC TYMPANOME 45702 EAR, NOSE MARY TRY 4 AND KEHINDE THROAT SPECIAL LARYNGOSC 66094 EAR, NOSE MARY OPY 4 AND KEHINDE FLEXIBLE THROAT DIAGNOSTI SPECIAL C PURE TONE 42080 EAR, NOSE MARY 4 AND KEHINDE AUDIOMETR THROAT Y AIR SPECIAL ONLY SPEECH 27239 EAR, NOSE MARY AUDIOMETR 4 AND KEHINDE Y THROAT THRESHOLD SPECIAL INJECTION J0696 [facility] 4 PHYSICIAN PHYSICIAN CEFTRIAXO S GROUP S GROUP NE SODIUM PER 250 MG URNLS DIP 54026 [facility] 4 PHYSICIAN PHYSICIAN STICK/TAB S GROUP S GROUP LET RGNT NON-AUTO W/O MICRSCP THERAPEUT 32359 [facility] IC 4 PHYSICIAN PHYSICIAN PROPHYLAC S GROUP S GROUP TIC/DX INJECTION SUBQ/IM I&D DEEP 29516 C JAYDE SCHULSTMIKE ABSC 1 DEVIN NINO BURSA/HEM PSC ATOMA THIGH/[place] [address] [facility]B [facility] INFUSION 1 [facility] THERAPY INC INC PROPHYLAX IS/DX EA HOUR LEVEL III 39487 CHIPPS RICH SURG 1 MARKEL & ANGIE PATHOLOGY DUBILIER GROSS&SEPIDEH ROSCOPIC EXAM OTHER 8309 DEBVITALIY BOYD INCISION 1 [facility] OF SOFT INC INC TISSUE GONADOTRO 01817 DEB BOYD PIN 1 [facility] CHORIONIC INC INC QUALITATI VE BLOOD 07048 DEB DEB COUNT 1 [facility] COMPLETE INC INC AUTO&AUTO DIFRNTL WBC SUSCEPTIB 24953 DEB BOYD LTY STDY 1 [facility] ANTIMICRB INC INC IAL [place]CRO/[place] D[place] [address] DEBVITALIY [place] INFUSION 1 [facility] THERAPY INC [place] [address] EDB BOYD INFUSION 1 [facility] THERAPY/P INC INC ROPHYLAXI S /DX 1ST TO 1 HR BASIC 91537 DEB BOYD METABOLIC 1 [facility] PANEL INC INC CALCIUM TOTAL CUL BACT 35578 [facility] BO[facility] AEROBIC 1 [facility] ADDL INC INC METHS DEFINITIV E EA ISOL CUL BACT 15800 DE[facility] BO[facility]D XCPT 1 [facility] URINE INC INC BLOOD/STO OL AEROBIC ISOL RADEX 12629 CARRANZA, CARRANZA, CALCANEUS 9 DON R DON R MINIMUM 2 VIEWS COMPRE 07187 NIKKI JORDAN, AUDIOMETR 9 WIN Null Y THRESHOLD EVAL SP RECOGNIJ ACOUSTIC 01057 NIKKI JORDAN, REFLEX 9 WIN Null THRESHOLD TYMPANOME 61550 NIKKI JORDAN, TRY 9 WIN Null Encounters Encounter Start End Date Code Location Performer Type Date OFFICE 13333 [facility] T VISIT 5 HLTH DEPT HLTH DEPT MINUTES DONOVAN DONOVAN OFFICE 02000 [facility] T VISIT [facility] DEPT [facility] DEPT [address] [facility] DONOVAN MINUTES OFFICE 35462 EAR, NOSE SHASHY OUTPATIEN 7 7 AND T VISIT THROAT 25 SPECIAL MINUTES OFFICE 04699 EAR, NOSE SHASHY OUTPATIEN 7 7 AND T VISIT THROAT 25 SPECIAL MINUTES OFFICE 54718 [facility] OUTPATIEN 7 7 PHYSICIAN T VISIT S GROUP 15 MINUTES OFFICE 83286 EAR, NOSE SHASHY OUTPATIEN 7 7 AND T VISIT THROAT 15 SPECIAL MINUTES HOSPITAL DEB - 7 7 [facility] OUTPATI[facility] INC T OFFICE 96602 [facility] 7 7 VALLEY T VISIT INTERNAL 15 MED MINUTES OFFICE 21699 EAR, NOSE SHASHY OUTPATIEN 7 7 AND T VISIT THROAT 25 SPECIAL MINUTES OFFICE 21264 DEB OUTPATIEN 7 7 [facility] T VISIT 5 INC MINUTES HOSPITAL DEB - 7 7 [facility] OUTPATIEN INC T OFFICE 47635 [facility] OUT[facility] 7 7 VALLEY T VISIT INTERNAL 15 MED MINUTES OFFICE 85980 [facility] OUTPATIEN 7 7 [facility] T VISIT INTERNAL 15 MED MINUTES HOSPITAL DEB - 7 7 [facility] OUTPATIEN INC T OFFICE 30764 [facility] OUTPATIEN 7 7 VALLEY T VISIT INTERNAL 15 MED MINUTES OFFICE 80250 DEB OUTPATIEN 7 7 [facility] T VISIT 5 INC MINUTES HOSPITAL DEB - 7 7 [facility] OUTPATIEN INC T HOSPITAL DEB - 7 7 [facility] OUTPATIEN INC T OFFICE 68360 [facility] [place] JR OUTPATIEN 7 7 [facility] T VISIT [facility]OSPITAL 10 P MINUTES OFFICE 39928 [facility] OUTPATIEN 7 7 VALLEY T VISIT INTERNAL 15 MED MINUTES OFFICE 52642 [facility] [place] JR OUTPATIEN 7 7 [facility] HOSPITAL MINUTES P OFFICE 57002 [facility] BEN OUTPATIEN 7 7 PHYSICIAN T VISIT GROUP 25 MINUTES OFFICE 55179 [facility] BEN OUTPATIEN 7 7 PHYSICIAN T VISIT GROUP 25 MINUTES HOSPITAL DEB - 7 7 [facility] OUTPATIEN INC T EMERGENCY 95263 DEB 7 7 [facility] DEPARTMEN INC T VISIT MODERATE SEVERITY OFFICE 38283 [facility] JORDAN OUTPATIEN 7 7 PHYSICIAN T VISIT S GROUP 15 MINUTES OFFICE 07957 [facility] OUTPATIEN 6 6 VALLEY T VISIT INTERNAL 25 MED MINUTES EMERGENCY 23137 PAMELA ANAYA, 6 6 PHYSICIAN JR DEPARTMEN S, PLLC T VISIT HIGH/URGE NT SEVERITY OFFICE 68215 [facility] OUTPATIEN 6 6 [facility] T VISIT INTERNAL 15 MED MINUTES EMERGENCY 36013 PAMELA DAIGLE DIAMOND DEPT 6 6 PHYSICIAN VISIT S, PLLC HIGH SEVERITY& THREAT FUNCJ EMERGENCY 38942 PAMELA GUNTER 6 6 PHYSICIAN SEPIDEH DEPARTMEN S, PLLC T VISIT MODERATE SEVERITY EMERGENCY 77010 DEB 6 6 [facility] DEPARTMEN INC T VISIT LOW/MODER SEVERITY HOSPITAL DEB - 6 6 [facility] OUTPATIEN INC T OFFICE 39174 [facility] OUTPATIEN 6 6 [facility] S[facility]IE T VISIT INTERNAL 15 MED MINUTES OFFICE 46139 [facility] JORDAN OUTPATIEN 6 6 PHYSICIAN KADEN T VISIT S GROUP 15 MINUTES OFFICE 46625 [facility] ANGELICA OUTPATIEN 6 6 [facility] ANNE MARIE T VISIT INTERNAL 15 MED MINUTES OFFICE 52563 [facility] LION OUTPATIEN 6 6 PHYSICIAN T VISIT GROUP 15 MINUTES EMERGENCY 76837 DEB 6 6 [facility] DEPARTMEN INC T VISIT HIGH/URGE NT SEVERITY HOSPITAL DEB - 6 6 [facility] OUTPATIEN INC T EMERGENCY 55017 PAMELA MERINO DEPT 6 6 PHYSICIAN U SAURABH VISIT S, PLLC HIGH SEVERITY& THREAT FUNJ OFFICE 68705 [facility] NEGIN OUTPATIEN 6 6 PHYSICIAN SOMMERS T VISIT S GROUP 25 MINUTES OFFICE 81663 [facility] JORDAN OUTPATIEN 6 6 PHYSICIAN KADEN T VISIT S GROUP 15 MINUTES HOSPITAL DEB - 6 6 [facility] OUTPATIEN INC T OFFICE 97071 [facility] OJRDAN OUTPATIEN 6 6 PHYSICIAN KADEN T VISIT S GROUP 10 MINUTES OFFICE 42806 [facility] [place] OUTPATIEN 6 6 PHYSICIAN T VISIT S GROUP 15 MINUTES HOSPITAL DEB - 6 6 [facility] OUTPATIEN INC T OFFICE 07982 [facility] OUTPATIEN 6 6 [facility] S[facility] T VISIT INTERNAL 25 MED MINUTES HOSPITAL DEB - 6 6 [facility] OUTPATIEN INC T OFFICE 48430 [facility] ADITI OUTPATIEN 6 6 PHYSICIAN SEPIDEH T VISIT S GROUP 15 MINUTES OFFICE 43525 EAR, NOSE SHASHY OUTPATIEN 6 6 AND SARITA T VISIT THROAT 25 SPECIAL MINUTES EMERGENCY 11556 PAMELA [place] [facility] 5 5 PHYSICIAN DEPARTMEN S, PLLC T VISIT MODERATE SEVERITY HOSPITAL DEB - 5 5 [facility] OUTPATIEN INC T EMERGENCY 42566 DEB 5 5 [facility] DEPARTMEN INC T VISIT LIMITED/M INOR PROB OFFICE 53497 [facility] JAMIA OUTPATIEN 5 5 IVONNE MARIETTA T VISIT 15 MINUTES OFFICE 20489 [facility] OUTPATIEN 5 5 [facility] T VISIT INTERNAL 15 MED MINUTES HOSPITAL DEB - 5 5 [facility] OUTPATIEN [facility] DEB - 5 5 [facility] OUTPATIEN INC T OFFICE [address] [place] [address] OUTPATIEN 5 5 [facility] VISIT HOSPITAL 10 MIN[address]ES OFFICE [address] OUTPATIEN 5 5 [facility] VISIT [facility] 10 MINUTES HOSPITAL DEB - 5 5 [facility] OUTPATIEN INC T OFFICE 81422 [facility] OUTPATIEN 5 5 [facility] T VISIT INTERNAL 15 MED MINUTES OFFICE 86588 [facility] JORDAN OUTPATIEN 5 5 PHYSICIAN KADEN T VISIT S GROUP 15 MINUTES OFFICE 74897 FALLIS JAMIA OUTPATIEN 5 5 IVONNE MARIETTA T NEW 30 MINUTES HOSPITAL DEB - 5 5 [facility] OUTPATIEN INC T OFFICE 97864 [facility] OUTPATIEN 5 5 [facility] T VISIT INTERNAL 15 MED MINUTES HOSPITAL DEB - 5 5 [facility] OUTPATIEN INC T PERIODIC 57668 [facility] MED EST HLTH DEPT HLTH DEPT PATIENT DONOVAN DONOVAN 40-64YRS OFFICE 42015 [facility] JORDAN OUTPATIEN 5 5 PHYSICIAN KADEN T VISIT S GROUP 10 MINUTES OFFICE 42555 [facility] ANGELICA OUTPATIEN 5 5 [facility] T VISIT INTERNAL 15 MED MINUTES HOSPITAL DEB - 5 5 [facility] OUTPATIEN INC T HOSPITAL DEB - 5 5 [facility] OUTPATIEN INC T OFFICE 84378 [facility] JORDAN OUTPATIEN 5 5 PHYSICIAN KADEN T VISIT S GROUP 15 MINUTES OFFICE 88269 [facility] USERY AND OUTPATIEN 5 5 [facility] T VISIT INTERNAL 15 MED MINUTES OFFICE 17074 [facility] JORDAN OUTPATIEN 5 5 PHYSICIAN KADEN T VISIT S GROUP 15 MINUTES EMERGENCY 05649 PAMELA MERINO 5 5 PHYSICIAN U SAURABH DEPARTMEN S, [facility] T VISIT MODERATE SEVERITY HOSPITAL DEB - 5 5 [facility] OUTPATIEN INC T HOSPITAL DEB - 5 5 [facility] OUTPATIEN INC T HOSPITAL DEB - 5 5 [facility] OUTPATIEN INC T OFFICE 99479 [facility] 5 5 [facility] T VISIT INTERNAL 15 MED MINUTES HOSPITAL DEB - 5 5 [facility] OUTPATIEN INC T EMERGENCY 19987 DEB 5 5 [facility] DEPARTMEN INC T VISIT LOW/MODER SEVERITY OFFICE 96543 [facility] OUT[facility]IEN 4 4 [facility] T VISIT INTERNAL 15 MED MINUTES OFFICE 82783 [facility] OUTPATIEN 4 4 PHYSICIAN JAM T NEW 30 S GROUP MINUTES OFFICE 44053 [facility] OUTPATIEN 4 4 [facility] SOP[facility]IE T VISIT INTERNAL 15 MED MINUTES OFFICE 65693 [facility] USERY AND OUTPATIEN 4 4 VALLEY T VISIT INTERNAL 15 MED MINUTES OFFICE 08899 [facility] USERY AND OUTPATIEN 4 4 VALLEY T VISIT INTERNAL 15 MED MINUTES OFFICE 71699 [facility] LYRIC OUTPATIEN 4 4 PHYSICIAN SEPIDEH T VISIT S GROUP 15 MINUTES HOSPITAL DEB - 4 4 [facility] OUTPATIEN INC T OFFICE 56102 [facility] MASOODSON OUTPATIEN 4 4 [facility] SOP[facility]IE T VISIT INTERNAL 25 MED MINUTES INITIAL 91680 [facility] DEPT [facility] DEPT MEDICINE DONOVAN KOHLI PT AGE [id number] [facility] DEB - 4 4 [facility] OUTPATIEN INC T OFFICE 12828 [facility] HERNANDEZ OUTPATIEN 4 4 KEHINDE KEHINDE T VISIT 25 MINUTES HOSPITAL DEB - 4 4 [facility] OUTPATIEN INC T HOSPITAL [place] - 4 4 N OUTPATIEN COMMUNTIY T HOSPITA OFFICE 77066 [facility] OUTPATIEN 4 4 KEHINDE KEHINDE T VISIT 25 MINUTES OFFICE 73055 [facility] OUTPATIEN 4 4 SOPHIE T VISIT 15 MINUTES HOSPITAL DEB - 4 4 [facility] OUTPATIEN INC T OFFICE 49584 [facility] OUTPATIEN 4 4 SOPHIE T VISIT 15 MINUTES HOSPITAL DEB - 4 4 [facility] OUTPATIEN INC T OFFICE 59034 [facility] OUTPATIEN 4 4 PHYSICIAN T VISIT S GROUP 10 MINUTES OFFICE 62675 EAR, NOSE MARY CONSULTAT 4 4 AND KEHINDE ION THROAT NEW/ESTAB SPECIAL PATIENT 60 MIN OFFICE 72844 NIKKI JORDAN OUTPATIEN 4 4 KADEN KADEN T VISIT 15 MINUTES HOSPITAL DEB - 1 1 [facility] OUTPATIEN INC T OFFICE 06748 Marybel BELTRAN CONSULTAT 1 1 DEVIN VARGAS MD PSC NEW/ESTAB PATIENT 60 MIN OFFICE 97492 DILLON CARRANZA OUTPATIEN 1 1 DON DON T VISIT 15 MINUTES HOSPITAL DEB - 1 1 [facility] OUTPATIEN INC T OFFICE 30982 CARRANZA CARRANZA OUTPATIEN 1 1 DON DON T VISIT 15 MINUTES EMERGENCY 81112 RICH GUNTER 1 1 [facility] T VISIT HIGH/URGE NT SEVERITY [facility] DEB - 1 1 [facility] OUTPATIEN INC T OFFICE 14566 CARRANZA CARRANZA OUTPATIEN 1 1 DON DON T VISIT 15 MINUTES OFFICE 04064 DILLON CARRANZA OUTPATIEN 9 9 DON R DON R T VISIT 15 MINUTES OFFICE 82557 DILLON CARRANZA OUTPATIEN 9 9 DON R DON R T VISIT 15 MINUTES OFFICE 32665 DILLON CARRANZA OUTPATIEN 9 9 DON R DON R T VISIT 15 MINUTES OFFICE 63433 D[facility] CARRANZA OUTPATIEN 9 9 DON R DON R T VISIT 15 MINUTES OFFICE 84683 NIKKI JORDAN, OUTPATIEN 9 9 WIN Null T VISIT 10 MINUTES OFFICE 58761 NIKKI JORDAN, OUTPATIEN 9 9 WIN Null T NEW 30 MINUTES OFFICE 61476 DILLON CARRANZA OUTPATIEN 9 9 DON R DON R T VISIT 15 MINUTES OFFICE 74520 DILLON CARRANZA OUTPATIEN 9 9 DON R DON R T VISIT 15 MINUTES OFFICE 31487 DILLON CARRANZA OUTPATIEN 9 9 DON R DON R T VISIT 5 MINUTES OFFICE 03358 D[facility]ON CARRANZA OUTPATIEN 9 9 DON R DON R T VISIT 15 MINUTES
--- OUTSIDE RECORDS SUMMARY | 2016-11-26 16:28 | External Medical Summary Rpt | CCD ---
Author Author , DIMITRIOS CUENCAAMY Address Unknown Phone [email or web address] Care Team Providers Care Strategic Partner Development Manager Name Role Phone KAROL ROBERSON Unavailable Unavailable [...] [facility] [place] [place] [place] FALLIS IVONNE, FALLIS Unavailable Unavailable IVONNE FEEBACK REE, FEEBACK Unavailable Unavailable REE ANGELICA ANNE MARIE, Unavailable Unavailable ANGELICA ANNE MARIE LION, LION Unavailable Unavailable JR HÉCTOR, HÉCTOR, Unavailable Unavailable JR YLRIC SEPIDEH, LYRIC Unavailable Unavailable [facility] CARYL JAM, CARYL Unavailable Unavailable JAM CARYL JAM, CARYL Unavailable Unavailable JAM [facility] Unavailable Unavailable INC, [facility] Unavailable Unavailable [facility], [facility] Un[facility]available [facility] P, [facility] P [facility], Unavailable Unavailable [facility], [facility]available Unavailable [facility] OXANA FIELDS, OXANA FIELSD Unavailable Unavailable [facility], [facility] JORDAN, JORDAN Unavailable Unavailable [...] PHARMACY Unavailable Unavailable #591, [facility] Unavailable Unavailable DEPT [place], [facility] DE[facility] Unavailable [facility]available DEPT [facility], [facility] DE[facility] [place] MARY BUSBY, MARY Unavailable Unavailable KEHINDE BUSBY, MARY Unavailable Unavailable KEHINDE INDIRA MAT, INDIRA MAT Unavailable Unavailable Purpose Continuity of Care Document - 04-19-2008 through 2016 Problems Code Diagnosis DOS Provider Status Z111 ENCOUNTER 10-25-2016 [facility] DEPT RESPIRATORY DON[facility]AN TUBERCULOSI S H6983 OTHER SPEC 10-05-2016 EAR, NOSE DISORDERS AND THROAT EUSTACHIAN SPECIAL TUBE BILAT 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 09-24-2016 EAR, NOSE AL HEARING AND THROAT LOSS SPECIAL BILATERAL M1812 UNI PRIM 09-02-2016 [facility] OSTEOARTHRI PHYSICIANS TIS 1ST [facility] GROUP JOINT LT HAND [id number] PAIN IN 08-14-2016 [place] RIGHT [facility] FINGERS INC M654 RADIAL 08-13-2016 [facility] STYLOID VALLEY TENOSYNOVIT INTERNAL IS DE MED QUERVAIN M7122 SYNOVIAL 08-13-2016 [facility] CYST VALLEY POPLITEAL INTERNAL SPACE BOSE MED LEFT KNEE [id number] SENSORNURL 07-23-2016 EAR, NOSE HEAR LOS AND THROAT UNI LT EAR SPECIAL RSTRC CNTRALATERL [id number] OTHER ACUTE 07-18-2016 [facility] NONSUPPURAT INC [place] OTITIS MEDIA RT EAR K219 GASTRO-ESOP 07-18-2016 [facility] H REFLUX [facility] DISEASE INC WITHOUT ESOPHAGITIS Z720 TOBACCO USE 07-18-2016 [facility] M779 ENTHESOPATH 07-14-2016 [facility] Y [place] [place] UNSPECIFIED INTERNAL MED [id number] PRIMARY 06-30-2016 [facility] OSTEOARTH[facility]ICAL TIS RIGHT IMAGING ASS WRIST M7989 OTHER 06-30-2016 [facility] SPECIFIED [place] SOFT TISSUE INTERNAL DISORDERS MED Z60300 CELLULITIS 06-17-2016 [facility] LEFT [facility] LOWER LIMB INC R232 FLUSHING 06-01-2016 [facility] N393 STRESS 05-06-2016 [facility] P MALE L309 DERMATITIS 04-22-2016 [facility] UNSPECIFIED [place] INTERNAL MED J00 ACUTE 04-04-2016 [facility] NASOPHARYNG PHYSICIAN ITIS COMMON GROUP COLD I79658 AC 03-17-2016 [facility] SUPPURATIVE PHYSICIAN OM W/O GROUP RUPT EAR DRUM RECUR LT EAR K5730 DIVERTICULO 03-10-2016 [facility] S[facility] LG MEDICAL INTEST W/O IMAGING ASS PERF/ABSC W/O BLEED R1011 RIGHT UPPER 03-10-2016 [facility] H6023 MALIGNANT 03-01-2016 [facility] OTITIS PHYSICIANS EXTERNA GROUP BILATERAL H6503 ACUTE 03-01-2016 [facility] SEROUS PHYSICIANS OTITIS GROUP MEDIA BILATERAL 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 [facility]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 M5441 LUMBAGO 01-23-2016 [facility] WITH PHYSICIANS, [facility] RIGHT SIDE M545 LOW BACK 01-23-2016 [facility] H5213 MYOPIA 11-28-2015 CARYL JAM BILATERAL R1031 RIGHT LOWER 11-28-2015 [facility] R1032 LEFT LOWER 11-28-2015 [facility] R310 GROSS 11-28-2015 [facility] HEMATURIA [place] INTERNAL MED R319 HEMATURIA 11-28-2015 [place] UNSPECIFIED [facility] IM[facility]ING ASS R079 CHEST PAIN 11-17-2015 [facility] UNSPECIFIED PHYSICIANS, PLLC O41735 CUTANEOUS 10-28-2015 [facility] ABSCESS OF [facility] RIGHT LOWER INC LIMB N82673 CUTANEOUS 10-28-2015 [facility] ABSCESS OF PHYSICIANS, HEAD ANY PLLC PART EXCEPT FACE L0390 CELLULITIS 10-15-2015 [facility] UNSPECIFIED [place] INTERNAL MED H6120 IMPACTED 09-25-2015 [facility] CERUMEN PHYSICIANS UNSPECIFIED GROUP EAR H6590 UNSPECIFIED 09-25-2015 [facility] PHYSICIANS NONSUPPURAT GROUP [place] OTITIS MEDIA UNS EAR H6903 PATULOUS 09-25-2015 JORDAN KADEN EUSTACHIAN TUBE BILATERAL R0982 POSTNASAL 09-18-2015 [facility] DRIP [place] INTERNAL MED J029 ACUTE 09-15-2015 [facility] PHARYNGITIS PHYSICIAN GROUP UNSPECIFIED K120 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[facility] ORAL PHYSICIAN APHTHAE GROUP J0101 ACUTE 09-09-2015 [facility] RECURRENT PHYSICIANS, [facility] SINUSITIS J4520 MILD 09-09-2015 [facility] INTERMITTEN PHYSICIANS, T [facility] UNCOMPLICAT ED R0600 DYSPNEA 09-09-2015 [facility]PEC[facility]ING [facility] R221 LOCALIZED 09-09-2015 [place] SWELLING MEDICAL MASS AND IMAGING ASS LUMP NECK R05 COUGH 09-08-2015 [facility] PHYSICIANS GROUP H6090 UNSPECIFIED 08-25-2015 [facility] OTITIS PHYSICIANS EXTERNA GROUP UNSPECIFIED EAR H6501 ACUTE 07-17-2015 [facility] SEROUS PHYSICIANS OTITIS GROUP MEDIA RIGHT EAR H6591 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-17-2015 [facility] NONSUPPURAT INC [place] OTITIS MEDIA RT EAR H9391 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-17-2015 [facility] DISORDER ANESTH OF OF RIGHT THE BLUE EAR T38191 PAIN IN 05-28-2015 [place] RIGHT HAND [facility]ICAL IM[facility]ING ASS J0190 ACUTE 05-11-2015 [facility] SINUSITIS PHYSICIANS UNSPECIFIED GROUP A09 INFECTIOUS 03-14-2015 [facility] [place] ITIS AND INC COLITIS UNSPEC J069 ACUTE UPPER 03-12-2015 [facility] INFECTION MED UNSPECIFIED M542 CERVICALGIA 02-28-2015 [facility] INC 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, 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 N390 URINARY 02-24-2015 [facility] TRACT PHYSICIANS INFECTION GROUP SITE NOT SPECIFIED L664 FOLLICULITI 02-09-2015 [facility] S [facility]IC[facility], [facility] RETIC[facility] L738 OTHER 02-09-2015 [facility] FOLLICULAR INC DISORDERS B351 TINEA 01-30-2015 [place] IVONNE UNGUIUM B353 TINEA PEDIS 01-30-2015 [place] I890 LYMPHEDEMA 01-30-2015 [place] IV[facility] NOT ELSEWHERE CLASSIFIED M2570 OSTEOPHYTE 01-30-2015 [place] IV[place] UNSPECIFIED JOINT H9202 OTALGIA 01-17-2015 [facility] LEFT EAR VALLEY INTERNAL MED H6506 ACUTE 01-16-2015 [facility] SEROUS PHYSICIANS OTITIS GROUP MEDIA RECURRENT BILATERAL H6523 CHRONIC 01-16-2015 [facility] SEROUS [facility] OTITIS INC MEDIA BILATERAL H6693 OTITIS 01-16-2015 COMM[facility]ITY MEDIA ANESTH OF UNSPECIFIED THE BLUE BILATERAL V72717 ENCOUNTER 01-15-2015 [facility] FOR OTHER [facility] PREPROCEDUR INC AL EXAMINATION N34423 ACUTE & 12-27-2014 [facility] OTITS MEDIA BILATERAL H1032 UNSPECIFIED 12-17-2014 [facility] TIS LEFT EYE N6489 OTHER 12-16-2014 [place] SPECIFIED MEDICAL DISORDERS IMAGING ASS OF BREAST R928 OTH ABNORM 12-16-2014 [facility] & [facility] INCONCLUSIV INC E FIND ON DX IMAG BREAST B9789 OT VIRAL 12-13-2014 [facility] AGENT CAUSE VALLEY DISEASES INTERNAL CLASSIFIED MED ELSW H6504 ACUTE 12-09-2014 [facility] SEROUS PHYSICIANS OTITIS GROUP MEDIA RECURRENT RIGHT EAR Q53161 ANKYLOSIS 12-09-2014 [facility] OF EAR PHYSICIANS OSSICLES GROUP RIGHT EAR H9191 UNSPECIFIED 12-09-2014 [facility] HEARING PHYSICIANS LOSS RIGHT GROUP EAR U09483 PAIN IN 12-05-2014 [place] RIGHT TOES Z19419 PAIN IN 12-05-2014 [place] LEFT TOES Z1231 ENCOUNTER 11-29-2014 [place] SCREENING MEDICAL MAMMO MALIG IMAGING ASS NEOPLASM BREAST Z803 FAMILY 11-29-2014 [place] HISTORY OF MEDICAL MALIGNANT IMAGING ASS NEOPLASM OF BREAST U24690 PAIN IN 11-15-2014 [facility] LEFT FOOT VALLEY INTERNAL MED V252 STERILIZATI 11-05-2014 [facility] DEPT DONOVAN 01007 DYSFUNCTION 09-19-2014 [facility] OF PHYSICIANS EUSTACHIAN GROUP TUBE 4779 ALLERGIC 09-19-2014 [facility] RHINITIS PHYSICIANS CAUSE GROUP UNSPECIFIED 91146 OTHER 09-19-2014 [facility] DISEASES OF PHYSICIANS NASAL GROUP CAVITY AND SINUSES 7295 PAIN IN 09-18-2014 [facility] SOFT VALLEY TISSUES OF INTERNAL LIMB MED 28557 SIMPLE/UNSP 2014 [facility] ECIFIED [facility] CHRONIC INC SEROUS OTITIS MEDIA 3814 NONSUPPRATV 2014 [place] OTITIS MEDICAL MEDIA NOT IMAGING ASS SPEC ACUT/CHRON 470 DEVIATED 2014 [place] NASAL MEDICAL SEPTUM IMAGING ASS 77648 UNSPECIFIED 09-02-2014 [facility] CONDUCTIVE PHYSICIANS HEARING GROUP LOSS 4730 CHRONIC 09-02-2014 [facility] MAXILLARY PHYSICIANS SINUSITIS GROUP 3829 UNSPECIFIED 08-29-2014 JORDAN KADEN OTITIS MEDIA 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 4619 ACUTE 08-22-2014 [facility] SINUSITIS, VALLEY UNSPECIFIED INTERNAL MED 3899 UNSPECIFIED 08-13-2014 [facility] HEARING PHYSICIANS LOSS GROUP 7856 ENLARGEMENT 08-13-2014 [facility] OF LYMPH PHYSICIANS NODES GROUP 90845 GANGLION OF 05-31-2014 [facility] TENDON PHYSICIANS SHEATH GROUP 76024 UNSPECIFIED 05-31-2014 COMMUNITY GANGLION ANESTH OF THE BLUE 39803 PAIN IN 05-30-2014 [place] JOINT, MEDICAL FOREARM IMAGING ASS 75069 GANGLION OF 05-29-2014 [place] JOINT [facility] INC V7283 OTHER 05-29-2014 [facility] PRE-OPERATI INC VE EXAMINATION 76548 UNSPECIFIED 02-27-2014 [facility] OTALGIA GIL[facility] BEND INTERNAL MED 4871 INFLUENZA 02-13-2014 [facility] WITH OTHER [place] RESPIRATORY INTERNAL MED MANIFESTATI ONS 31212 GENERALIZED 02-13-2014 [facility] PAIN [facility] [facility] INTERNAL MED 4659 ACUTE URIS 12-06-2013 [facility] OF [place] UNSPECIFIED INTERNAL SITE MED 486 PNEUMONIA, 12-03-2013 [facility] ORGANISM [facility] UNSPECIFIED INTERNAL MED 7840 HEADACHE 12-03-2013 [facility] [place] INTERNAL MED 6822 CELLULITIS 11-15-2013 [facility] AND ABSCESS PHYSICIANS OF TRUNK GROUP 75111 ABDOMINAL 11-15-2013 [facility] PAIN, PHYSICIANS UNSPECIFIED GROUP SITE 47673 ABDOMINAL 10-29-2013 [facility] PAIN, [place] GENERALIZED INTERNAL MED 38829 POLYURIA 10-27-2013 [facility] V700 ROUTINE 10-27-2013 [facility] MEDICAL [facility] EXAM@HEALTH CARE FACL 57891 ESOPHAGEAL 10-26-2013 [facility] REFLUX [place] INTERNAL MED 51820 INSOMNIA 10-26-2013 [facility] UNSPECIFIED G[place]A BEND INTERNAL MED 6160 CERVICITIS 10-23-2013 [facility] ENDOCERVICI TIS V7231 ROUTINE 10-23-2013 [facility] AL EXAMINATION 1101 DERMATOPHYT 2013 [facility] OSIS OF [facility] NAIL INC 2400 GOITER, 07-03-2013 MARY KEHINDE SPECIFIED SIMPLE 2449 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-03-2013 [facility] HYPOTHYROID INC ISM 22886 OTOGENIC 07-03-2013 MARY KEHINDE PAIN 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-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 7842 SWELLING 07-03-2013 MARY KEHINDE MASS OR LUMP IN HEAD AND NECK 72517 UNSPECIFIED 06-19-2013 MARY KEHINDE TINNITUS 5990 URINARY 06-11-2013 [facility] TRACT INFECTION SITE NOT SPECIFIED 2409 GOITER, 06-08-2013 [facility] UNSPECIFIED GIO 21306 OBESITY, 06-06-2013 [facility] UNSPECIFIED [facility] INC 84807 UNSPECIFIED 06-05-2013 EAR, NOSE ABNORMAL AND THROAT AUDITORY SPECIAL PERCEPTION 21320 UNSPECIFIED 06-05-2013 [facility] VAGINITIS PHYSICIANS AND GROUP VULVOVAGINI TIS 22006 UNSPECIFIED 05-28-2013 JORDAN KADEN ACUTE NONSUPPURAT [place] OTITIS MEDIA 20523 METHICILLIN 05-28-2010 [facility] RESISTANT [facility] STAPHYLOCOC INC CUS AUREUS 6826 CELLULITIS 05-28-2010 [facility] AND ABSCESS [facility] OF LEG INC EXCEPT FOOT 73706 METHICILLIN 05-26-2010 [facility] RESISTANT DON STAPH AUREUS SEPTICEMIA V090 INFECTION 05-26-2010 [facility] W/MICROORGA DON NISMS RESISTANT PENICILLINS V7241 05-26-2010 [facility] EXAMINATION [facility] OR TEST INC NEGATIVE RESULT 9164 HIP THI 05-23-2010 [facility] LEG&ANK DON INSECT BITE NONVENOMOUS W/O INF 5589 OTH&UNSPEC 12-13-2008 [facility] NONINFECTIO DON R US GASTROENTER ITIS&COLITI S 54692 CALCANEAL 12-13-2008 [facility] SPUR DON R 1105 DERMATOPHYT 12-02-2008 [facility] OSIS OF THE MARCIA R BODY 65271 OVERWEIGHT 10-09-2008 MARCIA CARRANZA R 4618 OTHER ACUTE 10-09-2008 [facility], [place]IN[place]IT[place] R [address] UNSPECIFIED 06-11-2008 WIN [facility] SENSORINEUR AL HEARING LOSS 96287 UNSPECIFIED 06-06-2008 WIN [facility] OBSTRUCTION OF EUSTACHIAN [...] 11 1- 9- 00 00 SI ve VT 76 20 20 48 DE NE 60 [...] 11 4- 8- 00 00 SI ve VT 76 20 20 48 DE NE 60 [...] 5 66 PH CE AR TA MA VT CY NO PH OF EN CY NT [...] 11 2- 1- 00 00 SI ve VT 76 20 20 48 DE NE 60 [...] ti RA 11 9- 00 SI ve VT 76 20 20 48 DE NE 60 [...] LO 20 5- 9 00 SI ve IN 00 20 20 [...] 11 3- 8- 00 00 SI ve VT 76 20 20 48 DE NE 60 [...] RA 11 3- 1- 00 SI ve VT 76 20 20 47 DE NE 60 [...] NT ET HI AN A IN C IN 59 12 01 12 [...] DOS Code Location Performer Comment SKIN TEST 53184 [facility] DEPT SIS DONOVAN DONOVAN INTRADERM AL PURE TONE 61390 EAR, NOSE SHASHY 7 AND AUDIOMETR THROAT Y AIR SPECIAL ONLY TYMPANOME 06492 EAR, NOSE SHASHY TRY 7 AND THROAT SPECIAL APPL 79065 [facility] MODALITY 7 [facility] 1/> AREAS INC INC ULTRASOUN D EA 15 MIN MANUAL 84402 [facility] THERAPY 7 [facility] TQS 1/> INC INC REGIONS EACH 15 MINUTES TYMPANOME 45292 EAR, NOSE SHASHY TRY 7 AND THROAT SPECIAL COMPRE 75366 EAR, NOSE SHASHY AUDIOMETR 7 AND Y THROAT THRESHOLD SPECIAL EVAL SP RECOGNIJ THERAPEUT 02089 [facility] IC 7 [facility] PROPHYLAC INC INC TIC/DX INJECTION SUBQ/IM UNCLASSIF J3490 [facility] IED DRUGS 7 [facility] INC INC RADEX 92896 [facility] WRIST 7 MEDICAL COMPLETE IMAGING MINIMUM 3 ASS VIEWS RADEX 93798 [facility] HAND 7 MEDICAL MINIMUM 3 IMAGING VIEWS ASS UNCLASSIF J3490 [facility] IED DRUGS 7 [facility] INC INC COMPREHEN 62397 [facility] SIVE 7 [facility] [place] [address] [facility] ESTROGENS 7 [facility] TOTAL INC INC GONADOTRO 40408 [facility] PIN 7 [facility] FOLLICLE INC INC STIMULATI NG HORMONE GONADOTRO 22993 [facility] PIN 7 [facility] LUTEINIZI INC INC NG HORMONE INJECTION J1100 [facility] BEN 7 PHYSICIAN DEXAMETHO GROUP SONE SODIUM PHOSPHATE 1 MG THERAPEUT 50005 [facility] BEN IC 7 PHYSICIAN PROPHYLAC GROUP TIC/DX INJECTION SUBQ/IM THER 39617 [facility] PROPH/DX 7 [facility] NJX IV INC INC PUSH SINGLE/1S T SBST/[place] [address] [facility] ABDOMEN & 7 MEDICAL PELVIS IMAGING W/O ASS CONTRAST MATERIAL COMPREHEN 84152 [facility] SIVE 7 [facility] METABOLIC INC INC PANEL FINAL G9638 [facility] REPORTS 7 MEDICAL W/O DOC IMAGING 1/[place] [address] [facility] AMYLASE 7 [facility] INC INC BLOOD 80147 [facility] COUNT 7 [facility] COMPLETE INC INC AUTO&[place] [address] [facility] LIPASE 7 [facility] INC INC URNLS DIP 69074 [facility] 7 [facility] STICK/TAB INC INC LET REAGENT AUTO MICROSCOP Y URINE 65075 [facility] 7 [facility] TEST INC INC VISUAL COLOR CMPRSN METHS FINAL G9551 [facility] REPR ABD 7 MEDICAL IMAG STS IMAGING W/O ASS INCIDNT FND LES NTD: RADEX 93651 [facility] SPINE 6 MEDICAL LUMBOSACR IMAGING AL ASS MINIMUM 4 VIEWS OPHTH 68882 [facility] 6 JAM JAM XM&EVAL INTERMEDI ATE NEW PT DETERMINA 65745 [facility] 6 [place] [address] [facility] ALL ABDOMEN & 6 MEDICAL PELVIS IMAGING W/O ASS CONTRAST MATERIAL RADIOLOGI 50305 [facility] NAA C 6 MEDICAL GIO EXAMINATI IMAGING ON CHEST ASS SINGLE VIEW FRONTAL INCISION 00010 [facility] GUNTER & 6 PHYSICIAN SEPIDEH DRAINAGE S, PLLC ABSCESS COMPLICAT ED/MULTIP LE SUSCEPTIB 31985 [facility] LTY STDY 6 [facility] ANTIMICRB INC INC IAL MICRO/AGA R DILUTJ CUL BACT 16432 [facility] XCPT 6 [facility] URINE INC INC BLOOD/STO OL AEROBIC ISOL CUL BACT 63548 [facility] AEROBIC 6 [facility] ADDL INC INC METHS DEFINITIV E EA ISOL CUR MEDS G8428 [facility] NO DOC 6 [facility] OBDT INTERNAL INTERNAL UPD/REV MED MED ELIG CLIN RSN N GVN COMPRE 49981 NIKKI JORDAN AUDIOMETR 6 KADEN KADEN Y THRESHOLD EVAL SP RECOGNIJ IAADIADOO 53676 [facility] LION 6 PHYSICIAN STREPTOCO GROUP CCUS GROUP A NATRIURET 90700 [facility] IC 6 [facility] [place] [address] [facility] TROPONIN 6 [facility] QUANTITAT INC INC [place]ISH RADIOLOGI 83663 [facility] C EXAM 6 MEDICAL CHEST 2 IMAGING VIEWS ASS FRONTAL&L ATERAL ECG 57938 [facility] FOREMAN ROUTINE 6 [facility] W/LEAST P 12 LDS I&R ONLY PRESSURIZ 94617 [facility] ED/NONPRE 6 [facility] SSURIZED INC INC INHALATIO N TREATMENT RADIOLOGI 11435 [facility] C 6 [facility] EXAMINATI INC INC ON NECK SOFT TISSUE CREATINE 68540 [facility] KINASE MB 6 [facility] FRACTION INC INC ONLY COMPREHEN 83331 [facility] SIVE 6 [facility] METABOLIC INC INC PANEL ECG 98177 [facility] ROUTINE 6 [facility] ECG INC INC W/LEAST 12 LDS TRCG ONLY W/O I&R THERAPEUT 71851 [facility] IC 6 [facility]OS[facility] PROPHYLAC INC INC TIC/DX INJECTION SUBQ/IM BLOOD 55555 [facility] COUNT 6 [facility] COMPLETE INC INC AUTO&AUTO DIFRNTL WBC FIBRIN 18489 [facility] DGRADJ 6 [facility] PRODUCTS INC INC D-DIMER QUAL/SEMI LAUREANO CREATINE 60945 [facility] KINASE 6 [facility] TOTAL INC INC ANES 26825 [facility] FEEBACK XTRNL MID 6 ANESTH REE & INNER OF THE EAR W/BX BLUE TYMPANOTO MY URINE 87118 [facility]D 6 [facility] TEST INC [place] [address] [facility] INFUSION 6 [facility] THERAPY/P INC INC ROPHYLAXI S /DX 1ST TO 1 HR THERAPEUT 17793 [facility] IC 6 [facility] INJECTION INC INC IV PUSH EACH NEW DRUG INJECTION J2405 DEB BOYD 6 [facility] ONDANSETR INC INC ON HCL PER 1 MG TYMPANOST 76307 [facility] DE 6 [facility] [address] [facility] INFUSION 6 [facility] THERAPY INC INC PROPHYLAX IS/DX EA HOUR RADEX 62201 [place] [facility] ALL HAND 2 6 MEDICAL VIEWS IMAGING ASS THERAPEUT 61510 [facility] TER IC 6 PHYSICIAN PROPHYLAC S GROUP TIC/DX INJECTION SUBQ/IM INJECTION J1040 [facility] [place] TER 6 PHYSICIAN METHYLPRE S GROUP DNISOLONE ACETATE 80 MG IADNA-DNA 11501 [facility] /RNA GI 6 [facility] PTHGN INC INC MULTIPLEX PROBE TQ 12-25 PHYSICAL 27876 DEB BOYD THERAPY 6 [facility] EVALUATIO INC INC N ANES 84535 [facility] TAMARA XTRNL MID 5 ANESTH LASHAUN & INNER OF THE EAR W/BX BLUE TYMPANOTO MY TYMPANOST 94065 [facility] JORDAN DE 5 PHYSICIAN KADEN GENERAL S GROUP ANESTHESI A GONADOTRO 24969 DEB BOYD PIN 5 [facility] CHORIONIC INC INC QUALITATI VE BLOOD 09308 DEB BOYD COUNT 5 [facility] COMPLETE INC INC AUTO&AUTO DIFRNTL WBC BASIC 17846 DEB BOYD METABOLIC 5 [facility] PANEL INC INC CALCIUM TOTAL COLLECTIO 27930 [facility] N VENOUS 5 [facility] BLOOD INC INC VENIPUNCT URE DIAGNOSTI G0206 [facility] C 5 [facility] MAMMOGRAP INC INC HY INCL CAD WHEN PERF; UNI IAADIADOO 08025 [facility] MED GROUP A SCREENING G0202 [facility]D 5 [facility] MAMMOGRAP INC INC HY KARYNA INCL CAD WHEN PERFORMD COMPUTER- 18434 DE[facility] AIDED 5 [facility] DETECTION INC INC SCREENING MAMMOGRAP HY RADEX 22898 [facility] HAND 5 [facility] MINIMUM 3 INC INC VIEWS SCREENING 87712 [facility] DEPT ACUITY [place] QUANTITAT [place]ISH BILAT RADEX 55114 [facility] FOOT 5 [facility] COMPLETE [place] [address] [place] [address] [place] MAXILLOFA 5 MEDICAL CIAL W/O IMAGING CONTRAST ASS MATERIAL COMPRE 44384 NIKKI JORDAN AUDIOMETR 5 KADEN KADEN Y THRESHOLD EVAL SP RECOGNIJ TYMPANOME 83740 NIKKI JORDAN TRY 5 KAD[facility] KADEN DISTORT 43973 JORDAN JORDAN PRODUCT 5 KADEN KADEN EVOKED OTOACOUST IC EMISNS LIMITD INJECTION J0696 [facility] AND 5 [facility] CEFTRIAXO INTERNAL NE SODIUM MED PER 250 MG INJECTION J3301 [facility] AND 5 [facility] TRIAMCINO INTERNAL LONE MED ACETONIDE NOS 10 MG THERAPEUT 02881 [place] [facility] AND IC 5 [facility] PROPHYLAC INTERNAL TIC/DX MED INJECTION SUBQ/IM ANES 40419 [facility] NERVE 5 ANESTH SHE MUSCLE OF THE TDN BLUE FASCIA&BU RSA FOREARM WRIST EXCISION 73514 [facility] PETTEY LESION 5 PHYSICIAN ROXANE TENDON S GROUP SHEATH FOREARM&/ WRIST REPAIR 66462 [facility] COMPLEX 5 [facility] SCALP/ARM INC INC /LEG 2.6-7.5 CM MRI UPPER 82375 [place] NAA 5 MEDICAL EXTREMITY IMAGING OTH THAN ASS JT W/O CONTR MATRL COLLECTIO 41528 [facility] N VENOUS 5 [facility] BLOOD INC INC VENIPUNCT URE GONADOTRO 70984 [facility] PIN 5 [facility] CHORIONIC INC INC QUALITATI VE THERAPEUT 29205 [place] [facility] IC 5 [facility] SOP[facility]IE PROPHYLAC INTERNAL TIC/DX MED INJECTION SUBQ/IM INJECTION J3301 [facility] 5 [facility] TRIAMCINO INTERNAL LONE MED ACETONIDE NOS 10 MG IAADIADOO 50436 [place] [facility] 4 [facility] INFLUENZA INTERNAL MED INJECTION J0696 [place] [facility] AND 4 [facility] CEFTRIAXO INTERNAL NE SODIUM MED PER 250 MG THERAPEUT 82067 [facility] USERY AND IC 4 [facility] PROPHYLAC INTERNAL TIC/DX MED INJECTION SUBQ/IM THERAPEUT 73940 [facility] LYRIC IC 4 PHYSICIAN SEPIDEH PROPHYLAC S GROUP TIC/DX INJECTION SUBQ/IM INJECTION [id number] [facility] LYRIC 4 PHYSICIAN SEPIDEH KETOROLAC S GROUP TROMETHAM INE PER 15 MG URNLS DIP 85868 [facility] 4 VALLEY SOPHIE STICK/TAB INTERNAL LET RGNT MED NON-AUTO W/O MICRSCP CULTURE 12380 COMBINED COMBINED BACTERIAL 4 PHYSICIAN PHYSICIAN S LA S LA QUANTTATI VE COLONY COUNT URINE LIPID 38034 [facility] PANEL 4 [facility] INC INC COMPREHEN 09639 [facility] SIVE 4 [facility] METABOLIC INC INC PANEL TDAP 39062 [facility] YRS/> IM HLTH DEPT HLTH DEPT DONOVAN DONOVAN CYTP 23778 [facility], [facility] CERV/VAG 4 LLC ER JR JARED AUTO THIN LAYER PREP MNL SCREEN HEPATIC 00151 [facility] FUNCTION 4 [facility] [place] [address] [facility] THYROXINE 4 [facility] [place] [address] DE[facility] THYROID 4 [facility] STIMULATI INC INC NG HORMONE TSH THYROID 37132 DE[facility] HORM 4 [facility] UPTK/THYR INC INC OID HORMONE BINDING RATIO RADIOLOGI 25922 INDIRA EVERETT C 4 EXAMINATI ON NECK SOFT TISSUE US SOFT 43577 [facility] TISSUE 4 N N HEAD & COMMUNTIY COMMUNTIY NECK [place] [address] NAA NAA MAXILLOFA 4 GIO GIO CIAL W/O CONTRAST MATERIAL CT SOFT 47727 [facility] TISSUE 4 [facility] NECK INC INC W/CONTRAS T MATERIAL CULTURE 09692 COMBINED COMBINED BACTERIAL 4 PHYSICIAN PHYSICIAN Oziel CARDENAS S LA QUANTTATI VE COLONY COUNT URINE LOCM Q9967 DEB BOYD 300-399 4 [facility] MG/ML INC INC IODINE CONCENTRA TION PER ML IM ADM 22782 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 PRQ ID 4 SOPHIE SOPHIE SUBQ/IM NJXS 1 VACCINE INJECTION J0696 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 4 SOPHIE SOPHIE CEFTRIAXO NE SODIUM PER 250 MG COMPREHEN 83121 [facility] SIVE 4 [facility] METABOLIC INC INC PANEL LIPID 56768 DEB DEB PANEL 4 [facility] INC INC TYMPANOME 25526 EAR, NOSE MARY TRY 4 AND KEHINDE THROAT SPECIAL LARYNGOSC 58789 EAR, NOSE MARY OPY 4 AND KEHINDE FLEXIBLE THROAT DIAGNOSTI SPECIAL C PURE TONE 13067 EAR, NOSE MARY 4 AND KEHINDE AUDIOMETR THROAT Y AIR SPECIAL ONLY SPEECH 43387 EAR, NOSE MARY AUDIOMETR 4 AND KEHINDE Y THROAT THRESHOLD SPECIAL INJECTION J0696 [facility] 4 PHYSICIAN PHYSICIAN CEFTRIAXO S GROUP S GROUP NE SODIUM PER 250 MG URNLS DIP 96889 [facility] 4 PHYSICIAN PHYSICIAN STICK/TAB S GROUP S GROUP LET RGNT NON-AUTO W/O MICRSCP THERAPEUT 63719 [facility] IC 4 PHYSICIAN PHYSICIAN PROPHYLAC S GROUP S GROUP TIC/DX INJECTION SUBQ/IM I&D DEEP 28457 C JAYDE SCHULSTMIKE ABSC 1 DEVIN NINO BURSA/HEM PSC ATOMA THIGH/[place] [address] DEB [facility] INFUSION 1 [facility] THERAPY INC INC PROPHYLAX IS/DX EA HOUR LEVEL III 86200 [facility]IPPS RICH SURG 1 [facility] PATHOLOGY DUBILIER GROSS&SEPIDEH ROSCOPIC EXAM OTHER 8309 DEBVITALIY BOYD INCISION 1 [facility] OF SOFT INC INC TISSUE GONADOTRO 78575 DEB BO[facility] PIN 1 [facility] CHORIONIC INC INC QUALITATI VE BLOOD 04924 DEB DEB COUNT 1 [facility]OSP COMPLETE INC INC AUTO&AUTO DIFRNTL WBC SUSCEPTIB 14562 [facility] LTY STDY 1 [facility]P ANTIMICRB INC INC IAL MICRO/[place] [address] DEBVITALIY [place] INFUSION 1 [facility] THERAPY INC [place] [address] DEB [facility] INFUSION 1 [facility] THERAPY/P INC INC ROPHYLAXI S /DX 1ST TO 1 HR BASIC 43725 DE[facility] BO[facility] METABOLIC 1 [facility] PANEL INC INC CALCIUM TOTAL CUL BACT 34254 [facility] AEROBIC 1 [facility] ADDL INC INC METHS DEFINITIV E EA ISOL CUL BACT 88388 [facility] XCPT 1 [facility] URINE INC INC BLOOD/STO OL AEROBIC ISOL RADEX 73325 CARRANZA, CARRANZA, CALCANEUS 9 DON R DON R MINIMUM 2 VIEWS COMPRE 40974 NIKKI JORDAN, AUDIOMETR 9 WIN Null Y THRESHOLD EVAL SP RECOGNIJ ACOUSTIC 81299 NIKKI JORDAN, REFLEX 9 WIN Null THRESHOLD TYMPANOME 08384 NIKKI JORDAN, TRY 9 WIN Null Encounters Encounter Start End Date Code Location Performer Type Date OFFICE 09816 [facility] T VISIT 5 HLTH DEPT HLTH DEPT MINUTES DONOVAN DONOVAN OFFICE 98074 [facility] 7 [facility] T VISIT [facility] DEPT [facility] DEPT 10 [facility] DONOVAN MINUTES OFFICE 31554 EAR, NOSE SHASHY OUTPATIEN 7 7 AND T VISIT THROAT 25 SPECIAL MINUTES OFFICE 66018 EAR, NOSE SHASHY OUTPATIEN 7 7 AND T VISIT THROAT 25 SPECIAL MINUTES OFFICE 44147 [facility] PETTEY OUTPATIEN 7 7 PHYSICIAN T VISIT S GROUP 15 MINUTES OFFICE 76683 EAR, NOSE SHASHY OUTPATIEN 7 7 AND T VISIT THROAT 15 SPECIAL MINUTES HOSPITAL DEB - 7 7 [facility] OUTPATIEN INC T OFFICE 16878 [facility] OUTPATIEN 7 7 VALLEY T VISIT INTERNAL 15 MED MINUTES OFFICE 45710 EAR, NOSE SHASHY OUTPATIEN 7 7 AND T VISIT THROAT 25 SPECIAL MINUTES OFFICE 90401 [facility]B OUTPATIEN 7 7 [facility] T VISIT 5 INC MINUTES HOSPITAL DEB - 7 7 [facility] OUTPATIEN INC T OFFICE 59101 [facility] OUT[facility] 7 7 VALLEY T VISIT INTERNAL 15 MED MINUTES OFFICE 47101 [facility] OUTPATIEN 7 7 VALLEY T VISIT INTERNAL 15 MED MINUTES HOSPITAL DEB - 7 7 [facility] OUTPATIEN INC T OFFICE 92229 [facility] OUTPATIEN 7 7 VALLEY T VISIT INTERNAL 15 MED MINUTES OFFICE 81318 DEB OUTPATIEN 7 7 [facility] T VISIT 5 INC MINUTES HOSPITAL DEB - 7 7 [facility] OUTPATIEN INC T HOSPITAL DEB - 7 7 [facility] OUTPATIEN INC T OFFICE 51467 [facility] [place] JR OUTPATIEN 7 7 [facility] 10 P MINUTES OFFICE 73105 [facility] OUTPATIEN 7 7 VALLEY T VISIT INTERNAL 15 MED MINUTES OFFICE 22272 [facility] [place] JR OUTPATIEN 7 7 [facility] 20 HOSPITAL MINUTES P OFFICE 27948 [facility] BEN OUTPATIEN 7 7 PHYSICIAN T VISIT GROUP 25 MINUTES OFFICE 25124 [facility] BEN OUTPATIEN 7 7 PHYSICIAN T VISIT GROUP 25 MINUTES HOSPITAL DEB - 7 7 [facility] OUTPATIEN INC T EMERGENCY 11214 DEB 7 7 [facility] DEPARTMEN INC T VISIT MODERATE SEVERITY OFFICE 77155 [facility] JORDAN OUTPATIEN 7 7 PHYSICIAN T VISIT S GROUP 15 MINUTES OFFICE 54222 [facility] OUTPATIEN 6 6 VALLEY T VISIT INTERNAL 25 MED MINUTES EMERGENCY 95640 PAMELA ANAYA, 6 6 PHYSICIAN JR DEPARTMEN S, PLLC T VISIT HIGH/URGE NT SEVERITY OFFICE 97109 [facility] OUTPATIEN 6 6 VALLEY SOPHIE T VISIT INTERNAL 15 MED MINUTES EMERGENCY 19671 PAMELA DAIGLE DIAMOND DEPT 6 6 PHYSICIAN VISIT S, PLLC HIGH SEVERITY& THREAT FUNCJ EMERGENCY 44730 PAMELA GUNTER 6 6 PHYSICIAN SEPIDEH DEPARTMEN S, PLLC T VISIT MODERATE SEVERITY EMERGENCY 77561 DEB 6 6 [facility] DEPARTMEN INC T VISIT LOW/MODER SEVERITY HOSPITAL DEB - 6 6 [facility] OUTPATIEN INC T OFFICE 95195 [facility] OUTPATIEN 6 6 VALLEY SOPHIE T VISIT INTERNAL 15 MED MINUTES OFFICE 91023 [facility] JORDAN OUTPATIEN 6 6 PHYSICIAN KADEN T VISIT S GROUP 15 MINUTES OFFICE 01152 [facility] ANGELICA OUTPATIEN 6 6 VALLEY ANNE MARIE T VISIT INTERNAL 15 MED MINUTES OFFICE 31114 [facility] LION OUTPATIEN 6 6 PHYSICIAN T VISIT GROUP 15 MINUTES EMERGENCY 55334 DEB 6 6 [facility] DEPARTMEN INC T VISIT HIGH/URGE NT SEVERITY HOSPITAL DEB - 6 6 [facility] OUTPATIEN INC T EMERGENCY 80136 PAMELA MERINO DEPT 6 6 PHYSICIAN U SAURABH VISIT S, PLLC HIGH SEVERITY& THREAT FUNJ OFFICE 83625 [facility] NEGIN OUTPATIEN 6 6 PHYSICIAN SOMMERS T VISIT S GROUP 25 MINUTES OFFICE 95295 [facility] JORDAN OUTPATIEN 6 6 PHYSICIAN KADEN T VISIT S GROUP 15 MINUTES HOSPITAL DEB - 6 6 [facility] OUTPATIEN INC T OFFICE 15227 [facility] JORDAN OUTPATIEN 6 6 PHYSICIAN KADEN T VISIT S GROUP 10 MINUTES OFFICE 10735 [facility] [place] TER OUTPATIEN 6 6 PHYSICIAN T VISIT S GROUP 15 MINUTES HOSPITAL DEB - 6 6 [facility] OUTPATIEN INC T OFFICE 25167 [facility] OUTPATIEN 6 6 VALLEY SOPHIE T VISIT INTERNAL 25 MED MINUTES HOSPITAL DEB - 6 6 [facility] OUTPATIEN INC T OFFICE 11063 [facility] ADITI OUTPATIEN 6 6 PHYSICIAN SEPIDEH T VISIT S GROUP 15 MINUTES OFFICE 47101 EAR, NOSE SHASHY OUTPATIEN 6 6 AND SARITA T VISIT THROAT 25 SPECIAL MINUTES EMERGENCY 37302 PAMELA PALMA [facility] 5 5 PHYSICIAN DEPARTMEN S, PLLC T VISIT MODERATE SEVERITY HOSPITAL DEB - 5 5 [facility] OUTPATIEN INC T EMERGENCY 14280 DEB 5 5 [facility] DEPARTMEN INC T VISIT LIMITED/M INOR PROB OFFICE 51492 [facility] JAMIA OUTPATIEN 5 5 IVONNE MARIETTA T VISIT 15 MINUTES OFFICE 50675 [facility] OUTPAT[facility]EN [address] [facility] T VISIT INTERNAL 15 MED MINUTES HOSPITAL DEB - 5 5 [facility] OUTPATIEN [facility] DEB - 5 5 [facility] OUTPATIEN INC T OFFICE [address] [address] OUTPATIEN 5 5 [facility] 10 MINUTES OFFICE [address] OUTPATIEN [address] [facility] [facility] 10 MINUTES HOSPITAL DEB - 5 5 [facility] OUTPATIEN INC T OFFICE 11174 [facility] OUTPATIEN 5 5 [facility] B[facility] SOPHIE T VISIT INTERNAL 15 MED MINUTES OFFICE 41106 [facility] JORDAN OUTPATIEN 5 5 PHYSICIAN KADEN T VISIT S GROUP 15 MINUTES OFFICE 85197 [facility] JAMIA OUTPATIEN 5 5 IVONNE MARIETTA T NEW 30 MINUTES HOSPITAL DEB - 5 5 [facility] OUTPATIEN INC T OFFICE 24909 [facility] OUTPATIEN 5 5 [facility]IE T VISIT INTERNAL 15 MED MINUTES HOSPITAL DEB - 5 5 [facility] OUTPATIEN INC T PERIODIC 00760 [facility] MED EST HLTH DEPT HLTH DEPT PATIENT DONOVAN DONOVAN 40-64YRS OFFICE 64357 [facility] JORDAN OUTPATIEN 5 5 PHYSICIAN KADEN T VISIT S GROUP 10 MINUTES OFFICE 91303 [facility] ANGELICA OUTPATIEN 5 5 [facility] T VISIT INTERNAL 15 MED MINUTES HOSPITAL DEB - 5 5 [facility] OUTPATIEN INC T HOSPITAL DEB - 5 5 [facility] OUTPATIEN INC T OFFICE 05738 [facility] JORDAN OUTPATIEN 5 5 PHYSICIAN KADEN T VISIT S GROUP 15 MINUTES OFFICE 00810 [facility] US[facility] AND OUTPATIEN 5 5 VALLEY T VISIT INTERNAL 15 MED MINUTES OFFICE 10476 [facility] JORDAN OUTPATIEN 5 5 PHYSICIAN KADEN T VISIT S GROUP 15 MINUTES EMERGENCY 43385 PAMELA MERINO 5 5 PHYSICIAN U SAURABH [facility]PARTMEN S, [facility] T VISIT MODERATE SEVERITY HOSPITAL DEB - 5 5 [facility]EN INC T HOSPITAL DEB - 5 5 [facility] OUTPATIEN INC T HOSPITAL DEB - 5 5 [facility] OUTPATIEN INC T OFFICE 62302 [facility] OUTPATIEN 5 5 [facility] SOP[facility]IE T VISIT INTERNAL 15 MED MINUTES HOSPITAL DEB - 5 5 [facility] OUTPATIEN INC T EMERGENCY 07113 DEB 5 5 [facility] DEPARTMEN INC T VISIT LOW/MODER SEVERITY OFFICE 24355 [facility] OUTPATIEN 4 4 VALLEY SOPHIE T VISIT INTERNAL 15 MED MINUTES OFFICE 08782 [facility] PETTEY OUTPATIEN 4 4 PHYSICIAN JAM T NEW 30 S GROUP MINUTES OFFICE 76953 [facility] OUTPATIEN 4 4 VALLEY SOPHIE T VISIT INTERNAL 15 MED MINUTES OFFICE 97024 [facility] 4 4 VALLEY T VISIT INTERNAL 15 MED MINUTES OFFICE 43055 [facility] OUTPATIEN 4 4 VALLEY T VISIT INTERNAL 15 MED MINUTES OFFICE 68951 [facility] LYRIC OUTPATIEN 4 4 PHYSICIAN SEPIDEH T VISIT S GROUP 15 MINUTES HOSPITAL DEB - 4 4 [facility] OUTPATIEN INC T OFFICE 51572 [facility] MASOODSON OUTPATIEN 4 4 VALLEY SOPHIE T VISIT INTERNAL 25 MED MINUTES INITIAL 15232 [facility] 4 4 [facility] DEPT [facility] DEPT MEDICINE DONOVAN KOHLI PT AGE 18-[facility] DEB - 4 4 [facility] OUTPATIEN INC T OFFICE 46406 M[facility] HERNANDEZ OUTPATIEN 4 4 KEHINDE KEHINDE T VISIT 25 MINUTES HOSPITAL DEB - 4 4 [facility] OUTPATIEN INC T [facility]OSP[facility] [place] - 4 4 N OUTPATIEN COMMUNTIY T HOSPITA OFFICE 27957 [facility] HERNANDEZ OUTPATIEN 4 4 KEHINDE KEHINDE T VISIT 25 MINUTES OFFICE 01037 [facility] OUTPATIEN 4 4 SOPHIE T VISIT 15 MINUTES HOSPITAL DEB - 4 4 [facility] OUTPATIEN INC T OFFICE 65219 [facility] OUTPATIEN 4 4 SOPHIE T VISIT 15 MINUTES HOSPITAL DEB - 4 4 [facility] OUTPATIEN INC T OFFICE 49072 [facility] OUTPATIEN 4 4 PHYSICIAN T VISIT S GROUP 10 MINUTES OFFICE 92247 EAR, NOSE MARY CONSULTAT 4 4 AND KEHINDE ION THROAT NEW/ESTAB SPECIAL PATIENT 60 MIN OFFICE 33985 NIKKI JORDAN OUTPATIEN 4 4 KADEN KADEN T VISIT 15 MINUTES HOSPITAL DEB - 1 1 [facility] OUTPATIEN INC T OFFICE 32705 Marybel BELTRAN CONSULTAT 1 1 DEVIN VARGAS MD PSC NEW/ESTAB PATIENT 60 MIN OFFICE 91195 DILLON CARRANZA OUTPATIEN 1 1 DON DON T VISIT 15 MINUTES HOSPITAL DEB - 1 1 [facility] OUTPATIEN INC T OFFICE 01827 CARRANZA CARRANZA OUTPATIEN 1 1 DON DON T VISIT 15 MINUTES EMERGENCY 83495 RICH GUNTER 1 1 EMERGENCY [facility] SERVICES T VISIT HIGH/URGE NT SEVERITY [facility] DEB - 1 1 [facility] OUTPATIEN INC T OFFICE 15664 CARRANZA CARRANZA OUTPATIEN 1 1 DON DON T VISIT 15 MINUTES OFFICE 94714 D[facility]ON CARRANZA OUTPATIEN 9 9 DON R DON R T VISIT 15 MINUTES OFFICE 74570 [facility] CARRANZA OUTPATIEN 9 9 DON R DON R T VISIT 15 MINUTES OFFICE 50041 [facility] CARRANZA OUTPATIEN 9 9 DON R DON R T VISIT 15 MINUTES OFFICE 74037 [facility] CARRANZA OUTPATIEN 9 9 DON R DON R T VISIT 15 MINUTES OFFICE 10204 NIKKI JORDAN, OUTPATIEN 9 9 WIN Null T VISIT 10 MINUTES OFFICE 66903 NIKKI JORDAN, OUTPATIEN 9 9 WIN Null T NEW 30 MINUTES OFFICE 43624 D[facility]ON CARRANZA OUTPATIEN 9 9 DON R DON R T VISIT 15 MINUTES OFFICE 99735 [facility] CARRANZA OUTPATIEN 9 9 DON R DON R T VISIT 15 MINUTES OFFICE 83500 [facility] CARRANZA OUTPATIEN 9 9 DON R DON R T VISIT 5 MINUTES OFFICE 24170 [facility] CARRANZA OUTPATIEN 9 9 DON R DON R T VISIT 15 MINUTES
--- OUTSIDE RECORDS SUMMARY | 2016-11-26 16:29 | External Medical Summary Rpt ---
Author Author [employer] Herring, [employer] Address Unknown Phone Unavailable Results Streptococcus pyogenes Ag [Presence] in Unspecified specimen Observa Value Referen Units Interpr Notes Date tion ce etation Range Strepto NOT NOTDETE No No LOT # Sep 9 coccus DETECTE CTED informa informa N/A EXP 2016 pyogene D tion in tion in DATE 11:55 s Ag source source N/A AM [Presen data data ce] in Unspeci fied specime n
--- OUTSIDE RECORDS SUMMARY | 2016-11-26 16:29 | External Medical Summary Rpt | CCD ---
Author Author , DIMITRIOS PLUNKETT Address Unknown Phone [email or web address] Immunization Name Date Rout CVX Reac Dose Comm Prov Is Faci e tion ent ider Refu lity Give sed n Hep 09-2 43 999 Hist SD No SD B, 1-20 oric adul 17 al t Info rmat ion - Sour ce Unsp ecif ied Tdap 09-0 115 999 Hist H149 No H149 , 9-20 oric Adso 14 al rbed Info rmat ion - Sour ce Unsp ecif ied
--- OUTSIDE RECORDS SUMMARY | 2016-11-26 16:29 | External Medical Summary Rpt | CCD ---
Author Author , DIMITRIOS PLUNKETT Address Unknown Phone [email or web address] Immunization Name Date Rout CVX Reac Dose Comm Prov Is Faci e tion ent ider Refu lity Give sed n Hep 09-2 43 999 Hist [place] No [place] B, 1-20 oric adul 17 al t Info rmat ion - Sour ce Unsp ecif ied Tdap 09-0 115 999 Hist H149 No H149 , 9-20 oric Adso 14 al rbed Info rmat ion - Sour ce Unsp ecif ied
== END 2016-11-20 20:45 | disposition home or self-care (01) ==
LOC: UTC 19:45
DX: M62.838 Other muscle spasm (principal); Z88.6 Allergy status to analgesic agent; K21.9 Gastro-esophageal reflux disease without esophagitis; F17.210 Nicotine dependence, cigarettes, uncomplicated; F41.8 Other specified anxiety disorders